=== PATIENT | female | born 1960 | race African-American/Black ===

== ENCOUNTER 2017-02-08 15:33 | Inpatient (IN) | payer MEDICARE, OTHER ==
[~2017-02-08] VITALS: Ht 152.4 cm; Wt 73.1 kg
[~2017-02-08 15:33] MED LIST: ACET500T68 PO; ALPR0.254 PO; AMLO10TA2 PO; ATOR20TA58 PO; B CO1TAB12 PO; B1/B1TAB2 PO; CALC500T27 PO; CETI10CA PO; CHOL20004 PO; CLON0.2T PO; CLON1PAT2 TD; CLON1PAT3 TD; CLOP75TA PO; DIAZ5TAB4 PO; DIPH25CA3 PO; DOXE4VIA IV; EPOE10002 IJ; FOLI0.8T21 PO; FOLI0.8T3 PO; HALO5VIA2 IJ; HYDR28OI2 TP; INSU100V SQ; INSU100V13 SQ; LIDO5CRE14 TP; LISI40TA PO; LORA0.5T PO; MAG355OR12 PO; MAGN400O4 PO; METO25TA4 PO; NITR0.4T SL; OMEG-33 PO; OMEG1CAP38 PO; ONDA4VIA4 IJ; OXYC10TA PO; OXYC5TAB PO; OXYM15MI4 NS; PHEN28OI RC; POLY17PO29 PO; PSEU30TA24 PO; QUET25TA PO; QUET50TA5 PO; SENN8.6C2 PO; SEVE800T9 PO; SODI45SP NS; VENL75CA PO; WARF5TAB7 PO; ZOLP10TA PO; [UNRECOGNIZED DRUG - CODE] MM; [UNRECOGNIZED DRUG - CODE] PO
[2017-02-08] MEDS ORDERED: DEXTROSE 50% 25 GM / 50ML DISP.SYRIN. IV ONE ×2 (15:49→16:00)
--- NOTE | 2017-02-08 16:00 | PHYS DOC ---
Past Medical History Past Medical History: Anemia, Anxiety, CVA, Diabetes-Type II, High Cholesterol , Hypertension, [place], Pneumonia, Renal Disease, Renal Failure, Schizophrenia, Other Additional Past Medical Histor: DIALYSIS PATIENT Past Surgical History: Hysterectomy, Other Additional Past Surgical Histo: shunt placement left arm, I&D of hip Alcohol Use: None Drug Use: None Adult General Chief Complaint Chief Complaint: HYPOGLYCEMIA HPI HPI Patient is a 56 year old female who presents with lethargy. Patient was at dialysis when her symptoms suddenly occurred. Patient was brought to the emergency department by EMS. Patient has history of insulin-dependent diabetes mellitus and end-stage renal disease. The patient currently responds to voice but appears very lethargic and is not providing much history at this time. Patient denies any complaints. Patient reportedly received a full course of dialysis. Patient denies any recent illnesses. No further information available at time of history taking. Review of Systems Review of Systems Patient lethargic but denies any complaints at this time Constitutional: Denies fever or chills [] Eyes: Denies change in visual acuity, redness, or eye pain [] HENT: Denies nasal congestion or sore throat [] Respiratory: Denies cough or shortness of breath [] Cardiovascular: No additional information not addressed in HPI [] GI: Denies abdominal pain, nausea, vomiting, bloody stools or diarrhea [] : Denies dysuria or hematuria [] Musculoskeletal: Denies back pain or joint pain [] Integument: Denies rash or skin lesions [] Neurologic: Denies headache, focal weakness or sensory changes [] Current Medications Current Medications Current Medications Medications (Trade) Dose Ordered Sig/Mona Start Time Stop Time Status Last Admin Dose Admin Ceftriaxone Sodium 50 ml @ 100 mls/hr 1X ONCE 02/08/17 16:45 02/08/17 17:14 DC 02/08/17 16:58 100 MLS/HR Dextrose (Dextrose 50%-Water Syringe) 25 gm STK-MED ONCE 02/08/17 15:49 02/08/17 15:50 DC Allergies Allergies Allergies Coded Allergies Type Severity Reaction Last Updated Verified Sulfa (Sulfonamide Antibiotics) Allergy Intermediate 06/29/16 Yes cranberry Allergy Intermediate 07/14/16 Yes grapefruit Allergy Intermediate 07/14/16 Yes Physical Exam Physical Exam Constitutional: Lethargic, responds to voice, normotensive. [] HENT: Normocephalic, atraumatic, bilateral external ears normal, oropharynx moist, no oral exudates, nose normal. [] Eyes: PERRLA, EOMI, conjunctiva normal, no discharge. [] Neck: Normal range of motion, no tenderness, supple, no stridor. [] Cardiovascular: Tachycardia, regular rhythm, no murmur [] Lungs & Thorax: Bilateral breath sounds clear to auscultation [] Abdomen: Bowel sounds normal, soft, no tenderness, no masses, no pulsatile masses. [] Skin: Warm, dry, no erythema, no rash. [] Back: No tenderness, no CVA tenderness. [] Extremities: Left upper arm dialysis fistula, no tenderness, no cyanosis, no clubbing, ROM intact, trace pedal edema bilaterally. [] Neurologic: Lethargic, normal motor function, normal sensory function, no focal deficits noted. [] Current Patient Data Vital Signs Vital Signs Date Time Temp Pulse Resp B/P (MAP) Pulse Ox O2 Delivery O2 Flow Rate FiO2 02/08/17 16:42 104 18 135/74 (94) 99 Room Air 02/08/17 15:53 99.7 99.7 Lab Values Laboratory Tests Test 02/08/17 15:47 02/08/17 16:00 02/08/17 16:10 02/08/17 16:20 Glucose (Fingerstick) 42 mg/dL (70-99) *L 160 mg/dL (70-99) H White Blood Count 5.2 x10^3/uL (4.0-11.0) Red Blood Count 3.06 x10^6/uL (3.50-5.40) L Hemoglobin 10.5 g/dL (12.0-15.5) L Hematocrit 31.8 % (36.0-47.0) L Mean Corpuscular Volume 104 fL (79-100) H Mean Corpuscular Hemoglobin 34 pg (25-35) Mean Corpuscular Hemoglobin Concent 33 g/dL (31-37) Red Cell Distribution Width 16.5 % (11.5-14.5) H Platelet Count 182 x10^3/uL (140-400) Neutrophils (%) (Auto) 60 % (31-73) Lymphocytes (%) (Auto) 14 % (24-48) L Monocytes (%) (Auto) 24 % (0-9) H Eosinophils (%) (Auto) 2 % (0-3) Basophils (%) (Auto) 0 % (0-3) Neutrophils # (Auto) 3.2 x10^3uL (1.8-7.7) Lymphocytes # (Auto) 0.7 x10^3/uL (1.0-4.8) L Monocytes # (Auto) 1.3 x10^3/uL (0.0-1.1) H Eosinophils # (Auto) 0.1 x10^3/uL (0.0-0.7) Basophils # (Auto) 0.0 x10^3/uL (0.0-0.2) Segmented Neutrophils % 61 % (35-66) Band Neutrophils % 5 % (0-9) Lymphocytes % 12 % (24-48) L Monocytes % 18 % (0-10) H Eosinophils % 3 % (0-5) Basophils % 1 % (0-3) Toxic Granulation Slight Platelet Estimate Adequate (ADEQUATE) Sodium Level 135 mmol/L (136-145) L Potassium Level 4.1 mmol/L (3.5-5.1) Chloride Level 96 mmol/L (98-107) L Carbon Dioxide Level 31 mmol/L (21-32) Anion Gap 8 (6-14) Blood Urea Nitrogen 12 mg/dL (7-20) Creatinine 4.1 mg/dL (0.6-1.0) H Estimated GFR (Cockcroft-Gault) 13.6 BUN/Creatinine Ratio 3 (6-20) L Glucose Level 160 mg/dL (70-99) H Calcium Level 8.9 mg/dL (8.5-10.1) Magnesium Level 2.4 mg/dL (1.8-2.4) Total Bilirubin 0.6 mg/dL (0.2-1.0) Aspartate Amino Transferase (AST) 45 U/L (15-37) H Alanine Aminotransferase (ALT) 32 U/L (14-59) Alkaline Phosphatase 112 U/L (46-116) Total Protein 7.4 g/dL (6.4-8.2) Albumin 2.8 g/dL (3.4-5.0) L Albumin/Globulin Ratio 0.6 (1.0-1.7) L Urine Collection Type Unknown Urine Color Yellow Urine Clarity Cloudy Urine pH 8.5 Urine Specific [place] <=1.005 Urine Protein 100 mg/dL (NEG-TRACE) Urine Glucose (UA) Negative mg/dL (NEG) Urine Ketones (Stick) Negative mg/dL (NEG) Urine Blood Moderate (NEG) Urine Nitrite Negative (NEG) Urine Bilirubin Negative (NEG) Urine Urobilinogen Dipstick 0.2 mg/dL (0.2 mg/dL) Urine Leukocyte Esterase Large (NEG) Urine RBC 3-5 /HPF (0-2) Urine WBC Tntc /HPF (0-4) Urine Squamous Epithelial Cells Mod /LPF Urine Bacteria Moderate /HPF (0-FEW) Laboratory Tests 02/08/17 16:10 Laboratory Tests 02/08/17 16:10 EKG EKG Interpreted by me: Heart rate 101, sinus tachycardia, normal intervals, leftward axis, no acute ST/T-wave abnormalities present [] Radiology/Procedures Radiology/Procedures [facility] [address] [place], [place] [id number] IMAGING REPORT Signed PATIENT: AARON RICKETTS ACCOUNT: [id number] : 1960 LOCATION: ER AGE: 56 SEX: F EXAM STATUS: REG ER ORD. PHYSICIAN: STAR HARTMAN MD REASON: altered mental status, low-grade fever, rule out acute cardiopulmonary abno PROCEDURE: PORTABLE CHEST 1V Indication change in mental status. Fever. A single view of the chest was obtained and is compared to an exam 08/06/2016. The heart and pulmonary vessels appear normal. The lungs are clear of acute infiltrates. There is some minimal linear scarring at the left lung base. Vascular stent is noted. IMPRESSION: No acute finding apparent in the chest DICTATED and SIGNED BY: RUDOLPH LANCE MD DATE: 02/08/17 343 CC: STAR HARTMAN MD; STAR BARBA MD ~ [] Course & Med Decision Making Course & Med Decision Making Pertinent Labs and Imaging studies reviewed. (See chart for details) Patient's serum blood glucose was supplemented with 1 amp of D50 in the emergency department. Patient had mild response on reevaluation and patient's blood sugar increased to 160. Patient's workup does show evidence of urinary tract infection. This is likely the cause of the patient's symptoms. Patient otherwise does not display any focal neurologic deficits on exam. Patient was started on IV Rocephin. The patient will be admitted for further treatment. I spoke with Dr. Hill who accepted care patient in hospital. Dragon Disclaimer Dragon Disclaimer This electronic medical record was generated, in whole or in part, using a voice recognition dictation system. Departure Departure Impression: Primary Impression: Metabolic encephalopathy Additional Impressions: UTI (urinary tract infection) Hypoglycemia ESRD (end stage renal disease) Severe protein-calorie malnutrition Disposition: ADMITTED INPATIENT Admitting Physician: Juan Carlos Hill Condition: GUARDED Referrals: STAR BARBA MD (PCP) Problem Qualifiers Additional Impressions: UTI (urinary tract infection) Urinary tract infection type: site unspecified Hematuria presence: without hematuria Qualified Codes: N39.0 - Urinary tract infection, site not specified STAR HARTMAN MD February 08, 2017 16:00
--- NOTE | 2017-02-08 16:15 | EKG ---
[facility] [address] [place] [address] Test Date: 2017-02-08 Test Time: 15:56:53 Pat Name: AARON RICKETTS Department: Room: Gender: F [employer]: : 1960 Requested By: STAR HARTMAN Order Number: [id number] Reading MD: Juanita Gill Measurements Intervals Sharon Rate: 101 P: 23 AR: 184 QRS: -1 QRSD: 88 T: 36 QT: 344 QTc: 447 Interpretive Statements SINUS TACHYCARDIA LEFTWARD AXIS QRS(T) CONTOUR ABNORMALITY CONSISTENT WITH ANTEROSEPTAL INFARCT AGE UNDETERMINED Electronically Signed On 02-13-2017 14:17:01 CDT by Juanita Gill
[2017-02-08 16:25] LABS: BILIRUBIN,URINE NEGATIVE (NEG); GLUCOSE,URINE NEGATIVE (NEG); NITRITE,URINE NEGATIVE (NEG); PH,URINE 8.5; PROTEIN,URINE 100 mg/dL (NEG-TRACE); UROBILINOGEN,URINE 0.2 mg/dL (0.2 mg/dL)
[2017-02-08 16:35] LABS: BACTERIA,URINE MODERATE /HPF (0-FEW); SQUAMOUS EPITHELIAL CELL,UR MOD /LPF; WBC,URINE TNTC /HPF (0-4)
[2017-02-08 16:38] LABS: BASO % 0 % (0-3); EOS % 2 % (0-3); HEMATOCRIT 31.8 % (36.0-47.0); HEMOGLOBIN 10.5 g/dL (12.0-15.5); LYMPH # 0.7 x10^3/uL (1.0-4.8); LYMPH % 14 % (24-48); MEAN CORPUSCULAR HEMOGLOBIN 34 pg (25-35); MEAN CORPUSCULAR HGB CONC 33 g/dL (31-37); MEAN CORPUSCULAR VOLUME 104 fL (79-100); MONO % 24 % (0-9); NEUT % 60 % (31-73); PLATELET COUNT 182 x10^3/uL (140-400); RED BLOOD COUNT 3.06 x10^6/uL (3.50-5.40); RED CELL DISTRIBUTION WIDTH 16.5 % (11.5-14.5); WHITE BLOOD COUNT 5.2 x10^3/uL (4.0-11.0)
[2017-02-08 16:49] LABS: CALCIUM 8.9 mg/dL (8.5-10.1); CREATININE 4.1 mg/dL (0.6-1.0); GFR 13.6; POTASSIUM 4.1 mmol/L (3.5-5.1)
[2017-02-08 16:53] LABS: ALBUMIN 2.8 g/dL (3.4-5.0); ALBUMIN/GLOBULIN RATIO 0.6 (1.0-1.7); TOTAL PROTEIN 7.4 g/dL (6.4-8.2)
[2017-02-08 16:54] LABS: MAGNESIUM 2.4 mg/dL (1.8-2.4); TOTAL BILIRUBIN 0.6 mg/dL (0.2-1.0)
--- NOTE | 2017-02-08 16:55 | RAD ---
Indication change in mental status. Fever. A single view of the chest was obtained and is compared to an exam 08/06/2016. The heart and pulmonary vessels appear normal. The lungs are clear of acute infiltrates. There is some minimal linear scarring at the left lung base. Vascular stent is noted. IMPRESSION: No acute finding apparent in the chest
[2017-02-08] MEDS ORDERED: ONDANSETRON PF 4 MG/2 ML VIAL. IV PRN ×2 (17:00→17:15)
[2017-02-08] MEDS ORDERED: IV DEXTROSE 5 %-0.45 % NACL 1,000 ML IV ONE (17:00)
[2017-02-08 17:08] LABS: % BASOS 1 % (0-3); % EOS 3 % (0-5)
[2017-02-08 17:09] LABS: PLT ESTIMATE ADEQUATE (ADEQUATE); TOXIC GRANULATION SLIGHT
--- NOTE | 2017-02-08 17:10 | PDOC1 ---
History and Physical Date of Admission Date of Admission 02/08/17 Identification/Chief Complaint Chief Complaint AMS Problems: Source Source: Chart review, Patient History of Present Illness History of Present Illness HPI Patient is a 56 year old female who presents with lethargy today during HD. pT is AROUsable, but very sleepy, saying " in the hosp" but cannot tell me which one, she closes her eyes all the time, able to follow my commands by squeezing my hands. Cannot get a full history 2/2 lethargy. As per ERP and nurse, pt was ok at the beginning of her Routine HD, about 3hours HD later, pt became unresponsive, and glucose was 30s. In ER Glucose was 42, improved to 160s after d50. Pt is on levemir 23u qhs as per MED REC. She was here last year several times for AMS. Past Medical History Cardiovascular: HTN, NE, Hyperlipidemia CENTRAL NERVOUS SYSTEM: CVA GI: Constipation Heme/Onc: Anemia NOS, Other Psych: Anxiety, Schizophrenia Renal/: Other Endocrine: Diabetes, Hyperparathyroidism Past Surgical History Past Surgical History: Hysterectomy, Other Family History Family History: Hypertension Social History Smoke: No ALCOHOL: none Drugs: None Current Problem List Problem List Problems Medical Problems: (1) UTI (urinary tract infection) Status: Acute Current Medications Current Medications Current Medications Medications (Trade) Dose Ordered Sig/Mona Start Time Stop Time Status Last Admin Dose Admin Ceftriaxone Sodium 1 gm/ Sodium Chloride 50 ml @ 100 mls/hr Q24H 02/09/17 17:00 Ceftriaxone Sodium 50 ml @ 100 mls/hr 1X ONCE 02/08/17 16:45 02/08/17 17:14 02/08/17 16:58 100 MLS/HR Dextrose (Dextrose 50%-Water Syringe) 25 gm STK-MED ONCE 02/08/17 15:49 02/08/17 15:50 DC Dextrose/Sodium Chloride 1,000 ml @ 60 mls/hr 1X ONCE 02/08/17 17:00 02/09/17 09:39 Ondansetron HCl (Zofran) 4 mg PRN Q8HRS PRN 02/08/17 17:00 02/09/17 16:59 Allergies Allergies Allergies Coded Allergies Type Severity Reaction Last Updated Verified Sulfa (Sulfonamide Antibiotics) Allergy Intermediate 06/29/16 Yes cranberry Allergy Intermediate 07/14/16 Yes grapefruit Allergy Intermediate 07/14/16 Yes ROS Review of System CONSTITUTIONAL: No fever or chills EYES: No recent changes SKIN: No rash or itching CARDIOVASCULAR: No chest pain, syncope, palpitations, or edema RESPIRATORY: No SOB or cough GASTROINTESTINAL: No nausea, vomiting or abdominal pain NEUROLOGICAL: No headaches or weakness ENDOCRINE: No cold or heat intolerance GENITOURINARY: No urgency or frequency of urination MUSCULOSKELETAL: No back pain or joint pain LYMPHATICS: No enlarged lymph nodes PSYCHIATRIC: No anxiety or depression Physical Exam Physical Exam GEN.: lethargy, oriented to person only. follow commands. HEENT: Head is normocephalic, atraumatic NECK: Supple. LUNGS: Clear to auscultation. HEART: RRR, S1, S2 present. Peripheral pulses intact ABDOMEN: Soft, nontender. Positive bowel sounds. EXTREMITIES: Without any cyanosis. NEUROLOGIC: Normal speech, normal tone PSYCHIATRIC: Normal affect, normal mood. SKIN: No ulcerations Vitals Vitals Vital Signs Date Time Temp Pulse Resp B/P (MAP) Pulse Ox O2 Delivery O2 Flow Rate FiO2 02/08/17 16:09 102 18 148/81 (103) 99 02/08/17 15:53 99.7 Room Air 99.7 Labs Labs Laboratory Tests Test 02/08/17 15:47 02/08/17 16:10 02/08/17 16:20 Glucose (Fingerstick) 42 mg/dL (70-99) White Blood Count 5.2 x10^3/uL (4.0-11.0) Red Blood Count 3.06 x10^6/uL (3.50-5.40) Hemoglobin 10.5 g/dL (12.0-15.5) Hematocrit 31.8 % (36.0-47.0) Mean Corpuscular Volume 104 fL (79-100) Mean Corpuscular Hemoglobin 34 pg (25-35) Mean Corpuscular Hemoglobin Concent 33 g/dL (31-37) Red Cell Distribution Width 16.5 % (11.5-14.5) Platelet Count 182 x10^3/uL (140-400) Neutrophils (%) (Auto) 60 % (31-73) Lymphocytes (%) (Auto) 14 % (24-48) Monocytes (%) (Auto) 24 % (0-9) Eosinophils (%) (Auto) 2 % (0-3) Basophils (%) (Auto) 0 % (0-3) Neutrophils # (Auto) 3.2 x10^3uL (1.8-7.7) Lymphocytes # (Auto) 0.7 x10^3/uL (1.0-4.8) Monocytes # (Auto) 1.3 x10^3/uL (0.0-1.1) Eosinophils # (Auto) 0.1 x10^3/uL (0.0-0.7) Basophils # (Auto) 0.0 x10^3/uL (0.0-0.2) Segmented Neutrophils % 61 % (35-66) Band Neutrophils % 5 % (0-9) Lymphocytes % 12 % (24-48) Monocytes % 18 % (0-10) Eosinophils % 3 % (0-5) Basophils % 1 % (0-3) Toxic Granulation Slight Platelet Estimate Adequate (ADEQUATE) Sodium Level 135 mmol/L (136-145) Potassium Level 4.1 mmol/L (3.5-5.1) Chloride Level 96 mmol/L (98-107) Carbon Dioxide Level 31 mmol/L (21-32) Anion Gap 8 (6-14) Blood Urea Nitrogen 12 mg/dL (7-20) Creatinine 4.1 mg/dL (0.6-1.0) Estimated GFR (Cockcroft-Gault) 13.6 BUN/Creatinine Ratio 3 (6-20) Glucose Level 160 mg/dL (70-99) Calcium Level 8.9 mg/dL (8.5-10.1) Magnesium Level 2.4 mg/dL (1.8-2.4) Total Bilirubin 0.6 mg/dL (0.2-1.0) Aspartate Amino Transf (AST/SGOT) 45 U/L (15-37) Alanine Aminotransferase (ALT/SGPT) 32 U/L (14-59) Alkaline Phosphatase 112 U/L (46-116) Total Protein 7.4 g/dL (6.4-8.2) Albumin 2.8 g/dL (3.4-5.0) Albumin/Globulin Ratio 0.6 (1.0-1.7) Urine Collection Type Unknown Urine Color Yellow Urine Clarity Cloudy Urine pH 8.5 Urine Specific [place] <=1.005 Urine Protein 100 mg/dL (NEG-TRACE) Urine Glucose (UA) Negative mg/dL (NEG) Urine Ketones (Stick) Negative mg/dL (NEG) Urine Blood Moderate (NEG) Urine Nitrite Negative (NEG) Urine Bilirubin Negative (NEG) Urine Urobilinogen Dipstick 0.2 mg/dL (0.2 mg/dL) Urine Leukocyte Esterase Large (NEG) Urine RBC 3-5 /HPF (0-2) Urine WBC Tntc /HPF (0-4) Urine Squamous Epithelial Cells Mod /LPF Urine Bacteria Moderate /HPF (0-FEW) Laboratory Tests Test 02/08/17 15:47 02/08/17 16:10 02/08/17 16:20 Glucose (Fingerstick) 42 mg/dL (70-99) White Blood Count 5.2 x10^3/uL (4.0-11.0) Red Blood Count 3.06 x10^6/uL (3.50-5.40) Hemoglobin 10.5 g/dL (12.0-15.5) Hematocrit 31.8 % (36.0-47.0) Mean Corpuscular Volume 104 fL (79-100) Mean Corpuscular Hemoglobin 34 pg (25-35) Mean Corpuscular Hemoglobin Concent 33 g/dL (31-37) Red Cell Distribution Width 16.5 % (11.5-14.5) Platelet Count 182 x10^3/uL (140-400) Neutrophils (%) (Auto) 60 % (31-73) Lymphocytes (%) (Auto) 14 % (24-48) Monocytes (%) (Auto) 24 % (0-9) Eosinophils (%) (Auto) 2 % (0-3) Basophils (%) (Auto) 0 % (0-3) Neutrophils # (Auto) 3.2 x10^3uL (1.8-7.7) Lymphocytes # (Auto) 0.7 x10^3/uL (1.0-4.8) Monocytes # (Auto) 1.3 x10^3/uL (0.0-1.1) Eosinophils # (Auto) 0.1 x10^3/uL (0.0-0.7) Basophils # (Auto) 0.0 x10^3/uL (0.0-0.2) Segmented Neutrophils % 61 % (35-66) Band Neutrophils % 5 % (0-9) Lymphocytes % 12 % (24-48) Monocytes % 18 % (0-10) Eosinophils % 3 % (0-5) Basophils % 1 % (0-3) Toxic Granulation Slight Platelet Estimate Adequate (ADEQUATE) Sodium Level 135 mmol/L (136-145) Potassium Level 4.1 mmol/L (3.5-5.1) Chloride Level 96 mmol/L (98-107) Carbon Dioxide Level 31 mmol/L (21-32) Anion Gap 8 (6-14) Blood Urea Nitrogen 12 mg/dL (7-20) Creatinine 4.1 mg/dL (0.6-1.0) Estimated GFR (Cockcroft-Gault) 13.6 BUN/Creatinine Ratio 3 (6-20) Glucose Level 160 mg/dL (70-99) Calcium Level 8.9 mg/dL (8.5-10.1) Magnesium Level 2.4 mg/dL (1.8-2.4) Total Bilirubin 0.6 mg/dL (0.2-1.0) Aspartate Amino Transf (AST/SGOT) 45 U/L (15-37) Alanine Aminotransferase (ALT/SGPT) 32 U/L (14-59) Alkaline Phosphatase 112 U/L (46-116) Total Protein 7.4 g/dL (6.4-8.2) Albumin 2.8 g/dL (3.4-5.0) Albumin/Globulin Ratio 0.6 (1.0-1.7) Urine Collection Type Unknown Urine Color Yellow Urine Clarity Cloudy Urine pH 8.5 Urine Specific [place] <=1.005 Urine Protein 100 mg/dL (NEG-TRACE) Urine Glucose (UA) Negative mg/dL (NEG) Urine Ketones (Stick) Negative mg/dL (NEG) Urine Blood Moderate (NEG) Urine Nitrite Negative (NEG) Urine Bilirubin Negative (NEG) Urine Urobilinogen Dipstick 0.2 mg/dL (0.2 mg/dL) Urine Leukocyte Esterase Large (NEG) Urine RBC 3-5 /HPF (0-2) Urine WBC Tntc /HPF (0-4) Urine Squamous Epithelial Cells Mod /LPF Urine Bacteria Moderate /HPF (0-FEW) VTE Prophylaxis Ordered VTE Prophylaxis Devices: Yes VTE Pharmacological Prophylaxi: Yes Assessment/Plan Assessment/Plan AMS, 2/2 metabolic encephalopahty with hypoglycemia likely possible uti ESRD on HD H/O metabolic encephalopathy dm2 on levemir htn hld h/o CAD h/o PVD, H/O BL stroke schizophrenia plan: neuro, renal consult need cont HD on ceftriaxone for now on d5 ivf for now, dc if glucose >200 hold home insulin, ssi for now avoid sedative meds for now cont meds for HTN dvt ppx ptot pt requires to see her doctors" dr. jiménez, dr. rhodes, dr. Zarate", after i explained to her hospitalist has 3 doc daily, she still kept saying dr. Rhodes not sure it is because she is lethargic for now. asked ERP to place pt to [address] [place] so that dr. Rhodes can see pt tmr. ELISSA HAYNES MD February 08, 2017 17:10
[2017-02-08] MEDS ORDERED: LIDOCAINE/PRILOCAINE TOPICAL CREAM 5GM TUBE. TP PRN (17:15)
[2017-02-08] MEDS ORDERED: ACETAMINOPHEN 500 MG TABLET PO PRN (17:15)
[2017-02-08] MEDS ORDERED: NITROGLYCERIN SUBLINGUAL 0.4 MG BOTTLE OF 25. SL SCH (17:15)
[2017-02-08] MEDS ORDERED: hydrALAZINE 20 MG/ML VIAL. IVP PRN (17:15)
[2017-02-08] MEDS ORDERED: CALCIUM CARBONATE 500 MG TABLET PO PRN (17:15)
[2017-02-08] MEDS ORDERED: diphenhydrAMINE HCL 25 MG CAPSULE PO PRN (17:15)
[2017-02-08] MEDS ORDERED: DEXTROSE 50% 25 GM / 50ML DISP.SYRIN. IV PRN (17:15)
[2017-02-08] MEDS ORDERED: IV NORMAL SALINE 1000ML BAG 1,000 ML IV PRN ×2 (18:04→20:15)
[2017-02-08] MEDS ORDERED: IV NORMAL SALINE 1000ML BAG 1,000 ML IV ONE ×2 (18:04)
[2017-02-08] MEDS: ATORVASTATIN CALCIUM 20 MG TABLET PO SCH (22:07)
[2017-02-08] MEDS: QUEtiapine 100 MG TABLET. PO SCH (22:08)
[2017-02-08] MEDS: METOPROLOL TART IMMED RELEASE 25 MG TABLET. PO SCH (22:08)
[2017-02-08] MEDS: HEPARIN PF for SUB-Q USE 5,000 UNIT/0.5 ML VIAL. SQ SCH (22:12)
[2017-02-08 22:22] VITALS: BP 159/83
[2017-02-08 23:51] VITALS: BP 111/61
--- NOTE | 2017-02-09 00:21 | ACF ---
Admission Forms Criteria URINARY COMPLICATIONS Clinical Indications for Inpatient Care (Place 'X' for any and all applicable criteria): Ongoing inpatient care may be indicated for urinary complications with ANY ONE of the following: [X ]I. Urinary tract infection requiring inpatient care as indicated by ANY ONE of the following(8)(19)(20): [ ]a) Severe symptoms (eg, high fever, severe pain) [ ]b) Vomiting or dehydration requiring ongoing inpatient care [X ]c) IV antibiotic needs that cannot be managed at lower level of care [ ]d) Hemodynamic instability [ ]e) Obstruction of collecting system by stone or tumor [ ]II. Urinary retention requiring drainage or surgery (3)(4)(5)(17)(18) [ ]III. Renal failure (Use Renal Failure Criteria for further information.) [ ]IV. Oliguria(30) [ ]V. Post obstructive diuresis requiring close monitoring of urine output and intravenous compensation for excessive fluid losses(33) Extended stay beyond goal length of stay for primary condition may be needed until ALL of the following are present(3)(4)(5)(8): [ ]a) Renal function (creatinine) at baseline, or daily decreases in creatinine consistent with renal function return [ ]b) Voiding adequately or with urinary catheter or percutaneous suprapubic tube and management regimen in place that is performable at lower level of care. [ ]c) Urine output adequate [ ]d) Fever absent or resolving [ ]e) Infection absent or treatable at next level of care The original [employer] content created by [employer] has been revised. The portions of the content which have been revised are identified through the use of italic text or in bold, and [facility] has neither reviewed nor approved the modified material. All other unmodified content is copyright [facility] [employer] Please see references footnoted in the original [facility] edition 2016 Admission Criteria Met?: Yes ASHLEY MALHOTRA February 09, 2017 00:21
[2017-02-09 03:43] VITALS: BP 144/74
[2017-02-09] MEDS: HEPARIN PF for SUB-Q USE 5,000 UNIT/0.5 ML VIAL. SQ SCH ×3 (06:09→22:00)
[2017-02-09 07:00] VITALS: BP 148/71
[2017-02-09] MEDS: INSULIN ASPART 300 UNITS/3 ML INSULN.PEN SQ SCH ×3 (08:00→17:00)
[2017-02-09] MEDS: SEVELAMER CARBONATE 800 MG TABLET. PO SCH ×3 (08:00→17:00)
[2017-02-09] MEDS: amLODIPine BESYLATE 10 MG TABLET PO SCH (09:00)
[2017-02-09] MEDS: LISINOPRIL 40 MG TABLET. PO SCH (09:00)
[2017-02-09] MEDS: METOPROLOL TART IMMED RELEASE 25 MG TABLET. PO SCH ×2 (09:00→20:59)
[2017-02-09] MEDS: CLOPIDOGREL BISULFATE 75 MG TABLET PO SCH (09:00)
--- NOTE | 2017-02-09 09:03 | PDOC ---
PROGRESS NOTES Chief Complaint Chief Complaint Metabolic encephalopathy UTI ESRD Insulin-dependent DM Hypoglycemia Severe protein-calorie malnutrition Hypertension Hyperlipidemia Anxiety Schizophrenia Hyperthyroid Anemia Constipation H/o UT H/o CVA History of Present Illness History of Present Illness Patient was lying in bed in no acute distress She does not complain of any pain Vitals Vitals Vital Signs Date Time Temp Pulse Resp B/P (MAP) Pulse Ox O2 Delivery O2 Flow Rate FiO2 02/09/17 07:00 97.8 82 18 148/71 (96) 100 Room Air 97.8 Physical Exam General: Alert, Cooperative, No acute distress Heart: Regular rate, Normal S1, Normal S2 Lungs: Clear, Other (no wheezing) Abdomen: Normal bowel sounds, Soft Extremities: No clubbing, No cyanosis Skin: No rashes, No breakdown Labs LABS Laboratory Tests Test 02/08/17 15:47 02/08/17 16:00 02/08/17 16:10 02/08/17 16:20 Glucose (Fingerstick) 42 mg/dL (70-99) 160 mg/dL (70-99) White Blood Count 5.2 x10^3/uL (4.0-11.0) Red Blood Count 3.06 x10^6/uL (3.50-5.40) Hemoglobin 10.5 g/dL (12.0-15.5) Hematocrit 31.8 % (36.0-47.0) Mean Corpuscular Volume 104 fL (79-100) Mean Corpuscular Hemoglobin 34 pg (25-35) Mean Corpuscular Hemoglobin Concent 33 g/dL (31-37) Red Cell Distribution Width 16.5 % (11.5-14.5) Platelet Count 182 x10^3/uL (140-400) Neutrophils (%) (Auto) 60 % (31-73) Lymphocytes (%) (Auto) 14 % (24-48) Monocytes (%) (Auto) 24 % (0-9) Eosinophils (%) (Auto) 2 % (0-3) Basophils (%) (Auto) 0 % (0-3) Neutrophils # (Auto) 3.2 x10^3uL (1.8-7.7) Lymphocytes # (Auto) 0.7 x10^3/uL (1.0-4.8) Monocytes # (Auto) 1.3 x10^3/uL (0.0-1.1) Eosinophils # (Auto) 0.1 x10^3/uL (0.0-0.7) Basophils # (Auto) 0.0 x10^3/uL (0.0-0.2) Segmented Neutrophils % 61 % (35-66) Band Neutrophils % 5 % (0-9) Lymphocytes % 12 % (24-48) Monocytes % 18 % (0-10) Eosinophils % 3 % (0-5) Basophils % 1 % (0-3) Toxic Granulation Slight Platelet Estimate Adequate (ADEQUATE) Sodium Level 135 mmol/L (136-145) Potassium Level 4.1 mmol/L (3.5-5.1) Chloride Level 96 mmol/L (98-107) Carbon Dioxide Level 31 mmol/L (21-32) Anion Gap 8 (6-14) Blood Urea Nitrogen 12 mg/dL (7-20) Creatinine 4.1 mg/dL (0.6-1.0) Estimated GFR (Cockcroft-Gault) 13.6 BUN/Creatinine Ratio 3 (6-20) Glucose Level 160 mg/dL (70-99) Calcium Level 8.9 mg/dL (8.5-10.1) Magnesium Level 2.4 mg/dL (1.8-2.4) Total Bilirubin 0.6 mg/dL (0.2-1.0) Aspartate Amino Transf (AST/SGOT) 45 U/L (15-37) Alanine Aminotransferase (ALT/SGPT) 32 U/L (14-59) Alkaline Phosphatase 112 U/L (46-116) Total Protein 7.4 g/dL (6.4-8.2) Albumin 2.8 g/dL (3.4-5.0) Albumin/Globulin Ratio 0.6 (1.0-1.7) Urine Collection Type Unknown Urine Color Yellow Urine Clarity Cloudy Urine pH 8.5 Urine Specific [place] <=1.005 Urine Protein 100 mg/dL (NEG-TRACE) Urine Glucose (UA) Negative mg/dL (NEG) Urine Ketones (Stick) Negative mg/dL (NEG) Urine Blood Moderate (NEG) Urine Nitrite Negative (NEG) Urine Bilirubin Negative (NEG) Urine Urobilinogen Dipstick 0.2 mg/dL (0.2 mg/dL) Urine Leukocyte Esterase Large (NEG) Urine RBC 3-5 /HPF (0-2) Urine WBC Tntc /HPF (0-4) Urine Squamous Epithelial Cells Mod /LPF Urine Bacteria Moderate /HPF (0-FEW) Test 02/08/17 17:54 02/09/17 07:54 Glucose (Fingerstick) 216 mg/dL (70-99) 167 mg/dL (70-99) Review of Systems Review of Systems General: no weakness GI: denies N/V/D/C Assessment and Plan Assessmemt and Plan Problems Medical Problems: (1) ESRD (end stage renal disease) Status: Acute (2) Hypoglycemia Status: Acute (3) Severe protein-calorie malnutrition Status: Acute (4) UTI (urinary tract infection) Status: Acute Metabolic encephalopathy UTI ESRD Insulin-dependent DM Hypoglycemia Severe protein-calorie malnutrition Hypertension Hyperlipidemia Anxiety Schizophrenia Hyperthyroid Anemia Constipation H/o UT H/o CVA Plan: -Continue antibiotics for UTI -Urine culture pending -Neuro consulted for AMS -Renal consulted- may need HD, Cr 4.1 this am -Continue SSI- gluc 216 this am -Recheck am labs -Continue IVF -PT/OT as appropriate -Subspecialty input pending Problems: Comment Review of Relevant I have reviewed the following items los (where applicable) has been applied. Labs Laboratory Tests Test 02/08/17 15:47 02/08/17 16:00 02/08/17 16:10 02/08/17 16:20 Glucose (Fingerstick) 42 mg/dL (70-99) 160 mg/dL (70-99) White Blood Count 5.2 x10^3/uL (4.0-11.0) Red Blood Count 3.06 x10^6/uL (3.50-5.40) Hemoglobin 10.5 g/dL (12.0-15.5) Hematocrit 31.8 % (36.0-47.0) Mean Corpuscular Volume 104 fL (79-100) Mean Corpuscular Hemoglobin 34 pg (25-35) Mean Corpuscular Hemoglobin Concent 33 g/dL (31-37) Red Cell Distribution Width 16.5 % (11.5-14.5) Platelet Count 182 x10^3/uL (140-400) Neutrophils (%) (Auto) 60 % (31-73) Lymphocytes (%) (Auto) 14 % (24-48) Monocytes (%) (Auto) 24 % (0-9) Eosinophils (%) (Auto) 2 % (0-3) Basophils (%) (Auto) 0 % (0-3) Neutrophils # (Auto) 3.2 x10^3uL (1.8-7.7) Lymphocytes # (Auto) 0.7 x10^3/uL (1.0-4.8) Monocytes # (Auto) 1.3 x10^3/uL (0.0-1.1) Eosinophils # (Auto) 0.1 x10^3/uL (0.0-0.7) Basophils # (Auto) 0.0 x10^3/uL (0.0-0.2) Segmented Neutrophils % 61 % (35-66) Band Neutrophils % 5 % (0-9) Lymphocytes % 12 % (24-48) Monocytes % 18 % (0-10) Eosinophils % 3 % (0-5) Basophils % 1 % (0-3) Toxic Granulation Slight Platelet Estimate Adequate (ADEQUATE) Sodium Level 135 mmol/L (136-145) Potassium Level 4.1 mmol/L (3.5-5.1) Chloride Level 96 mmol/L (98-107) Carbon Dioxide Level 31 mmol/L (21-32) Anion Gap 8 (6-14) Blood Urea Nitrogen 12 mg/dL (7-20) Creatinine 4.1 mg/dL (0.6-1.0) Estimated GFR (Cockcroft-Gault) 13.6 BUN/Creatinine Ratio 3 (6-20) Glucose Level 160 mg/dL (70-99) Calcium Level 8.9 mg/dL (8.5-10.1) Magnesium Level 2.4 mg/dL (1.8-2.4) Total Bilirubin 0.6 mg/dL (0.2-1.0) Aspartate Amino Transf (AST/SGOT) 45 U/L (15-37) Alanine Aminotransferase (ALT/SGPT) 32 U/L (14-59) Alkaline Phosphatase 112 U/L (46-116) Total Protein 7.4 g/dL (6.4-8.2) Albumin 2.8 g/dL (3.4-5.0) Albumin/Globulin Ratio 0.6 (1.0-1.7) Urine Collection Type Unknown Urine Color Yellow Urine Clarity Cloudy Urine pH 8.5 Urine Specific [place] <=1.005 Urine Protein 100 mg/dL (NEG-TRACE) Urine Glucose (UA) Negative mg/dL (NEG) Urine Ketones (Stick) Negative mg/dL (NEG) Urine Blood Moderate (NEG) Urine Nitrite Negative (NEG) Urine Bilirubin Negative (NEG) Urine Urobilinogen Dipstick 0.2 mg/dL (0.2 mg/dL) Urine Leukocyte Esterase Large (NEG) Urine RBC 3-5 /HPF (0-2) Urine WBC Tntc /HPF (0-4) Urine Squamous Epithelial Cells Mod /LPF Urine Bacteria Moderate /HPF (0-FEW) Test 02/08/17 17:54 02/09/17 07:54 Glucose (Fingerstick) 216 mg/dL (70-99) 167 mg/dL (70-99) Laboratory Tests Test 02/08/17 15:47 02/08/17 16:00 02/08/17 16:10 02/08/17 16:20 Glucose (Fingerstick) 42 mg/dL (70-99) 160 mg/dL (70-99) White Blood Count 5.2 x10^3/uL (4.0-11.0) Red Blood Count 3.06 x10^6/uL (3.50-5.40) Hemoglobin 10.5 g/dL (12.0-15.5) Hematocrit 31.8 % (36.0-47.0) Mean Corpuscular Volume 104 fL (79-100) Mean Corpuscular Hemoglobin 34 pg (25-35) Mean Corpuscular Hemoglobin Concent 33 g/dL (31-37) Red Cell Distribution Width 16.5 % (11.5-14.5) Platelet Count 182 x10^3/uL (140-400) Neutrophils (%) (Auto) 60 % (31-73) Lymphocytes (%) (Auto) 14 % (24-48) Monocytes (%) (Auto) 24 % (0-9) Eosinophils (%) (Auto) 2 % (0-3) Basophils (%) (Auto) 0 % (0-3) Neutrophils # (Auto) 3.2 x10^3uL (1.8-7.7) Lymphocytes # (Auto) 0.7 x10^3/uL (1.0-4.8) Monocytes # (Auto) 1.3 x10^3/uL (0.0-1.1) Eosinophils # (Auto) 0.1 x10^3/uL (0.0-0.7) Basophils # (Auto) 0.0 x10^3/uL (0.0-0.2) Segmented Neutrophils % 61 % (35-66) Band Neutrophils % 5 % (0-9) Lymphocytes % 12 % (24-48) Monocytes % 18 % (0-10) Eosinophils % 3 % (0-5) Basophils % 1 % (0-3) Toxic Granulation Slight Platelet Estimate Adequate (ADEQUATE) Sodium Level 135 mmol/L (136-145) Potassium Level 4.1 mmol/L (3.5-5.1) Chloride Level 96 mmol/L (98-107) Carbon Dioxide Level 31 mmol/L (21-32) Anion Gap 8 (6-14) Blood Urea Nitrogen 12 mg/dL (7-20) Creatinine 4.1 mg/dL (0.6-1.0) Estimated GFR (Cockcroft-Gault) 13.6 BUN/Creatinine Ratio 3 (6-20) Glucose Level 160 mg/dL (70-99) Calcium Level 8.9 mg/dL (8.5-10.1) Magnesium Level 2.4 mg/dL (1.8-2.4) Total Bilirubin 0.6 mg/dL (0.2-1.0) Aspartate Amino Transf (AST/SGOT) 45 U/L (15-37) Alanine Aminotransferase (ALT/SGPT) 32 U/L (14-59) Alkaline Phosphatase 112 U/L (46-116) Total Protein 7.4 g/dL (6.4-8.2) Albumin 2.8 g/dL (3.4-5.0) Albumin/Globulin Ratio 0.6 (1.0-1.7) Urine Collection Type Unknown Urine Color Yellow Urine Clarity Cloudy Urine pH 8.5 Urine Specific [place] <=1.005 Urine Protein 100 mg/dL (NEG-TRACE) Urine Glucose (UA) Negative mg/dL (NEG) Urine Ketones (Stick) Negative mg/dL (NEG) Urine Blood Moderate (NEG) Urine Nitrite Negative (NEG) Urine Bilirubin Negative (NEG) Urine Urobilinogen Dipstick 0.2 mg/dL (0.2 mg/dL) Urine Leukocyte Esterase Large (NEG) Urine RBC 3-5 /HPF (0-2) Urine WBC Tntc /HPF (0-4) Urine Squamous Epithelial Cells Mod /LPF Urine Bacteria Moderate /HPF (0-FEW) Test 02/08/17 17:54 02/09/17 07:54 Glucose (Fingerstick) 216 mg/dL (70-99) 167 mg/dL (70-99) Medications Current Medications Dextrose (Dextrose 50%-Water Syringe) 25 gm 1X ONCE IV Last administered on 15:50; Start 02/08/17 at 16:00; Stop 02/08/17 at 16:01; Status DC Dextrose (Dextrose 50%-Water Syringe) 25 gm STK-MED ONCE IV ; Start 02/08/17 at 15:49; Stop 02/08/17 at 15:50; Status DC Ceftriaxone Sodium 1 gm/ Sodium Chloride 50 ml @ 100 mls/hr Q24H IV ; Start at 17:00 Ceftriaxone Sodium 50 ml @ 100 mls/hr 1X ONCE IV Last administered on 16:58; Start 02/08/17 at 16:45; Stop 02/08/17 at 17:14; Status DC Ondansetron HCl (Zofran) 4 mg PRN Q8HRS PRN IV NAUSEA/VOMITING; Start 02/08/17 at 17:00; Stop 02/09/17 at 16:59 Dextrose/Sodium Chloride 1,000 ml @ 60 mls/hr 1X ONCE IV Last administered on 02/08/17 17:34; Start 02/08/17 at 17:00; Stop 02/09/17 at 09:39 Acetaminophen (Tylenol) 325 mg PRN Q6HRS PRN PO PAIN; Start 02/08/17 at 17:15 Amlodipine Besylate (Norvasc) 10 mg DAILY PO ; Start 02/09/17 at 09:00 Atorvastatin Calcium (Lipitor) 20 mg HS PO Last administered on 02/08/17 22:07 ; Start 02/08/17 at 21:00 Calcium Carbonate/ Glycine (Oscal) 500 mg PRN Q6HRS PRN PO HEARTBURN / GAS; Start 02/08/17 at 17:15 Clonidine HCl (Catapres Tts-3) 1 patch WEEKLY TD ; Start 02/15/17 at 09:00 Clopidogrel Bisulfate (Plavix) 75 mg DAILY PO ; Start 02/09/17 at 09:00 Diphenhydramine HCl (Benadryl) 25 mg PRN QHS PRN PO INSOMNIA; Start 02/08/17 at 17:15 Lidocaine/ Prilocaine (Emla) 5 leena 3X/WEEK PRN TP PAIN; Start 02/08/17 at 17:15 Lisinopril (Prinivil) 40 mg DAILY PO ; Start 02/09/17 at 09:00 Metoprolol Tartrate (Lopressor) 50 mg BID PO Last administered on 02/08/17 22: 08; Start 02/08/17 at 21:00 Nitroglycerin (Nitrostat) 0.4 mg PRN DAILY SL ; Start 02/08/17 at 17:15 Quetiapine Fumarate (SEROquel) 100 mg HS PO Last administered on 02/08/17 22: 08; Start 02/08/17 at 21:00 Sevelamer Carbonate (Renvela) 2,400 mg TIDWMEALS PO ; Start 02/09/17 at 08:00 Ondansetron HCl (Zofran) 4 mg PRN Q6HRS PRN IV NAUSEA/VOMITING; Start 02/08/17 at 17:15 Insulin Aspart (NovoLOG) 0-9 UNITS TIDWMEALS SQ ; Start 02/09/17 at 08:00 Dextrose (Dextrose 50%-Water Syringe) 12.5 gm PRN Q15MIN PRN IV SEE COMMENTS; Start 02/08/17 at 17:15 Heparin Sodium (Porcine) (Heparin Sq) 5,000 unit Q8HRS SQ Last administered on 02/09/17 06:09; Start 02/08/17 at 22:00 Hydralazine HCl (Apresoline) 10 mg PRN Q4HRS PRN IVP ELEVATED BP, SEE COMMENTS ; Start 02/08/17 at 17:15 Quetiapine Fumarate (SEROquel) 100 mg HS PO ; Start 02/09/17 at 22:00; Status UNV Sodium Chloride 1,000 ml @ 60 mls/hr [id number] PRN IV .; Start 02/08/17 at 18:04 ; Status Cancel Sodium Chloride 1,000 ml @ 60 mls/hr [id number] PRN IV .; Start 02/08/17 at 20:15 ; Stop 02/08/17 at 20:15; Status DC Sodium Chloride 1,000 ml @ 60 mls/hr [id number] ONCE IV ; Start 02/08/17 at 18:04 ; Stop 02/08/17 at 20:21; Status DC Sodium Chloride 1,000 ml @ 60 mls/hr 1X ONCE IV Last administered on t 18:04; Start 02/08/17 at 18:04; Stop 02/09/17 at 10:43 Active Scripts Active Clonidine Tts-3 (Clonidine) 1 Each Patch.tdwk 1 Patch TD WEEKLY Reported Sudogest (Pseudoephedrine Hcl) 30 Mg Tablet 30 Mg PO PRN Q6HRS PRN Hydrocortisone (Hydrocortisone Acetate) 28 Gm Oint...g. 28 Gm TP PRN QHS PRN Milk Of Magnesia (Magnesium Hydroxide) 400 Mg/5 Ml Oral.susp 30 Ml PO PRN QHS PRN Maalox Maximum Strength Susp (Mag Hydrox/Al Hydrox/Simeth) 355 Ml Oral.susp 30 Ml PO PRN Q6HRS PRN Lorazepam 0.5 Mg Tablet 0.5 Mg PO HS Procrit (Epoetin Aashish) 10,000 Unit/1 Ml Vial 10,000 Unit IJ WEEKLY Miralax (Polyethylene Glycol 3350) 17 Gm Powd.pack 1 Packet PO DAILY [place] 3 Fish Oil Softgel ([place]-3 Fatty Acids/Fish Oil) 1 Each Capsule. 1 Each PO DAILY Amlodipine Besylate 10 Mg Tablet 10 Mg PO DAILY B-Complex with B-12 Tablet (B1/B2/Niacin/B12/Protease) 1 Each Tablet 1 Each PO DAILY Emla Cream (Lidocaine/Prilocaine) 5 Gm Cream..g. 5 Gm TP 3X/WEEK PRN Allergy Relief D-24 Tablet (Loratadine/Pseudoephedrine) 1 Each Tab.er.24h 1 Each PO DAILY Sodium Chloride 45 Ml [place] 1-2 Sprays NS QID PRN Preparation H Ointment (Phenyleph/Mineral Oil/Petrolat) 28 Gm Oint.appl 26 Gm RC PRN Q6HRS PRN Afrin (Oxymetazoline Hcl) 15 Ml Mist 2 [place] NS BIDAFTMEAL PRN Renvela (Sevelamer Carbonate) 800 Mg Tablet 3 Cap PO TIDWMEALS Calcium (Calcium Carbonate) 500 Mg Tablet 500 Mg PO PRN PRN Nitrostat (Nitroglycerin) 0.4 Mg Tab.subl 0.4 Mg SL PRN DAILY Oxycodone Hcl 10 Mg Tablet 5 Mg PO PRN Q8HRS PRN Diphenhydramine Hcl 25 Mg Capsule 25 Mg PO PRN QHS PRN Acetaminophen 500 Mg Tablet 325 Mg PO PRN Q6HRS PRN 1-2 TABLETS Senna (Sennosides) 8.6 Mg Capsule 2 Cap PO BID Quetiapine Fumarate 25 Mg Tablet 100 Mg PO HS Metoprolol Tartrate 25 Mg Tablet 50 Mg PO BID Lisinopril 40 Mg Tablet 40 Mg PO DAILY Clopidogrel (Clopidogrel Bisulfate) 75 Mg Tablet 75 Mg PO DAILY Atorvastatin Calcium 20 Mg Tablet 20 Mg PO HS Levemir (Insulin Detemir) 100 Unit/1 Ml Vial 23 Unit SQ HS Humalog (Insulin Lispro) 100 Unit/1 Ml Vial 0 SQ TIDAC Vitals/I & O Vital Sign - Last 24 Hours 02/08/17 02/08/17 02/08/17 02/08/17 15:53 16:09 16:42 17:12 Temp 99.7 99.7 Pulse 107 102 104 87 Resp 18 18 18 B/P (MAP) 133/70 (91) 148/81 (103) 135/74 (94) 130/60 (83) Pulse Ox 100 99 99 99 O2 Delivery Room Air Room Air Room Air 02/08/17 02/08/17 02/08/17 02/08/17 17:40 18:44 19:30 22:08 Temp 99.8 99.8 Pulse 94 100 104 104 Resp 18 B/P (MAP) 139/66 (90) 149/79 (102) 153/73 (99) 153/73 Pulse Ox 99 99 96 O2 Delivery Room Air Room Air 02/08/17 02/08/17 02/09/17 02/09/17 22:22 23:51 03:43 07:00 Temp 99.5 98.5 98.8 97.8 99.5 98.5 98.8 97.8 Pulse 105 84 87 82 Resp 18 B/P (MAP) 159/83 (108) 111/61 (78) 144/74 (97) 148/71 (96) Pulse Ox 100 95 100 O2 Delivery Room Air Room Air Room Air Intake and Output 02/08/17 02/08/17 02/09/17 15:00 23:00 07:00 Intake Total 80 ml 0 ml Output Total 200 ml Balance 80 ml -200 ml RICHARD CELESTIN III DO February 09, 2017 09:03
--- NOTE | 2017-02-09 10:13 | PDOC2 ---
CONSULT Date of Consult Date of Consult DATE: 02/09/17 TIME: 10:08 Reason for Consult Reason for Consult: ESRD Referring Physician Referring Physician: DALLAS Identification/Chief Complaint Chief Complaint CONFUSION Source Source: Chart review History of Present Illness Reason for Visit: THIS IS A 56 YR OLD ADMITTED VIA THE ER WITH CONFUSION. SHE HAS ESRD AND IS ON OP HD ON TTS. SHE WENT TO HD YESTERDAY CONFUSED. SHE ALSO HAD SOME CHILLS. BCX WAS DRAWN AND SHE WAS GIVEN A GRAM OF VANCOMYCIN. AT THE END OF TX SHE REMAINED CONFUSED AND THEN WAS SENT TO THE ER. SHE IS NOTED TO HAVE AN UTI. SHE HAS HTN AND DM II. LABS ARE C/W ESRD Past Medical History Cardiovascular: HTN, AK, Hyperlipidemia CENTRAL NERVOUS SYSTEM: CVA GI: Constipation Heme/Onc: Anemia NOS, Other Psych: Anxiety, Schizophrenia Renal/: Chronic renal failure, Other Endocrine: Diabetes, Hyperparathyroidism Past Surgical History Past Surgical History: Hysterectomy, Other Family History Family History: Hypertension Social History No ALCOHOL: none Drugs: None Lives: [place]-Way Current Problem List Problem List Problems Medical Problems: (1) ESRD (end stage renal disease) Status: Acute (2) Hypoglycemia Status: Acute (3) Severe protein-calorie malnutrition Status: Acute (4) UTI (urinary tract infection) Status: Acute Current Medications Current Medications Current Medications Dextrose (Dextrose 50%-Water Syringe) 25 gm 1X ONCE IV Last administered on 15:50; Start 02/08/17 at 16:00; Stop 02/08/17 at 16:01; Status DC Dextrose (Dextrose 50%-Water Syringe) 25 gm STK-MED ONCE IV ; Start 02/08/17 at 15:49; Stop 02/08/17 at 15:50; Status DC Ceftriaxone Sodium 1 gm/ Sodium Chloride 50 ml @ 100 mls/hr Q24H IV ; Start at 17:00 Ceftriaxone Sodium 50 ml @ 100 mls/hr 1X ONCE IV Last administered on 16:58; Start 02/08/17 at 16:45; Stop 02/08/17 at 17:14; Status DC Ondansetron HCl (Zofran) 4 mg PRN Q8HRS PRN IV NAUSEA/VOMITING; Start 02/08/17 at 17:00; Stop 02/09/17 at 16:59 Dextrose/Sodium Chloride 1,000 ml @ 60 mls/hr 1X ONCE IV Last administered on 02/08/17 17:34; Start 02/08/17 at 17:00; Stop 02/09/17 at 09:39; Status DC Acetaminophen (Tylenol) 325 mg PRN Q6HRS PRN PO PAIN; Start 02/08/17 at 17:15 Amlodipine Besylate (Norvasc) 10 mg DAILY PO ; Start 02/09/17 at 09:00 Atorvastatin Calcium (Lipitor) 20 mg HS PO Last administered on 02/08/17 22:07 ; Start 02/08/17 at 21:00 Calcium Carbonate/ Glycine (Oscal) 500 mg PRN Q6HRS PRN PO HEARTBURN / GAS; Start 02/08/17 at 17:15 Clonidine HCl (Catapres Tts-3) 1 patch WEEKLY TD ; Start 02/15/17 at 09:00 Clopidogrel Bisulfate (Plavix) 75 mg DAILY PO ; Start 02/09/17 at 09:00 Diphenhydramine HCl (Benadryl) 25 mg PRN QHS PRN PO INSOMNIA; Start 02/08/17 at 17:15 Lidocaine/ Prilocaine (Emla) 5 leena 3X/WEEK PRN TP PAIN; Start 02/08/17 at 17:15 Lisinopril (Prinivil) 40 mg DAILY PO ; Start 02/09/17 at 09:00 Metoprolol Tartrate (Lopressor) 50 mg BID PO Last administered on 02/08/17 22: 08; Start 02/08/17 at 21:00 Nitroglycerin (Nitrostat) 0.4 mg PRN DAILY SL ; Start 02/08/17 at 17:15 Quetiapine Fumarate (SEROquel) 100 mg HS PO Last administered on 02/08/17 22: 08; Start 02/08/17 at 21:00 Sevelamer Carbonate (Renvela) 2,400 mg TIDWMEALS PO ; Start 02/09/17 at 08:00 Ondansetron HCl (Zofran) 4 mg PRN Q6HRS PRN IV NAUSEA/VOMITING; Start 02/08/17 at 17:15 Insulin Aspart (NovoLOG) 0-9 UNITS TIDWMEALS SQ ; Start 02/09/17 at 08:00 Dextrose (Dextrose 50%-Water Syringe) 12.5 gm PRN Q15MIN PRN IV SEE COMMENTS; Start 02/08/17 at 17:15 Heparin Sodium (Porcine) (Heparin Sq) 5,000 unit Q8HRS SQ Last administered on 02/09/17 06:09; Start 02/08/17 at 22:00 Hydralazine HCl (Apresoline) 10 mg PRN Q4HRS PRN IVP ELEVATED BP, SEE COMMENTS ; Start 02/08/17 at 17:15 Quetiapine Fumarate (SEROquel) 100 mg HS PO ; Start 02/09/17 at 22:00; Status UNV Sodium Chloride 1,000 ml @ 60 mls/hr [id number] PRN IV .; Start 02/08/17 at 18:04 ; Status Cancel Sodium Chloride 1,000 ml @ 60 mls/hr [id number] PRN IV .; Start 02/08/17 at 20:15 ; Stop 02/08/17 at 20:15; Status DC Sodium Chloride 1,000 ml @ 60 mls/hr [id number] ONCE IV ; Start 02/08/17 at 18:04 ; Stop 02/08/17 at 20:21; Status DC Sodium Chloride 1,000 ml @ 60 mls/hr 1X ONCE IV Last administered on 18:04; Start 02/08/17 at 18:04; Stop 02/09/17 at 10:43 Active Scripts Active Clonidine Tts-3 (Clonidine) 1 Each Patch.tdwk 1 Patch TD WEEKLY Reported Sudogest (Pseudoephedrine Hcl) 30 Mg Tablet 30 Mg PO PRN Q6HRS PRN Hydrocortisone (Hydrocortisone Acetate) 28 Gm Oint...g. 28 Gm TP PRN QHS PRN Milk Of Magnesia (Magnesium Hydroxide) 400 Mg/5 Ml Oral.susp 30 Ml PO PRN QHS PRN Maalox Maximum Strength Susp (Mag Hydrox/Al Hydrox/Simeth) 355 Ml Oral.susp 30 Ml PO PRN Q6HRS PRN Lorazepam 0.5 Mg Tablet 0.5 Mg PO HS Procrit (Epoetin Aashish) 10,000 Unit/1 Ml Vial 10,000 Unit IJ WEEKLY Miralax (Polyethylene Glycol 3350) 17 Gm Powd.pack 1 Packet PO DAILY Saline 3 Fish Oil Softgel (Saline-3 Fatty Acids/Fish Oil) 1 Each Capsule. 1 Each PO DAILY Amlodipine Besylate 10 Mg Tablet 10 Mg PO DAILY B-Complex with B-12 Tablet (B1/B2/Niacin/B12/Protease) 1 Each Tablet 1 Each PO DAILY Emla Cream (Lidocaine/Prilocaine) 5 Gm Cream..g. 5 Gm TP 3X/WEEK PRN Allergy Relief D-24 Tablet (Loratadine/Pseudoephedrine) 1 Each Tab.er.24h 1 Each PO DAILY Sodium Chloride 45 Ml Hooper 1-2 Sprays NS QID PRN Preparation H Ointment (Phenyleph/Mineral Oil/Petrolat) 28 Gm Oint.appl 26 Gm RC PRN Q6HRS PRN Afrin (Oxymetazoline Hcl) 15 Ml Mist 2 Hooper NS BIDAFTMEAL PRN Renvela (Sevelamer Carbonate) 800 Mg Tablet 3 Cap PO TIDWMEALS Calcium (Calcium Carbonate) 500 Mg Tablet 500 Mg PO PRN PRN Nitrostat (Nitroglycerin) 0.4 Mg Tab.subl 0.4 Mg SL PRN DAILY Oxycodone Hcl 10 Mg Tablet 5 Mg PO PRN Q8HRS PRN Diphenhydramine Hcl 25 Mg Capsule 25 Mg PO PRN QHS PRN Acetaminophen 500 Mg Tablet 325 Mg PO PRN Q6HRS PRN 1-2 TABLETS Senna (Sennosides) 8.6 Mg Capsule 2 Cap PO BID Quetiapine Fumarate 25 Mg Tablet 100 Mg PO HS Metoprolol Tartrate 25 Mg Tablet 50 Mg PO BID Lisinopril 40 Mg Tablet 40 Mg PO DAILY Clopidogrel (Clopidogrel Bisulfate) 75 Mg Tablet 75 Mg PO DAILY Atorvastatin Calcium 20 Mg Tablet 20 Mg PO HS Levemir (Insulin Detemir) 100 Unit/1 Ml Vial 23 Unit SQ HS Humalog (Insulin Lispro) 100 Unit/1 Ml Vial 0 SQ TIDAC Allergies Allergies: Coded Allergies: Sulfa (Sulfonamide Antibiotics) (Verified Allergy, Intermediate, 06/29/16) cranberry (Verified Allergy, Intermediate, 07/14/16) grapefruit (Verified Allergy, Intermediate, 07/14/16) ROS Review of System UNABLE TO OBTAIN Physical Exam General: Alert, Cooperative, No acute distress HEENT: Atraumatic, PERRLA Lungs: Clear to auscultation, Normal air movement Heart: Regular rate, Normal S1, Normal S2 Abdomen: Normal bowel sounds, Soft, No tenderness Extremities: No clubbing, No cyanosis, Other (RIGHT ARM ACCESS HAS A GOOD THRILL AND BRUIT) Neuro: Other (NO ASYMMETRY BUT CONFUSED) Psych/Mental Status: Other (CONFUSED) MUSCULOSKELETAL: No deformity Vitals VITALS Vital Signs Date Time Temp Pulse Resp B/P (MAP) Pulse Ox O2 Delivery O2 Flow Rate FiO2 02/09/17 09:00 82 148/71 02/09/17 07:00 97.8 18 100 Room Air 97.8 Labs Labs Laboratory Tests Test 02/08/17 15:47 02/08/17 16:00 02/08/17 16:10 02/08/17 16:20 Glucose (Fingerstick) 42 mg/dL (70-99) 160 mg/dL (70-99) White Blood Count 5.2 x10^3/uL (4.0-11.0) Red Blood Count 3.06 x10^6/uL (3.50-5.40) Hemoglobin 10.5 g/dL (12.0-15.5) Hematocrit 31.8 % (36.0-47.0) Mean Corpuscular Volume 104 fL (79-100) Mean Corpuscular Hemoglobin 34 pg (25-35) Mean Corpuscular Hemoglobin Concent 33 g/dL (31-37) Red Cell Distribution Width 16.5 % (11.5-14.5) Platelet Count 182 x10^3/uL (140-400) Neutrophils (%) (Auto) 60 % (31-73) Lymphocytes (%) (Auto) 14 % (24-48) Monocytes (%) (Auto) 24 % (0-9) Eosinophils (%) (Auto) 2 % (0-3) Basophils (%) (Auto) 0 % (0-3) Neutrophils # (Auto) 3.2 x10^3uL (1.8-7.7) Lymphocytes # (Auto) 0.7 x10^3/uL (1.0-4.8) Monocytes # (Auto) 1.3 x10^3/uL (0.0-1.1) Eosinophils # (Auto) 0.1 x10^3/uL (0.0-0.7) Basophils # (Auto) 0.0 x10^3/uL (0.0-0.2) Segmented Neutrophils % 61 % (35-66) Band Neutrophils % 5 % (0-9) Lymphocytes % 12 % (24-48) Monocytes % 18 % (0-10) Eosinophils % 3 % (0-5) Basophils % 1 % (0-3) Toxic Granulation Slight Platelet Estimate Adequate (ADEQUATE) Sodium Level 135 mmol/L (136-145) Potassium Level 4.1 mmol/L (3.5-5.1) Chloride Level 96 mmol/L (98-107) Carbon Dioxide Level 31 mmol/L (21-32) Anion Gap 8 (6-14) Blood Urea Nitrogen 12 mg/dL (7-20) Creatinine 4.1 mg/dL (0.6-1.0) Estimated GFR (Cockcroft-Gault) 13.6 BUN/Creatinine Ratio 3 (6-20) Glucose Level 160 mg/dL (70-99) Calcium Level 8.9 mg/dL (8.5-10.1) Magnesium Level 2.4 mg/dL (1.8-2.4) Total Bilirubin 0.6 mg/dL (0.2-1.0) Aspartate Amino Transf (AST/SGOT) 45 U/L (15-37) Alanine Aminotransferase (ALT/SGPT) 32 U/L (14-59) Alkaline Phosphatase 112 U/L (46-116) Total Protein 7.4 g/dL (6.4-8.2) Albumin 2.8 g/dL (3.4-5.0) Albumin/Globulin Ratio 0.6 (1.0-1.7) Urine Collection Type Unknown Urine Color Yellow Urine Clarity Cloudy Urine pH 8.5 Urine Specific [place] <=1.005 Urine Protein 100 mg/dL (NEG-TRACE) Urine Glucose (UA) Negative mg/dL (NEG) Urine Ketones (Stick) Negative mg/dL (NEG) Urine Blood Moderate (NEG) Urine Nitrite Negative (NEG) Urine Bilirubin Negative (NEG) Urine Urobilinogen Dipstick 0.2 mg/dL (0.2 mg/dL) Urine Leukocyte Esterase Large (NEG) Urine RBC 3-5 /HPF (0-2) Urine WBC Tntc /HPF (0-4) Urine Squamous Epithelial Cells Mod /LPF Urine Bacteria Moderate /HPF (0-FEW) Test 02/08/17 17:54 02/09/17 07:54 Glucose (Fingerstick) 216 mg/dL (70-99) 167 mg/dL (70-99) Laboratory Tests Test 02/08/17 15:47 02/08/17 16:00 02/08/17 16:10 02/08/17 16:20 Glucose (Fingerstick) 42 mg/dL (70-99) 160 mg/dL (70-99) White Blood Count 5.2 x10^3/uL (4.0-11.0) Red Blood Count 3.06 x10^6/uL (3.50-5.40) Hemoglobin 10.5 g/dL (12.0-15.5) Hematocrit 31.8 % (36.0-47.0) Mean Corpuscular Volume 104 fL (79-100) Mean Corpuscular Hemoglobin 34 pg (25-35) Mean Corpuscular Hemoglobin Concent 33 g/dL (31-37) Red Cell Distribution Width 16.5 % (11.5-14.5) Platelet Count 182 x10^3/uL (140-400) Neutrophils (%) (Auto) 60 % (31-73) Lymphocytes (%) (Auto) 14 % (24-48) Monocytes (%) (Auto) 24 % (0-9) Eosinophils (%) (Auto) 2 % (0-3) Basophils (%) (Auto) 0 % (0-3) Neutrophils # (Auto) 3.2 x10^3uL (1.8-7.7) Lymphocytes # (Auto) 0.7 x10^3/uL (1.0-4.8) Monocytes # (Auto) 1.3 x10^3/uL (0.0-1.1) Eosinophils # (Auto) 0.1 x10^3/uL (0.0-0.7) Basophils # (Auto) 0.0 x10^3/uL (0.0-0.2) Segmented Neutrophils % 61 % (35-66) Band Neutrophils % 5 % (0-9) Lymphocytes % 12 % (24-48) Monocytes % 18 % (0-10) Eosinophils % 3 % (0-5) Basophils % 1 % (0-3) Toxic Granulation Slight Platelet Estimate Adequate (ADEQUATE) Sodium Level 135 mmol/L (136-145) Potassium Level 4.1 mmol/L (3.5-5.1) Chloride Level 96 mmol/L (98-107) Carbon Dioxide Level 31 mmol/L (21-32) Anion Gap 8 (6-14) Blood Urea Nitrogen 12 mg/dL (7-20) Creatinine 4.1 mg/dL (0.6-1.0) Estimated GFR (Cockcroft-Gault) 13.6 BUN/Creatinine Ratio 3 (6-20) Glucose Level 160 mg/dL (70-99) Calcium Level 8.9 mg/dL (8.5-10.1) Magnesium Level 2.4 mg/dL (1.8-2.4) Total Bilirubin 0.6 mg/dL (0.2-1.0) Aspartate Amino Transf (AST/SGOT) 45 U/L (15-37) Alanine Aminotransferase (ALT/SGPT) 32 U/L (14-59) Alkaline Phosphatase 112 U/L (46-116) Total Protein 7.4 g/dL (6.4-8.2) Albumin 2.8 g/dL (3.4-5.0) Albumin/Globulin Ratio 0.6 (1.0-1.7) Urine Collection Type Unknown Urine Color Yellow Urine Clarity Cloudy Urine pH 8.5 Urine Specific [place] <=1.005 Urine Protein 100 mg/dL (NEG-TRACE) Urine Glucose (UA) Negative mg/dL (NEG) Urine Ketones (Stick) Negative mg/dL (NEG) Urine Blood Moderate (NEG) Urine Nitrite Negative (NEG) Urine Bilirubin Negative (NEG) Urine Urobilinogen Dipstick 0.2 mg/dL (0.2 mg/dL) Urine Leukocyte Esterase Large (NEG) Urine RBC 3-5 /HPF (0-2) Urine WBC Tntc /HPF (0-4) Urine Squamous Epithelial Cells Mod /LPF Urine Bacteria Moderate /HPF (0-FEW) Test 02/08/17 17:54 02/09/17 07:54 Glucose (Fingerstick) 216 mg/dL (70-99) 167 mg/dL (70-99) Assessment/Plan Assessment/Plan IMP UTI ANEMIA ESRD MET ENCEPHALOPATHY DM II HTN PLAN ANTIBIOTICS HD TOMORROW RAFAEL GARCIA MD February 09, 2017 10:13
[2017-02-09 19:00] VITALS: BP 143/82
[2017-02-09] MEDS ORDERED: LORazepam 0.5 MG TABLET PO PRN (20:15)
[2017-02-09] MEDS: QUEtiapine 100 MG TABLET. PO SCH (20:59)
[2017-02-09] MEDS: ATORVASTATIN CALCIUM 20 MG TABLET PO SCH (20:59)
[2017-02-09] MEDS ORDERED: DARBEPOETIN ALFA 60 MCG/0.3 ML DISP.SYRIN. SQ SCH (21:00)
[2017-02-09] MEDS ORDERED: QUEtiapine 25 MG TABLET. PO SCH (22:00)
[2017-02-09 23:00] VITALS: BP 146/87
[2017-02-10] MEDS ORDERED: LORazepam 0.5 MG TABLET PO PRN (03:00)
[2017-02-10] MEDS: HEPARIN PF for SUB-Q USE 5,000 UNIT/0.5 ML VIAL. SQ SCH ×2 (06:43→13:02)
[2017-02-10] MEDS: INSULIN ASPART 300 UNITS/3 ML INSULN.PEN SQ SCH ×2 (08:00→12:00)
[2017-02-10] MEDS: SEVELAMER CARBONATE 800 MG TABLET. PO SCH ×2 (08:00→12:50)
[2017-02-10 08:50] LABS: BASO % 1 % (0-3); EOS % 3 % (0-3); HEMATOCRIT 30.4 % (36.0-47.0); HEMOGLOBIN 10.1 g/dL (12.0-15.5); LYMPH # 0.5 x10^3/uL (1.0-4.8); LYMPH % 15 % (24-48); MEAN CORPUSCULAR HEMOGLOBIN 34 pg (25-35); MEAN CORPUSCULAR HGB CONC 33 g/dL (31-37); MEAN CORPUSCULAR VOLUME 103 fL (79-100); MONO % 13 % (0-9); NEUT % 68 % (31-73); PLATELET COUNT 237 x10^3/uL (140-400); RED BLOOD COUNT 2.96 x10^6/uL (3.50-5.40); RED CELL DISTRIBUTION WIDTH 16.2 % (11.5-14.5); WHITE BLOOD COUNT 3.3 x10^3/uL (4.0-11.0)
[2017-02-10 08:59] LABS: CALCIUM 9.1 mg/dL (8.5-10.1); CREATININE 3.1 mg/dL (0.6-1.0); GFR 18.7; POTASSIUM 3.7 mmol/L (3.5-5.1)
[2017-02-10] MEDS ORDERED: IV NORMAL SALINE 1000ML BAG 1,000 ML IV PRN (09:44)
[2017-02-10] MEDS ORDERED: DIALYSIS PATIENT. MC PRN ×2 (09:45)
--- NOTE | 2017-02-10 11:58 | PDOC ---
Renal-Progress Notes Subjective Notes Notes MORE ALERT History of Present Illness Hx of present illness STABLE Vitals Vitals Vital Signs Date Time Temp Pulse Resp B/P (MAP) Pulse Ox O2 Delivery O2 Flow Rate FiO2 02/09/17 23:00 98.6 83 17 146/87 (106) 99 Room Air 98.6 Weight Weight [ ] I.O. Intake and Output Intake and Output 02/10/17 07:00 Intake Total 820 ml Output Total 700 ml Balance 120 ml Intake Oral 820 ml Output Urine Total 700 ml # Voids 7 Labs Labs Laboratory Tests Test 02/09/17 23:38 02/10/17 08:20 02/10/17 11:12 Glucose (Fingerstick) 230 mg/dL (70-99) 134 mg/dL (70-99) White Blood Count 3.3 x10^3/uL (4.0-11.0) Red Blood Count 2.96 x10^6/uL (3.50-5.40) Hemoglobin 10.1 g/dL (12.0-15.5) Hematocrit 30.4 % (36.0-47.0) Mean Corpuscular Volume 103 fL (79-100) Mean Corpuscular Hemoglobin 34 pg (25-35) Mean Corpuscular Hemoglobin Concent 33 g/dL (31-37) Red Cell Distribution Width 16.2 % (11.5-14.5) Platelet Count 237 x10^3/uL (140-400) Neutrophils (%) (Auto) 68 % (31-73) Lymphocytes (%) (Auto) 15 % (24-48) Monocytes (%) (Auto) 13 % (0-9) Eosinophils (%) (Auto) 3 % (0-3) Basophils (%) (Auto) 1 % (0-3) Neutrophils # (Auto) 2.3 x10^3uL (1.8-7.7) Lymphocytes # (Auto) 0.5 x10^3/uL (1.0-4.8) Monocytes # (Auto) 0.4 x10^3/uL (0.0-1.1) Eosinophils # (Auto) 0.1 x10^3/uL (0.0-0.7) Basophils # (Auto) 0.0 x10^3/uL (0.0-0.2) Sodium Level 139 mmol/L (136-145) Potassium Level 3.7 mmol/L (3.5-5.1) Chloride Level 100 mmol/L (98-107) Carbon Dioxide Level 28 mmol/L (21-32) Anion Gap 11 (6-14) Blood Urea Nitrogen 9 mg/dL (7-20) Creatinine 3.1 mg/dL (0.6-1.0) Estimated GFR (Cockcroft-Gault) 18.7 Glucose Level 155 mg/dL (70-99) Calcium Level 9.1 mg/dL (8.5-10.1) Review of Systems Constitutional: yes: no symptom reported Physical Exam General Appearance: no apparent distress Skin: warm Respiratory: bilateral CTA Heart: S1S2, RRR Abdomen: soft, bowel sounds present Extremities: no edema, atrophy Neurology: alert Assessment Assessment IMP MET ENCEPHALOPATHY-BETTER UNDERLYING SCHIZOPHRENIA DM II HTN UTI ANEMIA ESRD RECENT LEFT ARM AV ACCESS THROMBECTOMY PLAN REMOVE SUTURES FROM ACCESS TODAY ANTIBIOTICS HD TODAY UF TO DW RAFAEL OSORIO MD February 10, 2017 11:58
--- NOTE | 2017-02-10 11:59 | PDOC3 ---
Discharge Summary Visit Information Date of Admission: February 08, 2017 Date of Discharge: February 10, 2017 Admitting Diagnosis Comment: AMS, 2/2 metabolic encephalopahty with hypoglycemia uti ESRD on HD H/O metabolic encephalopathy dm2 on levemir htn hld h/o CAD h/o PVD, H/O BL stroke schizophrenia Final Diagnosis Problems Medical Problems: (1) ESRD (end stage renal disease) Status: Acute (2) Hypoglycemia Status: Acute (3) Severe protein-calorie malnutrition Status: Acute (4) UTI (urinary tract infection) Status: Acute Brief Hospital Course Allergies Allergies Coded Allergies Type Severity Reaction Last Updated Verified Sulfa (Sulfonamide Antibiotics) Allergy Intermediate 06/29/16 Yes cranberry Allergy Intermediate 07/14/16 Yes grapefruit Allergy Intermediate 07/14/16 Yes Vital Signs Vital Signs Date Time Temp Pulse Resp B/P (MAP) Pulse Ox O2 Delivery O2 Flow Rate FiO2 02/09/17 23:00 98.6 83 17 146/87 (106) 99 Room Air 98.6 Lab Results Laboratory Tests Test 02/08/17 15:47 02/08/17 16:00 02/08/17 16:10 02/08/17 16:20 Glucose (Fingerstick) 42 mg/dL (70-99) 160 mg/dL (70-99) White Blood Count 5.2 x10^3/uL (4.0-11.0) Red Blood Count 3.06 x10^6/uL (3.50-5.40) Hemoglobin 10.5 g/dL (12.0-15.5) Hematocrit 31.8 % (36.0-47.0) Mean Corpuscular Volume 104 fL (79-100) Mean Corpuscular Hemoglobin 34 pg (25-35) Mean Corpuscular Hemoglobin Concent 33 g/dL (31-37) Red Cell Distribution Width 16.5 % (11.5-14.5) Platelet Count 182 x10^3/uL (140-400) Neutrophils (%) (Auto) 60 % (31-73) Lymphocytes (%) (Auto) 14 % (24-48) Monocytes (%) (Auto) 24 % (0-9) Eosinophils (%) (Auto) 2 % (0-3) Basophils (%) (Auto) 0 % (0-3) Neutrophils # (Auto) 3.2 x10^3uL (1.8-7.7) Lymphocytes # (Auto) 0.7 x10^3/uL (1.0-4.8) Monocytes # (Auto) 1.3 x10^3/uL (0.0-1.1) Eosinophils # (Auto) 0.1 x10^3/uL (0.0-0.7) Basophils # (Auto) 0.0 x10^3/uL (0.0-0.2) Segmented Neutrophils % 61 % (35-66) Band Neutrophils % 5 % (0-9) Lymphocytes % 12 % (24-48) Monocytes % 18 % (0-10) Eosinophils % 3 % (0-5) Basophils % 1 % (0-3) Toxic Granulation Slight Platelet Estimate Adequate (ADEQUATE) Sodium Level 135 mmol/L (136-145) Potassium Level 4.1 mmol/L (3.5-5.1) Chloride Level 96 mmol/L (98-107) Carbon Dioxide Level 31 mmol/L (21-32) Anion Gap 8 (6-14) Blood Urea Nitrogen 12 mg/dL (7-20) Creatinine 4.1 mg/dL (0.6-1.0) Estimated GFR (Cockcroft-Gault) 13.6 BUN/Creatinine Ratio 3 (6-20) Glucose Level 160 mg/dL (70-99) Calcium Level 8.9 mg/dL (8.5-10.1) Magnesium Level 2.4 mg/dL (1.8-2.4) Total Bilirubin 0.6 mg/dL (0.2-1.0) Aspartate Amino Transf (AST/SGOT) 45 U/L (15-37) Alanine Aminotransferase (ALT/SGPT) 32 U/L (14-59) Alkaline Phosphatase 112 U/L (46-116) Total Protein 7.4 g/dL (6.4-8.2) Albumin 2.8 g/dL (3.4-5.0) Albumin/Globulin Ratio 0.6 (1.0-1.7) Urine Collection Type Unknown Urine Color Yellow Urine Clarity Cloudy Urine pH 8.5 Urine Specific [place] <=1.005 Urine Protein 100 mg/dL (NEG-TRACE) Urine Glucose (UA) Negative mg/dL (NEG) Urine Ketones (Stick) Negative mg/dL (NEG) Urine Blood Moderate (NEG) Urine Nitrite Negative (NEG) Urine Bilirubin Negative (NEG) Urine Urobilinogen Dipstick 0.2 mg/dL (0.2 mg/dL) Urine Leukocyte Esterase Large (NEG) Urine RBC 3-5 /HPF (0-2) Urine WBC Tntc /HPF (0-4) Urine Squamous Epithelial Cells Mod /LPF Urine Bacteria Moderate /HPF (0-FEW) Test 02/08/17 17:54 02/08/17 20:36 02/09/17 07:54 02/09/17 23:38 Glucose (Fingerstick) 216 mg/dL (70-99) 167 mg/dL (70-99) 230 mg/dL (70-99) Nasal Screen MRSA (PCR) Negative (Negative) Test 02/10/17 08:20 02/10/17 11:12 White Blood Count 3.3 x10^3/uL (4.0-11.0) Red Blood Count 2.96 x10^6/uL (3.50-5.40) Hemoglobin 10.1 g/dL (12.0-15.5) Hematocrit 30.4 % (36.0-47.0) Mean Corpuscular Volume 103 fL (79-100) Mean Corpuscular Hemoglobin 34 pg (25-35) Mean Corpuscular Hemoglobin Concent 33 g/dL (31-37) Red Cell Distribution Width 16.2 % (11.5-14.5) Platelet Count 237 x10^3/uL (140-400) Neutrophils (%) (Auto) 68 % (31-73) Lymphocytes (%) (Auto) 15 % (24-48) Monocytes (%) (Auto) 13 % (0-9) Eosinophils (%) (Auto) 3 % (0-3) Basophils (%) (Auto) 1 % (0-3) Neutrophils # (Auto) 2.3 x10^3uL (1.8-7.7) Lymphocytes # (Auto) 0.5 x10^3/uL (1.0-4.8) Monocytes # (Auto) 0.4 x10^3/uL (0.0-1.1) Eosinophils # (Auto) 0.1 x10^3/uL (0.0-0.7) Basophils # (Auto) 0.0 x10^3/uL (0.0-0.2) Sodium Level 139 mmol/L (136-145) Potassium Level 3.7 mmol/L (3.5-5.1) Chloride Level 100 mmol/L (98-107) Carbon Dioxide Level 28 mmol/L (21-32) Anion Gap 11 (6-14) Blood Urea Nitrogen 9 mg/dL (7-20) Creatinine 3.1 mg/dL (0.6-1.0) Estimated GFR (Cockcroft-Gault) 18.7 Glucose Level 155 mg/dL (70-99) Calcium Level 9.1 mg/dL (8.5-10.1) Glucose (Fingerstick) 134 mg/dL (70-99) Laboratory Tests Test 02/09/17 23:38 02/10/17 08:20 02/10/17 11:12 Glucose (Fingerstick) 230 mg/dL (70-99) 134 mg/dL (70-99) White Blood Count 3.3 x10^3/uL (4.0-11.0) Red Blood Count 2.96 x10^6/uL (3.50-5.40) Hemoglobin 10.1 g/dL (12.0-15.5) Hematocrit 30.4 % (36.0-47.0) Mean Corpuscular Volume 103 fL (79-100) Mean Corpuscular Hemoglobin 34 pg (25-35) Mean Corpuscular Hemoglobin Concent 33 g/dL (31-37) Red Cell Distribution Width 16.2 % (11.5-14.5) Platelet Count 237 x10^3/uL (140-400) Neutrophils (%) (Auto) 68 % (31-73) Lymphocytes (%) (Auto) 15 % (24-48) Monocytes (%) (Auto) 13 % (0-9) Eosinophils (%) (Auto) 3 % (0-3) Basophils (%) (Auto) 1 % (0-3) Neutrophils # (Auto) 2.3 x10^3uL (1.8-7.7) Lymphocytes # (Auto) 0.5 x10^3/uL (1.0-4.8) Monocytes # (Auto) 0.4 x10^3/uL (0.0-1.1) Eosinophils # (Auto) 0.1 x10^3/uL (0.0-0.7) Basophils # (Auto) 0.0 x10^3/uL (0.0-0.2) Sodium Level 139 mmol/L (136-145) Potassium Level 3.7 mmol/L (3.5-5.1) Chloride Level 100 mmol/L (98-107) Carbon Dioxide Level 28 mmol/L (21-32) Anion Gap 11 (6-14) Blood Urea Nitrogen 9 mg/dL (7-20) Creatinine 3.1 mg/dL (0.6-1.0) Estimated GFR (Cockcroft-Gault) 18.7 Glucose Level 155 mg/dL (70-99) Calcium Level 9.1 mg/dL (8.5-10.1) Brief Hospital Course 56 y/o AA female [sex] who presented with [ ]confusion, hx schiz, found to have UTI, NOn toxic, Does not want to go back to SNU (always does this per staff ). MEdically no necessity to stay in house RX for antibiotic UTI given LAst UTI was yrs ago Refused some meds while here( DVT prophy heparin) MAR: done, no change Dispo: SNU COnsults: renal Discharge Information Condition at Discharge: Improved, Stable Disposition/Orders: Other (snf) Scheduled Amlodipine Besylate (Amlodipine Besylate), 10 MG PO DAILY, (Reported) Atorvastatin Calcium (Atorvastatin Calcium), 20 MG PO HS, (Reported) B1/B2/Niacin/B12/Protease (B-Complex with B-12 Tablet), 1 EACH PO DAILY, ( Reported) Clonidine (Clonidine Tts-3), 1 PATCH TD WEEKLY Clopidogrel Bisulfate (Clopidogrel), 75 MG PO DAILY, (Reported) Epoetin Aashish (Procrit), 10,000 UNIT IJ WEEKLY, (Reported) Insulin Detemir (Levemir), 23 UNIT SQ HS, (Reported) Insulin Lispro (Humalog), 0 SQ TIDAC, (Reported) Lisinopril (Lisinopril), 40 MG PO DAILY, (Reported) Loratadine/Pseudoephedrine (Allergy Relief D-24 Tablet), 1 EACH PO DAILY, ( Reported) Lorazepam (Lorazepam), 0.5 MG PO HS, (Reported) Metoprolol Tartrate (Metoprolol Tartrate), 50 MG PO BID, (Reported) Nitroglycerin (Nitrostat), 0.4 MG SL PRN DAILY, (Reported) [place]-3 Fatty Acids/Fish Oil ([place] 3 Fish Oil Softgel), 1 EACH PO DAILY, ( Reported) Oxymetazoline Hcl (Afrin), 2 SPRAY NS BIDAFTMEAL PRN, (Reported) Polyethylene Glycol 3350 (Miralax), 1 PACKET PO DAILY, (Reported) Quetiapine Fumarate (Quetiapine Fumarate), 100 MG PO HS, (Reported) Sennosides (Senna), 2 CAP PO BID, (Reported) Sevelamer Carbonate (Renvela), 3 CAP PO TIDWMEALS, (Reported) Scheduled PRN Acetaminophen (Acetaminophen), 325 MG PO PRN Q6HRS PRN for PAIN, (Reported) Calcium Carbonate (Calcium), 500 MG PO PRN PRN for HEARTBURN / GAS, (Reported) Diphenhydramine Hcl (Diphenhydramine Hcl), 25 MG PO PRN QHS PRN for INSOMNIA, ( Reported) Hydrocortisone Acetate (Hydrocortisone), 28 GM TP PRN QHS PRN for ITCHING, ( Reported) Lidocaine/Prilocaine (Emla Cream), 5 GM TP 3X/WEEK PRN for PAIN, (Reported) Mag Hydrox/Al Hydrox/Simeth (Maalox Maximum Strength Susp), 30 ML PO PRN Q6HRS PRN for INDIGESTION, (Reported) Magnesium Hydroxide (Milk Of Magnesia), 30 ML PO PRN QHS PRN for INDIGESTION, ( Reported) Oxycodone Hcl (Oxycodone Hcl), 5 MG PO PRN Q8HRS PRN for PAIN, (Reported) Phenyleph/Mineral Oil/Petrolat (Preparation H Ointment), 26 GM RC PRN Q6HRS PRN for RECTAL PAIN, (Reported) Pseudoephedrine Hcl (Sudogest), 30 MG PO PRN Q6HRS PRN for ALLERGIES, (Reported) Sodium Chloride (Sodium Chloride), 1-2 SPRAYS NS QID PRN for ALLERGIES, ( Reported) RNEATO ESPINAL MD February 10, 2017 11:59
[2017-02-10] MEDS ORDERED: CIPR500T94 PO (12:02)
[2017-02-10 12:51] VITALS: BP 146/87
[2017-02-10] MEDS: METOPROLOL TART IMMED RELEASE 25 MG TABLET. PO SCH (12:51)
[2017-02-10] MEDS: LISINOPRIL 40 MG TABLET. PO SCH (12:51)
[2017-02-10] MEDS: amLODIPine BESYLATE 10 MG TABLET PO SCH (12:51)
[2017-02-10] MEDS: CLOPIDOGREL BISULFATE 75 MG TABLET PO SCH (12:52)
[2017-02-10 23:11] LABS: HEP B SURFACE ABDY Reactive (.)
[2017-02-15] MEDS ORDERED: cloNIDine TTS-3 1 PATCH PATCH.TDWK TD SCH (09:00)
== END 2017-02-10 13:50 | DRG 637 ==
LOC: ER 15:33 → ED HOLD 16:50 → 5 NORTH 20:55
PROVIDERS: ADMIT Internal Medicine; ATTEND Internal Medicine
DX: E11.649 Type 2 diabetes mellitus with hypoglycemia without coma (principal); G93.41 Metabolic encephalopathy; E43 Unspecified severe protein-calorie malnutrition; N39.0 Urinary tract infection, site not specified; I12.0 Hypertensive chronic kidney disease with stage 5 chronic kidney disease or end stage renal disease; N18.6 End stage renal disease; D64.9 Anemia, unspecified; E05.90 Thyrotoxicosis, unspecified without thyrotoxic crisis or storm; E11.22 Type 2 diabetes mellitus with diabetic chronic kidney disease; E78.00 Pure hypercholesterolemia, unspecified; E78.5 Hyperlipidemia, unspecified; F20.9 Schizophrenia, unspecified; F41.9 Anxiety disorder, unspecified; I25.2 Old myocardial infarction; Z79.4 Long term (current) use of insulin; Z82.49 Family history of ischemic heart disease and other diseases of the circulatory system; Z86.73 Personal history of transient ischemic attack (TIA), and cerebral infarction without residual deficits; Z99.2 Dependence on renal dialysis; Z90.710 Acquired absence of both cervix and uterus; E21.3 Hyperparathyroidism, unspecified; Z68.35 Body mass index [BMI] 35.0-35.9, adult; I25.10 Atherosclerotic heart disease of native coronary artery without angina pectoris; E11.51 Type 2 diabetes mellitus with diabetic peripheral angiopathy without gangrene
CPT/HCPCS: 36415; 71010; 80048; 80053; 81001; 82947; 83735; 85007; 85027; 86705; 86706; 87086; 87340; 87341; 87641; 93005; 96365; J0690; J0881; J2405; J7030; J7042; 99285-25

== ENCOUNTER 2017-08-02 13:36 | Inpatient (IN) | payer MEDICARE, OTHER ==
[~2017-08-02] VITALS: Ht 154.9 cm; Wt 83.9 kg
[~2017-08-02 13:36] MED LIST changes: -CALC500T27 PO; +CALC500T30 PO; -CHOL20004 PO; +CHOL200074 PO; +CIPR500T94 PO; -EPOE10002 IJ; +EPOE10005 IJ; -MAGN400O4 PO; +MAGN400O7 PO; -OXYC5TAB PO; +OXYC5TAB95 PO
--- NOTE | 2017-08-02 15:29 | PHYS DOC ---
Past Medical History Past Medical History: Anemia, Anxiety, CVA, Diabetes-Type II, High Cholesterol , Hypertension, MT, Pneumonia, Renal Disease, Renal Failure, Schizophrenia, Other Additional Past Medical Histor: DIALYSIS PATIENT Past Surgical History: Hysterectomy, Other Additional Past Surgical Histo: shunt placement left arm, I&D of hip Alcohol Use: None Drug Use: None Adult General Chief Complaint Chief Complaint: DIALYSIS PROBLEM HPI HPI Patient is a 57 year old F who presents with dialysis fistula problem. Patient was sent from the correction because she has not been able dialyze for the past 5 days secondary to her fistula being clotted. Patient's fistula is her left upper extremity. Patient has underlying dementia and has no idea why she is here in the emergency room. Patient is alert and oriented 2. Patient is a very poor historian. Patient cannot tell me when the last time she dialyzed. Patient states she has no complaints. Review of Systems Review of Systems Review of systems is limited secondary to patient's clinical condition. Allergies Allergies Allergies Coded Allergies Type Severity Reaction Last Updated Verified Sulfa (Sulfonamide Antibiotics) Allergy Intermediate 06/29/16 Yes cranberry Allergy Intermediate 07/14/16 Yes grapefruit Allergy Intermediate 07/14/16 Yes Physical Exam Physical Exam GEN.: No apparent distress. Alert and oriented x2, confused possibly a neuro baseline HEENT: Head is normocephalic, atraumatic NECK: Supple. LUNGS: CTAB. HEART: RRR, S1, S2 present. Peripheral pulses intact ABDOMEN: Soft, nontender. Positive bowel sounds. EXTREMITIES: Without any cyanosis, left upper extremity where patient's dialysis fistula is has no palpable thrill and no auscultated bruit NEUROLOGIC: Normal speech, normal tone PSYCHIATRIC: Normal affect, normal mood. SKIN: No ulcerations Current Patient Data Vital Signs Vital Signs Date Time Temp Pulse Resp B/P (MAP) Pulse Ox O2 Delivery O2 Flow Rate FiO2 08/02/17 17:38 100 20 160/83 (108) Room Air 08/02/17 16:38 96 08/02/17 14:32 98.7 98.7 Lab Values Laboratory Tests Test 08/02/17 15:42 White Blood Count 3.3 x10^3/uL (4.0-11.0) L Red Blood Count 3.14 x10^6/uL (3.50-5.40) L Hemoglobin 10.4 g/dL (12.0-15.5) L Hematocrit 31.4 % (36.0-47.0) L Mean Corpuscular Volume 100 fL (79-100) Mean Corpuscular Hemoglobin 33 pg (25-35) Mean Corpuscular Hemoglobin Concent 33 g/dL (31-37) Red Cell Distribution Width 15.9 % (11.5-14.5) H Platelet Count 250 x10^3/uL (140-400) Neutrophils (%) (Auto) 52 % (31-73) Lymphocytes (%) (Auto) 24 % (24-48) Monocytes (%) (Auto) 21 % (0-9) H Eosinophils (%) (Auto) 4 % (0-3) H Basophils (%) (Auto) 0 % (0-3) Neutrophils # (Auto) 1.7 x10^3uL (1.8-7.7) L Lymphocytes # (Auto) 0.8 x10^3/uL (1.0-4.8) L Monocytes # (Auto) 0.7 x10^3/uL (0.0-1.1) Eosinophils # (Auto) 0.1 x10^3/uL (0.0-0.7) Basophils # (Auto) 0.0 x10^3/uL (0.0-0.2) Segmented Neutrophils % 56 % (35-66) Lymphocytes % 26 % (24-48) Monocytes % 18 % (0-10) H Platelet Estimate Adequate (ADEQUATE) Sodium Level 128 mmol/L (136-145) L Potassium Level 5.9 mmol/L (3.5-5.1) H Chloride Level 89 mmol/L (98-107) L Carbon Dioxide Level 25 mmol/L (21-32) Anion Gap 14 (6-14) Blood Urea Nitrogen 101 mg/dL (7-20) H Creatinine 14.8 mg/dL (0.6-1.0) H Estimated GFR (Cockcroft-Gault) 3.1 Glucose Level 255 mg/dL (70-99) H Calcium Level 9.2 mg/dL (8.5-10.1) Laboratory Tests 08/02/17 15:42 Laboratory Tests 08/02/17 15:42 EKG EKG [] Radiology/Procedures Radiology/Procedures Ultrasound arterial left upper extremity: IMPRESSION: Occlusive thrombus in the patient's left upper arm dialysis shunt extending into a left brachial vein and the left axillary vein. [] Course & Med Decision Making Course & Med Decision Making Pertinent Labs and Imaging studies reviewed. (See chart for details) ED course: Patient was seen and examined emergency room CBC, CMP, ultrasound left external ear ordered Data patient on plan to admit to have a fistula taking care of 1831: Discussed CC/HP/PMH with Dr. Cardona and recommends admit with vascular surgery on consult 1939: Discussed CC/HP/PMH with Dr. Conner and recommends admit and consult IR 1944: Discussed CC/HP/PMH with Dr. Molina and will evaluate the patient tomorrow for shunt clot and dialysis access MDM: After reviewing the chart, CC/HPI/PMH, physical exam, [lab results], [ radiological results], I do not believe the patient needs emergent dialysis and will treat the potassium of 5.9 with medication and admit the patient to have the clot removed the shunt and dialysis tomorrow. [] Dragon Disclaimer Dragon Disclaimer This electronic medical record was generated, in whole or in part, using a voice recognition dictation system. Departure Departure Impression: Primary Impression: Clotted dialysis shunt Disposition: ADMITTED INPATIENT Admitting Physician: Other (Dr. Cardona) Condition: STABLE Referrals: UNKNOWN PCP NAME (PCP) AMARJIT JAMES DO Aug 02, 2017 15:29
[2017-08-02 16:01] LABS: BASO % 0 % (0-3); EOS % 4 % (0-3); HEMATOCRIT 31.4 % (36.0-47.0); HEMOGLOBIN 10.4 g/dL (12.0-15.5); LYMPH # 0.8 x10^3/uL (1.0-4.8); LYMPH % 24 % (24-48); MEAN CORPUSCULAR HEMOGLOBIN 33 pg (25-35); MEAN CORPUSCULAR HGB CONC 33 g/dL (31-37); MEAN CORPUSCULAR VOLUME 100 fL (79-100); MONO % 21 % (0-9); NEUT % 52 % (31-73); PLATELET COUNT 250 x10^3/uL (140-400); RED BLOOD COUNT 3.14 x10^6/uL (3.50-5.40); RED CELL DISTRIBUTION WIDTH 15.9 % (11.5-14.5); WHITE BLOOD COUNT 3.3 x10^3/uL (4.0-11.0)
[2017-08-02 16:02] LABS: CALCIUM 9.2 mg/dL (8.5-10.1); CREATININE 14.8 mg/dL (0.6-1.0); GFR 3.1; POTASSIUM 5.9 mmol/L (3.5-5.1)
--- NOTE | 2017-08-02 17:00 | RAD ---
Left upper extremity venous ultrasound, 08/02/2017: History: Left upper extremity pain Duplex evaluation was performed including grayscale, color-flow and spectral Doppler analysis. Patient cooperation was suboptimal due to dementia. There is a dialysis shunt in the left upper arm arising from the brachial artery. There is occlusive thrombus within the shunt. The occlusive thrombus extends into a brachial vein as well as into the left axillary vein. The axillary vein thrombus is occlusive. The left subclavian, cephalic and internal jugular veins are patent. Patent radial and ulnar veins are evident in the left forearm. IMPRESSION: Occlusive thrombus in the patient's left upper arm dialysis shunt extending into a left brachial vein and the left axillary vein.
[2017-08-02 18:20] LABS: PLT ESTIMATE ADEQUATE (ADEQUATE)
[2017-08-02] MEDS ORDERED: MORPHINE SULFATE 4 MG/ML DISP.SYRIN. IV PRN (18:45)
[2017-08-02] MEDS ORDERED: ONDANSETRON PF 4 MG/2 ML VIAL. IV PRN (18:45)
[2017-08-02] MEDS ORDERED: ACETAMINOPHEN 325 MG TABLET. PO PRN ×2 (18:45→22:15)
[2017-08-02] MEDS ORDERED: SODIUM POLYSTYRENE SULFONATE 15 GM/60 ML ORAL.SUSP. PO ONE (19:45)
[2017-08-02] MEDS ORDERED: CALCIUM GLUCONATE 1,000 MG/10 ML VIAL. IVP ONE (19:45)
[2017-08-02] MEDS ORDERED: INSULIN REGULAR 100 UNIT/ML 10ML VIAL. IV ONE (19:45)
[2017-08-02] MEDS ORDERED: SODIUM BICARB ADULT 8.4% 50 MEQ/50 ML DISP.SYRIN. IV ONE (19:45)
[2017-08-02] MEDS ORDERED: DEXTROSE 50% 25 GM / 50ML DISP.SYRIN. IV ONE (19:45)
[2017-08-02] MEDS ORDERED: SODIUM CHLORIDE 0.65% NASAL SPRAY 45ML BOTTLE. NS PRN (22:15)
[2017-08-02] MEDS ORDERED: MAG HYDROX/ALUMINUM HYD/SIMETH 30 ML ORAL.SUSP PO PRN (22:15)
[2017-08-02] MEDS ORDERED: PHENYLEPH/MINERAL OIL/PETROLAT RECTAL OINTMENT 28GM TUBE. RC PRN (22:15)
[2017-08-02] MEDS ORDERED: PSEUDOEPHEDRINE 30 MG TABLET. PO PRN (22:15)
[2017-08-02] MEDS ORDERED: diphenhydrAMINE HCL 25 MG CAPSULE PO PRN (22:15)
[2017-08-02] MEDS ORDERED: NITROGLYCERIN SUBLINGUAL 0.4 MG BOTTLE OF 25. SL PRN (22:15)
[2017-08-02] MEDS ORDERED: CALCIUM CARBONATE 500 MG TABLET PO PRN (22:15)
[2017-08-02 22:35] VITALS: BP 166/85
[2017-08-02] MEDS ORDERED: HEPARIN for IV BOLUS 10,000 UNIT/10 ML VIAL. IV PRN ×2 (22:45)
[2017-08-02 23:00] VITALS: BP 148/79
[2017-08-02] MEDS ORDERED: INSULIN DETEMIR 300 UNITS/3 ML INSULN.PEN. SQ SCH (23:00)
[2017-08-02] MEDS ORDERED: HEPARIN for IV BOLUS 10,000 UNIT/10 ML VIAL. IV ONE (23:00)
[2017-08-02] MEDS: METOPROLOL TART IMMED RELEASE 25 MG TABLET. PO SCH (23:08)
[2017-08-02] MEDS: ATORVASTATIN CALCIUM 20 MG TABLET PO SCH (23:08)
[2017-08-02] MEDS: QUEtiapine 300 MG TAB.ER.24H. PO SCH (23:08)
[2017-08-02] MEDS: LORazepam 0.5 MG TABLET PO SCH (23:08)
--- NOTE | 2017-08-02 23:11 | HP ---
ADMIT DATE: 08/02/2017 CHIEF COMPLAINT: Thrombosed AV fistula. HISTORY OF PRESENT ILLNESS: The patient is a 57-year-old -[place] woman, currently residing in a long term with multiple medical as well as psychiatric issues, who presents with occluded AV fistula for dialysis. Apparently, this was first noted last Tuesday, dialysis could not be performed. She was brought back to dialysis yesterday, once again no success. Today, the decision was made to admit her to the hospital to get this issue resolved. Last dialysis was essentially 1 week ago. The patient herself feels okay. She is not complaining of significant pain, although on palpation, has some pain in her upper arm, close to the axilla, at the end of the shunt. She denies any fevers, chills or other problems. PAST MEDICAL HISTORY: End-stage renal disease, on dialysis; CAD; hypertension; hyperlipidemia; CVA; anemia of renal disease; anxiety; schizophrenia; diabetes and hyperparathyroidism. PAST SURGICAL HISTORY: She is status post hysterectomy. FAMILY HISTORY: Positive for hypertension. SOCIAL HISTORY: Currently in a long term. No toxic habits. ALLERGIES: SULFA, CRANBERRY AND GRAPEFRUIT. MEDICATIONS: MAR reconciled with home medications. REVIEW OF SYSTEMS: Positive only for lethargy and a mild, very focal pain in her upper arm, close to the axilla on the left. Rest of organ system review is completely negative. PHYSICAL EXAMINATION: VITAL SIGNS: Show a blood pressure of 186/94, heart rate of 94 and respiratory rate at 21. Of note, blood pressure previously was in one-teens to 130s. GENERAL: This is a morbidly obese 57-year-old -[place] woman, awake, oriented to person, in no acute distress. HEENT: Shows no scleral icterus. NECK: Supple. LUNGS: Clear bilaterally. HEART: Regular rate and rhythm. ABDOMEN: Obese. Positive bowel sounds. EXTREMITIES: Show no edema. Significant bruising around shunt in left upper extremity. SKIN: Warm, soft and dry. No rash. PSYCHIATRIC: Affect is flat. LABORATORY DATA: CBC with a WBC of 3.3, which is essentially her baseline; hemoglobin of 10.4 and platelets of 250,000. Chemistries with a BUN and creatinine of 101 and 14.8; in comparison, latest labs available here in January of this year, we had 9 and 3.1 respectively. Electrolytes with a sodium of 128, potassium 5.9, glucose at 255 and calcium 9.2. Phosphorus not obtained. IMAGING: Ultrasound of upper extremity, left, shows occlusive thrombus in the patient's left upper arm dialysis shunt, extending into the left brachial vein and left axillary vein. ASSESSMENT AND PLAN: The patient is a 57-year-old -[place] woman with end-stage renal disease, presenting with extensive clot in her fistula, extending all the way to the axillary vein. We will place her on heparin IV for now. Vascular Surgery has been consulted for a thrombectomy hopefully in the morning. She is in urgent need of dialysis as well. If the shunt cannot be addressed quickly, may need temporary catheter for dialysis. We will obtain a Nephrology input as well. Her sodium currently is significantly decreased, suspect related to possible fluid overload. She is asymptomatic otherwise. Hopefully, this can be addressed with dialysis in the a.m. There is a significant home medication regimen. This was reviewed. All her secondary prevention medications will be continued for the time being, although we will place Plavix on hold while on IV heparin. We will continue her diabetic regimen as well, add insulin sliding scale to this. All other home medications including psychiatric regimen will be continued. CELINA ORTIZ MD DR: SUGAR/lena JOB#: [id number] / [id number] SUNG
[2017-08-02] MEDS: HEPARIN 25,000UTS/500ML PREMIX 500 ML IV PRN (23:35)
[2017-08-03] VITALS (11 sets, daily range): BP systolic 111–167; BP diastolic 68–90
[2017-08-03] MEDS: ANTI-COAG MONITOR BY PHARMACY. MC PRN ×2 (02:50→14:36)
[2017-08-03 05:28] LABS: BASO % 1 % (0-3); EOS % 4 % (0-3); HEMATOCRIT 28.9 % (36.0-47.0); HEMOGLOBIN 9.6 g/dL (12.0-15.5); LYMPH # 0.8 x10^3/uL (1.0-4.8); LYMPH % 24 % (24-48); MEAN CORPUSCULAR HEMOGLOBIN 34 pg (25-35); MEAN CORPUSCULAR HGB CONC 33 g/dL (31-37); MEAN CORPUSCULAR VOLUME 100 fL (79-100); MONO % 17 % (0-9); NEUT % 55 % (31-73); PLATELET COUNT 230 x10^3/uL (140-400); RED BLOOD COUNT 2.88 x10^6/uL (3.50-5.40); RED CELL DISTRIBUTION WIDTH 15.6 % (11.5-14.5); WHITE BLOOD COUNT 3.3 x10^3/uL (4.0-11.0)
[2017-08-03 06:02] LABS: CALCIUM 8.8 mg/dL (8.5-10.1); CREATININE 14.7 mg/dL (0.6-1.0); GFR 3.1; POTASSIUM 5.4 mmol/L (3.5-5.1)
[2017-08-03] MEDS: SEVELAMER CARBONATE 800 MG TABLET. PO SCH ×3 (08:00→17:00)
[2017-08-03 08:13] LABS: INR 1.1 (0.8-1.1); PROTHROMBIN TIME PATIENT 13.4 SEC (11.7-14.0)
[2017-08-03] MEDS: POLYETHYLENE GLYCOL 3350 17 GM PACKET. PO SCH (09:00)
[2017-08-03] MEDS: METOPROLOL TART IMMED RELEASE 25 MG TABLET. PO SCH ×2 (09:00→19:30)
[2017-08-03] MEDS: PSEUDOEPHEDRINE ER 120 MG TABLET.ER. PO SCH ×2 (09:00→19:30)
[2017-08-03] MEDS: CETIRIZINE HCL 10 MG TABLET. PO SCH (09:00)
[2017-08-03] MEDS: LISINOPRIL 40 MG TABLET. PO SCH (09:00)
[2017-08-03] MEDS: SENNOSIDES 8.6 MG TABLET PO SCH ×2 (09:00→19:30)
[2017-08-03] MEDS: OMEGA-3 FATTY ACIDS/FISH OIL 1,000 MG CAPSULE. PO SCH (09:00)
[2017-08-03] MEDS: CLOPIDOGREL BISULFATE 75 MG TABLET PO SCH (09:00)
[2017-08-03] MEDS: QUEtiapine 300 MG TAB.ER.24H. PO SCH ×2 (09:00→19:30)
[2017-08-03] MEDS ORDERED: LIDOCAINE/PRILOCAINE TOPICAL CREAM 5GM TUBE. TP SCH (09:00)
[2017-08-03] MEDS: amLODIPine BESYLATE 10 MG TABLET PO SCH (09:00)
--- NOTE | 2017-08-03 09:50 | PDOC2 ---
CONSULT Date of Consult Date of Consult DATE: 08/03/17 TIME: 09:46 Past Medical History Cardiovascular: HTN, MS, Hyperlipidemia CENTRAL NERVOUS SYSTEM: CVA GI: Constipation Heme/Onc: Anemia NOS, Other Psych: Anxiety, Schizophrenia Renal/: Chronic renal failure, Other Endocrine: Diabetes, Hyperparathyroidism Past Surgical History Past Surgical History: Hysterectomy, Other Family History Family History: Hypertension Social History ALCOHOL: none Drugs: None Lives: [facility] Current Problem List Problem List Problems Medical Problems: (1) Clotted dialysis shunt Status: Acute Current Medications Current Medications Current Medications Ondansetron HCl (Zofran) 4 mg PRN Q8HRS PRN IV NAUSEA/VOMITING; Start at 18:45; Stop 08/03/17 at 18:44 Morphine Sulfate 4 mg PRN Q2HR PRN IV PAIN; Start 08/02/17 at 18:45; Stop at 18:44 Acetaminophen (Tylenol) 650 mg PRN Q4HRS PRN PO FEVER; Start 08/02/17 at 18:45 ; Stop 08/03/17 at 18:44 Sodium Bicarbonate 50 meq 1X ONCE IV Last administered on 08/02/17 19:56; Start 08/02/17 at 19:45; Stop 08/02/17 at 19:49; Status DC Sodium Polystyrene Sulfonate (Kayexalate) 15 gm 1X ONCE PO Last administered on 08/02/17 19:56; Start 08/02/17 at 19:45; Stop 08/02/17 at 19:49; Status DC Calcium Gluconate (Calcium Gluconate) 1,000 mg 1X ONCE IVP Last administered on 08/02/17 19:56; Start 08/02/17 at 19:45; Stop 08/02/17 at 19:49; Status DC Insulin Human Regular (NovoLIN R VIAL) 10 unit 1X ONCE IV Last administered on 08/02/17 20:02; Start 08/02/17 at 19:45; Stop 08/02/17 at 19:49; Status DC Dextrose (Dextrose 50%-Water Syringe) 25 gm 1X ONCE IV Last administered on 19:56; Start 08/02/17 at 19:45; Stop 08/02/17 at 19:49; Status DC Acetaminophen (Tylenol) 325 mg PRN Q6HRS PRN PO MILD PAIN; Start 08/02/17 at 22:15 Amlodipine Besylate (Norvasc) 10 mg DAILY PO ; Start 08/03/17 at 09:00 Atorvastatin Calcium (Lipitor) 20 mg HS PO Last administered on 08/02/17 23: 08; Start 08/02/17 at 23:00 Calcium Carbonate/ Glycine (Oscal) 500 mg PRN Q4HRS PRN PO HEARTBURN / GAS; Start 08/02/17 at 22:15 Clonidine HCl (Catapres Tts-3) 1 patch WEEKLY TD ; Start 08/09/17 at 09:00 Clopidogrel Bisulfate (Plavix) 75 mg DAILY PO ; Start 08/03/17 at 09:00 Diphenhydramine HCl (Benadryl) 25 mg PRN QHS PRN PO INSOMNIA; Start 08/02/17 at 22:15 Darbepoetin Aashish (Aranesp) 25 mcg WEEKLYHS SQ ; Start 08/09/17 at 21:00 Lidocaine/ Prilocaine (Emla) 5 leena 3X/WEEK TP ; Start 08/03/17 at 09:00 Lisinopril (Prinivil) 40 mg DAILY PO ; Start 08/03/17 at 09:00 Lorazepam (Ativan) 0.5 mg HS PO Last administered on 08/02/17 23:08; Start 08/02/17 at 23:00 Al Hydroxide/Mg Hydroxide (Mylanta Plus Xs) 30 ml PRN Q6HRS PRN PO INDIGESTION ; Start 08/02/17 at 22:15; Status UNV Metoprolol Tartrate (Lopressor) 50 mg BID PO Last administered on 08/02/17 23 :08; Start 08/02/17 at 23:00 Nitroglycerin (Nitrostat) 0.4 mg PRN DAILY PRN SL CHEST PAIN; Start 08/02/17 at 22:15 Phenyleph/Shark Oil/Min Oil/Petrol (Preparation H) 1 leena PRN Q6HRS PRN RC RECTAL PAIN; Start 08/02/17 at 22:15 Polyethylene Glycol (miraLAX PACKET) 17 gm DAILY PO ; Start 08/03/17 at 09:00 Pseudoephedrine HCl (Sudafed) 30 mg PRN Q6HRS PRN PO ALLERGY; Start 08/02/17 at 22:15 Sevelamer Carbonate (Renvela) 2,400 mg TIDWMEALS PO ; Start 08/03/17 at 08:00 Sodium Chloride (Saline Mist Nasal) 1 leena PRN QID PRN NS ALLERGY; Start at 22:15 Insulin Detemir (Levemir) 23 units QHS SQ ; Start 08/02/17 at 23:00 Cetirizine HCl (ZyrTEC) 10 mg DAILY PO ; Start 08/03/17 at 09:00 Fish Oil (Fish Oil) 1,000 mg DAILY PO ; Start 08/03/17 at 09:00 Sennosides (Senna) 17.2 mg BID PO ; Start 08/03/17 at 09:00 Quetiapine Fumarate (SEROquel XR) 300 mg BID PO Last administered on 23:08; Start 08/02/17 at 23:00 Pseudoephedrine HCl (Sudafed 12-Hour) 120 mg BID PO ; Start 08/03/17 at 09:00 Heparin Sodium (Porcine) (Heparin Sodium) 5,000 unit 1X ONCE IV Last administered on 08/02/17 23:31; Start 08/02/17 at 23:00; Stop 08/02/17 at 23 :01; Status DC Heparin Sodium/ Dextrose 500 ml @ 0 mls/hr CONT PRN IV SEE I/O RECORD Last administered on 08/02/17 23:35; Start 08/02/17 at 22:45 Heparin Sodium (Porcine) (Heparin Sodium) 2,300 unit PRN Q6HRS PRN IV FOR UFH LEVEL LESS THAN 0.2; Start 08/02/17 at 22:45 Heparin Sodium (Porcine) (Heparin Sodium) 1,150 unit PRN Q6HRS PRN IV FOR UFH LEVEL 0.2 - 0.29; Start 08/02/17 at 22:45 Warfarin Sodium (Coumadin Per Pharmacy) 1 each PRN DAILY PRN MC PER PROTOCOL Last administered on 08/03/17 02:52; Start 08/02/17 at 22:45 Info (Anti-Coagulation Monitoring By Pharmacy) 1 each PRN DAILY PRN MC SEE COMMENTS Last administered on 08/03/17 02:50; Start 08/02/17 at 22:45 Active Scripts Active Cipro (Ciprofloxacin Hcl) 500 Mg Tablet 1 Tab PO BID 7 Days Clonidine Tts-3 (Clonidine) 1 Each Patch.tdwk 1 Patch TD WEEKLY Reported Sudogest (Pseudoephedrine Hcl) 30 Mg Tablet 30 Mg PO PRN Q6HRS PRN Hydrocortisone (Hydrocortisone Acetate) 28 Gm Oint...g. 28 Gm TP PRN QHS PRN Milk Of Magnesia (Magnesium Hydroxide) 400 Mg/5 Ml Oral.susp 30 Ml PO PRN QHS PRN Maalox Maximum Strength Susp (Mag Hydrox/Al Hydrox/Simeth) 355 Ml Oral.susp 30 Ml PO PRN Q6HRS PRN Lorazepam 0.5 Mg Tablet 0.5 Mg PO HS Procrit (Epoetin Aashish) 10,000 Unit/1 Ml Vial 10,000 Unit IJ WEEKLY Miralax (Polyethylene Glycol 3350) 17 Gm Powd.pack 1 Packet PO DAILY [place] 3 Fish Oil Softgel ([place]-3 Fatty Acids/Fish Oil) 1 Each Capsule.dr 1 Each PO DAILY Amlodipine Besylate 10 Mg Tablet 10 Mg PO DAILY B-Complex with B-12 Tablet (B1/B2/Niacin/B12/Protease) 1 Each Tablet 1 Each PO DAILY Emla Cream (Lidocaine/Prilocaine) 5 Gm Cream..g. 5 Gm TP 3X/WEEK PRN Allergy Relief D-24 Tablet (Loratadine/Pseudoephedrine) 1 Each Tab.er.24h 1 Each PO DAILY Sodium Chloride 45 Ml Ramsay 1-2 Sprays NS QID PRN Preparation H Ointment (Phenyleph/Mineral Oil/Petrolat) 28 Gm Oint.appl 26 Gm RC PRN Q6HRS PRN Afrin (Oxymetazoline Hcl) 15 Ml Mist 2 Ramsay NS BIDAFTMEAL PRN Renvela (Sevelamer Carbonate) 800 Mg Tablet 3 Cap PO TIDWMEALS Calcium (Calcium Carbonate) 500 Mg Tablet 500 Mg PO PRN PRN Nitrostat (Nitroglycerin) 0.4 Mg Tab.subl 0.4 Mg SL PRN DAILY Oxycodone Hcl 10 Mg Tablet 5 Mg PO PRN Q8HRS PRN Diphenhydramine Hcl 25 Mg Capsule 25 Mg PO PRN QHS PRN Acetaminophen 500 Mg Tablet 325 Mg PO PRN Q6HRS PRN 1-2 TABLETS Senna (Sennosides) 8.6 Mg Capsule 2 Cap PO BID Quetiapine Fumarate 25 Mg Tablet 100 Mg PO HS Metoprolol Tartrate 25 Mg Tablet 50 Mg PO BID Lisinopril 40 Mg Tablet 40 Mg PO DAILY Clopidogrel (Clopidogrel Bisulfate) 75 Mg Tablet 75 Mg PO DAILY Atorvastatin Calcium 20 Mg Tablet 20 Mg PO HS Levemir (Insulin Detemir) 100 Unit/1 Ml Vial 23 Unit SQ HS Humalog (Insulin Lispro) 100 Unit/1 Ml Vial 0 SQ TIDAC Allergies Allergies: Coded Allergies: Sulfa (Sulfonamide Antibiotics) (Verified Allergy, Intermediate, 06/29/16) banana (Verified Allergy, Intermediate, 08/03/17) cranberry (Verified Allergy, Intermediate, 07/14/16) grapefruit (Verified Allergy, Intermediate, 07/14/16) orange juice (Verified Allergy, Intermediate, 08/03/17) tomato (Verified Allergy, Intermediate, 08/03/17) Vitals VITALS Vital Signs Date Time Temp Pulse Resp B/P (MAP) Pulse Ox O2 Delivery O2 Flow Rate FiO2 08/03/17 07:00 98.3 74 17 129/80 (96) 97 Room Air 98.3 Labs Labs Laboratory Tests Test 08/02/17 15:42 08/02/17 21:05 08/02/17 23:09 08/03/17 04:00 White Blood Count 3.3 x10^3/uL (4.0-11.0) 3.3 x10^3/uL (4.0-11.0) Red Blood Count 3.14 x10^6/uL (3.50-5.40) 2.88 x10^6/uL (3.50-5.40) Hemoglobin 10.4 g/dL (12.0-15.5) 9.6 g/dL (12.0-15.5) Hematocrit 31.4 % (36.0-47.0) 28.9 % (36.0-47.0) Mean Corpuscular Volume 100 fL (79-100) 100 fL (79-100) Mean Corpuscular Hemoglobin 33 pg (25-35) 34 pg (25-35) Mean Corpuscular Hemoglobin Concent 33 g/dL (31-37) 33 g/dL (31-37) Red Cell Distribution Width 15.9 % (11.5-14.5) 15.6 % (11.5-14.5) Platelet Count 250 x10^3/uL (140-400) 230 x10^3/uL (140-400) Neutrophils (%) (Auto) 52 % (31-73) 55 % (31-73) Lymphocytes (%) (Auto) 24 % (24-48) 24 % (24-48) Monocytes (%) (Auto) 21 % (0-9) 17 % (0-9) Eosinophils (%) (Auto) 4 % (0-3) 4 % (0-3) Basophils (%) (Auto) 0 % (0-3) 1 % (0-3) Neutrophils # (Auto) 1.7 x10^3uL (1.8-7.7) 1.8 x10^3uL (1.8-7.7) Lymphocytes # (Auto) 0.8 x10^3/uL (1.0-4.8) 0.8 x10^3/uL (1.0-4.8) Monocytes # (Auto) 0.7 x10^3/uL (0.0-1.1) 0.6 x10^3/uL (0.0-1.1) Eosinophils # (Auto) 0.1 x10^3/uL (0.0-0.7) 0.1 x10^3/uL (0.0-0.7) Basophils # (Auto) 0.0 x10^3/uL (0.0-0.2) 0.0 x10^3/uL (0.0-0.2) Segmented Neutrophils % 56 % (35-66) Lymphocytes % 26 % (24-48) Monocytes % 18 % (0-10) Platelet Estimate Adequate (ADEQUATE) Sodium Level 128 mmol/L (136-145) 131 mmol/L (136-145) Potassium Level 5.9 mmol/L (3.5-5.1) 5.4 mmol/L (3.5-5.1) Chloride Level 89 mmol/L (98-107) 91 mmol/L (98-107) Carbon Dioxide Level 25 mmol/L (21-32) 21 mmol/L (21-32) Anion Gap 14 (6-14) 19 (6-14) Blood Urea Nitrogen 101 mg/dL (7-20) 101 mg/dL (7-20) Creatinine 14.8 mg/dL (0.6-1.0) 14.7 mg/dL (0.6-1.0) Estimated GFR (Cockcroft-Gault) 3.1 3.1 Glucose Level 255 mg/dL (70-99) 288 mg/dL (70-99) Calcium Level 9.2 mg/dL (8.5-10.1) 8.8 mg/dL (8.5-10.1) Glucose (Fingerstick) 75 mg/dL (70-99) 106 mg/dL (70-99) Prothrombin Time 13.4 SEC (11.7-14.0) Prothromb Time International Ratio 1.1 (0.8-1.1) Heparin Anti-Xa Act, Unfractionated 0.73 IU/mL (0.30-0.70) Test 08/03/17 07:07 Glucose (Fingerstick) 207 mg/dL (70-99) Laboratory Tests Test 08/02/17 15:42 08/02/17 21:05 08/02/17 23:09 08/03/17 04:00 White Blood Count 3.3 x10^3/uL (4.0-11.0) 3.3 x10^3/uL (4.0-11.0) Red Blood Count 3.14 x10^6/uL (3.50-5.40) 2.88 x10^6/uL (3.50-5.40) Hemoglobin 10.4 g/dL (12.0-15.5) 9.6 g/dL (12.0-15.5) Hematocrit 31.4 % (36.0-47.0) 28.9 % (36.0-47.0) Mean Corpuscular Volume 100 fL (79-100) 100 fL (79-100) Mean Corpuscular Hemoglobin 33 pg (25-35) 34 pg (25-35) Mean Corpuscular Hemoglobin Concent 33 g/dL (31-37) 33 g/dL (31-37) Red Cell Distribution Width 15.9 % (11.5-14.5) 15.6 % (11.5-14.5) Platelet Count 250 x10^3/uL (140-400) 230 x10^3/uL (140-400) Neutrophils (%) (Auto) 52 % (31-73) 55 % (31-73) Lymphocytes (%) (Auto) 24 % (24-48) 24 % (24-48) Monocytes (%) (Auto) 21 % (0-9) 17 % (0-9) Eosinophils (%) (Auto) 4 % (0-3) 4 % (0-3) Basophils (%) (Auto) 0 % (0-3) 1 % (0-3) Neutrophils # (Auto) 1.7 x10^3uL (1.8-7.7) 1.8 x10^3uL (1.8-7.7) Lymphocytes # (Auto) 0.8 x10^3/uL (1.0-4.8) 0.8 x10^3/uL (1.0-4.8) Monocytes # (Auto) 0.7 x10^3/uL (0.0-1.1) 0.6 x10^3/uL (0.0-1.1) Eosinophils # (Auto) 0.1 x10^3/uL (0.0-0.7) 0.1 x10^3/uL (0.0-0.7) Basophils # (Auto) 0.0 x10^3/uL (0.0-0.2) 0.0 x10^3/uL (0.0-0.2) Segmented Neutrophils % 56 % (35-66) Lymphocytes % 26 % (24-48) Monocytes % 18 % (0-10) Platelet Estimate Adequate (ADEQUATE) Sodium Level 128 mmol/L (136-145) 131 mmol/L (136-145) Potassium Level 5.9 mmol/L (3.5-5.1) 5.4 mmol/L (3.5-5.1) Chloride Level 89 mmol/L (98-107) 91 mmol/L (98-107) Carbon Dioxide Level 25 mmol/L (21-32) 21 mmol/L (21-32) Anion Gap 14 (6-14) 19 (6-14) Blood Urea Nitrogen 101 mg/dL (7-20) 101 mg/dL (7-20) Creatinine 14.8 mg/dL (0.6-1.0) 14.7 mg/dL (0.6-1.0) Estimated GFR (Cockcroft-Gault) 3.1 3.1 Glucose Level 255 mg/dL (70-99) 288 mg/dL (70-99) Calcium Level 9.2 mg/dL (8.5-10.1) 8.8 mg/dL (8.5-10.1) Glucose (Fingerstick) 75 mg/dL (70-99) 106 mg/dL (70-99) Prothrombin Time 13.4 SEC (11.7-14.0) Prothromb Time International Ratio 1.1 (0.8-1.1) Heparin Anti-Xa Act, Unfractionated 0.73 IU/mL (0.30-0.70) Test 08/03/17 07:07 Glucose (Fingerstick) 207 mg/dL (70-99) Assessment/Plan Assessment/Plan Vascular consult dictated Imp: 1. ESRD 2. subacute thrombosis left upper arm av graft Rec: thrombolysis av graft, surgical revision if necessary, possible placement of temporary dialysis cath. YONG MOLINA II, MD Aug 03, 2017 09:50
--- NOTE | 2017-08-03 11:04 | PDOC2 ---
CONSULT Date of Consult Date of Consult DATE: 08/03/17 TIME: 10:59 Reason for Consult Reason for Consult: ESRD AND HIGH K WITH THROMBOSED AV SHUNT Referring Physician Referring Physician: DIANA Identification/Chief Complaint Chief Complaint UNABLE TO DIALYZE Problems: Source Source: Chart review History of Present Illness Reason for Visit: THIS IS A 57 YR OLD ESRD PT. SHE HAS OP HD ON TTS. HER LAST HD WAS THIS PAST TUESDAY. SHE WAS NOTED TO HAVE A THROMBOSED AV ACCESS ON SAT. PLANS WERE MADE TO GET OP THROMBECTOMY HOWEVER THIS COULD NOT BE DONE DUE TO COORDINATION OF TRANSPORTATION BY THE [place]. LABS ARE C/W ESRD. HER K IS UP AND SHE IS ANEMIC. NO SOB Past Medical History Cardiovascular: HTN, [place], Hyperlipidemia CENTRAL NERVOUS SYSTEM: CVA GI: Constipation Heme/Onc: Anemia NOS, Other Psych: Anxiety, Schizophrenia Renal/: Chronic renal failure, Other Endocrine: Diabetes, Hyperparathyroidism Past Surgical History Past Surgical History: Hysterectomy, Other Family History Family History: Hypertension Social History ALCOHOL: none Drugs: None Lives: [facility] Current Problem List Problem List Problems Medical Problems: (1) Clotted dialysis shunt Status: Acute Current Medications Current Medications Current Medications Ondansetron HCl (Zofran) 4 mg PRN Q8HRS PRN IV NAUSEA/VOMITING; Start at 18:45; Stop 08/03/17 at 18:44 Morphine Sulfate 4 mg PRN Q2HR PRN IV PAIN; Start 08/02/17 at 18:45; Stop at 18:44 Acetaminophen (Tylenol) 650 mg PRN Q4HRS PRN PO FEVER; Start 08/02/17 at 18:45 ; Stop 08/03/17 at 18:44 Sodium Bicarbonate 50 meq 1X ONCE IV Last administered on 08/02/17 19:56; Start 08/02/17 at 19:45; Stop 08/02/17 at 19:49; Status DC Sodium Polystyrene Sulfonate (Kayexalate) 15 gm 1X ONCE PO Last administered on 08/02/17 19:56; Start 08/02/17 at 19:45; Stop 08/02/17 at 19:49; Status DC Calcium Gluconate (Calcium Gluconate) 1,000 mg 1X ONCE IVP Last administered on 08/02/17 19:56; Start 08/02/17 at 19:45; Stop 08/02/17 at 19:49; Status DC Insulin Human Regular (NovoLIN R VIAL) 10 unit 1X ONCE IV Last administered on 08/02/17 20:02; Start 08/02/17 at 19:45; Stop 08/02/17 at 19:49; Status DC Dextrose (Dextrose 50%-Water Syringe) 25 gm 1X ONCE IV Last administered on 19:56; Start 08/02/17 at 19:45; Stop 08/02/17 at 19:49; Status DC Acetaminophen (Tylenol) 325 mg PRN Q6HRS PRN PO MILD PAIN; Start 08/02/17 at 22:15 Amlodipine Besylate (Norvasc) 10 mg DAILY PO ; Start 08/03/17 at 09:00 Atorvastatin Calcium (Lipitor) 20 mg HS PO Last administered on 08/02/17 23: 08; Start 08/02/17 at 23:00 Calcium Carbonate/ Glycine (Oscal) 500 mg PRN Q4HRS PRN PO HEARTBURN / GAS; Start 08/02/17 at 22:15 Clonidine HCl (Catapres Tts-3) 1 patch WEEKLY TD ; Start 08/09/17 at 09:00 Clopidogrel Bisulfate (Plavix) 75 mg DAILY PO ; Start 08/03/17 at 09:00 Diphenhydramine HCl (Benadryl) 25 mg PRN QHS PRN PO INSOMNIA; Start 08/02/17 at 22:15 Darbepoetin Aashish (Aranesp) 25 mcg WEEKLYHS SQ ; Start 08/09/17 at 21:00 Lidocaine/ Prilocaine (Emla) 5 leena 3X/WEEK TP ; Start 08/03/17 at 09:00 Lisinopril (Prinivil) 40 mg DAILY PO ; Start 08/03/17 at 09:00 Lorazepam (Ativan) 0.5 mg HS PO Last administered on 08/02/17 23:08; Start 08/02/17 at 23:00 Al Hydroxide/Mg Hydroxide (Mylanta Plus Xs) 30 ml PRN Q6HRS PRN PO INDIGESTION ; Start 08/02/17 at 22:15; Status UNV Metoprolol Tartrate (Lopressor) 50 mg BID PO Last administered on 08/02/17 23 :08; Start 08/02/17 at 23:00 Nitroglycerin (Nitrostat) 0.4 mg PRN DAILY PRN SL CHEST PAIN; Start 08/02/17 at 22:15 Phenyleph/Shark Oil/Min Oil/Petrol (Preparation H) 1 leena PRN Q6HRS PRN RC RECTAL PAIN; Start 08/02/17 at 22:15 Polyethylene Glycol (miraLAX PACKET) 17 gm DAILY PO ; Start 08/03/17 at 09:00 Pseudoephedrine HCl (Sudafed) 30 mg PRN Q6HRS PRN PO ALLERGY; Start 08/02/17 at 22:15 Sevelamer Carbonate (Renvela) 2,400 mg TIDWMEALS PO ; Start 08/03/17 at 08:00 Sodium Chloride (Saline Mist Nasal) 1 leena PRN QID PRN NS ALLERGY; Start at 22:15 Insulin Detemir (Levemir) 23 units QHS SQ ; Start 08/02/17 at 23:00 Cetirizine HCl (ZyrTEC) 10 mg DAILY PO ; Start 08/03/17 at 09:00 Fish Oil (Fish Oil) 1,000 mg DAILY PO ; Start 08/03/17 at 09:00 Sennosides (Senna) 17.2 mg BID PO ; Start 08/03/17 at 09:00 Quetiapine Fumarate (SEROquel XR) 300 mg BID PO Last administered on 23:08; Start 08/02/17 at 23:00 Pseudoephedrine HCl (Sudafed 12-Hour) 120 mg BID PO ; Start 08/03/17 at 09:00 Heparin Sodium (Porcine) (Heparin Sodium) 5,000 unit 1X ONCE IV Last administered on 08/02/17 23:31; Start 08/02/17 at 23:00; Stop 08/02/17 at 23 :01; Status DC Heparin Sodium/ Dextrose 500 ml @ 0 mls/hr CONT PRN IV SEE I/O RECORD Last administered on 08/02/17 23:35; Start 08/02/17 at 22:45 Heparin Sodium (Porcine) (Heparin Sodium) 2,300 unit PRN Q6HRS PRN IV FOR UFH LEVEL LESS THAN 0.2; Start 08/02/17 at 22:45 Heparin Sodium (Porcine) (Heparin Sodium) 1,150 unit PRN Q6HRS PRN IV FOR UFH LEVEL 0.2 - 0.29; Start 08/02/17 at 22:45 Warfarin Sodium (Coumadin Per Pharmacy) 1 each PRN DAILY PRN MC PER PROTOCOL Last administered on 08/03/17 02:52; Start 08/02/17 at 22:45 Info (Anti-Coagulation Monitoring By Pharmacy) 1 each PRN DAILY PRN MC SEE COMMENTS Last administered on 08/03/17 02:50; Start 08/02/17 at 22:45 Active Scripts Active Cipro (Ciprofloxacin Hcl) 500 Mg Tablet 1 Tab PO BID 7 Days Clonidine Tts-3 (Clonidine) 1 Each Patch.tdwk 1 Patch TD WEEKLY Reported Sudogest (Pseudoephedrine Hcl) 30 Mg Tablet 30 Mg PO PRN Q6HRS PRN Hydrocortisone (Hydrocortisone Acetate) 28 Gm Oint...g. 28 Gm TP PRN QHS PRN Milk Of Magnesia (Magnesium Hydroxide) 400 Mg/5 Ml Oral.susp 30 Ml PO PRN QHS PRN Maalox Maximum Strength Susp (Mag Hydrox/Al Hydrox/Simeth) 355 Ml Oral.susp 30 Ml PO PRN Q6HRS PRN Lorazepam 0.5 Mg Tablet 0.5 Mg PO HS Procrit (Epoetin Aashish) 10,000 Unit/1 Ml Vial 10,000 Unit IJ WEEKLY Miralax (Polyethylene Glycol 3350) 17 Gm Powd.pack 1 Packet PO DAILY [place] 3 Fish Oil Softgel ([place]-3 Fatty Acids/Fish Oil) 1 Each Capsule. 1 Each PO DAILY Amlodipine Besylate 10 Mg Tablet 10 Mg PO DAILY B-Complex with B-12 Tablet (B1/B2/Niacin/B12/Protease) 1 Each Tablet 1 Each PO DAILY Emla Cream (Lidocaine/Prilocaine) 5 Gm Cream..g. 5 Gm TP 3X/WEEK PRN Allergy Relief D-24 Tablet (Loratadine/Pseudoephedrine) 1 Each Tab.er.24h 1 Each PO DAILY Sodium Chloride 45 Ml [place] 1-2 Sprays NS QID PRN Preparation H Ointment (Phenyleph/Mineral Oil/Petrolat) 28 Gm Oint.appl 26 Gm RC PRN Q6HRS PRN Afrin (Oxymetazoline Hcl) 15 Ml Mist 2 [place] NS BIDAFTMEAL PRN Renvela (Sevelamer Carbonate) 800 Mg Tablet 3 Cap PO TIDWMEALS Calcium (Calcium Carbonate) 500 Mg Tablet 500 Mg PO PRN PRN Nitrostat (Nitroglycerin) 0.4 Mg Tab.subl 0.4 Mg SL PRN DAILY Oxycodone Hcl 10 Mg Tablet 5 Mg PO PRN Q8HRS PRN Diphenhydramine Hcl 25 Mg Capsule 25 Mg PO PRN QHS PRN Acetaminophen 500 Mg Tablet 325 Mg PO PRN Q6HRS PRN 1-2 TABLETS Senna (Sennosides) 8.6 Mg Capsule 2 Cap PO BID Quetiapine Fumarate 25 Mg Tablet 100 Mg PO HS Metoprolol Tartrate 25 Mg Tablet 50 Mg PO BID Lisinopril 40 Mg Tablet 40 Mg PO DAILY Clopidogrel (Clopidogrel Bisulfate) 75 Mg Tablet 75 Mg PO DAILY Atorvastatin Calcium 20 Mg Tablet 20 Mg PO HS Levemir (Insulin Detemir) 100 Unit/1 Ml Vial 23 Unit SQ HS Humalog (Insulin Lispro) 100 Unit/1 Ml Vial 0 SQ TIDAC Allergies Allergies: Coded Allergies: Sulfa (Sulfonamide Antibiotics) (Verified Allergy, Intermediate, 06/29/16) banana (Verified Allergy, Intermediate, 08/03/17) cranberry (Verified Allergy, Intermediate, 07/14/16) grapefruit (Verified Allergy, Intermediate, 07/14/16) orange juice (Verified Allergy, Intermediate, 08/03/17) tomato (Verified Allergy, Intermediate, 08/03/17) ROS General: YES: Fatigue, Appetite PSYCHOLOGICAL ROS: YES: Anxiety Eyes: Yes Decreased vision HEENT: YES: Heacaches Respiratory: YES: Cough, Shortness of breath Cardiovascular: yes Orthopnea Gastrointestinal: Yes Constipation Genitourinary: YES Other (ANURIA) Musculoskeletal: Yes Muscular Weakness Neurological: Yes Behavorial Changes, Yes Weakness, Yes Other (PT HAS SCHIZOPHRENIA) Skin: Yes Dry Skin Physical Exam General: Alert, Oriented X3, Cooperative, No acute distress HEENT: Atraumatic, PERRLA, EOMI Lungs: Clear to auscultation, Normal air movement Heart: Regular rate, Normal S1 Abdomen: Normal bowel sounds, Soft, No tenderness Extremities: No clubbing, No edema, Other (NO THRILL OR BRUIT IN HER LEFT ARM AV ACCESS) Skin: No breakdown Neuro: Normal speech, Cranial nerves 3-12 NL Psych/Mental Status: Other (FLAT AFFECT) MUSCULOSKELETAL: No deformity, No swelling Vitals VITALS Vital Signs Date Time Temp Pulse Resp B/P (MAP) Pulse Ox O2 Delivery O2 Flow Rate FiO2 08/03/17 10:27 98.4 79 17 148/88 (108) 93 Room Air 98.4 Labs Labs Laboratory Tests Test 08/02/17 15:42 08/02/17 21:05 08/02/17 23:09 08/03/17 04:00 White Blood Count 3.3 x10^3/uL (4.0-11.0) 3.3 x10^3/uL (4.0-11.0) Red Blood Count 3.14 x10^6/uL (3.50-5.40) 2.88 x10^6/uL (3.50-5.40) Hemoglobin 10.4 g/dL (12.0-15.5) 9.6 g/dL (12.0-15.5) Hematocrit 31.4 % (36.0-47.0) 28.9 % (36.0-47.0) Mean Corpuscular Volume 100 fL (79-100) 100 fL (79-100) Mean Corpuscular Hemoglobin 33 pg (25-35) 34 pg (25-35) Mean Corpuscular Hemoglobin Concent 33 g/dL (31-37) 33 g/dL (31-37) Red Cell Distribution Width 15.9 % (11.5-14.5) 15.6 % (11.5-14.5) Platelet Count 250 x10^3/uL (140-400) 230 x10^3/uL (140-400) Neutrophils (%) (Auto) 52 % (31-73) 55 % (31-73) Lymphocytes (%) (Auto) 24 % (24-48) 24 % (24-48) Monocytes (%) (Auto) 21 % (0-9) 17 % (0-9) Eosinophils (%) (Auto) 4 % (0-3) 4 % (0-3) Basophils (%) (Auto) 0 % (0-3) 1 % (0-3) Neutrophils # (Auto) 1.7 x10^3uL (1.8-7.7) 1.8 x10^3uL (1.8-7.7) Lymphocytes # (Auto) 0.8 x10^3/uL (1.0-4.8) 0.8 x10^3/uL (1.0-4.8) Monocytes # (Auto) 0.7 x10^3/uL (0.0-1.1) 0.6 x10^3/uL (0.0-1.1) Eosinophils # (Auto) 0.1 x10^3/uL (0.0-0.7) 0.1 x10^3/uL (0.0-0.7) Basophils # (Auto) 0.0 x10^3/uL (0.0-0.2) 0.0 x10^3/uL (0.0-0.2) Segmented Neutrophils % 56 % (35-66) Lymphocytes % 26 % (24-48) Monocytes % 18 % (0-10) Platelet Estimate Adequate (ADEQUATE) Sodium Level 128 mmol/L (136-145) 131 mmol/L (136-145) Potassium Level 5.9 mmol/L (3.5-5.1) 5.4 mmol/L (3.5-5.1) Chloride Level 89 mmol/L (98-107) 91 mmol/L (98-107) Carbon Dioxide Level 25 mmol/L (21-32) 21 mmol/L (21-32) Anion Gap 14 (6-14) 19 (6-14) Blood Urea Nitrogen 101 mg/dL (7-20) 101 mg/dL (7-20) Creatinine 14.8 mg/dL (0.6-1.0) 14.7 mg/dL (0.6-1.0) Estimated GFR (Cockcroft-Gault) 3.1 3.1 Glucose Level 255 mg/dL (70-99) 288 mg/dL (70-99) Calcium Level 9.2 mg/dL (8.5-10.1) 8.8 mg/dL (8.5-10.1) Glucose (Fingerstick) 75 mg/dL (70-99) 106 mg/dL (70-99) Prothrombin Time 13.4 SEC (11.7-14.0) Prothromb Time International Ratio 1.1 (0.8-1.1) Heparin Anti-Xa Act, Unfractionated 0.73 IU/mL (0.30-0.70) Test 08/03/17 07:07 Glucose (Fingerstick) 207 mg/dL (70-99) Laboratory Tests Test 08/02/17 15:42 08/02/17 21:05 08/02/17 23:09 08/03/17 04:00 White Blood Count 3.3 x10^3/uL (4.0-11.0) 3.3 x10^3/uL (4.0-11.0) Red Blood Count 3.14 x10^6/uL (3.50-5.40) 2.88 x10^6/uL (3.50-5.40) Hemoglobin 10.4 g/dL (12.0-15.5) 9.6 g/dL (12.0-15.5) Hematocrit 31.4 % (36.0-47.0) 28.9 % (36.0-47.0) Mean Corpuscular Volume 100 fL (79-100) 100 fL (79-100) Mean Corpuscular Hemoglobin 33 pg (25-35) 34 pg (25-35) Mean Corpuscular Hemoglobin Concent 33 g/dL (31-37) 33 g/dL (31-37) Red Cell Distribution Width 15.9 % (11.5-14.5) 15.6 % (11.5-14.5) Platelet Count 250 x10^3/uL (140-400) 230 x10^3/uL (140-400) Neutrophils (%) (Auto) 52 % (31-73) 55 % (31-73) Lymphocytes (%) (Auto) 24 % (24-48) 24 % (24-48) Monocytes (%) (Auto) 21 % (0-9) 17 % (0-9) Eosinophils (%) (Auto) 4 % (0-3) 4 % (0-3) Basophils (%) (Auto) 0 % (0-3) 1 % (0-3) Neutrophils # (Auto) 1.7 x10^3uL (1.8-7.7) 1.8 x10^3uL (1.8-7.7) Lymphocytes # (Auto) 0.8 x10^3/uL (1.0-4.8) 0.8 x10^3/uL (1.0-4.8) Monocytes # (Auto) 0.7 x10^3/uL (0.0-1.1) 0.6 x10^3/uL (0.0-1.1) Eosinophils # (Auto) 0.1 x10^3/uL (0.0-0.7) 0.1 x10^3/uL (0.0-0.7) Basophils # (Auto) 0.0 x10^3/uL (0.0-0.2) 0.0 x10^3/uL (0.0-0.2) Segmented Neutrophils % 56 % (35-66) Lymphocytes % 26 % (24-48) Monocytes % 18 % (0-10) Platelet Estimate Adequate (ADEQUATE) Sodium Level 128 mmol/L (136-145) 131 mmol/L (136-145) Potassium Level 5.9 mmol/L (3.5-5.1) 5.4 mmol/L (3.5-5.1) Chloride Level 89 mmol/L (98-107) 91 mmol/L (98-107) Carbon Dioxide Level 25 mmol/L (21-32) 21 mmol/L (21-32) Anion Gap 14 (6-14) 19 (6-14) Blood Urea Nitrogen 101 mg/dL (7-20) 101 mg/dL (7-20) Creatinine 14.8 mg/dL (0.6-1.0) 14.7 mg/dL (0.6-1.0) Estimated GFR (Cockcroft-Gault) 3.1 3.1 Glucose Level 255 mg/dL (70-99) 288 mg/dL (70-99) Calcium Level 9.2 mg/dL (8.5-10.1) 8.8 mg/dL (8.5-10.1) Glucose (Fingerstick) 75 mg/dL (70-99) 106 mg/dL (70-99) Prothrombin Time 13.4 SEC (11.7-14.0) Prothromb Time International Ratio 1.1 (0.8-1.1) Heparin Anti-Xa Act, Unfractionated 0.73 IU/mL (0.30-0.70) Test 08/03/17 07:07 Glucose (Fingerstick) 207 mg/dL (70-99) Assessment/Plan Assessment/Plan IMP ESRD ANEMIA DM II HTN THROMBOSED LEFT ARM AV ACCESS HYPERKALEMIA PLAN ACCESS THROMBECTOMY TODAY ARANESP HD TODAY UF TO DW RAFAEL OSORIO MD Aug 03, 2017 11:04
[2017-08-03] MEDS ORDERED: DEXTROSE 50% 25 GM / 50ML DISP.SYRIN. IV PRN (14:15)
--- NOTE | 2017-08-03 14:18 | PDOC ---
PROGRESS NOTES Chief Complaint Chief Complaint left arm AVF malfunction with thrombosis extending to axillary/branchial V ESRD ON HD h/o CAD HTN HLD H/O CVA Anemia with esrd anxiety schizophrenia, SNF resident DM2 on insulin h/o hyperparathyroidism plan fu with renal, cont HD fu with vascular sx today. on heparin drip now cont home meds ssi, cont levemir , decrease to 20u qhs PTOT History of Present Illness History of Present Illness ROS: no fever, chills, sob or chest pain pt is on heparin drip waiting for vascular sx not willing to talk to me Vitals Vitals Vital Signs Date Time Temp Pulse Resp B/P (MAP) Pulse Ox O2 Delivery O2 Flow Rate FiO2 08/03/17 10:27 98.4 79 17 148/88 (108) 93 Room Air 98.4 Physical Exam General: Alert, Oriented X3, No acute distress Heart: Regular rate, Normal S1 Lungs: Clear, Other Abdomen: Normal bowel sounds, Soft, No tenderness Extremities: No clubbing, No edema, Other (NO THRILL OR BRUIT IN HER LEFT ARM AV ACCESS) Skin: No breakdown Labs LABS Laboratory Tests Test 08/02/17 15:42 08/02/17 21:05 08/02/17 23:09 08/03/17 04:00 White Blood Count 3.3 x10^3/uL (4.0-11.0) 3.3 x10^3/uL (4.0-11.0) Red Blood Count 3.14 x10^6/uL (3.50-5.40) 2.88 x10^6/uL (3.50-5.40) Hemoglobin 10.4 g/dL (12.0-15.5) 9.6 g/dL (12.0-15.5) Hematocrit 31.4 % (36.0-47.0) 28.9 % (36.0-47.0) Mean Corpuscular Volume 100 fL (79-100) 100 fL (79-100) Mean Corpuscular Hemoglobin 33 pg (25-35) 34 pg (25-35) Mean Corpuscular Hemoglobin Concent 33 g/dL (31-37) 33 g/dL (31-37) Red Cell Distribution Width 15.9 % (11.5-14.5) 15.6 % (11.5-14.5) Platelet Count 250 x10^3/uL (140-400) 230 x10^3/uL (140-400) Neutrophils (%) (Auto) 52 % (31-73) 55 % (31-73) Lymphocytes (%) (Auto) 24 % (24-48) 24 % (24-48) Monocytes (%) (Auto) 21 % (0-9) 17 % (0-9) Eosinophils (%) (Auto) 4 % (0-3) 4 % (0-3) Basophils (%) (Auto) 0 % (0-3) 1 % (0-3) Neutrophils # (Auto) 1.7 x10^3uL (1.8-7.7) 1.8 x10^3uL (1.8-7.7) Lymphocytes # (Auto) 0.8 x10^3/uL (1.0-4.8) 0.8 x10^3/uL (1.0-4.8) Monocytes # (Auto) 0.7 x10^3/uL (0.0-1.1) 0.6 x10^3/uL (0.0-1.1) Eosinophils # (Auto) 0.1 x10^3/uL (0.0-0.7) 0.1 x10^3/uL (0.0-0.7) Basophils # (Auto) 0.0 x10^3/uL (0.0-0.2) 0.0 x10^3/uL (0.0-0.2) Segmented Neutrophils % 56 % (35-66) Lymphocytes % 26 % (24-48) Monocytes % 18 % (0-10) Platelet Estimate Adequate (ADEQUATE) Sodium Level 128 mmol/L (136-145) 131 mmol/L (136-145) Potassium Level 5.9 mmol/L (3.5-5.1) 5.4 mmol/L (3.5-5.1) Chloride Level 89 mmol/L (98-107) 91 mmol/L (98-107) Carbon Dioxide Level 25 mmol/L (21-32) 21 mmol/L (21-32) Anion Gap 14 (6-14) 19 (6-14) Blood Urea Nitrogen 101 mg/dL (7-20) 101 mg/dL (7-20) Creatinine 14.8 mg/dL (0.6-1.0) 14.7 mg/dL (0.6-1.0) Estimated GFR (Cockcroft-Gault) 3.1 3.1 Glucose Level 255 mg/dL (70-99) 288 mg/dL (70-99) Calcium Level 9.2 mg/dL (8.5-10.1) 8.8 mg/dL (8.5-10.1) Glucose (Fingerstick) 75 mg/dL (70-99) 106 mg/dL (70-99) Prothrombin Time 13.4 SEC (11.7-14.0) Prothromb Time International Ratio 1.1 (0.8-1.1) Heparin Anti-Xa Act, Unfractionated 0.73 IU/mL (0.30-0.70) Test 08/03/17 07:07 08/03/17 11:04 08/03/17 12:45 Glucose (Fingerstick) 207 mg/dL (70-99) 155 mg/dL (70-99) Heparin Anti-Xa Act, Unfractionated 0.99 IU/mL (0.30-0.70) Assessment and Plan Assessmemt and Plan Problems Medical Problems: (1) Clotted dialysis shunt Status: Acute Problems: Comment Review of Relevant I have reviewed the following items los (where applicable) has been applied. Labs Laboratory Tests Test 08/02/17 15:42 08/02/17 21:05 08/02/17 23:09 08/03/17 04:00 White Blood Count 3.3 x10^3/uL (4.0-11.0) 3.3 x10^3/uL (4.0-11.0) Red Blood Count 3.14 x10^6/uL (3.50-5.40) 2.88 x10^6/uL (3.50-5.40) Hemoglobin 10.4 g/dL (12.0-15.5) 9.6 g/dL (12.0-15.5) Hematocrit 31.4 % (36.0-47.0) 28.9 % (36.0-47.0) Mean Corpuscular Volume 100 fL (79-100) 100 fL (79-100) Mean Corpuscular Hemoglobin 33 pg (25-35) 34 pg (25-35) Mean Corpuscular Hemoglobin Concent 33 g/dL (31-37) 33 g/dL (31-37) Red Cell Distribution Width 15.9 % (11.5-14.5) 15.6 % (11.5-14.5) Platelet Count 250 x10^3/uL (140-400) 230 x10^3/uL (140-400) Neutrophils (%) (Auto) 52 % (31-73) 55 % (31-73) Lymphocytes (%) (Auto) 24 % (24-48) 24 % (24-48) Monocytes (%) (Auto) 21 % (0-9) 17 % (0-9) Eosinophils (%) (Auto) 4 % (0-3) 4 % (0-3) Basophils (%) (Auto) 0 % (0-3) 1 % (0-3) Neutrophils # (Auto) 1.7 x10^3uL (1.8-7.7) 1.8 x10^3uL (1.8-7.7) Lymphocytes # (Auto) 0.8 x10^3/uL (1.0-4.8) 0.8 x10^3/uL (1.0-4.8) Monocytes # (Auto) 0.7 x10^3/uL (0.0-1.1) 0.6 x10^3/uL (0.0-1.1) Eosinophils # (Auto) 0.1 x10^3/uL (0.0-0.7) 0.1 x10^3/uL (0.0-0.7) Basophils # (Auto) 0.0 x10^3/uL (0.0-0.2) 0.0 x10^3/uL (0.0-0.2) Segmented Neutrophils % 56 % (35-66) Lymphocytes % 26 % (24-48) Monocytes % 18 % (0-10) Platelet Estimate Adequate (ADEQUATE) Sodium Level 128 mmol/L (136-145) 131 mmol/L (136-145) Potassium Level 5.9 mmol/L (3.5-5.1) 5.4 mmol/L (3.5-5.1) Chloride Level 89 mmol/L (98-107) 91 mmol/L (98-107) Carbon Dioxide Level 25 mmol/L (21-32) 21 mmol/L (21-32) Anion Gap 14 (6-14) 19 (6-14) Blood Urea Nitrogen 101 mg/dL (7-20) 101 mg/dL (7-20) Creatinine 14.8 mg/dL (0.6-1.0) 14.7 mg/dL (0.6-1.0) Estimated GFR (Cockcroft-Gault) 3.1 3.1 Glucose Level 255 mg/dL (70-99) 288 mg/dL (70-99) Calcium Level 9.2 mg/dL (8.5-10.1) 8.8 mg/dL (8.5-10.1) Glucose (Fingerstick) 75 mg/dL (70-99) 106 mg/dL (70-99) Prothrombin Time 13.4 SEC (11.7-14.0) Prothromb Time International Ratio 1.1 (0.8-1.1) Heparin Anti-Xa Act, Unfractionated 0.73 IU/mL (0.30-0.70) Test 08/03/17 07:07 08/03/17 11:04 08/03/17 12:45 Glucose (Fingerstick) 207 mg/dL (70-99) 155 mg/dL (70-99) Heparin Anti-Xa Act, Unfractionated 0.99 IU/mL (0.30-0.70) Laboratory Tests Test 08/02/17 15:42 08/02/17 21:05 08/02/17 23:09 08/03/17 04:00 White Blood Count 3.3 x10^3/uL (4.0-11.0) 3.3 x10^3/uL (4.0-11.0) Red Blood Count 3.14 x10^6/uL (3.50-5.40) 2.88 x10^6/uL (3.50-5.40) Hemoglobin 10.4 g/dL (12.0-15.5) 9.6 g/dL (12.0-15.5) Hematocrit 31.4 % (36.0-47.0) 28.9 % (36.0-47.0) Mean Corpuscular Volume 100 fL (79-100) 100 fL (79-100) Mean Corpuscular Hemoglobin 33 pg (25-35) 34 pg (25-35) Mean Corpuscular Hemoglobin Concent 33 g/dL (31-37) 33 g/dL (31-37) Red Cell Distribution Width 15.9 % (11.5-14.5) 15.6 % (11.5-14.5) Platelet Count 250 x10^3/uL (140-400) 230 x10^3/uL (140-400) Neutrophils (%) (Auto) 52 % (31-73) 55 % (31-73) Lymphocytes (%) (Auto) 24 % (24-48) 24 % (24-48) Monocytes (%) (Auto) 21 % (0-9) 17 % (0-9) Eosinophils (%) (Auto) 4 % (0-3) 4 % (0-3) Basophils (%) (Auto) 0 % (0-3) 1 % (0-3) Neutrophils # (Auto) 1.7 x10^3uL (1.8-7.7) 1.8 x10^3uL (1.8-7.7) Lymphocytes # (Auto) 0.8 x10^3/uL (1.0-4.8) 0.8 x10^3/uL (1.0-4.8) Monocytes # (Auto) 0.7 x10^3/uL (0.0-1.1) 0.6 x10^3/uL (0.0-1.1) Eosinophils # (Auto) 0.1 x10^3/uL (0.0-0.7) 0.1 x10^3/uL (0.0-0.7) Basophils # (Auto) 0.0 x10^3/uL (0.0-0.2) 0.0 x10^3/uL (0.0-0.2) Segmented Neutrophils % 56 % (35-66) Lymphocytes % 26 % (24-48) Monocytes % 18 % (0-10) Platelet Estimate Adequate (ADEQUATE) Sodium Level 128 mmol/L (136-145) 131 mmol/L (136-145) Potassium Level 5.9 mmol/L (3.5-5.1) 5.4 mmol/L (3.5-5.1) Chloride Level 89 mmol/L (98-107) 91 mmol/L (98-107) Carbon Dioxide Level 25 mmol/L (21-32) 21 mmol/L (21-32) Anion Gap 14 (6-14) 19 (6-14) Blood Urea Nitrogen 101 mg/dL (7-20) 101 mg/dL (7-20) Creatinine 14.8 mg/dL (0.6-1.0) 14.7 mg/dL (0.6-1.0) Estimated GFR (Cockcroft-Gault) 3.1 3.1 Glucose Level 255 mg/dL (70-99) 288 mg/dL (70-99) Calcium Level 9.2 mg/dL (8.5-10.1) 8.8 mg/dL (8.5-10.1) Glucose (Fingerstick) 75 mg/dL (70-99) 106 mg/dL (70-99) Prothrombin Time 13.4 SEC (11.7-14.0) Prothromb Time International Ratio 1.1 (0.8-1.1) Heparin Anti-Xa Act, Unfractionated 0.73 IU/mL (0.30-0.70) Test 08/03/17 07:07 08/03/17 11:04 08/03/17 12:45 Glucose (Fingerstick) 207 mg/dL (70-99) 155 mg/dL (70-99) Heparin Anti-Xa Act, Unfractionated 0.99 IU/mL (0.30-0.70) Medications Current Medications Ondansetron HCl (Zofran) 4 mg PRN Q8HRS PRN IV NAUSEA/VOMITING; Start at 18:45; Stop 08/03/17 at 18:44 Morphine Sulfate 4 mg PRN Q2HR PRN IV PAIN; Start 08/02/17 at 18:45; Stop at 18:44 Acetaminophen (Tylenol) 650 mg PRN Q4HRS PRN PO FEVER; Start 08/02/17 at 18:45 ; Stop 08/03/17 at 18:44 Sodium Bicarbonate 50 meq 1X ONCE IV Last administered on 08/02/17t 19:56; Start 08/02/17 at 19:45; Stop 08/02/17 at 19:49; Status DC Sodium Polystyrene Sulfonate (Kayexalate) 15 gm 1X ONCE PO Last administered on 08/02/17 19:56; Start 08/02/17 at 19:45; Stop 08/02/17 at 19:49; Status DC Calcium Gluconate (Calcium Gluconate) 1,000 mg 1X ONCE IVP Last administered on 08/02/17 19:56; Start 08/02/17 at 19:45; Stop 08/02/17 at 19:49; Status DC Insulin Human Regular (NovoLIN R VIAL) 10 unit 1X ONCE IV Last administered on 08/02/17 20:02; Start 08/02/17 at 19:45; Stop 08/02/17 at 19:49; Status DC Dextrose (Dextrose 50%-Water Syringe) 25 gm 1X ONCE IV Last administered on 19:56; Start 08/02/17 at 19:45; Stop 08/02/17 at 19:49; Status DC Acetaminophen (Tylenol) 325 mg PRN Q6HRS PRN PO MILD PAIN; Start 08/02/17 at 22:15 Amlodipine Besylate (Norvasc) 10 mg DAILY PO ; Start 08/03/17 at 09:00 Atorvastatin Calcium (Lipitor) 20 mg HS PO Last administered on 08/02/17 23: 08; Start 08/02/17 at 23:00 Calcium Carbonate/ Glycine (Oscal) 500 mg PRN Q4HRS PRN PO HEARTBURN / GAS; Start 08/02/17 at 22:15 Clonidine HCl (Catapres Tts-3) 1 patch WEEKLY TD ; Start 08/09/17 at 09:00 Clopidogrel Bisulfate (Plavix) 75 mg DAILY PO ; Start 08/03/17 at 09:00 Diphenhydramine HCl (Benadryl) 25 mg PRN QHS PRN PO INSOMNIA; Start 08/02/17 at 22:15 Darbepoetin Aashish (Aranesp) 25 mcg WEEKLYHS SQ ; Start 08/09/17 at 21:00 Lidocaine/ Prilocaine (Emla) 5 leena 3X/WEEK TP ; Start 08/03/17 at 09:00 Lisinopril (Prinivil) 40 mg DAILY PO ; Start 08/03/17 at 09:00 Lorazepam (Ativan) 0.5 mg HS PO Last administered on 08/02/17 23:08; Start 08/02/17 at 23:00 Al Hydroxide/Mg Hydroxide (Mylanta Plus Xs) 30 ml PRN Q6HRS PRN PO INDIGESTION ; Start 08/02/17 at 22:15; Status UNV Metoprolol Tartrate (Lopressor) 50 mg BID PO Last administered on 08/02/17 23 :08; Start 08/02/17 at 23:00 Nitroglycerin (Nitrostat) 0.4 mg PRN DAILY PRN SL CHEST PAIN; Start 08/02/17 at 22:15 Phenyleph/Shark Oil/Min Oil/Petrol (Preparation H) 1 leena PRN Q6HRS PRN RC RECTAL PAIN; Start 08/02/17 at 22:15 Polyethylene Glycol (miraLAX PACKET) 17 gm DAILY PO ; Start 08/03/17 at 09:00 Pseudoephedrine HCl (Sudafed) 30 mg PRN Q6HRS PRN PO ALLERGY; Start 08/02/17 at 22:15 Sevelamer Carbonate (Renvela) 2,400 mg TIDWMEALS PO ; Start 08/03/17 at 08:00 Sodium Chloride (Saline Mist Nasal) 1 leena PRN QID PRN NS ALLERGY; Start at 22:15 Insulin Detemir (Levemir) 23 units QHS SQ ; Start 08/02/17 at 23:00 Cetirizine HCl (ZyrTEC) 10 mg DAILY PO ; Start 08/03/17 at 09:00 Fish Oil (Fish Oil) 1,000 mg DAILY PO ; Start 08/03/17 at 09:00 Sennosides (Senna) 17.2 mg BID PO ; Start 08/03/17 at 09:00 Quetiapine Fumarate (SEROquel XR) 300 mg BID PO Last administered on 23:08; Start 08/02/17 at 23:00 Pseudoephedrine HCl (Sudafed 12-Hour) 120 mg BID PO ; Start 08/03/17 at 09:00 Heparin Sodium (Porcine) (Heparin Sodium) 5,000 unit 1X ONCE IV Last administered on 08/02/17 23:31; Start 08/02/17 at 23:00; Stop 08/02/17 at 23 :01; Status DC Heparin Sodium/ Dextrose 500 ml @ 0 mls/hr CONT PRN IV SEE I/O RECORD Last administered on 08/02/17 23:35; Start 08/02/17 at 22:45 Heparin Sodium (Porcine) (Heparin Sodium) 2,300 unit PRN Q6HRS PRN IV FOR UFH LEVEL LESS THAN 0.2; Start 08/02/17 at 22:45 Heparin Sodium (Porcine) (Heparin Sodium) 1,150 unit PRN Q6HRS PRN IV FOR UFH LEVEL 0.2 - 0.29; Start 08/02/17 at 22:45 Warfarin Sodium (Coumadin Per Pharmacy) 1 each PRN DAILY PRN MC PER PROTOCOL Last administered on 08/03/17 02:52; Start 08/02/17 at 22:45 Info (Anti-Coagulation Monitoring By Pharmacy) 1 each PRN DAILY PRN MC SEE COMMENTS Last administered on 08/03/17 02:50; Start 08/02/17 at 22:45 Darbepoetin Aashish (Aranesp) 60 mcg We SQ ; Start 08/03/17 at 21:00 Active Scripts Active Cipro (Ciprofloxacin Hcl) 500 Mg Tablet 1 Tab PO BID 7 Days Clonidine Tts-3 (Clonidine) 1 Each Patch.tdwk 1 Patch TD WEEKLY Reported Sudogest (Pseudoephedrine Hcl) 30 Mg Tablet 30 Mg PO PRN Q6HRS PRN Hydrocortisone (Hydrocortisone Acetate) 28 Gm Oint...g. 28 Gm TP PRN QHS PRN Milk Of Magnesia (Magnesium Hydroxide) 400 Mg/5 Ml Oral.susp 30 Ml PO PRN QHS PRN Maalox Maximum Strength Susp (Mag Hydrox/Al Hydrox/Simeth) 355 Ml Oral.susp 30 Ml PO PRN Q6HRS PRN Lorazepam 0.5 Mg Tablet 0.5 Mg PO HS Procrit (Epoetin Aashish) 10,000 Unit/1 Ml Vial 10,000 Unit IJ WEEKLY Miralax (Polyethylene Glycol 3350) 17 Gm Powd.pack 1 Packet PO DAILY [place] 3 Fish Oil Softgel ([place]-3 Fatty Acids/Fish Oil) 1 Each Capsule. 1 Each PO DAILY Amlodipine Besylate 10 Mg Tablet 10 Mg PO DAILY B-Complex with B-12 Tablet (B1/B2/Niacin/B12/Protease) 1 Each Tablet 1 Each PO DAILY Emla Cream (Lidocaine/Prilocaine) 5 Gm Cream..g. 5 Gm TP 3X/WEEK PRN Allergy Relief D-24 Tablet (Loratadine/Pseudoephedrine) 1 Each Tab.er.24h 1 Each PO DAILY Sodium Chloride 45 Ml [place] 1-2 Sprays NS QID PRN Preparation H Ointment (Phenyleph/Mineral Oil/Petrolat) 28 Gm Oint.appl 26 Gm RC PRN Q6HRS PRN Afrin (Oxymetazoline Hcl) 15 Ml Mist 2 [place] NS BIDAFTMEAL PRN Renvela (Sevelamer Carbonate) 800 Mg Tablet 3 Cap PO TIDWMEALS Calcium (Calcium Carbonate) 500 Mg Tablet 500 Mg PO PRN PRN Nitrostat (Nitroglycerin) 0.4 Mg Tab.subl 0.4 Mg SL PRN DAILY Oxycodone Hcl 10 Mg Tablet 5 Mg PO PRN Q8HRS PRN Diphenhydramine Hcl 25 Mg Capsule 25 Mg PO PRN QHS PRN Acetaminophen 500 Mg Tablet 325 Mg PO PRN Q6HRS PRN 1-2 TABLETS Senna (Sennosides) 8.6 Mg Capsule 2 Cap PO BID Quetiapine Fumarate 25 Mg Tablet 100 Mg PO HS Metoprolol Tartrate 25 Mg Tablet 50 Mg PO BID Lisinopril 40 Mg Tablet 40 Mg PO DAILY Clopidogrel (Clopidogrel Bisulfate) 75 Mg Tablet 75 Mg PO DAILY Atorvastatin Calcium 20 Mg Tablet 20 Mg PO HS Levemir (Insulin Detemir) 100 Unit/1 Ml Vial 23 Unit SQ HS Humalog (Insulin Lispro) 100 Unit/1 Ml Vial 0 SQ TIDAC Vitals/I & O Vital Sign - Last 24 Hours 08/02/17 08/02/17 08/02/17 08/02/17 14:32 15:09 16:38 17:38 Temp 98.7 98.7 Pulse 86 94 100 100 Resp 20 17 30 20 B/P (MAP) 163/83 (109) 147/77 (100) 169/89 (115) 160/83 (108) Pulse Ox 97 98 96 O2 Delivery Room Air Room Air Room Air Room Air 08/02/17 08/02/17 08/02/17 08/02/17 18:08 18:38 19:08 19:35 Pulse 78 78 80 94 Resp 28 20 21 21 B/P (MAP) 132/58 (82) 129/72 (91) 118/66 (83) 186/94 (124) Pulse Ox 100 98 O2 Delivery Room Air Room Air Room Air Room Air 08/02/17 08/02/17 08/02/17 08/03/17 22:35 23:00 23:08 02:00 Temp 99.5 99.7 99.5 99.7 Pulse 100 93 94 Resp 19 16 B/P (MAP) 166/85 (112) 148/79 (102) 186/94 Pulse Ox 96 96 O2 Delivery Room Air Room Air Room Air 08/03/17 08/03/17 08/03/17 03:00 07:00 10:27 Temp 98.9 98.3 98.4 98.9 98.3 98.4 Pulse 74 74 79 Resp 16 17 17 B/P (MAP) 146/68 (94) 129/80 (96) 148/88 (108) Pulse Ox 98 97 93 O2 Delivery Room Air Room Air Room Air Intake and Output 08/02/17 08/02/17 08/03/17 15:00 23:00 07:00 Intake Total 500 ml Balance 500 ml ELISSA HAYNES MD Aug 03, 2017 14:18
[2017-08-03] MEDS: HEPARIN 25,000UTS/500ML PREMIX 500 ML IV PRN (14:27)
[2017-08-03] MEDS ORDERED: IODIXANOL 320 MG/ML 100 ML VIAL. ONE (14:42)
[2017-08-03] MEDS ORDERED: LIDOCAINE 1% / SOD BICARB 8.4% 20 ML VIAL. IJ ONE ×2 (14:43→15:45)
[2017-08-03] MEDS ORDERED: fentaNYL PF VIAL 100 MCG/2 ML VIAL ONE ×2 (15:20→16:34)
[2017-08-03] MEDS ORDERED: HEPARIN for IV BOLUS 10,000 UNIT/10 ML VIAL. ONE (15:20)
[2017-08-03] MEDS ORDERED: MIDAZOLAM HCL/PF 2 MG/2 ML VIAL. ONE ×2 (15:20→16:20)
[2017-08-03] MEDS ORDERED: diphenhydrAMINE 50 MG/ML VIAL ONE (15:39)
[2017-08-03] MEDS ORDERED: ALTEPLASE 2MG VIAL 10 MG in IV NORMAL SALINE 100ML 100 ML IV ONE (15:45)
[2017-08-03] MEDS ORDERED: MIDAZOLAM HCL/PF 2 MG/2 ML VIAL. IV ONE (15:45)
[2017-08-03] MEDS ORDERED: IODIXANOL 320 MG/ML 100 ML VIAL. IART ONE (15:45)
[2017-08-03] MEDS ORDERED: diphenhydrAMINE 50 MG/ML VIAL IVP ONE (15:45)
[2017-08-03] MEDS ORDERED: fentaNYL PF VIAL 100 MCG/2 ML VIAL IV ONE ×2 (15:45→20:00)
[2017-08-03] MEDS ORDERED: WARFARIN 7.5 MG TABLET. PO ONE (16:00)
[2017-08-03] MEDS ORDERED: IOHEXOL 300 MG/ML 100ML VIAL. ONE ×2 (16:12→16:13)
[2017-08-03] MEDS ORDERED: IOHEXOL 300 MG/ML 50 ML VIAL. ONE (16:13)
[2017-08-03] MEDS ORDERED: hydrALAZINE 20 MG/ML VIAL. ONE (16:46)
[2017-08-03] MEDS ORDERED: ONDANSETRON PF 4 MG/2 ML VIAL. ONE (16:57)
[2017-08-03] MEDS ORDERED: HEPARIN for IV BOLUS 10,000 UNIT/10 ML VIAL. IV ONE (17:00)
[2017-08-03] MEDS: INSULIN ASPART 300 UNITS/3 ML INSULN.PEN SQ SCH (17:00)
[2017-08-03] MEDS ORDERED: hydrALAZINE 20 MG/ML VIAL. IVP ONE (17:00)
[2017-08-03] MEDS ORDERED: ONDANSETRON PF 4 MG/2 ML VIAL. IV ONE (17:15)
[2017-08-03] MEDS ORDERED: IV NORMAL SALINE 1000ML BAG 1,000 ML IV PRN (17:50)
[2017-08-03] MEDS ORDERED: DIALYSIS PATIENT. MC PRN (18:00)
--- NOTE | 2017-08-03 19:02 | CONS ---
DATE OF CONSULTATION: 08/03/2017 CLINICAL HISTORY: This is a 57-year-old female who currently resides in a senior care. She has end-stage renal disease requiring hemodialysis. She has a left upper arm AV graft, which has clotted. She apparently has not had dialysis for approximately 1 week. She is without complaints at this point in time; however, she expressed the desire to have the entire graft removed from her arm. I have reviewed the previous notes from our electronic medical record and I cannot find any prior op notes. PAST MEDICAL HISTORY: Significant for end-stage renal disease, coronary artery disease, hypertension, hyperlipidemia, stroke, anemia of renal disease, schizophrenia. PAST SURGICAL HISTORY: Includes multiple incisions and scars in the left upper arm from graft placements. SOCIAL HISTORY: She is in a senior care. She is a nonsmoker. ALLERGIES: INCLUDE SULFA. MEDICATIONS: Reviewed. REVIEW OF SYSTEMS: Twelve-point review of systems is unremarkable. PHYSICAL EXAMINATION: GENERAL: The patient is alert and awake. EXTREMITIES: The patient has a palpable left brachial and radial pulse. There are multiple healed scars over the left upper arm. There is a palpable AV graft placed in a semicircular fashion apparently from the brachial artery to the deep brachial or perhaps axillary vein. There is no evidence of inflammation, cellulitis, abscess or edema of the left arm. LABORATORY DATA: White count is 3300. IMAGING: Ultrasound was done, shows occlusive thrombus in the left upper arm graft extending from the brachial artery to the axillary vein. IMPRESSION: 1. Subacute thrombosis of the left upper arm arteriovenous graft. 2. End-stage renal disease requiring hemodialysis. RECOMMENDATION: Proceed with catheter based thrombolysis/thrombectomy per Interventional Radiology. She may require a temporary dialysis catheter as well. We will be available if a surgical revision is required. Thank you for allowing us to evaluate her. YONG MOLINA MD DR: LANETTE/lena JOB#: [id number] / [id number]
[2017-08-03] MEDS: LORazepam 0.5 MG TABLET PO SCH (19:30)
[2017-08-03] MEDS: ATORVASTATIN CALCIUM 20 MG TABLET PO SCH (19:30)
[2017-08-03] MEDS ORDERED: INSULIN DETEMIR 300 UNITS/3 ML INSULN.PEN. SQ SCH (21:00)
[2017-08-03] MEDS ORDERED: DARBEPOETIN ALFA 60 MCG/0.3 ML DISP.SYRIN. SQ SCH (21:00)
[2017-08-03] MEDS: HEPARIN PF for SUB-Q USE 5,000 UNIT/0.5 ML VIAL. SQ SCH (22:00)
[2017-08-04 02:46] VITALS: BP 121/81
[2017-08-04 05:36] LABS: HEMATOCRIT 30.3 % (36.0-47.0); HEMOGLOBIN 10.1 g/dL (12.0-15.5); INR 1.1 (0.8-1.1); PROTHROMBIN TIME PATIENT 13.3 SEC (11.7-14.0); RED BLOOD COUNT 3.02 x10^6/uL (3.50-5.40); RED CELL DISTRIBUTION WIDTH 15.5 % (11.5-14.5); WHITE BLOOD COUNT 2.6 x10^3/uL (4.0-11.0)
[2017-08-04 06:04] LABS: CALCIUM 8.9 mg/dL (8.5-10.1); CREATININE 9.7 mg/dL (0.6-1.0)
[2017-08-04] MEDS: HEPARIN PF for SUB-Q USE 5,000 UNIT/0.5 ML VIAL. SQ SCH ×2 (06:05→14:00)
[2017-08-04 06:13] LABS: POTASSIUM 5.3 mmol/L (3.5-5.1)
[2017-08-04 07:29] VITALS: BP 134/73
[2017-08-04] MEDS: SEVELAMER CARBONATE 800 MG TABLET. PO SCH ×3 (08:00→17:12)
[2017-08-04] MEDS: INSULIN ASPART 300 UNITS/3 ML INSULN.PEN SQ SCH ×3 (08:00→17:16)
[2017-08-04] MEDS ORDERED: LIDOCAINE 1% PF 2 ML VIAL. ONE ×2 (08:20)
--- NOTE | 2017-08-04 08:45 | RAD ---
11.15.17 1. Left upper extremity fistulogram 2. Pharmacomechanical thrombolysis of thrombosed left upper extremity fistula 3. Angioplasty of in-stent stenosis involving the left innominate vein stent, left subclavian vein and left axillary stents. 4. Balloon angioplasty of outflow vein stenosis and in graft stenosis. Discussion: Thrombosed upper extremity AV graft. Multiple revisions, and prior stenting of the left innominate vein, subclavian vein, and axillary vein. The risks and benefits of the procedure were discussed the patient's senior account representative. Informed consent was obtained. A timeout procedure was performed. The patient was placed in supine position. The left upper extremity was prepped and draped using maximum sterile barrier technique. 1% lidocaine was administered for local anesthesia. The AV graft was evaluated sonographically and demonstrated to be completely thrombosed. Reference ultrasound images were saved medical record. The graft was accessed towards venous outflow using ultrasound and micropuncture technique. Reference images were saved to the medical record. A 7 [place] vascular sheath was placed. A guidewire and catheter were advanced into the SVC. Full leg venogram was performed demonstrating essentially complete thrombosis of the graft through the level of the subclavian vein. Pharmacologic mechanical thrombolysis was performed using an AngioJet catheter and 10 mg of TPA. After a 20 minute intubation time rheolytic thrombectomy was performed throughout the graft. Subsequent fistulogram was demonstrated near total resolution of graft clot were however no inflow was identified. Access was obtained directed towards the arterial anastomosis in identical fashion. The arterial plug was pulled using a 5 mm partially inflated balloon. This reestablished brisk flow through the graft. Fistulogram was repeated demonstrating a narrowing in the most proximal portion of the graft. This was successfully treated with 7 mm angioplasty. Venogram was then demonstrated persistent narrowing of the outflow vein extending from the mid humerus to the level of the shoulder joint. This was treated with balloon angioplasty with 7 mm balloon demonstrating significantly improved morphology and flow. . Multiple significant narrowings through these previously stented vessel centrally were seen. Angioplasty was performed and made through the innominate vein stent using a 12 mm balloon. Angioplasty was performed within the distal subclavian and axillary veins using a 10 mm balloon. Repeat venograms demonstrated a significantly improved morphology and risk flow through the entirety of the graft. All wires and catheters were removed. Showing suture was replaced and the sheath were removed. Manual pressure was held. Hemostasis was achieved. Sterile dressings were applied. No immediate complications were identified. Fluoroscopy time 14.1 minutes Dose area product 40 Gycm2 The procedure was performed under conscious sedation including continuous cardiopulmonary monitoring via dedicated sedation nurse. Sedation time 90 minutes Impression: Successful mechanical thrombolysis of left lower extremity graft. Recurrent central in-stent stenosis, successfully treated with balloon angioplasty. Outflow vein and in graft stenosis were both successfully treated with balloon angioplasty as described.
[2017-08-04] MEDS: QUEtiapine 300 MG TAB.ER.24H. PO SCH (09:00)
[2017-08-04] MEDS: amLODIPine BESYLATE 10 MG TABLET PO SCH (09:00)
[2017-08-04] MEDS: METOPROLOL TART IMMED RELEASE 25 MG TABLET. PO SCH (09:00)
--- NOTE | 2017-08-04 10:53 | PDOC ---
Provider Note Provider Note Vascular S: Patient confused, this according to nurse is her baseline, no complaints of hand pain or ischemia O: Alert VSS Non-labored respirations Currently on dialysis via a-v shunt access, functioning well, palpable thrill in shunt, hand warm A/P: Renal failure, A-V shunt thrombosis Successful mechanical thrombectomy and balloon angioplasty Continue dialysis via left upper arm a-v access No further surgical intervention recommended, will sign off. f/U PRN JAROD PADRON FRAUD EXAMINER Aug 04, 2017 10:53
[2017-08-04] MEDS ORDERED: IV NORMAL SALINE 1000ML BAG 1,000 ML IV PRN (11:28)
[2017-08-04] MEDS ORDERED: DIALYSIS PATIENT. MC PRN ×2 (11:30)
--- NOTE | 2017-08-04 11:48 | PDOC ---
Renal-Progress Notes Subjective Notes Notes NONE History of Present Illness Hx of present illness STABLE Vitals Vitals Vital Signs Date Time Temp Pulse Resp B/P (MAP) Pulse Ox O2 Delivery O2 Flow Rate FiO2 08/04/17 07:45 Room Air 08/04/17 07:29 99.0 95 17 134/73 (93) 94 99.0 08/03/17 17:04 2.0 Weight Weight [ ] I.O. Intake and Output Intake and Output 08/04/17 07:00 Intake Total 160 ml Balance 160 ml Intake Oral 160 ml # Voids 5 Labs Labs Laboratory Tests Test 08/03/17 12:45 08/03/17 17:40 08/03/17 22:43 08/04/17 03:30 Heparin Anti-Xa Act, Unfractionated 0.99 IU/mL (0.30-0.70) Glucose (Fingerstick) 153 mg/dL (70-99) 128 mg/dL (70-99) White Blood Count 2.6 x10^3/uL (4.0-11.0) Red Blood Count 3.02 x10^6/uL (3.50-5.40) Hemoglobin 10.1 g/dL (12.0-15.5) Hematocrit 30.3 % (36.0-47.0) Mean Corpuscular Volume 100 fL (79-100) Mean Corpuscular Hemoglobin 33 pg (25-35) Mean Corpuscular Hemoglobin Concent 33 g/dL (31-37) Red Cell Distribution Width 15.5 % (11.5-14.5) Platelet Count 248 x10^3/uL (140-400) Prothrombin Time 13.3 SEC (11.7-14.0) Prothromb Time International Ratio 1.1 (0.8-1.1) Sodium Level 135 mmol/L (136-145) Potassium Level 5.3 mmol/L (3.5-5.1) Chloride Level 95 mmol/L (98-107) Carbon Dioxide Level 30 mmol/L (21-32) Anion Gap 10 (6-14) Blood Urea Nitrogen 52 mg/dL (7-20) Creatinine 9.7 mg/dL (0.6-1.0) Estimated GFR (Cockcroft-Gault) 5.0 Glucose Level 150 mg/dL (70-99) Calcium Level 8.9 mg/dL (8.5-10.1) Test 08/04/17 06:52 Glucose (Fingerstick) 138 mg/dL (70-99) Review of Systems Constitutional: yes: weakness, alert, oriented Ears/Nose/Throat: Yes: no symptom reported Eyes: Yes: no symptom reported Pulmonary: Yes no symptom reported Cardiovascular: Yes no symptom reported Gastrointestional: Yes: no symptom reported Musculoskeletal: Yes: no symptom reported Skin: Yes no symptom reported Endocrine: Yes: no symptom reported Physical Exam General Appearance: no apparent distress Skin: warm Respiratory: bilateral CTA Heart: S1S2 Abdomen: soft, bowel sounds present Genitourinary: bladder flat Extremities: pulses present Neurology: alert, oriented Assessment Assessment IMP DM II HTN ANEMIA ESRD S/P LEFT ARM SHUNT THROMBECTOMY PLAN HD TODAY UF TO [facility] OK TO Kel/C RAFAEL OSORIO MD Aug 04, 2017 11:48
[2017-08-04 13:03] VITALS: BP 91/53
[2017-08-04] MEDS: LISINOPRIL 40 MG TABLET. PO SCH (13:21)
[2017-08-04] MEDS: POLYETHYLENE GLYCOL 3350 17 GM PACKET. PO SCH (13:24)
[2017-08-04] MEDS: OMEGA-3 FATTY ACIDS/FISH OIL 1,000 MG CAPSULE. PO SCH (13:24)
[2017-08-04] MEDS: CETIRIZINE HCL 10 MG TABLET. PO SCH (13:24)
[2017-08-04] MEDS: CLOPIDOGREL BISULFATE 75 MG TABLET PO SCH (13:24)
[2017-08-04] MEDS: SENNOSIDES 8.6 MG TABLET PO SCH (13:24)
[2017-08-04] MEDS: PSEUDOEPHEDRINE ER 120 MG TABLET.ER. PO SCH (13:24)
[2017-08-04 15:05] VITALS: BP 121/72
[2017-08-04] MEDS ORDERED: WARFARIN 7.5 MG TABLET. PO ONE (16:00)
--- NOTE | 2017-08-04 16:27 | PDOC3 ---
Discharge Summary [facility] Date of Admission: Aug 02, 2017 Discharge Date: Aug 04, 2017 Admitting Diagnosis left arm AVshunt malfunction with thrombosis extending to axillary/branchial V, s/p thrombectomy and balloon angioplasty 08/03 ESRD ON HD h/o CAD HTN HLD H/O CVA Anemia with esrd anxiety schizophrenia, SNF resident DM2 on insulin h/o hyperparathyroidism severe dementia/psychosis with aaox1 Problems: Final Diagnosis CONSULTS renal vascular Brief Hospital Course Ms. Rodriguez is a 57 old F, with dementia, schizo, from SNF, for left AV shunt malfunction, thrombosis. pt got thrombectomy and balloon angioplasty, HD works fine.heparin dced post op dc back SNF. pt always says not wanna go back to SNF, wanted to go to her "uncle's house" which dosenot exist. dc time 35min General: Alert, Oriented X3, No acute distress Heart: Regular rate, Normal S1 Lungs: Clear, Other Abdomen: Normal bowel sounds, Soft, No tenderness Extremities: No clubbing, No edema, Skin: No breakdown Patient History: Cancer confirmed (situation) 33 FATHER 32 MOTHER Family history: Angina (situation) G8 SISTER Family history: Breast disease (situation) 32 MOTHER Family history: Hypertension (situation) 32 MOTHER No Family History of: Family history: Allergy Family history: Alzheimer's disease (situation) Family history: Asthma Family history: Autoimmune disease (situation) Family history: Blood disorder (situation) Family history: Cardiomyopathy (situation) Family history: Cardiovascular disease (situation) Family history: Crohn's disease (situation) Family history: Depression (situation) Family history: Diabetes mellitus (situation) Family history: Epilepsy (situation) Family history: Gallbladder disease (situation) Family history: Gastrointestinal disease (situation) Family history: Hemophilia (situation) Family history: Obesity (situation) Family history: Schizophrenia (situation) Family history: Sickle cell trait (situation) Family history: Suicide (situation) Family history: neoplasm - trachea/bronchus/lung (situation) Family history: neoplasm - urinary organ (situation) Family history: neoplasm of skin (situation) Malignant hyperthermia Sleep apnea Problems: Disposition SNF CONDITION AT DISCHARGE: Improved, Stable Diet renal Scheduled Amlodipine Besylate (Amlodipine Besylate), 10 MG PO DAILY, (Reported) Atorvastatin Calcium (Atorvastatin Calcium), 20 MG PO HS, (Reported) B1/B2/Niacin/B12/Protease (B-Complex with B-12 Tablet), 1 EACH PO DAILY, ( Reported) Clonidine (Clonidine Tts-3), 1 PATCH TD WEEKLY Clopidogrel Bisulfate (Clopidogrel), 75 MG PO DAILY, (Reported) Epoetin Aashish (Procrit), 10,000 UNIT IJ WEEKLY, (Reported) Insulin Detemir (Levemir), 23 UNIT SQ HS, (Reported) Insulin Lispro (Humalog), 0 SQ TIDAC, (Reported) Lisinopril (Lisinopril), 40 MG PO DAILY, (Reported) Loratadine/Pseudoephedrine (Allergy Relief D-24 Tablet), 1 EACH PO DAILY, ( Reported) Lorazepam (Lorazepam), 0.5 MG PO HS, (Reported) Metoprolol Tartrate (Metoprolol Tartrate), 50 MG PO BID, (Reported) Nitroglycerin (Nitrostat), 0.4 MG SL PRN DAILY, (Reported) [place]-3 Fatty Acids/Fish Oil ([place] 3 Fish Oil Softgel), 1 EACH PO DAILY, ( Reported) Oxymetazoline Hcl (Afrin), 2 SPRAY NS BIDAFTMEAL PRN, (Reported) Polyethylene Glycol 3350 (Miralax), 1 PACKET PO DAILY, (Reported) Quetiapine Fumarate (Quetiapine Fumarate), 100 MG PO HS, (Reported) Sennosides (Senna), 2 CAP PO BID, (Reported) Sevelamer Carbonate (Renvela), 3 CAP PO TIDWMEALS, (Reported) Scheduled PRN Acetaminophen (Acetaminophen), 325 MG PO PRN Q6HRS PRN for PAIN, (Reported) Calcium Carbonate (Calcium), 500 MG PO PRN PRN for HEARTBURN / GAS, (Reported) Diphenhydramine Hcl (Diphenhydramine Hcl), 25 MG PO PRN QHS PRN for INSOMNIA, ( Reported) Hydrocortisone Acetate (Hydrocortisone), 28 GM TP PRN QHS PRN for ITCHING, ( Reported) Lidocaine/Prilocaine (Emla Cream), 5 GM TP 3X/WEEK PRN for PAIN, (Reported) Mag Hydrox/Al Hydrox/Simeth (Maalox Maximum Strength Susp), 30 ML PO PRN Q6HRS PRN for INDIGESTION, (Reported) Magnesium Hydroxide (Milk Of Magnesia), 30 ML PO PRN QHS PRN for INDIGESTION, ( Reported) Oxycodone Hcl (Oxycodone Hcl), 5 MG PO PRN Q8HRS PRN for PAIN, (Reported) Phenyleph/Mineral Oil/Petrolat (Preparation H Ointment), 26 GM RC PRN Q6HRS PRN for RECTAL PAIN, (Reported) Pseudoephedrine Hcl (Sudogest), 30 MG PO PRN Q6HRS PRN for ALLERGIES, (Reported) Sodium Chloride (Sodium Chloride), 1-2 SPRAYS NS QID PRN for ALLERGIES, ( Reported) Discontinued Medications Ciprofloxacin Hcl (Cipro), 1 TAB PO BID Follow Up pcp in 2 weeks ELISSA HAYNES MD Aug 04, 2017 16:27
[2017-08-09] MEDS ORDERED: cloNIDine TTS-3 1 PATCH PATCH.TDWK TD SCH (09:00)
[2017-08-09] MEDS ORDERED: DARBEPOETIN ALFA 25 MCG/0.42 ML DISP.SYRIN. SQ SCH (21:00)
== END 2017-08-04 19:15 | disposition home or self-care (01) | DRG 270 ==
LOC: ER 13:36 → 5 SOUTH 18:00
PROVIDERS: ADMIT Internal Medicine Hematology & Oncology; ATTEND Internal Medicine Hematology & Oncology
PROC: 5A1D70Z Performance of Urinary Filtration, Intermittent, Less than 6 Hours Per Day (ICD-10-PCS; principal; 2017-08-03)
PROC: 05C63ZZ Extirpation of Matter from Left Subclavian Vein, Percutaneous Approach (ICD-10-PCS; 2017-08-03)
PROC: 05743DZ Dilation of Left Innominate Vein with Intraluminal Device, Percutaneous Approach (ICD-10-PCS; 2017-08-03)
PROC: 05763DZ Dilation of Left Subclavian Vein with Intraluminal Device, Percutaneous Approach (ICD-10-PCS; 2017-08-03)
PROC: 05783DZ Dilation of Left Axillary Vein with Intraluminal Device, Percutaneous Approach (ICD-10-PCS; 2017-08-03)
PROC: B51W1ZZ Fluoroscopy of Dialysis Shunt/Fistula using Low Osmolar Contrast (ICD-10-PCS; 2017-08-03)
PROC: 5A1D70Z Performance of Urinary Filtration, Intermittent, Less than 6 Hours Per Day (ICD-10-PCS; 2017-08-04)
DX: T82.868A Thrombosis due to vascular prosthetic devices, implants and grafts, initial encounter (principal); N18.6 End stage renal disease; E11.22 Type 2 diabetes mellitus with diabetic chronic kidney disease; I12.0 Hypertensive chronic kidney disease with stage 5 chronic kidney disease or end stage renal disease; T82.319A Breakdown (mechanical) of unspecified vascular grafts, initial encounter; I25.10 Atherosclerotic heart disease of native coronary artery without angina pectoris; D63.1 Anemia in chronic kidney disease; E78.00 Pure hypercholesterolemia, unspecified; E78.5 Hyperlipidemia, unspecified; E87.5 Hyperkalemia; F03.90 Unspecified dementia, unspecified severity, without behavioral disturbance, psychotic disturbance, mood disturbance, and anxiety; F20.9 Schizophrenia, unspecified; F41.9 Anxiety disorder, unspecified; T82.818A Embolism due to vascular prosthetic devices, implants and grafts, initial encounter; E21.3 Hyperparathyroidism, unspecified; Y83.2 Surgical operation with anastomosis, bypass or graft as the cause of abnormal reaction of the patient, or of later complication, without mention of misadventure at the time of the procedure; Z79.4 Long term (current) use of insulin; Z81.8 Family history of other mental and behavioral disorders; Z82.0 Family history of epilepsy and other diseases of the nervous system; Z82.49 Family history of ischemic heart disease and other diseases of the circulatory system; Z82.5 Family history of asthma and other chronic lower respiratory diseases; Z83.3 Family history of diabetes mellitus; Z86.73 Personal history of transient ischemic attack (TIA), and cerebral infarction without residual deficits; Z90.710 Acquired absence of both cervix and uterus; Z99.2 Dependence on renal dialysis; Z87.01 Personal history of pneumonia (recurrent); Z88.2 Allergy status to sulfonamides; Z91.018 Allergy to other foods; I25.2 Old myocardial infarction
CPT/HCPCS: 36415; 36905; 80048; 82306; 82962; 85007; 85025; 85027; 85347; 85520; 85610; 87641; 93971; 99152; 99153; A4215; C1725; C1757; C1769; C1892; C1894; J0360; J0610; J1200; J1644; J1815; J2250; J2997; J3010; J7042; 99285-25

== ENCOUNTER 2017-09-30 15:03 | Emergency (ER) | payer MEDICARE, OTHER ==
[2017-09-30 15:08] LABS: POC GLUCOSE 159 mg/dL (70-99)
[2017-09-30 16:26] LABS: POC GLUCOSE 210 mg/dL (70-99)
[2017-09-30] MEDS: IV NORMAL SALINE 1000ML BAG 1,000 ML IV (16:34)
[2017-09-30 16:56] LABS: ADD MAN DIFF? NO
[2017-09-30 17:00] LABS: BASO % 0 % (0-3); EOS % 0 % (0-3); HEMATOCRIT 36.7 % (36.0-47.0); HEMOGLOBIN 11.8 g/dL (12.0-15.5); LYMPH # 0.5 x10^3/uL (1.0-4.8); LYMPH % 10 % (24-48); MEAN CORPUSCULAR HEMOGLOBIN 33 pg (25-35); MEAN CORPUSCULAR HGB CONC 32 g/dL (31-37); MEAN CORPUSCULAR VOLUME 105 fL (79-100); MONO # 0.6 x10^3/uL (0.0-1.1); MONO % 10 % (0-9); NEUT # 4.6 x10^3uL (1.8-7.7); NEUT % 80 % (31-73); PLATELET COUNT 227 x10^3/uL (140-400); RED BLOOD COUNT 3.52 x10^6/uL (3.50-5.40); RED CELL DISTRIBUTION WIDTH 17.6 % (11.5-14.5); WHITE BLOOD COUNT 5.7 x10^3/uL (4.0-11.0)
[2017-09-30 17:11] LABS: ANION GAP 13 (6-14); BLOOD UREA NITROGEN 52 mg/dL (7-20); CALCIUM 9.1 mg/dL (8.5-10.1); CARBON DIOXIDE 26 mmol/L (21-32); CHLORIDE 98 mmol/L (98-107); GFR 6.3; GLUCOSE 257 mg/dL (70-99); POTASSIUM 5.1 mmol/L (3.5-5.1); SODIUM 137 mmol/L (136-145)
[2017-09-30 17:24] LABS: TROPONINI < 0.017 ng/mL (0.000-0.055)
[2017-09-30 17:26] LABS: THYROID STIM HORMONE (TSH) 0.881 uIU/mL (0.358-3.74)
== END 2017-09-30 19:06 | disposition home or self-care (01) ==
LOC: ER 15:03
DX: E11.649 Type 2 diabetes mellitus with hypoglycemia without coma (principal); R41.82 Altered mental status, unspecified; F41.9 Anxiety disorder, unspecified; E78.00 Pure hypercholesterolemia, unspecified; I25.2 Old myocardial infarction; F20.9 Schizophrenia, unspecified; I12.0 Hypertensive chronic kidney disease with stage 5 chronic kidney disease or end stage renal disease; E11.22 Type 2 diabetes mellitus with diabetic chronic kidney disease; N18.6 End stage renal disease; E66.01 Morbid (severe) obesity due to excess calories; Z68.36 Body mass index [BMI] 36.0-36.9, adult; Z87.01 Personal history of pneumonia (recurrent); Z90.710 Acquired absence of both cervix and uterus; Z91.018 Allergy to other foods; Z99.2 Dependence on renal dialysis; Z88.2 Allergy status to sulfonamides; Z86.73 Personal history of transient ischemic attack (TIA), and cerebral infarction without residual deficits; Z79.4 Long term (current) use of insulin
CPT/HCPCS: 36415; 71045; 80048; 82962; 84443; 84484; 85025; 93005; 96360; 99285-25; J7030

== ENCOUNTER 2018-02-26 01:50 | Emergency (ER) | payer MEDICARE, OTHER ==
[2018-02-26 02:40] LABS: BILIRUBIN,URINE NEGATIVE (NEG); CLARITY,URINE TURBID; COLOR,URINE YELLOW; GLUCOSE,URINE 100 mg/dL (NEG); NITRITE,URINE NEGATIVE (NEG); PROTEIN,URINE >=300 mg/dL (NEG-TRACE); UROBILINOGEN,URINE 0.2 mg/dL (0.2 mg/dL)
[2018-02-26 02:50] LABS: BACTERIA,URINE FEW /HPF (0-FEW); WBC,URINE TNTC /HPF (0-4)
[2018-02-26 02:51] LABS: SQUAMOUS EPITHELIAL CELL,UR OCC /LPF
[2018-02-26 03:15] LABS: ADD MAN DIFF? NO
[2018-02-26 03:21] LABS: BASO % 1 % (0-3); EOS # 0.1 x10^3/uL (0.0-0.7); EOS % 2 % (0-3); HEMATOCRIT 31.3 % (36.0-47.0); HEMOGLOBIN 10.6 g/dL (12.0-15.5); LYMPH # 1.1 x10^3/uL (1.0-4.8); LYMPH % 13 % (24-48); MEAN CORPUSCULAR HEMOGLOBIN 32 pg (25-35); MEAN CORPUSCULAR HGB CONC 34 g/dL (31-37); MEAN CORPUSCULAR VOLUME 95 fL (79-100); MONO # 1.1 x10^3/uL (0.0-1.1); MONO % 14 % (0-9); NEUT % 71 % (31-73); PLATELET COUNT 288 x10^3/uL (140-400); RED BLOOD COUNT 3.31 x10^6/uL (3.50-5.40); RED CELL DISTRIBUTION WIDTH 16.7 % (11.5-14.5); WHITE BLOOD COUNT 8.4 x10^3/uL (4.0-11.0)
[2018-02-26 03:33] LABS: ANION GAP 14 (6-14); BLOOD UREA NITROGEN 51 mg/dL (7-20); CALCIUM 9.3 mg/dL (8.5-10.1); CARBON DIOXIDE 25 mmol/L (21-32); CHLORIDE 95 mmol/L (98-107); CREATININE 6.6 mg/dL (0.6-1.0); GFR 7.8; GLUCOSE 215 mg/dL (70-99); POTASSIUM 4.7 mmol/L (3.5-5.1); SODIUM 134 mmol/L (136-145)
[2018-02-26] MEDS: NITROFURANTOIN MONOHYD/M-CRYST 100 MG CAPSULE. PO (03:54)
== END 2018-02-26 05:02 | disposition home or self-care (01) ==
LOC: ER 01:50
DX: M54.89 Other dorsalgia (principal); E11.22 Type 2 diabetes mellitus with diabetic chronic kidney disease; I12.0 Hypertensive chronic kidney disease with stage 5 chronic kidney disease or end stage renal disease; I25.2 Old myocardial infarction; E78.00 Pure hypercholesterolemia, unspecified; N18.6 End stage renal disease; F03.90 Unspecified dementia, unspecified severity, without behavioral disturbance, psychotic disturbance, mood disturbance, and anxiety; F41.9 Anxiety disorder, unspecified; Z99.2 Dependence on renal dialysis; Z86.2 Personal history of diseases of the blood and blood-forming organs and certain disorders involving the immune mechanism; Z86.73 Personal history of transient ischemic attack (TIA), and cerebral infarction without residual deficits; Z88.2 Allergy status to sulfonamides; Z91.018 Allergy to other foods
CPT/HCPCS: 36415; 80048; 81001; 85025; 87086; 87186; 99284

== ENCOUNTER → 2018-10-09 | Outpatient (CLI) | payer MEDICARE, OTHER ==
[2018-02-26 04:15] VITALS: BP 152/68
[~2018-10-09] MED LIST changes: -AMLO10TA2 PO; +AMLO10TA6 PO; +CALC667T PO; +CLOP75TA57 PO; +LISI-130 PO; -LISI40TA PO; +LORA1TAB PO; +LOSA100T14 PO; +METO50TA6 PO; +MULT-638 PO; +NITR100C62 PO; +NITR1PAT73 SL; +ONDA4TAB11 PO; -ONDA4VIA4 IJ; +ONDA4VIA7 IJ; +OSEL75CA PO; +OXYC5TAB4 PO; -OXYC5TAB95 PO; +SENN-80 PO; +TRAZ-85 PO; +WARF-31 PO; -WARF5TAB7 PO; +[UNRECOGNIZED DRUG - CODE] PO; -[UNRECOGNIZED DRUG - CODE] PO
--- NOTE | 2018-10-09 12:16 | RAD ---
MR of the right foot HISTORY: Right foot pain along the first metatarsal and first toe. Open wound at the medial dorsal foot. TECHNIQUE: Routine multiplanar sequences are obtained. FINDINGS: There is diffuse complete replacement of the marrow of the distal first phalanx with cortical destruction. Abnormal soft tissue at the first toe is indistinguishable from the marrow signal replacement. Findings are most compatible with severe osteomyelitis completely replacing the first distal phalanx. There is minimal signal heterogeneity of the distal aspect of the proximal first phalanx, but grossly this appears intact. No significant joint effusion. No abnormal soft tissue fluid collection or drainable abscess. No evidence of acute tendon disruption. The hallux sesamoids are intact. Lisfranc ligament complex is intact as is tarsometatarsal alignment. IMPRESSION: Findings compatible with severe osteomyelitis involving the entire distal first phalanx. There is minimal signal heterogeneity at the distal aspect of the proximal first phalanx but no definite osteomyelitis. Electronically signed by: Tristan Martin MD (10/09/2018 12:12 PM) [facility]
== END | disposition home or self-care (01) ==
LOC: MRI 09:22
PROVIDERS: ATTEND Internal Medicine
DX: M86.8X7 Other osteomyelitis, ankle and foot (principal)
CPT/HCPCS: 73718

== ENCOUNTER → 2018-11-10 | Outpatient (CLI) | payer MEDICARE, OTHER ==
[2018-02-26 04:15] VITALS: BP 152/68
[~2018-11-10] MED LIST changes: -AMLO10TA6 PO; +AMLO10TA8 PO; +ARIP10TA9 PO; -CALC667T PO; +CALC667T4 PO; +CIPR500T PO; +ISOS30TA4 PO; +SIME80TA14 PO; +TRAZ-118 PO; -TRAZ-85 PO; +ZOLP5TAB PO
== END | disposition home or self-care (01) ==
LOC: SPEC 12:57
PROVIDERS: ATTEND Orthopaedic Surgery Sports Medicine
DX: M86.8X7 Other osteomyelitis, ankle and foot (principal)
CPT/HCPCS: 87071; 87075

== ENCOUNTER 2018-11-24 03:16 | Emergency (ER) | payer MEDICARE, OTHER ==
[~2018-11-24] VITALS: Ht 165.1 cm; Wt 80.3 kg
[~2018-11-24 03:16] MED LIST changes: -ARIP10TA9 PO; -CIPR500T PO; -ISOS30TA4 PO; -SIME80TA14 PO; -ZOLP5TAB PO
[2018-11-24 03:17] VITALS: BP 173/78
--- NOTE | 2018-11-24 04:27 | RAD ---
CT HEAD WO CONTRAST dated 11/24/2018 4:01 AM. Comparison: 10/11/2017. Clinical Indication: head pain after injury to forehead, PAIN AFTER INJURY Technical factors: Contiguous 5 mm axial images of the head were obtained from the skull base to the vertex. No contrast was administered. One or more of the following individualized dose reduction techniques were utilized for this examination: Automated exposure control, Adjustment of the mA and/or kV according to patient size, Use of iterative reconstruction technique. Findings: Ventricles and sulci are mildly prominent for age. No midline shift or mass effect. Mild patchy low density in the deep/subcortical periventricular white matter. No hemorrhage or extra-axial collection. Small remote infarcts of the bilateral cerebellum with cerebellar atrophy, unchanged. Visualized paranasal sinuses and mastoid air cells are clear. No apparent calvarial abnormality. Impression: 1. No evidence of acute intracranial hemorrhage or mass. 2. Mild chronic small vessel ischemic changes and atrophy, similar to prior study. Electronically signed by: Tristan Shirley MD (11/24/2018 4:24 AM) [facility]
[2018-11-24 04:37] LABS: BASO % 0 % (0-3); EOS % 0 % (0-3); HEMATOCRIT 31.9 % (36.0-47.0); HEMOGLOBIN 10.5 g/dL (12.0-15.5); LYMPH # 0.5 x10^3/uL (1.0-4.8); LYMPH % 8 % (24-48); MEAN CORPUSCULAR HEMOGLOBIN 32 pg (25-35); MEAN CORPUSCULAR HGB CONC 33 g/dL (31-37); MEAN CORPUSCULAR VOLUME 99 fL (79-100); MONO # 0.2 x10^3/uL (0.0-1.1); MONO % 4 % (0-9); NEUT # 5.4 x10^3uL (1.8-7.7); NEUT % 88 % (31-73); PLATELET COUNT 213 x10^3/uL (140-400); RED BLOOD COUNT 3.23 x10^6/uL (3.50-5.40); RED CELL DISTRIBUTION WIDTH 16.7 % (11.5-14.5); WHITE BLOOD COUNT 6.2 x10^3/uL (4.0-11.0)
[2018-11-24 04:51] LABS: CALCIUM 9.3 mg/dL (8.5-10.1); CREATININE 4.4 mg/dL (0.6-1.0); GFR 12.4; POTASSIUM 3.8 mmol/L (3.5-5.1)
[2018-11-24 04:56] LABS: ALBUMIN 3.3 g/dL (3.4-5.0); ALBUMIN/GLOBULIN RATIO 0.6 (1.0-1.7); TOTAL BILIRUBIN 0.4 mg/dL (0.2-1.0); TOTAL PROTEIN 8.6 g/dL (6.4-8.2)
[2018-11-24 05:09] LABS: BILIRUBIN,URINE NEGATIVE (NEG); CLARITY,URINE CLOUDY; COLOR,URINE YELLOW; NITRITE,URINE NEGATIVE (NEG); PH,URINE 8.5; PROTEIN,URINE >=300 mg/dL (NEG-TRACE); UROBILINOGEN,URINE 0.2 mg/dL (0.2 mg/dL)
[2018-11-24 05:19] LABS: BACTERIA,URINE MODERATE /HPF (0-FEW); SQUAMOUS EPITHELIAL CELL,UR MANY /LPF; WBC,URINE 20-40 /HPF (0-4)
[2018-11-24 05:29] LABS: % BANDS 2 % (0-9); % LYMPHS 6 % (24-48); % MONOS 4 % (0-10); % SEGS 88 % (35-66); ANISOCYTOSIS SLIGHT; PLT ESTIMATE ADEQUATE (ADEQUATE); POIKILOCYTOSIS SLIGHT
[2018-11-24] MEDS ORDERED: CIPR500T PO (05:44)
--- NOTE | 2018-11-24 05:52 | PHYS DOC ---
Past Medical History Past Medical History: Anemia, Anxiety, CVA, Diabetes-Type II, High Cholesterol , Hypertension, [place], Pneumonia, Renal Disease, Renal Failure, Schizophrenia, Other Additional Past Medical Histor: DIALYSIS PATIENT Past Surgical History: Hysterectomy, Other Additional Past Surgical Histo: shunt placement left arm, I&D of hip Alcohol Use: None Drug Use: None Adult General Chief Complaint Chief Complaint: HYPOGLYCEMIA HPI HPI Patient is a 58 year old f biba with low blood sugar. pt biba apparently was [facility] jail bg was in the 40's they gave oral glucose it came upt o 60's pt had usual insulin last night. no fever denies comlpaints thinks she did hit her head. Review of Systems Review of Systems Constitutional: Denies fever or chills [] Eyes: Denies change in visual acuity, redness, or eye pain [] HENT: Denies nasal congestion or sore throat [] Neurologic: Denies headache, focal weakness or sensory changes [] Endocrine: Denies polyuria or polydipsia [] All other systems were reviewed and found to be within normal limits, except as documented in this note. Allergies Allergies Allergies Coded Allergies Type Severity Reaction Last Updated Verified Sulfa (Sulfonamide Antibiotics) Allergy Intermediate 06/29/16 Yes banana Allergy Intermediate 08/03/17 Yes cranberry Allergy Intermediate 07/14/16 Yes grapefruit Allergy Intermediate 07/14/16 Yes orange juice Allergy Intermediate 08/03/17 Yes tomato Allergy Intermediate 08/03/17 Yes Physical Exam Physical Exam Constitutional: Well developed, well nourished, no acute distress, non-toxic appearance. [] HENT: Normocephalic, atraumatic, bilateral external ears normal, oropharynx moist, no oral exudates, nose normal. [] Eyes: PERRLA, EOMI, conjunctiva normal, no discharge. [] Neck: Normal range of motion, no tenderness, supple, no stridor. [] Cardiovascular:Heart rate regular rhythm, no murmur [] Lungs & Thorax: crackles at lung bases Abdomen: Bowel sounds normal, soft, no tenderness, no masses, no pulsatile masses. [] Skin: Warm, dry, no erythema, no rash. [] Back: No tenderness, no CVA tenderness. [] Extremities: No tenderness, no cyanosis, no clubbing, ROM intact 1 plus edema Neurologic: Alert and oriented X 3, normal motor function, normal sensory function, no focal deficits noted. [] Psychologic: Affect normal, judgement normal, mood normal. [] Current Patient Data Vital Signs Vital Signs Date Time Temp Pulse Resp B/P (MAP) Pulse Ox O2 Delivery O2 Flow Rate FiO2 11/24/18 03:17 98.0 86 20 173/78 (109) 100 Room Air 98.0 Lab Values Laboratory Tests Test 11/24/18 03:23 11/24/18 04:20 11/24/18 05:00 Glucose (Fingerstick) 94 mg/dL (70-99) White Blood Count 6.2 x10^3/uL (4.0-11.0) Red Blood Count 3.23 x10^6/uL (3.50-5.40) L Hemoglobin 10.5 g/dL (12.0-15.5) L Hematocrit 31.9 % (36.0-47.0) L Mean Corpuscular Volume 99 fL (79-100) Mean Corpuscular Hemoglobin 32 pg (25-35) Mean Corpuscular Hemoglobin Concent 33 g/dL (31-37) Red Cell Distribution Width 16.7 % (11.5-14.5) H Platelet Count 213 x10^3/uL (140-400) Neutrophils (%) (Auto) 88 % (31-73) H Lymphocytes (%) (Auto) 8 % (24-48) L Monocytes (%) (Auto) 4 % (0-9) Eosinophils (%) (Auto) 0 % (0-3) Basophils (%) (Auto) 0 % (0-3) Neutrophils # (Auto) 5.4 x10^3uL (1.8-7.7) Lymphocytes # (Auto) 0.5 x10^3/uL (1.0-4.8) L Monocytes # (Auto) 0.2 x10^3/uL (0.0-1.1) Eosinophils # (Auto) 0.0 x10^3/uL (0.0-0.7) Basophils # (Auto) 0.0 x10^3/uL (0.0-0.2) Segmented Neutrophils % 88 % (35-66) H Band Neutrophils % 2 % (0-9) Lymphocytes % 6 % (24-48) L Monocytes % 4 % (0-10) Platelet Estimate Adequate (ADEQUATE) Poikilocytosis Slight Anisocytosis Slight Sodium Level 138 mmol/L (136-145) Potassium Level 3.8 mmol/L (3.5-5.1) Chloride Level 99 mmol/L (98-107) Carbon Dioxide Level 29 mmol/L (21-32) Anion Gap 10 (6-14) Blood Urea Nitrogen 18 mg/dL (7-20) Creatinine 4.4 mg/dL (0.6-1.0) H Estimated GFR (Cockcroft-Gault) 12.4 BUN/Creatinine Ratio 4 (6-20) L Glucose Level 364 mg/dL (70-99) H Calcium Level 9.3 mg/dL (8.5-10.1) Total Bilirubin 0.4 mg/dL (0.2-1.0) Aspartate Amino Transferase (AST) 33 U/L (15-37) Alanine Aminotransferase (ALT) 25 U/L (14-59) Alkaline Phosphatase 100 U/L (46-116) Total Protein 8.6 g/dL (6.4-8.2) H Albumin 3.3 g/dL (3.4-5.0) L Albumin/Globulin Ratio 0.6 (1.0-1.7) L Urine Collection Type Unknown Urine Color Yellow Urine Clarity Cloudy Urine pH 8.5 Urine Specific [place] 1.010 Urine Protein >=300 mg/dL (NEG-TRACE) Urine Glucose (UA) 100 mg/dL (NEG) Urine Ketones (Stick) Negative mg/dL (NEG) Urine Blood Small (NEG) Urine Nitrite Negative (NEG) Urine Bilirubin Negative (NEG) Urine Urobilinogen Dipstick 0.2 mg/dL (0.2 mg/dL) Urine Leukocyte Esterase Moderate (NEG) Urine RBC 3-5 /HPF (0-2) Urine WBC 20-40 /HPF (0-4) Urine Squamous Epithelial Cells Many /LPF Urine Bacteria Moderate /HPF (0-FEW) Laboratory Tests 11/24/18 04:20 Laboratory Tests 11/24/18 04:20 EKG EKG [] Radiology/Procedures Radiology/Procedures [] Course & Med Decision Making Course & Med Decision Making Pertinent Labs and Imaging studies reviewed. (See chart for details) []58-year-old female with a history of insulin dependent diabetes end-stage renal disease on hemodialysis Family with hyperglycemia blood sugar has corrected in the emergency room UTI shows possible urinary urinalysis patient was given a prescription for Cipro she 'll be [facility] the [facility] in stable condition. Dragon Disclaimer Dragon Disclaimer This electronic medical record was generated, in whole or in part, using a voice recognition dictation system. Departure Departure Impression: Primary Impression: Hypoglycemia Disposition: HOME, SELF-CARE Condition: STABLE Patient Instructions: Hypoglycemia, [id number] Scripts Ciprofloxacin Hcl (CIPROFLOXACIN HCL) 500 Mg Tablet 1 TAB PO BID, #14 TAB Prov: BONG AGUILAR MD 11/24/18 BONG AGUILAR MD Nov 24, 2018 05:52
== END 2018-11-24 06:15 | disposition home or self-care (01) ==
LOC: ER 03:16
DX: E11.649 Type 2 diabetes mellitus with hypoglycemia without coma (principal); E11.22 Type 2 diabetes mellitus with diabetic chronic kidney disease; I12.0 Hypertensive chronic kidney disease with stage 5 chronic kidney disease or end stage renal disease; N18.6 End stage renal disease; Z99.2 Dependence on renal dialysis; F41.9 Anxiety disorder, unspecified; E78.00 Pure hypercholesterolemia, unspecified; I25.2 Old myocardial infarction; Z90.710 Acquired absence of both cervix and uterus; Z86.73 Personal history of transient ischemic attack (TIA), and cerebral infarction without residual deficits; Z88.2 Allergy status to sulfonamides; Z91.018 Allergy to other foods
CPT/HCPCS: 36415; 70450; 80053; 81001; 82962; 85007; 85025; 87086; 99284-25

== ENCOUNTER 2018-12-11 08:11 | Outpatient (CLI) | payer MEDICARE, OTHER ==
[2018-12-11] VITALS (7 sets, daily range): BP systolic 137–159; BP diastolic 65–80
[~2018-12-11] VITALS: Ht 152.4 cm; Wt 79.4 kg
[~2018-12-11 08:11] MED LIST changes: +CIPR500T PO
[2018-12-11 08:36] LABS: BASO % 1 % (0-3); EOS # 0.1 x10^3/uL (0.0-0.7); EOS % 4 % (0-3); HEMATOCRIT 30.1 % (36.0-47.0); HEMOGLOBIN 9.8 g/dL (12.0-15.5); LYMPH # 0.8 x10^3/uL (1.0-4.8); LYMPH % 23 % (24-48); MEAN CORPUSCULAR HEMOGLOBIN 32 pg (25-35); MEAN CORPUSCULAR HGB CONC 33 g/dL (31-37); MEAN CORPUSCULAR VOLUME 99 fL (79-100); MONO # 0.6 x10^3/uL (0.0-1.1); MONO % 17 % (0-9); NEUT # 1.9 x10^3uL (1.8-7.7); NEUT % 56 % (31-73); PLATELET COUNT 219 x10^3/uL (140-400); RED BLOOD COUNT 3.03 x10^6/uL (3.50-5.40); RED CELL DISTRIBUTION WIDTH 16.9 % (11.5-14.5); WHITE BLOOD COUNT 3.4 x10^3/uL (4.0-11.0)
[2018-12-11 08:47] LABS: CALCIUM 9.1 mg/dL (8.5-10.1); CREATININE 7.1 mg/dL (0.6-1.0); GFR 7.2
[2018-12-11] MEDS ORDERED: DIAZ5TAB4 PO (09:07)
[2018-12-11] MEDS ORDERED: ISOS30TA4 PO (09:07)
[2018-12-11] MEDS ORDERED: SIME80TA14 PO (09:07)
[2018-12-11] MEDS ORDERED: ZOLP5TAB PO (09:07)
[2018-12-11] MEDS ORDERED: ARIP10TA9 PO (09:07)
[2018-12-11] MEDS ORDERED: LIDOCAINE WITH 8.4% SOD BICARB 3 ML DISP.SYRIN. ONE (09:12)
[2018-12-11] MEDS ORDERED: IODIXANOL 320 MG/ML 50ML VIAL. ONE (09:12)
[2018-12-11] MEDS ORDERED: IODIXANOL 320 MG/ML 100 ML VIAL. ONE (09:12)
[2018-12-11] MEDS ORDERED: HEPARIN for IV BOLUS 10,000 UNIT/10 ML VIAL. ONE (10:10)
[2018-12-11] MEDS ORDERED: IODIXANOL 320 MG/ML 50ML VIAL. IV ONE (10:15)
[2018-12-11] MEDS ORDERED: HEPARIN for IV BOLUS 10,000 UNIT/10 ML VIAL. IV ONE (10:15)
[2018-12-11] MEDS ORDERED: LIDOCAINE WITH 8.4% SOD BICARB 3 ML DISP.SYRIN. IJ ONE (10:15)
[2018-12-11] MEDS ORDERED: IODIXANOL 320 MG/ML 100 ML VIAL. IART ONE (10:15)
[2018-12-11] MEDS ORDERED: fentaNYL PF VIAL 100 MCG/2 ML VIAL ONE (10:28)
[2018-12-11] MEDS ORDERED: CONTRAST GIVEN. MC PRN (10:30)
[2018-12-11] MEDS ORDERED: fentaNYL PF VIAL 100 MCG/2 ML VIAL IV ONE (10:45)
--- NOTE | 2018-12-11 13:04 | NUR ---
pt A&O x3. denies pain. tolerating po well. ambulated to BR w/o problem. VSS. called report to Shweta the group home nurse. discussed the need to have [facility] remove stitch at site on LUE shunt on Tuesday12/13/18 if no issues with bleeding. dressing on left arm dry and intact. 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 gave d/c instruction sheets . pt out to vehicle per w/c.
--- NOTE | 2018-12-11 13:09 | RAD ---
12/11/2018 1. Left upper extremity fistulogram 2 Angioplasty of in-stent stenosis involving the left innominate vein stent, left subclavian vein and left axillary stents. 3Balloon angioplasty of outflow vein stenosis and in graft stenosis. Discussion: Thrombosed upper extremity AV graft. Multiple revisions, and prior stenting of the left innominate vein, subclavian vein, and axillary vein. The risks and benefits of the procedure were discussed the patient's practice representative. Informed consent was obtained. A timeout procedure was performed. The patient was placed in supine position. The left upper extremity was prepped and draped using maximum sterile barrier technique. 1% lidocaine was administered for local anesthesia. The AV graft was evaluated sonographically and demonstrated to be completely thrombosed. Reference ultrasound images were saved medical record. The graft was accessed towards venous outflow using ultrasound and micropuncture technique. Reference images were saved to the medical record. A 7 Pakistani vascular sheath was placed. A guidewire and catheter were advanced into the SVC. Fistulogram was were obtained demonstrating recurrent in-stent stenosis at the left brachiocephalic vein, subclavian vein, axillary vein. Stenosis of proximal outflow vein is also seen. In-stent stenosis was treated with balloon angioplasty 12 mm. Proximal outflow vein stenosis was treated with 8 mm balloon angioplasty. This resulted in significantly improved morphology and flow through the stenoses. Some apparent persistent narrowing is seen at all locations. Flow is brisk. Contrast was refluxed across the arterial anastomosis. No significant stenosis was identified. The sheath was removed over pursestring suture. Sterile dressings were applied. Fluoroscopy time : 6.0 MIN Dose area product: 3.7 [id number] The procedure was performed under conscious sedation including continuous cardiopulmonary monitoring via dedicated sedation nurse. [id number] sedation time 45 minutes Impression: Recurrent central in-stent stenosis, successfully treated with balloon angioplasty. Outflow vein stenosis, successfully treated with balloon angioplasty as described.
== END 2018-12-11 12:25 ==
LOC: INTRAD 08:11
PROVIDERS: ATTEND Internal Medicine Nephrology
DX: T82.858A Stenosis of other vascular prosthetic devices, implants and grafts, initial encounter (principal); Y83.2 Surgical operation with anastomosis, bypass or graft as the cause of abnormal reaction of the patient, or of later complication, without mention of misadventure at the time of the procedure; Y92.89 Other specified places as the place of occurrence of the external cause; Z88.2 Allergy status to sulfonamides; Z91.018 Allergy to other foods; Z79.01 Long term (current) use of anticoagulants; Z79.899 Other long term (current) drug therapy
CPT/HCPCS: 36415; 36901; 36907; 76937; 80048; 85025; 85610; 85730; 99152; 99153; A4215; C1725; C1769; C1892; C1894; J1644; J3010; Q9967; 36902

== ENCOUNTER 2019-02-06 15:13 | Emergency (ER) | payer MEDICARE, OTHER ==
[~2019-02-06] VITALS: Ht 160 cm; Wt 77.1 kg
[~2019-02-06 15:13] MED LIST changes: +ARIP10TA9 PO; +ISOS30TA4 PO; +SIME80TA14 PO; +ZOLP5TAB PO
[2019-02-06 15:48] LABS: BILIRUBIN,URINE NEGATIVE (NEG); CLARITY,URINE CLEAR; COLOR,URINE YELLOW; NITRITE,URINE NEGATIVE (NEG); PROTEIN,URINE >=300 mg/dL (NEG-TRACE); UROBILINOGEN,URINE 0.2 mg/dL (0.2 mg/dL)
[2019-02-06 15:59] LABS: BACTERIA,URINE 0 /HPF (0-FEW); SQUAMOUS EPITHELIAL CELL,UR OCC /LPF; WBC,URINE RARE /HPF (0-4)
--- NOTE | 2019-02-06 16:14 | RAD ---
CHEST AP ONLY History: Confusion, difficulty breathing Comparison: October 11, 2017 Findings: Single view of the chest is submitted. There is again long stent in the superior mediastinal region extending to left subclavian region. Pericardial cardiac silhouette is somewhat enlarged although stable. There is no pneumothorax or lobar infiltrate. There could be a very small right pleural effusion. Impression: 1. There may be very small right pleural effusion. Electronically signed by: Leon Jones MD (02/06/2019 4:11 PM) [facility]
--- NOTE | 2019-02-06 16:19 | RAD ---
CT HEAD INDICATION: Altered mental status COMPARISON: 11/24/2018 Exposure: One or more of the following individualized dose reduction techniques were utilized for this examination: 1. Automated exposure control 2. Adjustment of the mA and/or kV according to patient size 3. Use of iterative reconstruction technique TECHNIQUE: 5 mm contiguous axial images were obtained from the skull base to the vertex in both bone and soft tissue algorithm. FINDINGS: Mild bilateral periventricular white matter hypodensities likely chronic small vessel ischemic disease. Old infarcts in the cerebellum with cerebellar atrophic changes similar to prior exam. No evidence of acute intracranial hemorrhage. No extra-axial fluid collections. No mass effect or midline shift. Ventricular size is appropriate. Basal cisterns are patent. No fractures identified.Sung-white differentiation is preserved.Globes and orbits are within normal limits. Paranasal sinuses and mastoid air cells are clear. IMPRESSION: No acute intracranial findings. Electronically signed by: Scout Reid MD (02/06/2019 4:16 PM) [id number]
[2019-02-06] MEDS ORDERED: ONDANSETRON PF 4 MG/2 ML VIAL. IV ONE (16:30)
--- NOTE | 2019-02-06 16:33 | EKG ---
[facility] [address] [place] [address] Test Date: 2019-02-06 Test Time: 15:25:40 Pat Name: AARON RICKETTS Department: Room: Gender: F [employer]: : 1960 Requested By: SUSAN TOPETE Order Number: [id number] Reading MD: Measurements Intervals [place] Rate: 92 P: 53 NH: 180 QRS: 8 QRSD: 88 T: 56 QT: 382 QTc: 477 Interpretive Statements SINUS RHYTHM LEFT ATRIAL ABNORMALITY INDETERMINATE AXIS QRS(T) CONTOUR ABNORMALITY CONSIDER ANTERIOR INFARCT CONSISTENT WITH INFERIOR INFARCT PROBABLY OLD T ABNORMALITY IN HIGH LATERAL LEADS NON SPECIFIC ST DEPRESSION ABNORMAL ECG No previous ECG available for comparison
[2019-02-06 16:44] LABS: BASO % 1 % (0-3); EOS # 0.1 x10^3/uL (0.0-0.7); EOS % 2 % (0-3); HEMATOCRIT 35.1 % (36.0-47.0); HEMOGLOBIN 11.4 g/dL (12.0-15.5); LYMPH # 0.6 x10^3/uL (1.0-4.8); LYMPH % 16 % (24-48); MEAN CORPUSCULAR HEMOGLOBIN 32 pg (25-35); MEAN CORPUSCULAR HGB CONC 33 g/dL (31-37); MEAN CORPUSCULAR VOLUME 97 fL (79-100); MONO # 0.6 x10^3/uL (0.0-1.1); MONO % 14 % (0-9); NEUT # 2.5 x10^3uL (1.8-7.7); NEUT % 66 % (31-73); PLATELET COUNT 202 x10^3/uL (140-400); RED BLOOD COUNT 3.62 x10^6/uL (3.50-5.40); RED CELL DISTRIBUTION WIDTH 16.4 % (11.5-14.5); WHITE BLOOD COUNT 3.8 x10^3/uL (4.0-11.0)
[2019-02-06 16:54] LABS: CREATININE 4.4 mg/dL (0.6-1.0); GFR 12.4; POTASSIUM 3.6 mmol/L (3.5-5.1)
[2019-02-06 17:00] LABS: ALBUMIN 3.6 g/dL (3.4-5.0); ALBUMIN/GLOBULIN RATIO 0.8 (1.0-1.7); TOTAL BILIRUBIN 0.5 mg/dL (0.2-1.0); TOTAL PROTEIN 7.9 g/dL (6.4-8.2)
--- NOTE | 2019-02-06 18:20 | PHYS DOC ---
Past Medical History Past Medical History: Anemia, Anxiety, CVA, Diabetes-Type II, High Cholesterol, Hypertension, [place], Pneumonia, Renal Disease, Renal Failure, Schizophrenia, Other Additional Past Medical Histor: DIALYSIS PATIENT Past Surgical History: Hysterectomy, Other Additional Past Surgical Histo: shunt placement left arm, I&D of hip Alcohol Use: None Drug Use: None Adult General Chief Complaint Chief Complaint: FLANK PAIN HPI HPI Patient is a 58 year old F who arrives to ER by EMS after she developed some B flank pain after her dialysis session today. She is groggy on arrival but follows commands and has no apparent focal deficit. She states she finished her entire dialysis session but then had pain in low abd and flank B. On arrival pt was not wanting to cooperate with exam. Doing NIH exam I asked her to smile and she said "no". She didn't want to hold her arms or legs up but did for short period of time. When I was leaving the room, she rolled onto her R side and asked for a "puke bucket". I asked her if she was nauseated and she said "yes". Review of Systems Review of Systems Constitutional: Denies fever or chills. Reports weakness Respiratory: Denies cough or shortness of breath Cardiovascular: Denies chest pain GI: Denies vomiting, bloody stools or diarrhea. Reports lower abd pain B and nausea. : Denies dysuria or hematuria. Musculoskeletal: Reports B flank pain Integument: Denies rash or skin lesions Neurologic: Denies headache, focal weakness or sensory changes Endocrine: Denies polyuria or polydipsia All other systems were reviewed and found to be within normal limits, except as documented in this note. Current Medications Current Medications Current Medications Medications (Trade) Dose Ordered Sig/Mona Start Time Stop Time Status Last Admin Dose Admin Ondansetron HCl (Zofran Odt) 4 mg 1X ONCE 02/06/19 20:00 02/06/19 20:01 DC 02/06/19 19:59 4 MG Ondansetron HCl (Zofran) 4 mg 1X ONCE 02/06/19 16:30 02/06/19 16:31 DC 02/06/19 16:41 4 MG Allergies Allergies Allergies Coded Allergies Type Severity Reaction Last Updated Verified Sulfa (Sulfonamide Antibiotics) Allergy Intermediate 06/29/16 Yes banana Allergy Intermediate 08/03/17 Yes cranberry Allergy Intermediate 07/14/16 Yes grapefruit Allergy Intermediate 07/14/16 Yes orange juice Allergy Intermediate 08/03/17 Yes tomato Allergy Intermediate 08/03/17 Yes Physical Exam Physical Exam Constitutional: Well developed, well nourished, no acute distress, non-toxic appearance. HENT: Normocephalic, atraumatic, bilateral external ears normal, oropharynx moist Neck: Normal range of motion, no tenderness, supple, no stridor. Cardiovascular:Heart rate regular rhythm, no murmur Lungs & Thorax: Bilateral breath sounds clear to auscultation Abdomen: Bowel sounds normal, soft. MIld tenderness lower abd B with palpation. Skin: Warm, dry, no erythema, no rash. Back: No tenderness, no CVA tenderness on palpation. Extremities: No tenderness, no cyanosis, no clubbing, ROM intact, no edema. L upper arm dialysis fistula bandaged from recent use. Neurologic: Alert and oriented X 3, normal motor function, normal sensory function, no focal deficits noted. Psychologic: Affect normal, judgement normal, mood normal. Current Patient Data Vital Signs Vital Signs Date Time Temp Pulse Resp B/P (MAP) Pulse Ox O2 Delivery O2 Flow Rate FiO2 02/06/19 18:30 82 174/78 (110) Room Air 02/06/19 17:30 100 02/06/19 16:30 20 02/06/19 15:15 98.9 98.9 Lab Values Laboratory Tests Test 02/06/19 15:29 02/06/19 16:27 02/06/19 17:15 Urine Collection Type U cath Urine Color Yellow Urine Clarity Clear Urine pH 8.0 Urine Specific [place] 1.010 Urine Protein >=300 mg/dL (NEG-TRACE) Urine Glucose (UA) 100 mg/dL (NEG) Urine Ketones (Stick) Negative mg/dL (NEG) Urine Blood Small (NEG) Urine Nitrite Negative (NEG) Urine Bilirubin Negative (NEG) Urine Urobilinogen Dipstick 0.2 mg/dL (0.2 mg/dL) Urine Leukocyte Esterase Negative (NEG) Urine RBC 3-5 /HPF (0-2) Urine WBC Rare /HPF (0-4) Urine Squamous Epithelial Cells Occ /LPF Urine Bacteria 0 /HPF (0-FEW) White Blood Count 3.8 x10^3/uL (4.0-11.0) L Red Blood Count 3.62 x10^6/uL (3.50-5.40) Hemoglobin 11.4 g/dL (12.0-15.5) L Hematocrit 35.1 % (36.0-47.0) L Mean Corpuscular Volume 97 fL (79-100) Mean Corpuscular Hemoglobin 32 pg (25-35) Mean Corpuscular Hemoglobin Concent 33 g/dL (31-37) Red Cell Distribution Width 16.4 % (11.5-14.5) H Platelet Count 202 x10^3/uL (140-400) Neutrophils (%) (Auto) 66 % (31-73) Lymphocytes (%) (Auto) 16 % (24-48) L Monocytes (%) (Auto) 14 % (0-9) H Eosinophils (%) (Auto) 2 % (0-3) Basophils (%) (Auto) 1 % (0-3) Neutrophils # (Auto) 2.5 x10^3uL (1.8-7.7) Lymphocytes # (Auto) 0.6 x10^3/uL (1.0-4.8) L Monocytes # (Auto) 0.6 x10^3/uL (0.0-1.1) Eosinophils # (Auto) 0.1 x10^3/uL (0.0-0.7) Basophils # (Auto) 0.0 x10^3/uL (0.0-0.2) Sodium Level 138 mmol/L (136-145) Potassium Level 3.6 mmol/L (3.5-5.1) Chloride Level 98 mmol/L (98-107) Carbon Dioxide Level 30 mmol/L (21-32) Anion Gap 10 (6-14) Blood Urea Nitrogen 13 mg/dL (7-20) Creatinine 4.4 mg/dL (0.6-1.0) H Estimated GFR (Cockcroft-Gault) 12.4 BUN/Creatinine Ratio 3 (6-20) L Glucose Level 228 mg/dL (70-99) H Calcium Level 9.0 mg/dL (8.5-10.1) Total Bilirubin 0.5 mg/dL (0.2-1.0) Aspartate Amino Transferase (AST) 32 U/L (15-37) Alanine Aminotransferase (ALT) 27 U/L (14-59) Alkaline Phosphatase 134 U/L (46-116) H Creatine Kinase 126 U/L (26-192) Creatine Kinase MB (Mass) 1.1 ng/mL (0.0-3.6) Creatine Kinase MB Relative Index 0.9 % (0-4) Troponin I Quantitative < 0.017 ng/mL (0.000-0.055) XA-Rji-N-Type Natriuretic Peptide 47193 pg/mL (0-124) H Total Protein 7.9 g/dL (6.4-8.2) Albumin 3.6 g/dL (3.4-5.0) Albumin/Globulin Ratio 0.8 (1.0-1.7) L Lactic Acid Level 0.8 mmol/L (0.4-2.0) Laboratory Tests 02/06/19 16:27 Laboratory Tests 02/06/19 16:27 EKG EKG [] Radiology/Procedures Radiology/Procedures [] Course & Med Decision Making Course & Med Decision Making Pertinent Labs and Imaging studies reviewed. (See chart for details) Tests reassuring and while pt was in ER she continued to improve. She is denying any low abd pain or flank pain on recheck. On one recheck she was sitting on end of bed and said she was hungry so a food tray was ordered. Pt lives in care facility so had to wait for a while to get ride back home. She is awake and alert and aggitated that she has to wait for so long. Dragon Disclaimer Dragon Disclaimer This electronic medical record was generated, in whole or in part, using a voice recognition dictation system. Departure Departure Impression: Primary Impression: Flank pain Disposition: 01 HOME, SELF-CARE Condition: IMPROVED Referrals: HUSAM ORTIZ (PCP) Patient Instructions: Flank Pain, [id number] Additional Instructions: Patient was seen in our ER for bilateral flank pain after dialysis today. Symptoms resolved without medication intervention. Pt was mildly nauseated and given zofran and reports nausea is improved. Pt states she feels better and would like to go home. SUSAN TOPETE February 06, 2019 18:20
[2019-02-06 18:30] VITALS: BP 174/78
[2019-02-06] MEDS ORDERED: ONDANSETRON ODT 4 MG TAB.RAPDIS. PO ONE (20:00)
== END 2019-02-06 21:32 | disposition home or self-care (01) ==
LOC: ER 15:13
DX: R10.31 Right lower quadrant pain (principal); R10.32 Left lower quadrant pain; R11.0 Nausea; F41.9 Anxiety disorder, unspecified; E11.9 Type 2 diabetes mellitus without complications; E78.00 Pure hypercholesterolemia, unspecified; I10 Essential (primary) hypertension; I25.2 Old myocardial infarction; Z86.73 Personal history of transient ischemic attack (TIA), and cerebral infarction without residual deficits; Z88.2 Allergy status to sulfonamides; Z91.018 Allergy to other foods
CPT/HCPCS: 36415; 70450; 71045; 80053; 81001; 82553; 83605; 83880; 84484; 85025; 93005; 96374; 99285; J2405; Q0162

== ENCOUNTER 2019-03-05 06:57 | Outpatient (CLI) | payer MEDICARE, OTHER ==
[~2019-03-05] VITALS: Ht 157.5 cm; Wt 68.0 kg
[2019-03-05] VITALS (9 sets, daily range): BP systolic 145–200; BP diastolic 77–110
[~2019-03-05 06:57] MED LIST changes: +ACET325T9 PO; +CARV25TA2 PO; +CLON1PAT11 TD; +INSU100I17 SQ; +INSU100I27 SQ; +LORA10TA68 PO; +MAGN2400 PO; +SODI104S NS
[2019-03-05] MEDS ORDERED: IODIXANOL 320 MG/ML 100 ML VIAL. ONE (08:29)
[2019-03-05] MEDS ORDERED: LIDOCAINE WITH 8.4% SOD BICARB 3 ML DISP.SYRIN. ONE (08:29)
[2019-03-05] MEDS ORDERED: MIDAZOLAM HCL/PF 2 MG/2 ML VIAL. ONE (09:16)
[2019-03-05] MEDS ORDERED: HEPARIN for IV BOLUS 10,000 UNIT/10 ML VIAL. ONE (09:17)
[2019-03-05] MEDS ORDERED: fentaNYL PF VIAL 100 MCG/2 ML VIAL ONE (09:17)
[2019-03-05] MEDS: HEPARIN for IV BOLUS 10,000 UNIT/10 ML VIAL. IV ONE (09:45)
[2019-03-05] MEDS: MIDAZOLAM HCL/PF 2 MG/2 ML VIAL. IV ONE (09:45)
[2019-03-05] MEDS ORDERED: CONTRAST GIVEN. MC PRN (09:45)
[2019-03-05] MEDS: fentaNYL PF VIAL 100 MCG/2 ML VIAL IV ONE (09:45)
[2019-03-05] MEDS: IODIXANOL 320 MG/ML 100 ML VIAL. IART ONE (09:45)
[2019-03-05] MEDS: LIDOCAINE WITH 8.4% SOD BICARB 3 ML DISP.SYRIN. IJ ONE (09:45)
--- NOTE | 2019-03-05 11:16 | RAD ---
03/05/2019 1.Left upper extremity fistulogram 2. Angioplasty of outflow vein, subclavian vein, brachiocephalic venous stenosis Discussion: Poor function at recent dialysis. Multiple prior interventions including prior stenting of the left innominate vein, subclavian vein, and axillary vein. 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 Informed consent was obtained. A timeout procedure was performed. The patient was placed in supine position. The left upper extremity was prepped and draped using maximum sterile barrier technique. 1% lidocaine was administered for local anesthesia. A limited ultrasound evaluation demonstrates a left upper extremity AV fistula to be patent. Reference ultrasound images were saved medical record. The graft was accessed towards venous outflow using ultrasound guidance and micropuncture technique. Reference images were saved to the medical record. A 7 [place] vascular sheath was placed. A guidewire and catheter were advanced into the SVC. Left upper extremity fistulogram and central venogram was recurrent mild stenosis of the left brachiocephalic vein recurrent moderate stenosis of the previously stented left subclavian vein, and recurrent stenosis of the outflow vein in upper arm. Proximal stenosis was treated with 7 mm balloon angioplasty. More central stenoses were treated with both 7 and subsequently 10 mm balloon angioplasty. This resulted in improved morphology and flow throughout the fistula. The arterial anastomosis is found to be widely patent. The sheath was removed over pursestring suture. No immediate complications were identified. Total fluoroscopy time: 4.0 Minutes Dose area product: 37 Gycm2 The procedures performed under conscious sedation including continuous cardiopulmonary monitoring via dedicated sedation nurse. 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
== END 2019-03-05 12:00 | disposition short-term general hospital (02) ==
LOC: INTRAD 06:57
PROVIDERS: ATTEND Internal Medicine Nephrology
DX: T82.858A Stenosis of other vascular prosthetic devices, implants and grafts, initial encounter (principal); Y83.8 Other surgical procedures as the cause of abnormal reaction of the patient, or of later complication, without mention of misadventure at the time of the procedure; Y92.89 Other specified places as the place of occurrence of the external cause; Z88.1 Allergy status to other antibiotic agents; Z88.8 Allergy status to other drugs, medicaments and biological substances; Z91.018 Allergy to other foods
CPT/HCPCS: 36902; 36907; 76937; 99152; 99153; J1644; J2250; J3010; Q9967

== ENCOUNTER 2019-05-26 11:15 | Inpatient (IN) | payer MEDICARE, OTHER ==
[~2019-05-26] VITALS: Ht 165.1 cm; Wt 77.7 kg
[~2019-05-26 11:15] MED LIST changes: +DIPH25CA23 PO; -DIPH25CA3 PO
--- NOTE | 2019-05-26 11:22 | PHYS DOC ---
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 EMS gave her 1 mg of glucagon IM injection. THe they could not get an IV in HER. Upon arrival to ER, patient was still unresponsive, patient was given 1 amp of D50 IV. Patient woke up from it. Patient says she ate breakfast this morning and had insulin as well. She denies any abdominal pain, no nausea vomiting. Patient's last dialysis was on . Review of Systems Review of Systems Constitutional: Denies fever or chills [] Eyes: Denies change in visual acuity, redness, or eye pain [] HENT: Denies nasal congestion or sore throat [] Respiratory: Denies cough or shortness of breath [] Cardiovascular: No additional information not addressed in HPI [] GI: Denies abdominal pain, nausea, vomiting, bloody stools or diarrhea [] : Denies dysuria or hematuria [] Musculoskeletal: Denies back pain or joint pain [] Integument: Denies rash or skin lesions [] Neurologic: Denies headache, focal weakness or sensory changes. Positive for generalized weakness. Endocrine: Denies polyuria or polydipsia [] All other systems were reviewed and found to be within normal limits, except as documented in this note. Current Medications Current Medications Current Medications Medications (Trade) Dose Ordered Sig/Mona Start Time Stop Time Status Last Admin Dose Admin Dextrose (Dextrose 50%-Water Syringe) 25 gm 1X ONCE 05/26/19 11:30 05/26/19 11:31 DC 05/26/19 11:32 25 GM Ondansetron HCl (Zofran) 4 mg PRN Q8HRS PRN 05/26/19 12:30 05/27/19 12:29 Allergies Allergies Allergies Coded Allergies Type Severity Reaction Last Updated Verified Sulfa (Sulfonamide Antibiotics) Allergy Intermediate 06/29/16 Yes banana Allergy Intermediate 08/03/17 Yes cranberry Allergy Intermediate 07/14/16 Yes grapefruit Allergy Intermediate 07/14/16 Yes orange juice Allergy Intermediate 08/03/17 Yes tomato Allergy Intermediate 08/03/17 Yes Physical Exam Physical Exam Constitutional: Well developed, well nourished, appeared somnolent but arousable to verbal command. HENT: Normocephalic, atraumatic, bilateral external ears normal, oropharynx moist, no oral exudates, nose normal. [] Eyes: PERRLA, EOMI, conjunctiva normal, no discharge. [] Neck: Normal range of motion, no tenderness, supple, no stridor. [] Cardiovascular:Heart rate regular rhythm, no murmur [] Lungs & Thorax: Bilateral breath sounds clear to auscultation [] Abdomen: Bowel sounds normal, soft, no tenderness, no masses, no pulsatile masses. [] Skin: Warm, dry, no erythema, no rash. [] Back: No tenderness, no CVA tenderness. [] Extremities: No tenderness, no cyanosis, no clubbing, ROM intact, no edema. [] Neurologic: Alert and oriented X 3, normal motor function, normal sensory function, no focal deficits noted. [] Psychologic: Affect normal, judgement normal, mood normal. [] Current Patient Data Vital Signs Vital Signs Date Time Temp Pulse Resp B/P (MAP) Pulse Ox O2 Delivery O2 Flow Rate FiO2 05/26/19 11:22 59 18 98 05/26/19 11:15 96.2 120/59 (79) Room Air 96.2 Lab Values Laboratory Tests Test 05/26/19 11:18 05/26/19 11:26 05/26/19 12:10 White Blood Count 4.8 x10^3/uL (4.0-11.0) Red Blood Count 3.18 x10^6/uL (3.50-5.40) L Hemoglobin 10.1 g/dL (12.0-15.5) L Hematocrit 31.1 % (36.0-47.0) L Mean Corpuscular Volume 98 fL (79-100) Mean Corpuscular Hemoglobin 32 pg (25-35) Mean Corpuscular Hemoglobin Concent 33 g/dL (31-37) Red Cell Distribution Width 17.3 % (11.5-14.5) H Platelet Count 213 x10^3/uL (140-400) Neutrophils (%) (Auto) 60 % (31-73) Lymphocytes (%) (Auto) 21 % (24-48) L Monocytes (%) (Auto) 16 % (0-9) H Eosinophils (%) (Auto) 2 % (0-3) Basophils (%) (Auto) 1 % (0-3) Neutrophils # (Auto) 2.9 x10^3/uL (1.8-7.7) Lymphocytes # (Auto) 1.0 x10^3/uL (1.0-4.8) Monocytes # (Auto) 0.8 x10^3/uL (0.0-1.1) Eosinophils # (Auto) 0.1 x10^3/uL (0.0-0.7) Basophils # (Auto) 0.0 x10^3/uL (0.0-0.2) Prothrombin Time 13.1 SEC (11.7-14.0) Prothrombin Time INR 1.0 (0.8-1.1) Activated Partial Thromboplast Time 28 SEC (24-38) Sodium Level 136 mmol/L (136-145) Potassium Level 4.8 mmol/L (3.5-5.1) Chloride Level 97 mmol/L (98-107) L Carbon Dioxide Level 28 mmol/L (21-32) Anion Gap 11 (6-14) Blood Urea Nitrogen 42 mg/dL (7-20) H Creatinine 8.5 mg/dL (0.6-1.0) H Estimated GFR (Cockcroft-Gault) 5.8 BUN/Creatinine Ratio 5 (6-20) L Glucose Level 43 mg/dL (70-99) L Calcium Level 9.1 mg/dL (8.5-10.1) Magnesium Level 3.1 mg/dL (1.8-2.4) H Total Bilirubin 0.4 mg/dL (0.2-1.0) Aspartate Amino Transferase (AST) 23 U/L (15-37) Alanine Aminotransferase (ALT) 19 U/L (14-59) Alkaline Phosphatase 149 U/L (46-116) H Troponin I Quantitative < 0.017 ng/mL (0.000-0.055) YK-Ucn-W-Type Natriuretic Peptide 4978 pg/mL (0-124) H Total Protein 8.3 g/dL (6.4-8.2) H Albumin 3.5 g/dL (3.4-5.0) Albumin/Globulin Ratio 0.7 (1.0-1.7) L Glucose (Fingerstick) 170 mg/dL (70-99) H 176 mg/dL (70-99) H Laboratory Tests 05/26/19 11:18 Laboratory Tests 05/26/19 11:18 EKG EKG [] Radiology/Procedures Radiology/Procedures [] Impressions: [facility] [address] [place], [place] [id number] IMAGING REPORT Signed PATIENT: AARON RICKETTS FACCOUNT: [id number] : 1960 LOCATION: ER AGE: 59 SEX: F EXAM STATUS: PRE ER ORD. PHYSICIAN: MUNIRA IRELAND DO REASON: UNRESPONSIVE PROCEDURE: CT HEAD WO CONTRAST CT scan of the head without contrast 05/26/2019 Clinical History: Unresponsive. Technique: Unenhanced, contiguous, 5 mm axial sections were obtained through the head. One or more of the following individualized dose reduction techniques were utilized for this study: 1. Automated exposure control. 2. Adjustment of the mA and/or kV according to patient size. 3. Use of iterative reconstruction technique. Findings: Comparison study is dated 02/06/2019. There is generalized parenchymal atrophy. Areas of decreased attenuation are seen within the periventricular and subcortical white matter of both cerebral hemispheres consistent with areas of small vessel ischemic disease. No acute parenchymal abnormality is seen. No extra-axial fluid collection is noted. No skull fracture is seen. Impression: No acute intracranial abnormality is seen. Electronically signed by: Guillermo Contreras MD (05/26/2019 11:58 AM) [facility] DICTATED and SIGNED BY: GUILLERMO CONTRERAS MD DATE: 05/26/19 3823 Course & Med Decision Making Course & Med Decision Making Pertinent Labs and Imaging studies reviewed. (See chart for details) [] Dragon Disclaimer Dragon Disclaimer This electronic medical record was generated, in whole or in part, using a voice recognition dictation system. Departure Departure Impression: Primary Impression: ESRD (end stage renal disease) on dialysis Additional Impression: Hypoglycemia Disposition: 09 ADMITTED INPATIENT Admitting Physician: MYRIAM (DR. DEVLIN) Referrals: HUSAM ORTIZ (PCP) Problem Qualifiers MUNIRA IRELAND DO May 26, 2019 11:22
[2019-05-26] MEDS ORDERED: DEXTROSE 50% 25 GM / 50ML DISP.SYRIN. IV ONE (11:30)
[2019-05-26 11:44] LABS: BASO % 1 % (0-3); EOS # 0.1 x10^3/uL (0.0-0.7); EOS % 2 % (0-3); HEMATOCRIT 31.1 % (36.0-47.0); HEMOGLOBIN 10.1 g/dL (12.0-15.5); LYMPH % 21 % (24-48); MEAN CORPUSCULAR HEMOGLOBIN 32 pg (25-35); MEAN CORPUSCULAR HGB CONC 33 g/dL (31-37); MEAN CORPUSCULAR VOLUME 98 fL (79-100); MONO # 0.8 x10^3/uL (0.0-1.1); MONO % 16 % (0-9); NEUT # 2.9 x10^3/uL (1.8-7.7); NEUT % 60 % (31-73); PLATELET COUNT 213 x10^3/uL (140-400); RED BLOOD COUNT 3.18 x10^6/uL (3.50-5.40); RED CELL DISTRIBUTION WIDTH 17.3 % (11.5-14.5); WHITE BLOOD COUNT 4.8 x10^3/uL (4.0-11.0)
[2019-05-26 11:45] LABS: PROTHROMBIN TIME PATIENT 13.1 SEC (11.7-14.0)
[2019-05-26 11:52] LABS: ALBUMIN 3.5 g/dL (3.4-5.0); ALBUMIN/GLOBULIN RATIO 0.7 (1.0-1.7); CALCIUM 9.1 mg/dL (8.5-10.1); CREATININE 8.5 mg/dL (0.6-1.0); GFR 5.8; MAGNESIUM 3.1 mg/dL (1.8-2.4); POTASSIUM 4.8 mmol/L (3.5-5.1); TOTAL BILIRUBIN 0.4 mg/dL (0.2-1.0); TOTAL PROTEIN 8.3 g/dL (6.4-8.2)
--- NOTE | 2019-05-26 12:01 | RAD ---
CT scan of the head without contrast 05/26/2019 Clinical History: Unresponsive. Technique: Unenhanced, contiguous, 5 mm axial sections were obtained through the head. One or more of the following individualized dose reduction techniques were utilized for this study: 1. Automated exposure control. 2. Adjustment of the mA and/or kV according to patient size. 3. Use of iterative reconstruction technique. Findings: Comparison study is dated 02/06/2019. There is generalized parenchymal atrophy. Areas of decreased attenuation are seen within the periventricular and subcortical white matter of both cerebral hemispheres consistent with areas of small vessel ischemic disease. No acute parenchymal abnormality is seen. No extra-axial fluid collection is noted. No skull fracture is seen. Impression: No acute intracranial abnormality is seen. Electronically signed by: Guillermo Contreras MD (05/26/2019 11:58 AM) [facility]
--- NOTE | 2019-05-26 12:12 | PDOC1 ---
History and Physical Date of Admission Date of Admission DATE: 05/26/19 TIME: 12:11 Identification/Chief Complaint Chief Complaint seen in er, now awake, alert 59 year old with history of end-stage renal failure, she was on her way to have hemodialysis this morning, Her subway train driver found her to be unresponsive in the car, EMS were called, they checked her blood sugar and it was 35. EMS gave her 1 mg of glucagon IM injection. THe they could not get an IV in HER. Upon arrival to ER, patient was still unresponsive, patient was given 1 amp of D50 IV. Patient says she ate breakfast this morning and had insulin as well. She denies any abdominal pain, no nausea vomiting. Patient's last dialysis was on . Past Medical History Past Medical History Past Medical History Past Medical History Past Medical History: Anemia, Anxiety, CVA, Diabetes-Type II, High Cholesterol, Hypertension, [place], Pneumonia, Renal Disease, Renal Failure, Schizophrenia, Other Additional Past Medical Histor: DIALYSIS PATIENT Past Surgical History: Hysterectomy, Other Additional Past Surgical Histo: shunt placement left arm, I&D of hip Alcohol Use: None Drug Use: None recent stay Date of Admission: Mar 01, 2019 Date of Discharge: Mar 03, 2019 Admitting Diagnosis: Pulmonary Edema, Hypertensive emergency FHX HTN Cardiovascular: HTN, Hyperlipidemia CENTRAL NERVOUS SYSTEM: CVA GI: Constipation Heme/Onc: Anemia NOS Psych: Anxiety, Schizophrenia Musculoskeletal: Osteoarthritis Renal/: Chronic renal failure Endocrine: Diabetes, Hyperparathyroidism Past Surgical History Past Surgical History: Hysterectomy, Other Family History Family History: Hypertension Social History Smoke: No ALCOHOL: none Drugs: None Current Medications Current Medications Current Medications Dextrose (Dextrose 50%-Water Syringe) 25 gm 1X ONCE IV Last administered on 05/26/19at 11:32; Start 05/26/19 at 11:30; Stop 05/26/19 at 11:31; Status DC Active Scripts Active Isosorbide Mononitrate Er (Isosorbide Mononitrate) 30 Mg Tab.er.24h 2 Tab PO DAILY Reported Seroquel (Quetiapine Fumarate) 50 Mg Tablet 50 Mg PO TID [place] (Sodium Chloride) 104 Ml [place] 1 [place] NS Q6HRS Novolog Flexpen (Insulin Aspart) 100 Unit/1 Ml Insuln.pen 7 Unit SQ TIDWMEALS Milk Of Magnesia (Magnesium Hydroxide) 2,400 Mg/10 Ml Oral.susp 2,400 Mg PO DAILY Levemir Flextouch (Insulin Detemir) 100 Unit/1 Ml Insuln.pen 20 Unit SQ HS Claritin (Loratadine) 10 Mg Tablet 1 Tab PO BID Catapres-Tts 3 (Clonidine) 1 Each Patch.tdwk 1 Each TD WEEKLY Carvedilol 25 Mg Tablet 12.5 Mg PO BIDWMEALS Tylenol (Acetaminophen) 325 Mg Tablet 2 Tab PO PRN Q4HRS Ambien (Zolpidem Tartrate) 5 Mg Tablet 5 Mg PO PRN QHS PRN Simethicone 80 Mg Tab.chew 80 Mg PO Q6HRS Abilify (Aripiprazole) 10 Mg Tablet 10 Mg PO DAILY Thera M Plus Tablet (Multivits,Ca,Minerals/Iron/FA) 1 Each Tablet 1 Each PO D AILY Ondansetron Hcl 4 Mg Tablet 1 Tab PO PRN Q6HRS Losartan Potassium 100 Mg Tablet 100 Mg PO DAILY Clonidine Hcl 0.2 Mg Tablet 1 Tab PO Q2HR Maalox Maximum Strength Susp (Mag Hydrox/Al Hydrox/Simeth) 355 Ml Oral.susp 30 Ml PO PRN Q6HRS PRN Miralax (Polyethylene Glycol 3350) 17 Gm Powd.pack 1 Packet PO DAILY [place] 3 Fish Oil Softgel ([place]-3 Fatty Acids/Fish Oil) 1 Each Capsule.dr 1 Each PO DAILY Amlodipine Besylate 10 Mg Tablet 10 Mg PO DAILY Renvela (Sevelamer Carbonate) 800 Mg Tablet 3 Cap PO TIDWMEALS Senna (Sennosides) 8.6 Mg Capsule 2 Cap PO HS Quetiapine Fumarate 25 Mg Tablet 100 Mg PO HS Clopidogrel (Clopidogrel Bisulfate) 75 Mg Tablet 75 Mg PO DAILY Atorvastatin Calcium 20 Mg Tablet 20 Mg PO HS Allergies Allergies: Coded Allergies: Sulfa (Sulfonamide Antibiotics) (Verified Allergy, Intermediate, 06/29/16) banana (Verified Allergy, Intermediate, 08/03/17) cranberry (Verified Allergy, Intermediate, 07/14/16) grapefruit (Verified Allergy, Intermediate, 07/14/16) orange juice (Verified Allergy, Intermediate, 08/03/17) tomato (Verified Allergy, Intermediate, 08/03/17) ROS Review of System Review of Systems Review of Systems Constitutional: Denies fever or chills [] Eyes: Denies change in visual acuity, redness, or eye pain [] HENT: Denies nasal congestion or sore throat [] Respiratory: Denies cough or shortness of breath [] Cardiovascular: No additional information not addressed in HPI [] GI: Denies abdominal pain, nausea, vomiting, bloody stools or diarrhea [] : Denies dysuria or hematuria [] Musculoskeletal: Denies back pain or joint pain [] Integument: Denies rash or skin lesions [] Neurologic: Denies headache, focal weakness or sensory changes. Positive for generalized weakness. Endocrine: Denies polyuria or polydipsia [] 14 pt systems were reviewed and found to be within normal limits, except as documented Physical Exam Physical Exam Physical Exam Physical Exam Constitutional: Well developed, well nourished, appeared somnolent but arousable to verbal command. confused thinks this year is 2011 HENT: Normocephalic, atraumatic, bilateral external ears normal, oropharynx moist, no oral exudates, nose normal. [] Eyes: PERRLA, EOMI, conjunctiva normal, no discharge. [] Neck: Normal range of motion, no tenderness, supple, no stridor. [] Cardiovascular:Heart rate regular rhythm, no murmur [] Lungs & Thorax: Bilateral breath sounds clear to auscultation [] Abdomen: Bowel sounds normal, soft, no tenderness, no masses, no pulsatile masses. [] Skin: Warm, dry, no erythema, no rash. [] Back: No tenderness, no CVA tenderness. [] Extremities: No tenderness, no cyanosis, no clubbing, ROM intact, no edema. [] Neurologic: Alert and oriented X 3, normal motor function, normal sensory function, no focal deficits noted. [] Psychologic: Affect normal, judgement poor, mood normal. [] General: Cooperative HEENT: Atraumatic Lungs: Clear to auscultation Heart: RRR Breasts: Not examined Abdomen: Normal bowel sounds, Soft PELVIC: Examination not indicated Extremities: No cyanosis Neuro: Normal speech, Cranial nerves 3-12 NL Vitals Vitals Vital Signs Date Time Temp Pulse Resp B/P (MAP) Pulse Ox O2 Delivery O2 Flow Rate FiO2 05/26/19 11:22 59 18 98 05/26/19 11:15 96.2 120/59 (79) Room Air 96.2 Labs Labs Laboratory Tests Test 05/26/19 11:18 05/26/19 11:26 White Blood Count 4.8 x10^3/uL (4.0-11.0) Red Blood Count 3.18 x10^6/uL (3.50-5.40) Hemoglobin 10.1 g/dL (12.0-15.5) Hematocrit 31.1 % (36.0-47.0) Mean Corpuscular Volume 98 fL (79-100) Mean Corpuscular Hemoglobin 32 pg (25-35) Mean Corpuscular Hemoglobin Concent 33 g/dL (31-37) Red Cell Distribution Width 17.3 % (11.5-14.5) Platelet Count 213 x10^3/uL (140-400) Neutrophils (%) (Auto) 60 % (31-73) Lymphocytes (%) (Auto) 21 % (24-48) Monocytes (%) (Auto) 16 % (0-9) Eosinophils (%) (Auto) 2 % (0-3) Basophils (%) (Auto) 1 % (0-3) Neutrophils # (Auto) 2.9 x10^3/uL (1.8-7.7) Lymphocytes # (Auto) 1.0 x10^3/uL (1.0-4.8) Monocytes # (Auto) 0.8 x10^3/uL (0.0-1.1) Eosinophils # (Auto) 0.1 x10^3/uL (0.0-0.7) Basophils # (Auto) 0.0 x10^3/uL (0.0-0.2) Prothrombin Time 13.1 SEC (11.7-14.0) Prothromb Time International Ratio 1.0 (0.8-1.1) Activated Partial Thromboplast Time 28 SEC (24-38) Sodium Level 136 mmol/L (136-145) Potassium Level 4.8 mmol/L (3.5-5.1) Chloride Level 97 mmol/L (98-107) Carbon Dioxide Level 28 mmol/L (21-32) Anion Gap 11 (6-14) Blood Urea Nitrogen 42 mg/dL (7-20) Creatinine 8.5 mg/dL (0.6-1.0) Estimated GFR (Cockcroft-Gault) 5.8 BUN/Creatinine Ratio 5 (6-20) Glucose Level 43 mg/dL (70-99) Calcium Level 9.1 mg/dL (8.5-10.1) Magnesium Level 3.1 mg/dL (1.8-2.4) Total Bilirubin 0.4 mg/dL (0.2-1.0) Aspartate Amino Transf (AST/SGOT) 23 U/L (15-37) Alanine Aminotransferase (ALT/SGPT) 19 U/L (14-59) Alkaline Phosphatase 149 U/L (46-116) Troponin I Quantitative < 0.017 ng/mL (0.000-0.055) SP-Iqf-D-Type Natriuretic Peptide 4978 pg/mL (0-124) Total Protein 8.3 g/dL (6.4-8.2) Albumin 3.5 g/dL (3.4-5.0) Albumin/Globulin Ratio 0.7 (1.0-1.7) Glucose (Fingerstick) 170 mg/dL (70-99) Laboratory Tests Test 05/26/19 11:18 05/26/19 11:26 White Blood Count 4.8 x10^3/uL (4.0-11.0) Red Blood Count 3.18 x10^6/uL (3.50-5.40) Hemoglobin 10.1 g/dL (12.0-15.5) Hematocrit 31.1 % (36.0-47.0) Mean Corpuscular Volume 98 fL (79-100) Mean Corpuscular Hemoglobin 32 pg (25-35) Mean Corpuscular Hemoglobin Concent 33 g/dL (31-37) Red Cell Distribution Width 17.3 % (11.5-14.5) Platelet Count 213 x10^3/uL (140-400) Neutrophils (%) (Auto) 60 % (31-73) Lymphocytes (%) (Auto) 21 % (24-48) Monocytes (%) (Auto) 16 % (0-9) Eosinophils (%) (Auto) 2 % (0-3) Basophils (%) (Auto) 1 % (0-3) Neutrophils # (Auto) 2.9 x10^3/uL (1.8-7.7) Lymphocytes # (Auto) 1.0 x10^3/uL (1.0-4.8) Monocytes # (Auto) 0.8 x10^3/uL (0.0-1.1) Eosinophils # (Auto) 0.1 x10^3/uL (0.0-0.7) Basophils # (Auto) 0.0 x10^3/uL (0.0-0.2) Prothrombin Time 13.1 SEC (11.7-14.0) Prothromb Time International Ratio 1.0 (0.8-1.1) Activated Partial Thromboplast Time 28 SEC (24-38) Sodium Level 136 mmol/L (136-145) Potassium Level 4.8 mmol/L (3.5-5.1) Chloride Level 97 mmol/L (98-107) Carbon Dioxide Level 28 mmol/L (21-32) Anion Gap 11 (6-14) Blood Urea Nitrogen 42 mg/dL (7-20) Creatinine 8.5 mg/dL (0.6-1.0) Estimated GFR (Cockcroft-Gault) 5.8 BUN/Creatinine Ratio 5 (6-20) Glucose Level 43 mg/dL (70-99) Calcium Level 9.1 mg/dL (8.5-10.1) Magnesium Level 3.1 mg/dL (1.8-2.4) Total Bilirubin 0.4 mg/dL (0.2-1.0) Aspartate Amino Transf (AST/SGOT) 23 U/L (15-37) Alanine Aminotransferase (ALT/SGPT) 19 U/L (14-59) Alkaline Phosphatase 149 U/L (46-116) Troponin I Quantitative < 0.017 ng/mL (0.000-0.055) WL-Kri-H-Type Natriuretic Peptide 4978 pg/mL (0-124) Total Protein 8.3 g/dL (6.4-8.2) Albumin 3.5 g/dL (3.4-5.0) Albumin/Globulin Ratio 0.7 (1.0-1.7) Glucose (Fingerstick) 170 mg/dL (70-99) VTE Prophylaxis Ordered VTE Prophylaxis Devices: Yes VTE Pharmacological Prophylaxi: Yes REEMA DEVLIN MD May 26, 2019 12:12
[2019-05-26] MEDS ORDERED: ONDANSETRON PF 4 MG/2 ML VIAL. IV PRN (12:30)
[2019-05-26 14:10] VITALS: BP 158/80
--- NOTE | 2019-05-26 14:21 | PDOC2 ---
CONSULT Date of Consult Date of Consult DATE: 05/26/19 TIME: 14:18 Reason for Consult Reason for Consult: ESRD, missed dialysis Referring Physician Referring Physician: Dr. Steiner in the ER Identification/Chief Complaint Chief Complaint Hypoglycemia, altered mental status Source Source: Chart review History of Present Illness Reason for Visit: Patient is a 59-year-old -[place] female with known history of ESRD secondary to diabetes and hypertension. She dialyzes under the care of Dr. Smiley. She was noted to have altered mental status and hypoglycemia with sugars of less than 30 at presentation. She was given these 50 and appears to have come around somewhat but continues to be significantly confused. She is unable to provide much in terms of her history. It is noted that she was unable to make it to dialysis and we were asked to see her for her dialysis needs. Past Medical History Cardiovascular: HTN, Hyperlipidemia CENTRAL NERVOUS SYSTEM: CVA GI: Constipation Heme/Onc: Anemia NOS Psych: Anxiety, Schizophrenia Musculoskeletal: Osteoarthritis Renal/: Chronic renal failure Endocrine: Diabetes, Hyperparathyroidism Past Surgical History Past Surgical History: Hysterectomy, Other Family History Family History: Hypertension Social History ALCOHOL: none Drugs: None Lives: Retirement Current Problem List Problem List Problems Medical Problems: (1) ESRD (end stage renal disease) on dialysis Status: Acute (2) Hypoglycemia Status: Acute Current Medications Current Medications Current Medications Dextrose (Dextrose 50%-Water Syringe) 25 gm 1X ONCE IV Last administered on 05/26/19at 11:32; Start 05/26/19 at 11:30; Stop 05/26/19 at 11:31; Status DC Ondansetron HCl (Zofran) 4 mg PRN Q8HRS PRN IV NAUSEA/VOMITING; Start 05/26/19 at 12:30; Stop 05/27/19 at 12:29 Active Scripts Active Isosorbide Mononitrate Er (Isosorbide Mononitrate) 30 Mg Tab.er.24h 2 Tab PO DAILY Reported Seroquel (Quetiapine Fumarate) 50 Mg Tablet 50 Mg PO TID [place] (Sodium Chloride) 104 Ml [place] 1 [place] NS Q6HRS Novolog Flexpen (Insulin Aspart) 100 Unit/1 Ml Insuln.pen 7 Unit SQ TIDWMEALS Milk Of Magnesia (Magnesium Hydroxide) 2,400 Mg/10 Ml Oral.susp 2,400 Mg PO DAILY Levemir Flextouch (Insulin Detemir) 100 Unit/1 Ml Insuln.pen 20 Unit SQ HS Claritin (Loratadine) 10 Mg Tablet 1 Tab PO BID Catapres-Tts 3 (Clonidine) 1 Each Patch.tdwk 1 Each TD WEEKLY Carvedilol 25 Mg Tablet 12.5 Mg PO BIDWMEALS Tylenol (Acetaminophen) 325 Mg Tablet 2 Tab PO PRN Q4HRS Ambien (Zolpidem Tartrate) 5 Mg Tablet 5 Mg PO PRN QHS PRN Simethicone 80 Mg Tab.chew 80 Mg PO Q6HRS Abilify (Aripiprazole) 10 Mg Tablet 10 Mg PO DAILY Thera M Plus Tablet (Multivits,Ca,Minerals/Iron/FA) 1 Each Tablet 1 Each PO DAILY Ondansetron Hcl 4 Mg Tablet 1 Tab PO PRN Q6HRS Losartan Potassium 100 Mg Tablet 100 Mg PO DAILY Clonidine Hcl 0.2 Mg Tablet 1 Tab PO Q2HR Maalox Maximum Strength Susp (Mag Hydrox/Al Hydrox/Simeth) 355 Ml Oral.susp 30 Ml PO PRN Q6HRS PRN Miralax (Polyethylene Glycol 3350) 17 Gm Powd.pack 1 Packet PO DAILY [place] 3 Fish Oil Softgel ([place]-3 Fatty Acids/Fish Oil) 1 Each Capsule.dr 1 Each PO DAILY Amlodipine Besylate 10 Mg Tablet 10 Mg PO DAILY Renvela (Sevelamer Carbonate) 800 Mg Tablet 3 Cap PO TIDWMEALS Senna (Sennosides) 8.6 Mg Capsule 2 Cap PO HS Quetiapine Fumarate 25 Mg Tablet 100 Mg PO HS Clopidogrel (Clopidogrel Bisulfate) 75 Mg Tablet 75 Mg PO DAILY Atorvastatin Calcium 20 Mg Tablet 20 Mg PO HS Allergies Allergies: Coded Allergies: Sulfa (Sulfonamide Antibiotics) (Verified Allergy, Intermediate, 06/29/16) banana (Verified Allergy, Intermediate, 08/03/17) cranberry (Verified Allergy, Intermediate, 07/14/16) grapefruit (Verified Allergy, Intermediate, 07/14/16) orange juice (Verified Allergy, Intermediate, 08/03/17) tomato (Verified Allergy, Intermediate, 08/03/17) ROS Review of System Unable to obtain from the patient reliably due to underlying dementia and altered mental status Physical Exam Physical Exam GEN: Awake but drowsy and disoriented, unclear regarding baseline mentation In no visible distress EYES: , Conjunctiva Normal, sclera anicteric EN: No EN Drainage, Mucous Membranes moist NECK: no JVD, no JVP, Supple, no Thyromegaly CVS: S1S2, soft Murmur, No Gallop, No Rub,no Edema RESP: no Rales, no Rhonchi,no Acc. Muscle Use GI: BS + ve, NO Bruit, Non Tender, Non Distended : no CVA tenderness, no Suprapubic Tenderness Vital Signs Vital Signs Date Time Temp Pulse Resp B/P (MAP) Pulse Ox O2 Delivery O2 Flow Rate FiO2 05/26/19 13:14 77 18 100 05/26/19 11:15 96.2 120/59 (79) Room Air 96.2 Assessment & Plan ESRD: : Dialysis as below F 180 NR 3.5 Hrs K 2.5 Ca 140 Na 35 HC03 Qb 350 + Qd 500+ Heparin 0 Units Uf to dry weight as tolerated May give 25-50 gms of 25% Albumin if needed to maintain Hemodynamic stability Treatment plan reviewed and discussed with sign wirer Marginally elevated magnesium levels anticipate correction with dialysis Okay to discharge from renal standpoint once sugars are better controlled Labs Labs Laboratory Tests Test 05/26/19 11:18 05/26/19 11:26 05/26/19 12:10 05/26/19 14:13 White Blood Count 4.8 x10^3/uL (4.0-11.0) Red Blood Count 3.18 x10^6/uL (3.50-5.40) Hemoglobin 10.1 g/dL (12.0-15.5) Hematocrit 31.1 % (36.0-47.0) Mean Corpuscular Volume 98 fL (79-100) Mean Corpuscular Hemoglobin 32 pg (25-35) Mean Corpuscular Hemoglobin Concent 33 g/dL (31-37) Red Cell Distribution Width 17.3 % (11.5-14.5) Platelet Count 213 x10^3/uL (140-400) Neutrophils (%) (Auto) 60 % (31-73) Lymphocytes (%) (Auto) 21 % (24-48) Monocytes (%) (Auto) 16 % (0-9) Eosinophils (%) (Auto) 2 % (0-3) Basophils (%) (Auto) 1 % (0-3) Neutrophils # (Auto) 2.9 x10^3/uL (1.8-7.7) Lymphocytes # (Auto) 1.0 x10^3/uL (1.0-4.8) Monocytes # (Auto) 0.8 x10^3/uL (0.0-1.1) Eosinophils # (Auto) 0.1 x10^3/uL (0.0-0.7) Basophils # (Auto) 0.0 x10^3/uL (0.0-0.2) Prothrombin Time 13.1 SEC (11.7-14.0) Prothromb Time International Ratio 1.0 (0.8-1.1) Activated Partial Thromboplast Time 28 SEC (24-38) Sodium Level 136 mmol/L (136-145) Potassium Level 4.8 mmol/L (3.5-5.1) Chloride Level 97 mmol/L (98-107) Carbon Dioxide Level 28 mmol/L (21-32) Anion Gap 11 (6-14) Blood Urea Nitrogen 42 mg/dL (7-20) Creatinine 8.5 mg/dL (0.6-1.0) Estimated GFR (Cockcroft-Gault) 5.8 BUN/Creatinine Ratio 5 (6-20) Glucose Level 43 mg/dL (70-99) Calcium Level 9.1 mg/dL (8.5-10.1) Magnesium Level 3.1 mg/dL (1.8-2.4) Total Bilirubin 0.4 mg/dL (0.2-1.0) Aspartate Amino Transf (AST/SGOT) 23 U/L (15-37) Alanine Aminotransferase (ALT/SGPT) 19 U/L (14-59) Alkaline Phosphatase 149 U/L (46-116) Troponin I Quantitative < 0.017 ng/mL (0.000-0.055) XT-Nou-L-Type Natriuretic Peptide 4978 pg/mL (0-124) Total Protein 8.3 g/dL (6.4-8.2) Albumin 3.5 g/dL (3.4-5.0) Albumin/Globulin Ratio 0.7 (1.0-1.7) Glucose (Fingerstick) 170 mg/dL (70-99) 176 mg/dL (70-99) 220 mg/dL (70-99) Laboratory Tests Test 05/26/19 11:18 05/26/19 11:26 05/26/19 12:10 05/26/19 14:13 White Blood Count 4.8 x10^3/uL (4.0-11.0) Red Blood Count 3.18 x10^6/uL (3.50-5.40) Hemoglobin 10.1 g/dL (12.0-15.5) Hematocrit 31.1 % (36.0-47.0) Mean Corpuscular Volume 98 fL (79-100) Mean Corpuscular Hemoglobin 32 pg (25-35) Mean Corpuscular Hemoglobin Concent 33 g/dL (31-37) Red Cell Distribution Width 17.3 % (11.5-14.5) Platelet Count 213 x10^3/uL (140-400) Neutrophils (%) (Auto) 60 % (31-73) Lymphocytes (%) (Auto) 21 % (24-48) Monocytes (%) (Auto) 16 % (0-9) Eosinophils (%) (Auto) 2 % (0-3) Basophils (%) (Auto) 1 % (0-3) Neutrophils # (Auto) 2.9 x10^3/uL (1.8-7.7) Lymphocytes # (Auto) 1.0 x10^3/uL (1.0-4.8) Monocytes # (Auto) 0.8 x10^3/uL (0.0-1.1) Eosinophils # (Auto) 0.1 x10^3/uL (0.0-0.7) Basophils # (Auto) 0.0 x10^3/uL (0.0-0.2) Prothrombin Time 13.1 SEC (11.7-14.0) Prothromb Time International Ratio 1.0 (0.8-1.1) Activated Partial Thromboplast Time 28 SEC (24-38) Sodium Level 136 mmol/L (136-145) Potassium Level 4.8 mmol/L (3.5-5.1) Chloride Level 97 mmol/L (98-107) Carbon Dioxide Level 28 mmol/L (21-32) Anion Gap 11 (6-14) Blood Urea Nitrogen 42 mg/dL (7-20) Creatinine 8.5 mg/dL (0.6-1.0) Estimated GFR (Cockcroft-Gault) 5.8 BUN/Creatinine Ratio 5 (6-20) Glucose Level 43 mg/dL (70-99) Calcium Level 9.1 mg/dL (8.5-10.1) Magnesium Level 3.1 mg/dL (1.8-2.4) Total Bilirubin 0.4 mg/dL (0.2-1.0) Aspartate Amino Transf (AST/SGOT) 23 U/L (15-37) Alanine Aminotransferase (ALT/SGPT) 19 U/L (14-59) Alkaline Phosphatase 149 U/L (46-116) Troponin I Quantitative < 0.017 ng/mL (0.000-0.055) FY-Wol-K-Type Natriuretic Peptide 4978 pg/mL (0-124) Total Protein 8.3 g/dL (6.4-8.2) Albumin 3.5 g/dL (3.4-5.0) Albumin/Globulin Ratio 0.7 (1.0-1.7) Glucose (Fingerstick) 170 mg/dL (70-99) 176 mg/dL (70-99) 220 mg/dL (70-99) Review All relevant outside records, renal labs, imaging studies, telemetry/EKG's were reviewed. Images Images There is generalized parenchymal atrophy. Areas of decreased attenuation are seen within the periventricular and subcortical white matter of both cerebral hemispheres consistent with areas of small vessel ischemic disease. No acute parenchymal abnormality is seen. No extra-axial fluid collection is noted. No skull fracture is seen. Impression: No acute intracranial abnormality is seen. DAYO DENG MD May 26, 2019 14:21
[2019-05-26] MEDS ORDERED: DIAZ5TAB4 PO (14:39)
[2019-05-26] MEDS ORDERED: INSU100C4 SQ (14:43)
[2019-05-26] MEDS ORDERED: MAG HYDROX/ALUMINUM HYD/SIMETH 30 ML ORAL.SUSP PO PRN (15:00)
[2019-05-26] MEDS ORDERED: ACETAMINOPHEN 325 MG TABLET. PO SCH (15:00)
[2019-05-26] MEDS ORDERED: ONDANSETRON ODT 4 MG TAB.RAPDIS. PO PRN (16:00)
[2019-05-26] MEDS ORDERED: IV NORMAL SALINE 1000ML BAG 1,000 ML IV PRN ×2 (16:30)
[2019-05-26] MEDS ORDERED: ACETAMINOPHEN 500 MG TABLET PO PRN (16:30)
[2019-05-26] MEDS ORDERED: DIALYSIS PATIENT. MC PRN ×2 (17:30)
[2019-05-26] MEDS ORDERED: SIMETHICONE 80 MG TAB.CHEW PO PRN (18:00)
[2019-05-26] MEDS: QUEtiapine 25 MG TABLET. PO SCH (18:00)
[2019-05-26] MEDS: SEVELAMER CARBONATE 800 MG TABLET. PO SCH (20:54)
[2019-05-26] MEDS: CARVEDILOL 12.5 MG TABLET. PO SCH (20:59)
[2019-05-26] MEDS ORDERED: cloNIDine TTS-3 1 PATCH PATCH.TDWK TD SCH (21:00)
[2019-05-26] MEDS ORDERED: SENNOSIDES 8.6 MG TABLET PO SCH (21:00)
[2019-05-26] MEDS ORDERED: QUEtiapine 25 MG TABLET. PO SCH (21:00)
[2019-05-26] MEDS ORDERED: ATORVASTATIN CALCIUM 20 MG TABLET PO SCH (21:00)
[2019-05-26] MEDS: INSULIN LISPRO 300 UNITS/3 ML VIAL. SQ SCH (21:06)
[2019-05-26] MEDS: HEPARIN for SUB-Q USE 5,000 UNIT/ML VIAL. SQ SCH (22:33)
[2019-05-26 23:03] VITALS: BP 154/79
[2019-05-27 03:11] VITALS: BP 128/55
[2019-05-27] MEDS: HEPARIN for SUB-Q USE 5,000 UNIT/ML VIAL. SQ SCH ×2 (06:11→13:31)
[2019-05-27] MEDS: QUEtiapine 25 MG TABLET. PO SCH ×2 (06:58→13:24)
[2019-05-27 07:31] VITALS: BP 162/68
[2019-05-27] MEDS ORDERED: ISOSORBIDE MONONITRATE ER 30 MG TAB.ER.24H PO SCH (09:00)
[2019-05-27] MEDS ORDERED: ARIPiprazole 5 MG TABLET PO SCH (09:00)
[2019-05-27] MEDS ORDERED: LOSARTAN POTASSIUM 50 MG TABLET. PO SCH (09:00)
[2019-05-27] MEDS ORDERED: CETIRIZINE HCL 10 MG TABLET. PO SCH (09:00)
[2019-05-27] MEDS ORDERED: POLYETHYLENE GLYCOL 3350 17 GM PACKET. PO SCH (09:00)
[2019-05-27] MEDS ORDERED: OMEGA-3 FATTY ACIDS/FISH OIL 1,000 MG CAPSULE. PO SCH (09:00)
[2019-05-27] MEDS ORDERED: CLOPIDOGREL BISULFATE 75 MG TABLET PO SCH (09:00)
[2019-05-27] MEDS ORDERED: amLODIPine BESYLATE 10 MG TABLET PO SCH (09:00)
[2019-05-27] MEDS: SEVELAMER CARBONATE 800 MG TABLET. PO SCH ×3 (09:17→17:14)
[2019-05-27] MEDS: CARVEDILOL 12.5 MG TABLET. PO SCH ×2 (09:17→17:14)
--- NOTE | 2019-05-27 09:29 | PDOC ---
PROGRESS NOTES Chief Complaint Chief Complaint A/P: Acute hypoglycemia - corrected HTN emergency - back on meds Anemia - of chronic disease Anxiety - will give low dose ativan H/O CVA - unknown residual deficits Diabetes-Type II - will place on sliding scale High Cholesterol - cont statin End-Stage Renal Disease on HD TuThSa - nephrology consulted Schizophrenia - will cont meds FEN - renal diet PPX - heparin FULL CODE History of Present Illness History of Present Illness Ms Rodriguez is a 59 yo female with PMHx ESRD secondary to diabetes and hypertension, HTN, HLD, h/o CVA, constipation, Anemia, Anxiety, Schizophrenia, OA, DM2, hyperparathyroidism. She was noted to have altered mental status and hypoglycemia with sugars of less than 30 at presentation, noted 35 in ED, was given additional glucose after this as she was unresponsive. Continues to be significantly confused. She is unable to provide much in terms of her history. It is noted that she was unable to make it to dialysis 05/26/19 due to this. Nephrology consulted. She underwent dialysis on 05/26/19, tolerated a full run. She is asking for dorothea allison, ready to be discharged. Vitals Vitals Vital Signs Date Time Temp Pulse Resp B/P (MAP) Pulse Ox O2 Delivery O2 Flow Rate FiO2 05/27/19 07:31 97.9 74 18 162/68 (99) 95 Room Air 97.9 Physical Exam General: Cooperative Lungs: Crackles, Other Abdomen: Normal bowel sounds, Soft Extremities: No cyanosis Labs LABS Laboratory Tests Test 05/26/19 11:18 05/26/19 11:26 05/26/19 12:10 05/26/19 14:13 White Blood Count 4.8 x10^3/uL (4.0-11.0) Red Blood Count 3.18 x10^6/uL (3.50-5.40) Hemoglobin 10.1 g/dL (12.0-15.5) Hematocrit 31.1 % (36.0-47.0) Mean Corpuscular Volume 98 fL (79-100) Mean Corpuscular Hemoglobin 32 pg (25-35) Mean Corpuscular Hemoglobin Concent 33 g/dL (31-37) Red Cell Distribution Width 17.3 % (11.5-14.5) Platelet Count 213 x10^3/uL (140-400) Neutrophils (%) (Auto) 60 % (31-73) Lymphocytes (%) (Auto) 21 % (24-48) Monocytes (%) (Auto) 16 % (0-9) Eosinophils (%) (Auto) 2 % (0-3) Basophils (%) (Auto) 1 % (0-3) Neutrophils # (Auto) 2.9 x10^3/uL (1.8-7.7) Lymphocytes # (Auto) 1.0 x10^3/uL (1.0-4.8) Monocytes # (Auto) 0.8 x10^3/uL (0.0-1.1) Eosinophils # (Auto) 0.1 x10^3/uL (0.0-0.7) Basophils # (Auto) 0.0 x10^3/uL (0.0-0.2) Prothrombin Time 13.1 SEC (11.7-14.0) Prothromb Time International Ratio 1.0 (0.8-1.1) Activated Partial Thromboplast Time 28 SEC (24-38) Sodium Level 136 mmol/L (136-145) Potassium Level 4.8 mmol/L (3.5-5.1) Chloride Level 97 mmol/L (98-107) Carbon Dioxide Level 28 mmol/L (21-32) Anion Gap 11 (6-14) Blood Urea Nitrogen 42 mg/dL (7-20) Creatinine 8.5 mg/dL (0.6-1.0) Estimated GFR (Cockcroft-Gault) 5.8 BUN/Creatinine Ratio 5 (6-20) Glucose Level 43 mg/dL (70-99) Calcium Level 9.1 mg/dL (8.5-10.1) Magnesium Level 3.1 mg/dL (1.8-2.4) Total Bilirubin 0.4 mg/dL (0.2-1.0) Aspartate Amino Transf (AST/SGOT) 23 U/L (15-37) Alanine Aminotransferase (ALT/SGPT) 19 U/L (14-59) Alkaline Phosphatase 149 U/L (46-116) Troponin I Quantitative < 0.017 ng/mL (0.000-0.055) KH-Fni-A-Type Natriuretic Peptide 4978 pg/mL (0-124) Total Protein 8.3 g/dL (6.4-8.2) Albumin 3.5 g/dL (3.4-5.0) Albumin/Globulin Ratio 0.7 (1.0-1.7) Glucose (Fingerstick) 170 mg/dL (70-99) 176 mg/dL (70-99) 220 mg/dL (70-99) Test 05/26/19 17:20 05/26/19 20:01 05/26/19 20:39 05/27/19 01:32 Glucose (Fingerstick) 276 mg/dL (70-99) 246 mg/dL (70-99) 327 mg/dL (70-99) 185 mg/dL (70-99) Test 05/27/19 07:43 Glucose (Fingerstick) 162 mg/dL (70-99) Assessment and Plan Assessmemt and Plan Problems Medical Problems: (1) ESRD (end stage renal disease) on dialysis Status: Acute (2) Hypoglycemia Status: Acute Comment Review of Relevant I have reviewed the following items los (where applicable) has been applied. Labs Laboratory Tests Test 05/26/19 11:18 05/26/19 11:26 05/26/19 12:10 05/26/19 14:13 White Blood Count 4.8 x10^3/uL (4.0-11.0) Red Blood Count 3.18 x10^6/uL (3.50-5.40) Hemoglobin 10.1 g/dL (12.0-15.5) Hematocrit 31.1 % (36.0-47.0) Mean Corpuscular Volume 98 fL (79-100) Mean Corpuscular Hemoglobin 32 pg (25-35) Mean Corpuscular Hemoglobin Concent 33 g/dL (31-37) Red Cell Distribution Width 17.3 % (11.5-14.5) Platelet Count 213 x10^3/uL (140-400) Neutrophils (%) (Auto) 60 % (31-73) Lymphocytes (%) (Auto) 21 % (24-48) Monocytes (%) (Auto) 16 % (0-9) Eosinophils (%) (Auto) 2 % (0-3) Basophils (%) (Auto) 1 % (0-3) Neutrophils # (Auto) 2.9 x10^3/uL (1.8-7.7) Lymphocytes # (Auto) 1.0 x10^3/uL (1.0-4.8) Monocytes # (Auto) 0.8 x10^3/uL (0.0-1.1) Eosinophils # (Auto) 0.1 x10^3/uL (0.0-0.7) Basophils # (Auto) 0.0 x10^3/uL (0.0-0.2) Prothrombin Time 13.1 SEC (11.7-14.0) Prothromb Time International Ratio 1.0 (0.8-1.1) Activated Partial Thromboplast Time 28 SEC (24-38) Sodium Level 136 mmol/L (136-145) Potassium Level 4.8 mmol/L (3.5-5.1) Chloride Level 97 mmol/L (98-107) Carbon Dioxide Level 28 mmol/L (21-32) Anion Gap 11 (6-14) Blood Urea Nitrogen 42 mg/dL (7-20) Creatinine 8.5 mg/dL (0.6-1.0) Estimated GFR (Cockcroft-Gault) 5.8 BUN/Creatinine Ratio 5 (6-20) Glucose Level 43 mg/dL (70-99) Calcium Level 9.1 mg/dL (8.5-10.1) Magnesium Level 3.1 mg/dL (1.8-2.4) Total Bilirubin 0.4 mg/dL (0.2-1.0) Aspartate Amino Transf (AST/SGOT) 23 U/L (15-37) Alanine Aminotransferase (ALT/SGPT) 19 U/L (14-59) Alkaline Phosphatase 149 U/L (46-116) Troponin I Quantitative < 0.017 ng/mL (0.000-0.055) QD-Rlg-L-Type Natriuretic Peptide 4978 pg/mL (0-124) Total Protein 8.3 g/dL (6.4-8.2) Albumin 3.5 g/dL (3.4-5.0) Albumin/Globulin Ratio 0.7 (1.0-1.7) Glucose (Fingerstick) 170 mg/dL (70-99) 176 mg/dL (70-99) 220 mg/dL (70-99) Test 05/26/19 17:20 05/26/19 20:01 05/26/19 20:39 05/27/19 01:32 Glucose (Fingerstick) 276 mg/dL (70-99) 246 mg/dL (70-99) 327 mg/dL (70-99) 185 mg/dL (70-99) Test 05/27/19 07:43 Glucose (Fingerstick) 162 mg/dL (70-99) Laboratory Tests Test 05/26/19 11:18 05/26/19 11:26 05/26/19 12:10 05/26/19 14:13 White Blood Count 4.8 x10^3/uL (4.0-11.0) Red Blood Count 3.18 x10^6/uL (3.50-5.40) Hemoglobin 10.1 g/dL (12.0-15.5) Hematocrit 31.1 % (36.0-47.0) Mean Corpuscular Volume 98 fL (79-100) Mean Corpuscular Hemoglobin 32 pg (25-35) Mean Corpuscular Hemoglobin Concent 33 g/dL (31-37) Red Cell Distribution Width 17.3 % (11.5-14.5) Platelet Count 213 x10^3/uL (140-400) Neutrophils (%) (Auto) 60 % (31-73) Lymphocytes (%) (Auto) 21 % (24-48) Monocytes (%) (Auto) 16 % (0-9) Eosinophils (%) (Auto) 2 % (0-3) Basophils (%) (Auto) 1 % (0-3) Neutrophils # (Auto) 2.9 x10^3/uL (1.8-7.7) Lymphocytes # (Auto) 1.0 x10^3/uL (1.0-4.8) Monocytes # (Auto) 0.8 x10^3/uL (0.0-1.1) Eosinophils # (Auto) 0.1 x10^3/uL (0.0-0.7) Basophils # (Auto) 0.0 x10^3/uL (0.0-0.2) Prothrombin Time 13.1 SEC (11.7-14.0) Prothromb Time International Ratio 1.0 (0.8-1.1) Activated Partial Thromboplast Time 28 SEC (24-38) Sodium Level 136 mmol/L (136-145) Potassium Level 4.8 mmol/L (3.5-5.1) Chloride Level 97 mmol/L (98-107) Carbon Dioxide Level 28 mmol/L (21-32) Anion Gap 11 (6-14) Blood Urea Nitrogen 42 mg/dL (7-20) Creatinine 8.5 mg/dL (0.6-1.0) Estimated GFR (Cockcroft-Gault) 5.8 BUN/Creatinine Ratio 5 (6-20) Glucose Level 43 mg/dL (70-99) Calcium Level 9.1 mg/dL (8.5-10.1) Magnesium Level 3.1 mg/dL (1.8-2.4) Total Bilirubin 0.4 mg/dL (0.2-1.0) Aspartate Amino Transf (AST/SGOT) 23 U/L (15-37) Alanine Aminotransferase (ALT/SGPT) 19 U/L (14-59) Alkaline Phosphatase 149 U/L (46-116) Troponin I Quantitative < 0.017 ng/mL (0.000-0.055) MA-Kpc-T-Type Natriuretic Peptide 4978 pg/mL (0-124) Total Protein 8.3 g/dL (6.4-8.2) Albumin 3.5 g/dL (3.4-5.0) Albumin/Globulin Ratio 0.7 (1.0-1.7) Glucose (Fingerstick) 170 mg/dL (70-99) 176 mg/dL (70-99) 220 mg/dL (70-99) Test 05/26/19 17:20 05/26/19 20:01 05/26/19 20:39 05/27/19 01:32 Glucose (Fingerstick) 276 mg/dL (70-99) 246 mg/dL (70-99) 327 mg/dL (70-99) 185 mg/dL (70-99) Test 05/27/19 07:43 Glucose (Fingerstick) 162 mg/dL (70-99) Medications Current Medications Dextrose (Dextrose 50%-Water Syringe) 25 gm 1X ONCE IV Last administered on 05/26/19at 11:32; Start 05/26/19 at 11:30; Stop 05/26/19 at 11:31; Status DC Ondansetron HCl (Zofran) 4 mg PRN Q8HRS PRN IV NAUSEA/VOMITING; Start 05/26/19 at 12:30; Stop 05/27/19 at 12:29 Acetaminophen (Tylenol) 650 mg PRN Q4HRS PO ; Start 05/26/19 at 15:00 Amlodipine Besylate (Norvasc) 10 mg DAILY PO ; Start 05/27/19 at 09:00 Atorvastatin Calcium (Lipitor) 20 mg HS PO Last administered on 05/26/19at 21:03; Start 05/26/19 at 21:00 Clonidine HCl (Catapres Tts-3) 1 patch WEEKLY@2100 TD Last administered on 05/26/19at 21:03; Start 05/26/19 at 21:00 Clopidogrel Bisulfate (Plavix) 75 mg DAILY PO ; Start 05/27/19 at 09:00 Isosorbide Mononitrate (Imdur) 60 mg DAILY PO ; Start 05/27/19 at 09:00 Al Hydroxide/Mg Hydroxide (Mylanta Plus Xs) 30 ml PRN Q6HRS PRN PO INDIGESTION; Start 05/26/19 at 15:00 Polyethylene Glycol (miraLAX PACKET) 17 gm DAILY PO ; Start 05/27/19 at 09:00 Quetiapine Fumarate (SEROquel) 100 mg HS PO Last administered on 05/26/19at 21:03; Start 05/26/19 at 21:00 Sevelamer Carbonate (Renvela) 2,400 mg TIDWMEALS PO Last administered on 05/26/19at 21:03; Start 05/26/19 at 17:00 Simethicone (Gas-X) 80 mg PRN Q6HRS PRN PO GAS; Start 05/26/19 at 18:00 Aripiprazole (Abilify) 10 mg DAILY PO ; Start 05/27/19 at 09:00 Carvedilol (Coreg) 12.5 mg BIDWMEALS PO Last administered on 05/26/19at 21:03; Start 05/26/19 at 17:00 Insulin Human Lispro (HumaLOG) 7 units TIDWMEALS SQ Last administered on 05/26/19at 21:06; Start 05/26/19 at 17:00 Losartan Potassium (Cozaar) 100 mg DAILY PO ; Start 05/27/19 at 09:00 Fish Oil (Fish Oil) 1,000 mg DAILY PO ; Start 05/27/19 at 09:00 Ondansetron HCl (Zofran Odt) 4 mg PRN Q6HRS PRN PO NAUSEA/VOMITING; Start 05/26/19 at 16:00 Quetiapine Fumarate (SEROquel) 50 mg [id number] PO Last administered on 05/27/19at 06:59; Start 05/26/19 at 18:00 Sennosides (Senna) 17.2 mg QHS PO Last administered on 05/26/19at 21:03; Start 05/26/19 at 21:00 Cetirizine HCl (ZyrTEC) 10 mg DAILY PO ; Start 05/27/19 at 09:00 Sodium Chloride 1,000 ml @ 1,000 mls/hr Q1H PRN IV hypotension; Start 05/26/19 at 16:30; Stop 05/26/19 at 22:29; Status DC Acetaminophen (Tylenol) 500 mg 1X PRN PRN PO MILD PAIN / TEMP Last administered on 05/26/19at 17:54; Start 05/26/19 at 16:30; Stop 05/27/19 at 16:29 Sodium Chloride 1,000 ml @ 400 mls/hr Q2H30M PRN IV PATENCY; Start 05/26/19 at 16:30; Stop 05/27/19 at 04:29; Status DC Info (PHARMACY MONITORING -- do not chart) 1 each PRN DAILY PRN MC SEE COMMENTS; Start 05/26/19 at 17:30; Status UNV Info (PHARMACY MONITORING -- do not chart) 1 each PRN DAILY PRN MC SEE COMMENTS; Start 05/26/19 at 17:30 Heparin Sodium (Porcine) (Heparin Sodium) 5,000 unit Q8HRS SQ Last administered on 05/27/19at 06:11; Start 05/26/19 at 22:00 Active Scripts Active Isosorbide Mononitrate Er (Isosorbide Mononitrate) 30 Mg Tab.er.24h 2 Tab PO DAILY Reported Novolog (Insulin Aspart) 100 Unit/1 Ml Cartridge 100 Unit SQ TIDAC sliding scale 151-200: 2 units 201-250: 4 units 251-300: 6 units 301-349:8 units Diazepam 5 Mg Tablet 5 Mg PO HS Seroquel (Quetiapine Fumarate) 50 Mg Tablet 50 Mg PO TID Novolog Flexpen (Insulin Aspart) 100 Unit/1 Ml Insuln.pen 7 Unit SQ TIDWMEALS Levemir Flextouch (Insulin Detemir) 100 Unit/1 Ml Insuln.pen 20 Unit SQ HS Claritin (Loratadine) 10 Mg Tablet 1 Tab PO BID Catapres-Tts 3 (Clonidine) 1 Each Patch.tdwk 1 Each TD WEEKLY Carvedilol 25 Mg Tablet 12.5 Mg PO BIDWMEALS Tylenol (Acetaminophen) 325 Mg Tablet 2 Tab PO PRN Q4HRS Ambien (Zolpidem Tartrate) 5 Mg Tablet 5 Mg PO PRN QHS PRN Simethicone 80 Mg Tab.chew 80 Mg PO Q6HRS Abilify (Aripiprazole) 10 Mg Tablet 10 Mg PO DAILY Ondansetron Hcl 4 Mg Tablet 1 Tab PO PRN Q6HRS Losartan Potassium 100 Mg Tablet 100 Mg PO DAILY Maalox Maximum Strength Susp (Mag Hydrox/Al Hydrox/Simeth) 355 Ml Oral.susp 30 Ml PO PRN Q6HRS PRN Miralax (Polyethylene Glycol 3350) 17 Gm Powd.pack 1 Packet PO DAILY [place] 3 Fish Oil Softgel ([place]-3 Fatty Acids/Fish Oil) 1 Each Capsule. 1 Each PO DAILY Amlodipine Besylate 10 Mg Tablet 10 Mg PO DAILY Renvela (Sevelamer Carbonate) 800 Mg Tablet 3 Cap PO TIDWMEALS Senna (Sennosides) 8.6 Mg Capsule 2 Cap PO HS Quetiapine Fumarate 25 Mg Tablet 100 Mg PO HS Clopidogrel (Clopidogrel Bisulfate) 75 Mg Tablet 75 Mg PO DAILY Atorvastatin Calcium 20 Mg Tablet 20 Mg PO HS Vitals/I & O Vital Sign - Last 24 Hours 05/26/19 05/26/19 05/26/19 05/26/19 11:15 11:22 12:14 12:39 Temp 96.2 96.2 Pulse 59 59 77 75 Resp 18 18 20 21 B/P (MAP) 120/59 (79) Pulse Ox 96 98 97 100 O2 Delivery Room Air 05/26/19 05/26/19 05/26/19 05/26/19 13:14 14:10 15:57 20:35 Temp 97.5 97.5 Pulse 77 77 Resp 18 18 B/P (MAP) 158/80 (106) Pulse Ox 100 100 O2 Delivery Room Air Room Air Room Air 05/26/19 05/26/19 05/27/19 05/27/19 21:03 23:03 03:11 07:31 Temp 98.4 98.1 97.9 98.4 98.1 97.9 Pulse 84 92 79 74 Resp 20 20 18 B/P (MAP) 131/70 154/79 (104) 128/55 (79) 162/68 (99) Pulse Ox 100 97 95 O2 Delivery Room Air Room Air Room Air Intake and Output 05/26/19 05/26/19 05/27/19 14:59 22:59 06:59 Output Total 0 ml Balance 0 ml ANGELINE BUSTAMANTE MD May 27, 2019 09:29
[2019-05-27] MEDS: INSULIN LISPRO 300 UNITS/3 ML VIAL. SQ SCH ×3 (09:33→17:23)
[2019-05-27 10:20] VITALS: BP 178/84
--- NOTE | 2019-05-27 11:02 | PDOC3 ---
Discharge Summary Visit Information Date of Admission: May 26, 2019 Date of Discharge: May 27, 2019 Admitting Diagnosis: Hypoglycemia Final Diagnosis Problems Medical Problems: (1) ESRD (end stage renal disease) on dialysis Status: Acute (2) Hypoglycemia Status: Acute Brief Hospital Course Allergies Allergies Coded Allergies Type Severity Reaction Last Updated Verified Sulfa (Sulfonamide Antibiotics) Allergy Intermediate 06/29/16 Yes banana Allergy Intermediate 08/03/17 Yes cranberry Allergy Intermediate 07/14/16 Yes grapefruit Allergy Intermediate 07/14/16 Yes orange juice Allergy Intermediate 08/03/17 Yes tomato Allergy Intermediate 08/03/17 Yes Vital Signs Vital Signs Date Time Temp Pulse Resp B/P (MAP) Pulse Ox O2 Delivery O2 Flow Rate FiO2 05/27/19 09:29 74 162/68 05/27/19 07:31 97.9 18 95 Room Air 97.9 Lab Results Laboratory Tests Test 05/26/19 11:18 05/26/19 11:26 05/26/19 12:10 05/26/19 14:13 White Blood Count 4.8 x10^3/uL (4.0-11.0) Red Blood Count 3.18 x10^6/uL (3.50-5.40) Hemoglobin 10.1 g/dL (12.0-15.5) Hematocrit 31.1 % (36.0-47.0) Mean Corpuscular Volume 98 fL (79-100) Mean Corpuscular Hemoglobin 32 pg (25-35) Mean Corpuscular Hemoglobin Concent 33 g/dL (31-37) Red Cell Distribution Width 17.3 % (11.5-14.5) Platelet Count 213 x10^3/uL (140-400) Neutrophils (%) (Auto) 60 % (31-73) Lymphocytes (%) (Auto) 21 % (24-48) Monocytes (%) (Auto) 16 % (0-9) Eosinophils (%) (Auto) 2 % (0-3) Basophils (%) (Auto) 1 % (0-3) Neutrophils # (Auto) 2.9 x10^3/uL (1.8-7.7) Lymphocytes # (Auto) 1.0 x10^3/uL (1.0-4.8) Monocytes # (Auto) 0.8 x10^3/uL (0.0-1.1) Eosinophils # (Auto) 0.1 x10^3/uL (0.0-0.7) Basophils # (Auto) 0.0 x10^3/uL (0.0-0.2) Prothrombin Time 13.1 SEC (11.7-14.0) Prothromb Time International Ratio 1.0 (0.8-1.1) Activated Partial Thromboplast Time 28 SEC (24-38) Sodium Level 136 mmol/L (136-145) Potassium Level 4.8 mmol/L (3.5-5.1) Chloride Level 97 mmol/L (98-107) Carbon Dioxide Level 28 mmol/L (21-32) Anion Gap 11 (6-14) Blood Urea Nitrogen 42 mg/dL (7-20) Creatinine 8.5 mg/dL (0.6-1.0) Estimated GFR (Cockcroft-Gault) 5.8 BUN/Creatinine Ratio 5 (6-20) Glucose Level 43 mg/dL (70-99) Calcium Level 9.1 mg/dL (8.5-10.1) Magnesium Level 3.1 mg/dL (1.8-2.4) Total Bilirubin 0.4 mg/dL (0.2-1.0) Aspartate Amino Transf (AST/SGOT) 23 U/L (15-37) Alanine Aminotransferase (ALT/SGPT) 19 U/L (14-59) Alkaline Phosphatase 149 U/L (46-116) Troponin I Quantitative < 0.017 ng/mL (0.000-0.055) LX-Lvl-W-Type Natriuretic Peptide 4978 pg/mL (0-124) Total Protein 8.3 g/dL (6.4-8.2) Albumin 3.5 g/dL (3.4-5.0) Albumin/Globulin Ratio 0.7 (1.0-1.7) Glucose (Fingerstick) 170 mg/dL (70-99) 176 mg/dL (70-99) 220 mg/dL (70-99) Test 05/26/19 17:20 05/26/19 20:01 05/26/19 20:39 05/27/19 01:32 Glucose (Fingerstick) 276 mg/dL (70-99) 246 mg/dL (70-99) 327 mg/dL (70-99) 185 mg/dL (70-99) Test 05/27/19 07:43 Glucose (Fingerstick) 162 mg/dL (70-99) Laboratory Tests Test 05/26/19 11:18 05/26/19 11:26 05/26/19 12:10 05/26/19 14:13 White Blood Count 4.8 x10^3/uL (4.0-11.0) Red Blood Count 3.18 x10^6/uL (3.50-5.40) Hemoglobin 10.1 g/dL (12.0-15.5) Hematocrit 31.1 % (36.0-47.0) Mean Corpuscular Volume 98 fL (79-100) Mean Corpuscular Hemoglobin 32 pg (25-35) Mean Corpuscular Hemoglobin Concent 33 g/dL (31-37) Red Cell Distribution Width 17.3 % (11.5-14.5) Platelet Count 213 x10^3/uL (140-400) Neutrophils (%) (Auto) 60 % (31-73) Lymphocytes (%) (Auto) 21 % (24-48) Monocytes (%) (Auto) 16 % (0-9) Eosinophils (%) (Auto) 2 % (0-3) Basophils (%) (Auto) 1 % (0-3) Neutrophils # (Auto) 2.9 x10^3/uL (1.8-7.7) Lymphocytes # (Auto) 1.0 x10^3/uL (1.0-4.8) Monocytes # (Auto) 0.8 x10^3/uL (0.0-1.1) Eosinophils # (Auto) 0.1 x10^3/uL (0.0-0.7) Basophils # (Auto) 0.0 x10^3/uL (0.0-0.2) Prothrombin Time 13.1 SEC (11.7-14.0) Prothromb Time International Ratio 1.0 (0.8-1.1) Activated Partial Thromboplast Time 28 SEC (24-38) Sodium Level 136 mmol/L (136-145) Potassium Level 4.8 mmol/L (3.5-5.1) Chloride Level 97 mmol/L (98-107) Carbon Dioxide Level 28 mmol/L (21-32) Anion Gap 11 (6-14) Blood Urea Nitrogen 42 mg/dL (7-20) Creatinine 8.5 mg/dL (0.6-1.0) Estimated GFR (Cockcroft-Gault) 5.8 BUN/Creatinine Ratio 5 (6-20) Glucose Level 43 mg/dL (70-99) Calcium Level 9.1 mg/dL (8.5-10.1) Magnesium Level 3.1 mg/dL (1.8-2.4) Total Bilirubin 0.4 mg/dL (0.2-1.0) Aspartate Amino Transf (AST/SGOT) 23 U/L (15-37) Alanine Aminotransferase (ALT/SGPT) 19 U/L (14-59) Alkaline Phosphatase 149 U/L (46-116) Troponin I Quantitative < 0.017 ng/mL (0.000-0.055) HH-Siz-P-Type Natriuretic Peptide 4978 pg/mL (0-124) Total Protein 8.3 g/dL (6.4-8.2) Albumin 3.5 g/dL (3.4-5.0) Albumin/Globulin Ratio 0.7 (1.0-1.7) Glucose (Fingerstick) 170 mg/dL (70-99) 176 mg/dL (70-99) 220 mg/dL (70-99) Test 05/26/19 17:20 05/26/19 20:01 05/26/19 20:39 05/27/19 01:32 Glucose (Fingerstick) 276 mg/dL (70-99) 246 mg/dL (70-99) 327 mg/dL (70-99) 185 mg/dL (70-99) Test 05/27/19 07:43 Glucose (Fingerstick) 162 mg/dL (70-99) Brief Hospital Course Ms Rodriguez is a 59 yo female with PMHx ESRD secondary to diabetes and hypertension, HTN, HLD, h/o CVA, constipation, Anemia, Anxiety, Schizophrenia, OA, DM2, hyperparathyroidism. She was noted to have altered mental status and hypoglycemia with sugars of less than 30 at presentation, noted 35 in ED, was given additional glucose after this as she was unresponsive. Continues to be significantly confused. She is unable to provide much in terms of her history. It is noted that she was unable to make it to dialysis 05/26/19 due to this. Nephrology consulted. A/P: Acute hypoglycemia - corrected HTN emergency - back on meds Anemia - of chronic disease Anxiety - will give low dose ativan H/O CVA - unknown residual deficits Diabetes-Type II - will place on sliding scale High Cholesterol - cont statin End-Stage Renal Disease on HD TuTa - nephrology consulted Schizophrenia - will cont meds Greater than 30 minutes spent on d/c Discharge Information Condition at Discharge: Improved Follow Up: Weeks (1) Disposition/Orders: D/C to Home Scheduled Acetaminophen (Tylenol) 325 Mg Tablet, 2 TAB PO PRN Q4HRS for mild pain, #30 (Reported) Entered as Reported by: KAZ GARNER on 03/01/19511 Last Action: Continued on 05/26/191455 by REEMA DEVLIN MD Amlodipine Besylate (Amlodipine Besylate) 10 Mg Tablet, 10 MG PO DAILY, (Reported) Entered as Reported by: SUN GUZMÁN on 06/22/16 0429 Last Action: Continued on 05/26/191455 by REEMA DEVLIN MD Aripiprazole (Abilify) 10 Mg Tablet, 10 MG PO DAILY for schizophrenia, (Reported) Entered as Reported by: JENNIFER BERGMAN on 12/11/18 0907 Last Action: Converted on 05/26/191455 by REEMA DEVLIN MD Atorvastatin Calcium (Atorvastatin Calcium) 20 Mg Tablet, 20 MG PO HS, (Reported) Entered as Reported by: MELCHOR GIVENS on 09/01/13 1532 Last Action: Continued on 05/26/191455 by REEMA DEVLIN MD Carvedilol (Carvedilol) 25 Mg Tablet, 12.5 MG PO BIDWMEALS for CARDIAC, (Reported) Entered as Reported by: KAZ GARNER on 03/01/19511 Last Action: Converted on 05/26/191455 by REEMA DEVLIN MD Clonidine (Catapres-Tts 3) 1 Each Patch.tdwk, 1 EACH TD WEEKLY for essential HTN, (Reported) Entered as Reported by: KAZ GARNER on 03/01/19511 Last Action: Continued on 05/26/191455 by REEMA DEVLIN MD Clopidogrel Bisulfate (Clopidogrel) 75 Mg Tablet, 75 MG PO DAILY, (Reported) Entered as Reported by: MELCHOR GIVENS on 09/01/13 1532 Last Action: Continued on 05/26/191455 by REEMA DEVLIN MD Diazepam (Diazepam) 5 Mg Tablet, 5 MG PO HS for anxiety, (Reported) Entered as Reported by: MACK MAN on 05/26/19 1439 Last Action: HELD on 05/26/191455 by REEMA DEVLIN MD Insulin Aspart (Novolog Flexpen) 100 Unit/1 Ml Insuln.pen, 7 UNIT SQ TIDWMEALS for dm, (Reported) Entered as Reported by: KAZ GARNER on 03/01/19511 Last Action: Converted on 05/26/191455 by REEMA DEVLIN MD Insulin Aspart (Novolog) 100 Unit/1 Ml Cartridge, 100 UNIT SQ TIDAC for dm, (Reported) sliding scale 151-200: 2 units 201-250: 4 units 251-300: 6 units 301-349:8 units Entered as Reported by: MACK MAN on 05/26/19 1443 Last Action: HELD on 05/26/191455 by REEMA DEVLIN MD Insulin Detemir (Levemir Flextouch) 100 Unit/1 Ml Insuln.pen, 20 UNIT SQ HS for DM, (Reported) Entered as Reported by: KAZ GARNER on 03/01/19511 Last Action: HELD on 05/26/191455 by REEMA DEVLIN MD Isosorbide Mononitrate (Isosorbide Mononitrate Er) 30 Mg Tab.er.24h, 2 TAB PO DAILY for hypertension, #30 Ref 5 Prescribed by: ANGELINE BUSTAMANTE MD on 03/03/19 1256 Last Action: Continued on 05/26/191455 by REEMA DEVLIN MD Loratadine (Claritin) 10 Mg Tablet, 1 TAB PO BID for allergies, #30 Ref 5 (Re ported) Entered as Reported by: KAZ GARNER on 03/01/19511 Last Action: Converted on 05/26/191455 by REEMA DEVLIN MD Losartan Potassium (Losartan Potassium) 100 Mg Tablet, 100 MG PO DAILY for cardiac, (Reported) Entered as Reported by: CHARISSA MEI on 10/11/17 1200 Last Action: Converted on 05/26/191455 by REEMA DEVLIN MD [place]-3 Fatty Acids/Fish Oil ([place] 3 Fish Oil Softgel) 1 Each Capsule.dr, 1 EACH PO DAILY, (Reported) Entered as Reported by: SUN GUZMÁN on 06/22/16457 Last Action: Converted on 05/26/191455 by REEMA DEVLIN MD Ondansetron Hcl (Ondansetron Hcl) 4 Mg Tablet, 1 TAB PO PRN Q6HRS, #10 Ref 1 (Reported) Entered as Reported by: CHARISSA MEI on 10/11/171199 Last Action: Converted on 05/26/191455 by REEMA DEVLIN MD Polyethylene Glycol 3350 (Miralax) 17 Gm Powd.pack, 1 PACKET PO DAILY, #30 Ref 3 (Reported) Entered as Reported by: SUN GUZMÁN on 06/22/16457 Last Action: Continued on 05/26/191455 by REEMA DEVLIN MD Quetiapine Fumarate (Quetiapine Fumarate) 25 Mg Tablet, 100 MG PO HS, (Reported) Entered as Reported by: MELCHOR GIVENS on 09/01/131531 Last Action: Continued on 05/26/191455 by REEMA DEVLIN MD Quetiapine Fumarate (Seroquel) 50 Mg Tablet, 50 MG PO TID for schizo, (Reported) Entered as Reported by: KAZ TIMONERA on 03/01/19 0512 Last Action: Converted on 05/26/191455 by REEMA DEVLIN MD Sennosides (Senna) 8.6 Mg Capsule, 2 CAP PO HS for constipation, (Reported) Entered as Reported by: MELCHOR GIEVNS on 09/01/131531 Last Action: Converted on 05/26/191455 by REEMA DEVLIN MD Sevelamer Carbonate (Renvela) 800 Mg Tablet, 3 CAP PO TIDWMEALS, (Reported) Entered as Reported by: MELCHOR GIVENS on 09/01/131531 Last Action: Continued on 05/26/191455 by REEMA DEVLIN MD Simethicone (Simethicone) 80 Mg Tab.chew, 80 MG PO Q6HRS for gas, (Reported) Entered as Reported by: JENNIFER BERGMAN on 12/11/18906 Last Action: Continued on 05/26/191455 by REEMA DEVLIN MD Scheduled PRN Mag Hydrox/Al Hydrox/Simeth (Maalox Maximum Strength Susp) 355 Ml Oral.susp, 30 ML PO PRN Q6HRS PRN for INDIGESTION, (Reported) Entered as Reported by: SUN GUZMÁN on 06/22/16 0458 Last Action: Continued on 05/26/191455 by REEMA DEVLIN MD Zolpidem Tartrate (Ambien) 5 Mg Tablet, 5 MG PO PRN QHS PRN for INSOMNIA, Ref 0 (Reported) Entered as Reported by: JENNIFER BERGMAN on 12/11/18906 Last Action: HELD on 05/26/191455 by REEMA DEVLIN MD Discontinued Medications Clonidine Hcl (Clonidine Hcl) 0.2 Mg Tablet, 1 TAB PO Q2HR for HYPERTENSION, SEE COMMENTS, #60 Ref 5 (Reported) Entered as Reported by: CHARISSA MEI on 10/11/171199 Last Action: Discontinued on 05/26/191438 by MACK MAN Magnesium Hydroxide (Milk Of Magnesia) 2,400 Mg/10 Ml Oral.susp, 2,400 MG PO DAILY for constipation, (Reported) Entered as Reported by: KAZ GARNER on 03/01/19 0512 Last Action: Discontinued on 05/26/191438 by MACK MAN Multivits,Ca,Minerals/Iron/FA (Thera M Plus Tablet) 1 Each Tablet, 1 EACH PO DAILY, (Reported) Entered as Reported by: CHARISSA MEI on 10/11/17 1200 Last Action: Discontinued on 05/26/191438 by MACK MAN Sodium Chloride (Garza) 104 Ml [place], 1 SPRAY NS Q6HRS for dry nasa passages, (Reported) Entered as Reported by: KAZ GARNER on 03/01/19 0512 Last Action: Discontinued on 05/26/191438 by ANGELINE MCKEON MD May 27, 2019 11:02
[2019-05-27 11:54] LABS: ALBUMIN 3.5 g/dL (3.4-5.0); CALCIUM 9.4 mg/dL (8.5-10.1); CREATININE 6.7 mg/dL (0.6-1.0); GFR 7.6; POTASSIUM 5.1 mmol/L (3.5-5.1)
[2019-05-27] MEDS ORDERED: ACETAMINOPHEN 325 MG TABLET. PO PRN (15:00)
[2019-05-27 15:17] VITALS: BP 139/63
--- NOTE | 2019-05-27 17:10 | NUR ---
REPORT CALLED TO MELANIE AT [facility], QUESTIONS AND CONCERNS ANSWERED, SALINE LOCK REMOVED FROM RIGHT EJ, PATIENT TOLERATED WITHOUT COMPLAINTS.
[2019-05-27 17:14] VITALS: BP 139/63
--- NOTE | 2019-05-27 18:25 | NUR ---
PATIENT LEAVES THE UNIT PER W/C AND ACCOMPANIED BY EMR TRANSPORT, ALL PERSONAL BELONGINGS SENT WITH PATIENT AT TIME OF DISCHARGE, EMOTIONAL SUPPORT GIVE.
--- NOTE | 2019-05-28 07:25 | EKG ---
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
== END 2019-05-27 18:25 | disposition home or self-care (01) | DRG 637 ==
LOC: ER 11:15 → 5 SOUTH 12:31
PROVIDERS: ADMIT Family Medicine; ATTEND Family Medicine
PROC: 5A1D70Z Performance of Urinary Filtration, Intermittent, Less than 6 Hours Per Day (ICD-10-PCS; principal; 2019-05-26)
DX: E11.649 Type 2 diabetes mellitus with hypoglycemia without coma (principal); G93.41 Metabolic encephalopathy; I16.1 Hypertensive emergency; I12.0 Hypertensive chronic kidney disease with stage 5 chronic kidney disease or end stage renal disease; N18.6 End stage renal disease; D63.8 Anemia in other chronic diseases classified elsewhere; E11.22 Type 2 diabetes mellitus with diabetic chronic kidney disease; E78.00 Pure hypercholesterolemia, unspecified; E78.5 Hyperlipidemia, unspecified; F20.9 Schizophrenia, unspecified; E21.3 Hyperparathyroidism, unspecified; K59.00 Constipation, unspecified; M19.90 Unspecified osteoarthritis, unspecified site; F41.9 Anxiety disorder, unspecified; Z82.49 Family history of ischemic heart disease and other diseases of the circulatory system; Z86.73 Personal history of transient ischemic attack (TIA), and cerebral infarction without residual deficits; Z90.710 Acquired absence of both cervix and uterus; Z99.2 Dependence on renal dialysis; Z88.2 Allergy status to sulfonamides; Z88.8 Allergy status to other drugs, medicaments and biological substances; Z91.018 Allergy to other foods; Z79.899 Other long term (current) drug therapy
CPT/HCPCS: 36415; 70450; 80053; 80069; 82962; 83735; 83880; 84484; 85025; 85610; 85730; 93005; 96374; J1644; J1815; J7042; 99285-25; G0378

== ENCOUNTER 2019-05-31 06:51 | Outpatient (CLI) | payer MEDICARE, OTHER ==
[~2019-05-31] VITALS: Ht 152.4 cm; Wt 77.1 kg
[~2019-05-31 06:51] MED LIST changes: -CLON1PAT2 TD; +CLON1PAT6 TD; +INSU100C4 SQ
[2019-05-31 07:37] LABS: BASO % 0 % (0-3); EOS # 0.1 x10^3/uL (0.0-0.7); EOS % 3 % (0-3); HEMATOCRIT 31.6 % (36.0-47.0); HEMOGLOBIN 10.5 g/dL (12.0-15.5); LYMPH # 0.9 x10^3/uL (1.0-4.8); LYMPH % 22 % (24-48); MEAN CORPUSCULAR HEMOGLOBIN 33 pg (25-35); MEAN CORPUSCULAR HGB CONC 33 g/dL (31-37); MEAN CORPUSCULAR VOLUME 98 fL (79-100); MONO # 0.7 x10^3/uL (0.0-1.1); MONO % 17 % (0-9); NEUT # 2.2 x10^3/uL (1.8-7.7); NEUT % 57 % (31-73); PLATELET COUNT 174 x10^3/uL (140-400); RED BLOOD COUNT 3.23 x10^6/uL (3.50-5.40); RED CELL DISTRIBUTION WIDTH 16.8 % (11.5-14.5); WHITE BLOOD COUNT 3.9 x10^3/uL (4.0-11.0)
[2019-05-31 07:46] LABS: PROTHROMBIN TIME PATIENT 13.3 SEC (11.7-14.0)
[2019-05-31] MEDS ORDERED: IODIXANOL 320 MG/ML 100 ML VIAL. ONE (07:52)
[2019-05-31] MEDS ORDERED: LIDOCAINE WITH 8.4% SOD BICARB 3 ML DISP.SYRIN. ONE (07:53)
[2019-05-31] MEDS ORDERED: MV-M1TAB8 PO (07:54)
[2019-05-31] MEDS ORDERED: INSU100I17 SQ (07:54)
[2019-05-31 07:55] VITALS: BP 176/89
[2019-05-31 08:14] LABS: CALCIUM 9.3 mg/dL (8.5-10.1); CREATININE 8.7 mg/dL (0.6-1.0); GFR 5.6
[2019-05-31] MEDS ORDERED: MIDAZOLAM HCL/PF 2 MG/2 ML VIAL. ONE (08:15)
[2019-05-31] MEDS ORDERED: HEPARIN for IV BOLUS 10,000 UNIT/10 ML VIAL. ONE (08:15)
[2019-05-31] MEDS ORDERED: fentaNYL PF VIAL 100 MCG/2 ML VIAL ONE (08:15)
[2019-05-31] MEDS ORDERED: LIDOCAINE WITH 8.4% SOD BICARB 3 ML DISP.SYRIN. IJ ONE (09:15)
[2019-05-31] MEDS ORDERED: fentaNYL PF VIAL 100 MCG/2 ML VIAL IV ONE (09:15)
[2019-05-31] MEDS ORDERED: MIDAZOLAM HCL/PF 2 MG/2 ML VIAL. IV ONE (09:15)
[2019-05-31] MEDS ORDERED: IODIXANOL 320 MG/ML 100 ML VIAL. IART ONE (09:15)
[2019-05-31] MEDS ORDERED: hydrALAZINE 20 MG/ML VIAL. ONE (09:27)
[2019-05-31] MEDS ORDERED: HEPARIN for IV BOLUS 10,000 UNIT/10 ML VIAL. IV ONE (09:30)
[2019-05-31] MEDS ORDERED: CONTRAST GIVEN. MC PRN (09:30)
[2019-05-31] MEDS ORDERED: hydrALAZINE 20 MG/ML VIAL. IVP ONE (09:45)
[2019-05-31 09:55] VITALS: BP 195/82
[2019-05-31 10:00] VITALS: BP 173/70
[2019-05-31 10:15] VITALS: BP 171/64
[2019-05-31] MEDS ORDERED: amLODIPine BESYLATE 5 MG TABLET PO ONE (10:15)
[2019-05-31] MEDS ORDERED: CARVEDILOL 12.5 MG TABLET. PO ONE (10:15)
[2019-05-31] MEDS: LOSARTAN POTASSIUM 50 MG TABLET. PO ONE ×2 (10:15→10:42)
[2019-05-31 10:30] VITALS: BP 170/72
[2019-05-31] MEDS ORDERED: amLODIPine BESYLATE 10 MG TABLET PO ONE (10:30)
[2019-05-31 10:45] VITALS: BP 145/82
--- NOTE | 2019-05-31 11:10 | NUR ---
Discharge Note: AARON RICKETTS Discharge instructions and discharge home medications reviewed with Patient and a copy given. All questions have been answered and understanding verbalized. Able to tolerate PO, ambulatory with steady, slow gait. The following instructions and handouts were given: Sedation, and shunt malfunction Discontinued lines and drains: Iv site to L shoulder DC'd intact. Dressing to L upper arm dry and intact Patient discharged to nursing facility with facility staff via wheelchair. JAMES MAZARIEGOS
--- NOTE | 2019-05-31 14:45 | RAD ---
05/31/2019 1.Left upper extremity fistulogram 2. Angioplasty of outflow vein, subclavian vein, brachiocephalic venous stenosis Discussion: Poor function at recent dialysis. Multiple prior interventions including prior stenting of the left innominate vein, subclavian vein, and axillary vein. The risks and benefits of the procedure were discussed the patient's public health representative. Informed consent was obtained. A timeout procedure was performed. The patient was placed in supine position. The left upper extremity was prepped and draped using maximum sterile barrier technique. 1% lidocaine was administered for local anesthesia. A limited ultrasound evaluation demonstrates a left upper extremity AV fistula to be patent. Reference ultrasound images were saved medical record. The graft was accessed towards venous outflow using ultrasound guidance and micropuncture technique. Reference images were saved to the medical record. A 7 Taiwanese vascular sheath was placed. A guidewire and catheter were advanced into the IVC. Left upper extremity fistulogram was obtained demonstrating recurrent moderate stenosis of the left outflow vein treated with 7 mm balloon angioplasty. More central stenoses were again seen in the left subclavian vein and left brachiocephalic vein treated with 10 mm balloon angioplasty. Angioplasty resulted in improved morphology and flow throughout the lesions. Arterial anastomosis is widely patent. The sheath was removed over pursestring suture. No immediate complication were identified. Total fluoroscopy time: 5.0 Minutes Dose area product: 44 Gycm2 The procedures performed under conscious sedation including continuous cardiopulmonary monitoring via dedicated sedation nurse. Lffh-ma-lsad sedation time: 58 Minutes Impression: Recurrent outflow vein and central venous stenoses as described, again treated with balloon angioplasty
== END 2019-05-31 11:15 | disposition home or self-care (01) ==
LOC: INTRAD 06:51
PROVIDERS: ATTEND Internal Medicine Nephrology
DX: T82.858A Stenosis of other vascular prosthetic devices, implants and grafts, initial encounter (principal); Y83.1 Surgical operation with implant of artificial internal device as the cause of abnormal reaction of the patient, or of later complication, without mention of misadventure at the time of the procedure
CPT/HCPCS: 36415; 36902; 36907; 76937; 80048; 85025; 85610; 99152; 99153; C1758; C1769; C1892; J0360; J1644; J2250; J3010; Q9967

== ENCOUNTER 2019-09-02 16:05 | Emergency (ER) | payer MEDICARE, OTHER ==
[~2019-09-02] VITALS: Ht 165.1 cm; Wt 75.3 kg
[~2019-09-02 16:05] MED LIST changes: +CARV12.511 PO; -INSU100V SQ; +INSU100V6 SQ; +MV-M1TAB8 PO; -NITR0.4T SL; +NITR0.4T24 SL; +QUET100T PO
[2019-09-02 16:13] VITALS: BP 169/84
[2019-09-02] MEDS ORDERED: ONDANSETRON PF 4 MG/2 ML VIAL. IV ONE (16:15)
--- NOTE | 2019-09-02 16:15 | PHYS DOC ---
Past Medical History Past Medical History: Anemia, Anxiety, CVA, Diabetes-Type II, High Cholesterol, Hypertension, [place], Pneumonia, Renal Disease, Renal Failure, Schizophrenia, Other Additional Past Medical Histor: DIALYSIS PATIENT Past Surgical History: Hysterectomy, Other Additional Past Surgical Histo: shunt placement left arm, I&D of hip Alcohol Use: None Drug Use: None Adult General Chief Complaint Chief Complaint: General Complaint HPI HPI Patient is a 59-year-old female who presents with complaint of being fatigued. She states that she just feels tired and she does admit to a little bit of nausea. She states that she does not feel like there is anything wrong with her. She denies any headache. She denies any chest pain or shortness of breath. She denies any abdominal pain or back pain. She denies any fever. Patient is on hemodialysis and was last dialyzed yesterday.[] Review of Systems Review of Systems Constitutional: Denies fever or chills [] Respiratory: Denies cough or shortness of breath [] Cardiovascular: No additional information not addressed in HPI [] GI: Denies abdominal pain. Admits to nausea without vomiting or diarrhea [] Integument: Denies rash or skin lesions [] Neurologic: Denies headache, focal weakness or sensory changes [] All other systems were reviewed and found to be within normal limits, except as documented in this note. Current Medications Current Medications Current Medications Medications (Trade) Dose Ordered Sig/Mona Start Time Stop Time Status Last Admin Dose Admin Ondansetron HCl (Zofran) 4 mg 1X ONCE 09/02/19 16:15 09/02/19 16:16 DC Allergies Allergies Allergies Coded Allergies Type Severity Reaction Last Updated Verified Sulfa (Sulfonamide Antibiotics) Allergy Intermediate 06/29/16 Yes banana Allergy Intermediate 08/03/17 Yes cranberry Allergy Intermediate 07/14/16 Yes grapefruit Allergy Intermediate 07/14/16 Yes orange juice Allergy Intermediate 08/03/17 Yes tomato Allergy Intermediate 08/03/17 Yes lactose Adverse Reaction Intermediate 08/15/19 Yes Physical Exam Physical Exam Constitutional: Well developed, well nourished, no acute distress, non-toxic appearance. [] HENT: Normocephalic, atraumatic, bilateral external ears normal, oropharynx moist, no oral exudates, nose normal. [] Eyes: PERRLA, EOMI, conjunctiva normal, no discharge. [] Neck: Normal range of motion, no tenderness, supple. [] Cardiovascular: Regular rate and rhythm[] Lungs & Thorax: Bilateral breath sounds clear to auscultation [] Abdomen: Bowel sounds normal, soft, no tenderness. [] Skin: Warm, dry, no erythema, no rash. [] Extremities: No tenderness, no cyanosis, no clubbing, ROM intact. [] Neurologic: Somnolent but easily arousable, no focal deficits noted. [] Current Patient Data Vital Signs Vital Signs Date Time Temp Pulse Resp B/P (MAP) Pulse Ox O2 Delivery O2 Flow Rate FiO2 09/02/19 16:13 98.5 76 18 169/84 (112) 100 Room Air 98.5 Lab Values Laboratory Tests Test 09/02/19 16:35 09/02/19 17:15 White Blood Count 3.4 x10^3/uL (4.0-11.0) L Red Blood Count 3.57 x10^6/uL (3.50-5.40) Hemoglobin 11.3 g/dL (12.0-15.5) L Hematocrit 34.7 % (36.0-47.0) L Mean Corpuscular Volume 97 fL (79-100) Mean Corpuscular Hemoglobin 32 pg (25-35) Mean Corpuscular Hemoglobin Concent 33 g/dL (31-37) Red Cell Distribution Width 16.6 % (11.5-14.5) H Platelet Count 181 x10^3/uL (140-400) Neutrophils (%) (Auto) 63 % (31-73) Lymphocytes (%) (Auto) 21 % (24-48) L Monocytes (%) (Auto) 13 % (0-9) H Eosinophils (%) (Auto) 3 % (0-3) Basophils (%) (Auto) 1 % (0-3) Neutrophils # (Auto) 2.1 x10^3/uL (1.8-7.7) Lymphocytes # (Auto) 0.7 x10^3/uL (1.0-4.8) L Monocytes # (Auto) 0.5 x10^3/uL (0.0-1.1) Eosinophils # (Auto) 0.1 x10^3/uL (0.0-0.7) Basophils # (Auto) 0.0 x10^3/uL (0.0-0.2) Sodium Level 134 mmol/L (136-145) L Potassium Level 3.9 mmol/L (3.5-5.1) Chloride Level 94 mmol/L (98-107) L Carbon Dioxide Level 31 mmol/L (21-32) Anion Gap 9 (6-14) Blood Urea Nitrogen 26 mg/dL (7-20) H Creatinine 7.4 mg/dL (0.6-1.0) H Estimated GFR (Cockcroft-Gault) 6.8 BUN/Creatinine Ratio 4 (6-20) L Glucose Level 239 mg/dL (70-99) H Calcium Level 9.4 mg/dL (8.5-10.1) Phosphorus Level 4.8 mg/dL (2.6-4.7) H Magnesium Level 2.8 mg/dL (1.8-2.4) H Total Bilirubin 0.3 mg/dL (0.2-1.0) Aspartate Amino Transferase (AST) 26 U/L (15-37) Alanine Aminotransferase (ALT) 25 U/L (14-59) Alkaline Phosphatase 158 U/L (46-116) H Ammonia < 10 mcmol/L (11-34) L Total Protein 8.7 g/dL (6.4-8.2) H Albumin 3.5 g/dL (3.4-5.0) Albumin/Globulin Ratio 0.7 (1.0-1.7) L Urine Collection Type Unknown Urine Color Yellow Urine Clarity Cloudy Urine pH 7.5 Urine Specific [place] 1.010 Urine Protein >=300 mg/dL (NEG-TRACE) Urine Glucose (UA) Negative mg/dL (NEG) Urine Ketones (Stick) Negative mg/dL (NEG) Urine Blood Trace (NEG) Urine Nitrite Negative (NEG) Urine Bilirubin Negative (NEG) Urine Urobilinogen Dipstick 0.2 mg/dL (0.2 mg/dL) Urine Leukocyte Esterase Small (NEG) Urine RBC Occ /HPF (0-2) Urine WBC 5-10 /HPF (0-4) Urine Squamous Epithelial Cells Many /LPF Urine Bacteria Many /HPF (0-FEW) Laboratory Tests 09/02/19 16:35 Laboratory Tests 09/02/19 16:35 EKG EKG [] Radiology/Procedures Radiology/Procedures [] Course & Med Decision Making Course & Med Decision Making Pertinent Labs and Imaging studies reviewed. (See chart for details) [] Dragon Disclaimer Dragon Disclaimer This electronic medical record was generated, in whole or in part, using a voice recognition dictation system. Departure Departure Impression: Primary Impression: Fatigue Additional Impression: Nausea alone Disposition: HOME, SELF-CARE Condition: STABLE Referrals: STAR BARBA MD (PCP) Patient Instructions: Fatigue, Nausea, Adult Scripts Ondansetron (ONDANSETRON ODT) 4 Mg Tab.rapdis 1 TAB PO PRN Q6-8HRS PRN for NAUSEA, #15 TAB Prov: SURAJ MUNOZ Jr. DO 09/02/19 Problem Qualifiers Primary Impression: Fatigue Fatigue type: unspecified Qualified Codes: R53.83 - Other fatigue SURAJ MUNOZ Jr. DO Sep 02, 2019 16:15
[2019-09-02 16:46] LABS: BASO % 1 % (0-3); EOS # 0.1 x10^3/uL (0.0-0.7); EOS % 3 % (0-3); HEMATOCRIT 34.7 % (36.0-47.0); HEMOGLOBIN 11.3 g/dL (12.0-15.5); LYMPH # 0.7 x10^3/uL (1.0-4.8); LYMPH % 21 % (24-48); MEAN CORPUSCULAR HEMOGLOBIN 32 pg (25-35); MEAN CORPUSCULAR HGB CONC 33 g/dL (31-37); MEAN CORPUSCULAR VOLUME 97 fL (79-100); MONO # 0.5 x10^3/uL (0.0-1.1); MONO % 13 % (0-9); NEUT # 2.1 x10^3/uL (1.8-7.7); NEUT % 63 % (31-73); PLATELET COUNT 181 x10^3/uL (140-400); RED BLOOD COUNT 3.57 x10^6/uL (3.50-5.40); RED CELL DISTRIBUTION WIDTH 16.6 % (11.5-14.5); WHITE BLOOD COUNT 3.4 x10^3/uL (4.0-11.0)
[2019-09-02 16:55] LABS: CALCIUM 9.4 mg/dL (8.5-10.1); CREATININE 7.4 mg/dL (0.6-1.0); GFR 6.8; POTASSIUM 3.9 mmol/L (3.5-5.1)
[2019-09-02 17:00] LABS: ALBUMIN 3.5 g/dL (3.4-5.0); ALBUMIN/GLOBULIN RATIO 0.7 (1.0-1.7); MAGNESIUM 2.8 mg/dL (1.8-2.4); PHOSPHORUS 4.8 mg/dL (2.6-4.7); TOTAL BILIRUBIN 0.3 mg/dL (0.2-1.0); TOTAL PROTEIN 8.7 g/dL (6.4-8.2)
[2019-09-02 17:20] LABS: BILIRUBIN,URINE NEGATIVE (NEG); CLARITY,URINE CLOUDY; COLOR,URINE YELLOW; NITRITE,URINE NEGATIVE (NEG); PH,URINE 7.5; PROTEIN,URINE >=300 mg/dL (NEG-TRACE); UROBILINOGEN,URINE 0.2 mg/dL (0.2 mg/dL)
[2019-09-02 17:26] LABS: BACTERIA,URINE MANY /HPF (0-FEW); RBC,URINE OCC /HPF (0-2); SQUAMOUS EPITHELIAL CELL,UR MANY /LPF
[2019-09-02] MEDS ORDERED: ONDA4TAB12 PO (17:43)
--- NOTE | 2019-09-03 07:13 | EKG ---
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
== END 2019-09-02 18:20 | disposition home or self-care (01) ==
LOC: ER 16:05
DX: R53.83 Other fatigue (principal); R11.0 Nausea; E11.22 Type 2 diabetes mellitus with diabetic chronic kidney disease; I12.9 Hypertensive chronic kidney disease with stage 1 through stage 4 chronic kidney disease, or unspecified chronic kidney disease; N18.9 Chronic kidney disease, unspecified; E78.00 Pure hypercholesterolemia, unspecified; I25.2 Old myocardial infarction; F20.9 Schizophrenia, unspecified; F41.9 Anxiety disorder, unspecified; Z86.73 Personal history of transient ischemic attack (TIA), and cerebral infarction without residual deficits; Z88.2 Allergy status to sulfonamides; Z91.018 Allergy to other foods; Z91.011 Allergy to milk products
CPT/HCPCS: 36415; 80053; 81001; 82140; 83735; 84100; 85025; 87086; 93005; 99285-25

== ENCOUNTER 2019-11-01 19:17 | Emergency (ER) | payer MEDICARE, OTHER ==
[~2019-11-01] VITALS: Ht 160 cm; Wt 90.9 kg
[~2019-11-01 19:17] MED LIST changes: -MAGN2400 PO; +MAGN24003 PO; +ONDA-84 PO; -ONDA4TAB11 PO; +ONDA4TAB12 PO
--- NOTE | 2019-11-01 19:37 | PHYS DOC ---
Past Medical History Past Medical History: Anemia, Anxiety, CVA, Diabetes-Type II, High Cholesterol, Hypertension, [place], Pneumonia, Renal Disease, Renal Failure, Schizophrenia, Other Additional Past Medical Histor: DIALYSIS PATIENT Past Surgical History: Hysterectomy, Other Additional Past Surgical Histo: shunt placement left arm, I&D of hip Smoking Status: Former Smoker Alcohol Use: None Drug Use: None Adult General HPI HPI Patient is a 59 year old female with a past medical history of ESRD (T-R-S) presents via ems for evaluation of shortness of breath. During my exam patient has no complaints. She currently denies shortness of breath-- her oxygen saturation is 100%. She states she is unsure why shes is here. Review of Systems Review of Systems Constitutional: Denies fever or chills [] Eyes: Denies change in visual acuity, redness, or eye pain [] HENT: Denies nasal congestion or sore throat [] Respiratory: Denies cough or shortness of breath [] Cardiovascular: No additional information not addressed in HPI [] GI: Denies abdominal pain, nausea, vomiting, bloody stools or diarrhea [] : Denies dysuria or hematuria [] Musculoskeletal: Denies back pain or joint pain [] Integument: Denies rash or skin lesions [] Neurologic: Denies headache, focal weakness or sensory changes [] Endocrine: Denies polyuria or polydipsia [] All other systems were reviewed and found to be within normal limits, except as documented in this note. Allergies Allergies Allergies Coded Allergies Type Severity Reaction Last Updated Verified Sulfa (Sulfonamide Antibiotics) Allergy Intermediate 06/29/16 Yes banana Allergy Intermediate 08/03/17 Yes cranberry Allergy Intermediate 07/14/16 Yes grapefruit Allergy Intermediate 07/14/16 Yes orange juice Allergy Intermediate 08/03/17 Yes tomato Allergy Intermediate 08/03/17 Yes lactose Adverse Reaction Intermediate 08/15/19 Yes Physical Exam Physical Exam Constitutional: Well developed, well nourished, no acute distress, non-toxic appearance. [] HENT: Normocephalic, atraumatic, bilateral external ears normal, oropharynx moist, no oral exudates, nose normal. [] Eyes: PERRLA, EOMI, conjunctiva normal, no discharge. [] Neck: Normal range of motion, no tenderness, supple, no stridor. [] Cardiovascular:Heart rate regular rhythm, no murmur [] Lungs & Thorax: Bilateral breath sounds clear to auscultation [] Abdomen: Bowel sounds normal, soft, no tenderness, no masses, no pulsatile masses. [] Skin: Warm, dry, no erythema, no rash. [] Back: No tenderness, no CVA tenderness. [] Extremities: No tenderness, no cyanosis, no clubbing, ROM intact, no edema. [] Neurologic: Alert , normal motor function, normal sensory function, no focal deficits noted. [] Psychologic: Affect normal, judgement normal, mood normal. [] Current Patient Data Lab Values Laboratory Tests Test 11/01/19 19:35 11/01/19 20:50 White Blood Count 7.8 x10^3/uL (4.0-11.0) Red Blood Count 2.86 x10^6/uL (3.50-5.40) L Hemoglobin 9.3 g/dL (12.0-15.5) L Hematocrit 27.6 % (36.0-47.0) L Mean Corpuscular Volume 97 fL (79-100) Mean Corpuscular Hemoglobin 33 pg (25-35) Mean Corpuscular Hemoglobin Concent 34 g/dL (31-37) Red Cell Distribution Width 18.0 % (11.5-14.5) H Platelet Count 337 x10^3/uL (140-400) Neutrophils (%) (Auto) 82 % (31-73) H Lymphocytes (%) (Auto) 9 % (24-48) L Monocytes (%) (Auto) 9 % (0-9) Eosinophils (%) (Auto) 1 % (0-3) Basophils (%) (Auto) 1 % (0-3) Neutrophils # (Auto) 6.4 x10^3/uL (1.8-7.7) Lymphocytes # (Auto) 0.7 x10^3/uL (1.0-4.8) L Monocytes # (Auto) 0.7 x10^3/uL (0.0-1.1) Eosinophils # (Auto) 0.0 x10^3/uL (0.0-0.7) Basophils # (Auto) 0.0 x10^3/uL (0.0-0.2) Sodium Level 135 mmol/L (136-145) L Potassium Level 5.0 mmol/L (3.5-5.1) Chloride Level 96 mmol/L (98-107) L Carbon Dioxide Level 32 mmol/L (21-32) Anion Gap 7 (6-14) Blood Urea Nitrogen 18 mg/dL (7-20) Creatinine 6.2 mg/dL (0.6-1.0) H Estimated GFR (Cockcroft-Gault) 8.3 BUN/Creatinine Ratio 3 (6-20) L Glucose Level 197 mg/dL (70-99) H Calcium Level 8.9 mg/dL (8.5-10.1) Total Bilirubin 0.3 mg/dL (0.2-1.0) Aspartate Amino Transferase (AST) 31 U/L (15-37) Alanine Aminotransferase (ALT) 20 U/L (14-59) Alkaline Phosphatase 133 U/L (46-116) H Total Protein 8.6 g/dL (6.4-8.2) H Albumin 3.2 g/dL (3.4-5.0) L Albumin/Globulin Ratio 0.6 (1.0-1.7) L Laboratory Tests 11/01/19 19:35 Laboratory Tests 11/01/19 20:50 EKG EKG [] Radiology/Procedures Radiology/Procedures [] Course & Med Decision Making Course & Med Decision Making Pertinent Labs and Imaging studies reviewed. (See chart for details) []Patient evaluated she is in no acute distress. Labs performed no significant abnormalities. Did attempt obtain urine unsuccessful. Patient is unFebrile. NH contacted-- states patient is at baseline mental status. Patient will be discharge back to care facility. Dragon Disclaimer Dragon Disclaimer This electronic medical record was generated, in whole or in part, using a voice recognition dictation system. Departure Departure Impression: Primary Impression: ESRD (end stage renal disease) Disposition: HOME, SELF-CARE Condition: STABLE Referrals: STAR BARBA MD (PCP) Patient Instructions: Chronic Renal Insufficiency SANDY BAIG DO Nov 01, 2019 19:37
[2019-11-01 20:24] LABS: BASO % 1 % (0-3); EOS % 1 % (0-3); HEMATOCRIT 27.6 % (36.0-47.0); HEMOGLOBIN 9.3 g/dL (12.0-15.5); LYMPH # 0.7 x10^3/uL (1.0-4.8); LYMPH % 9 % (24-48); MEAN CORPUSCULAR HEMOGLOBIN 33 pg (25-35); MEAN CORPUSCULAR HGB CONC 34 g/dL (31-37); MEAN CORPUSCULAR VOLUME 97 fL (79-100); MONO # 0.7 x10^3/uL (0.0-1.1); MONO % 9 % (0-9); NEUT # 6.4 x10^3/uL (1.8-7.7); NEUT % 82 % (31-73); PLATELET COUNT 337 x10^3/uL (140-400); RED BLOOD COUNT 2.86 x10^6/uL (3.50-5.40); WHITE BLOOD COUNT 7.8 x10^3/uL (4.0-11.0)
--- NOTE | 2019-11-01 20:55 | RAD ---
AP chest. HISTORY: Dyspnea AP view was taken of the chest. Heart is normal in size. There is no pleural effusion. There are no confluent infiltrates. There is a stent in the left subclavian vein. IMPRESSION: 1. No acute infiltrates. Electronically signed by: Dean Lugo MD (11/01/2019 8:52 PM) [id number]
[2019-11-01 21:12] LABS: CALCIUM 8.9 mg/dL (8.5-10.1); CREATININE 6.2 mg/dL (0.6-1.0); GFR 8.3
[2019-11-01 21:16] LABS: ALBUMIN 3.2 g/dL (3.4-5.0); ALBUMIN/GLOBULIN RATIO 0.6 (1.0-1.7); TOTAL BILIRUBIN 0.3 mg/dL (0.2-1.0); TOTAL PROTEIN 8.6 g/dL (6.4-8.2)
[2019-11-02] MEDS ORDERED: CARVEDILOL 12.5 MG TABLET. PO SCH (01:00)
[2019-11-02] MEDS ORDERED: amLODIPine BESYLATE 5 MG TABLET PO ONE (01:00)
[2019-11-02 01:03] VITALS: BP 195/84
== END 2019-11-02 01:05 | disposition home or self-care (01) ==
LOC: ER 19:17
DX: N18.6 End stage renal disease (principal); E11.22 Type 2 diabetes mellitus with diabetic chronic kidney disease; I12.0 Hypertensive chronic kidney disease with stage 5 chronic kidney disease or end stage renal disease; R06.02 Shortness of breath; Z99.2 Dependence on renal dialysis; Z86.73 Personal history of transient ischemic attack (TIA), and cerebral infarction without residual deficits; E78.00 Pure hypercholesterolemia, unspecified; I25.2 Old myocardial infarction; F20.9 Schizophrenia, unspecified; Z90.710 Acquired absence of both cervix and uterus; Z87.891 Personal history of nicotine dependence; Z88.2 Allergy status to sulfonamides; Z91.011 Allergy to milk products; Z91.018 Allergy to other foods
CPT/HCPCS: 36415; 71045; 80053; 85025; 99284

== ENCOUNTER 2019-11-10 16:25 | Emergency (ER) | payer MEDICARE, OTHER ==
[~2019-11-10] VITALS: Ht 165.1 cm; Wt 77.2 kg
[2019-11-10] MEDS ORDERED: DEXTROSE 50% 25 GM / 50ML DISP.SYRIN. IV ONE ×2 (16:40→16:45)
[2019-11-10 17:09] LABS: BASO % 1 % (0-3); EOS # 0.1 x10^3/uL (0.0-0.7); EOS % 1 % (0-3); HEMATOCRIT 28.7 % (36.0-47.0); HEMOGLOBIN 9.5 g/dL (12.0-15.5); LYMPH # 0.7 x10^3/uL (1.0-4.8); LYMPH % 9 % (24-48); MEAN CORPUSCULAR HEMOGLOBIN 32 pg (25-35); MEAN CORPUSCULAR HGB CONC 33 g/dL (31-37); MEAN CORPUSCULAR VOLUME 97 fL (79-100); MONO # 0.8 x10^3/uL (0.0-1.1); MONO % 10 % (0-9); NEUT # 6.2 x10^3/uL (1.8-7.7); NEUT % 80 % (31-73); PLATELET COUNT 329 x10^3/uL (140-400); RED BLOOD COUNT 2.96 x10^6/uL (3.50-5.40); RED CELL DISTRIBUTION WIDTH 17.2 % (11.5-14.5); WHITE BLOOD COUNT 7.8 x10^3/uL (4.0-11.0)
[2019-11-10 17:16] LABS: CALCIUM 9.4 mg/dL (8.5-10.1); CREATININE 4.8 mg/dL (0.6-1.0); GFR 11.2; POTASSIUM 4.8 mmol/L (3.5-5.1)
[2019-11-10 17:22] LABS: ALBUMIN/GLOBULIN RATIO 0.6 (1.0-1.7); PROTHROMBIN TIME PATIENT 13.5 SEC (11.7-14.0); TOTAL BILIRUBIN 0.3 mg/dL (0.2-1.0); TOTAL PROTEIN 8.3 g/dL (6.4-8.2)
--- NOTE | 2019-11-10 17:24 | RAD ---
EXAM: CHEST ONE VIEW. HISTORY: Shortness of breath. COMPARISON: 11/01/2019. FINDINGS: A frontal view of the chest is obtained. There are no confluent infiltrates. There is no pneumothorax or pleural effusion. The heart is not enlarged. A left axillary through brachiocephalic vein stent is noted. IMPRESSION: 1. No confluent infiltrates. Electronically signed by: Roni Hampton MD (11/10/2019 5:21 PM) [id number]
[2019-11-10 17:39] LABS: INFLUENZA A PATIENT NEGATIVE (NEGATIVE)
[2019-11-10 17:41] LABS: INFLUENZA B PATIENT POSITIVE (NEGATIVE)
[2019-11-10] MEDS ORDERED: OSELTAMIVIR 75 MG CAPSULE PO STA (17:44)
[2019-11-10] MEDS ORDERED: OSELTAMIVIR 30 MG CAPSULE PO STA (17:46)
--- NOTE | 2019-11-10 17:49 | PHYS DOC ---
Past Medical History Past Medical History: Anemia, Anxiety, Diabetes-Type II, High Cholesterol, Hypertension, [place], Renal Failure, Schizophrenia, UTI, Other Additional Past Medical Histor: DIALYSIS PATIENT Past Surgical History: No Surgical History Additional Past Surgical Histo: pt poor historian Smoking Status: Never Smoker Alcohol Use: None Drug Use: None Adult General Chief Complaint Chief Complaint: HYPOGLYCEMIA HPI HPI Patient is a 59 year old female who was brought here from senior living due to altered mental status. Patient has history of diabetes, she is on insulin, patient also has history of end-stage renal failure, she is on hemodialysis. Patient had dialysis today, she only had 2 hours of dialysis today because she developed fever. Sent back to the senior living, where she was found to be confused so they sent her here for evaluation. [facility] reported that her temperature was 102C. For arrival to ER, patient was somnolent, blood sugar at bedside was 33. She does appear hot to the touch. There was no report cough or injury. Review of Systems Review of Systems All other ROS is negative unless otherwise noted in HPI Current Medications Current Medications Current Medications Medications (Trade) Dose Ordered Sig/Mona Start Time Stop Time Status Last Admin Dose Admin Acetaminophen (Tylenol) 1,000 mg 1X ONCE 11/10/19 18:00 11/10/19 18:01 DC 11/10/19 17:54 1,000 MG Dextrose (Dextrose 50%-Water Syringe) 25 gm STK-MED ONCE 11/10/19 16:40 11/10/19 16:40 DC Hydralazine HCl (Apresoline Inj) 20 mg 1X ONCE 11/10/19 18:30 11/10/19 18:31 Oseltamivir Phosphate (Tamiflu) 30 mg 1X STAT 11/10/19 17:46 11/10/19 17:51 DC 11/10/19 17:54 30 MG Allergies Allergies Allergies Coded Allergies Type Severity Reaction Last Updated Verified Sulfa (Sulfonamide Antibiotics) Allergy Intermediate 06/29/16 Yes banana Allergy Intermediate 08/03/17 Yes cranberry Allergy Intermediate 07/14/16 Yes grapefruit Allergy Intermediate 07/14/16 Yes orange juice Allergy Intermediate 08/03/17 Yes tomato Allergy Intermediate 08/03/17 Yes lactose Adverse Reaction Intermediate 08/15/19 Yes Physical Exam Physical Exam See above Constitutional: Well developed, well nourished, appeared somnolent, snoring. [] HENT: Normocephalic, atraumatic, bilateral external ears normal, oropharynx moist, no oral exudates, nose normal. [] Eyes: PERRLA, EOMI, conjunctiva normal, no discharge. [] Neck: Normal range of motion, no tenderness, supple, no stridor. [] Cardiovascular:Heart rate regular rhythm, no murmur [] Lungs & Thorax: Bilateral breath sounds clear to auscultation [] Abdomen: Bowel sounds normal, soft, no tenderness, no masses, no pulsatile masses. [] Skin: Warm, dry, no erythema, no rash. [] Back: No tenderness, no CVA tenderness. [] Extremities: No tenderness, no cyanosis, no clubbing, ROM intact, no edema. [] Neurologic: patient was somnolent,responded to verbal and painful stimuli. Patient was observed moving all extremities. ] Psychologic: not able to evaluate at this time. SKIN: NO RASH Current Patient Data Vital Signs Vital Signs Date Time Temp Pulse Resp B/P (MAP) Pulse Ox O2 Delivery O2 Flow Rate FiO2 11/10/19 16:41 99.4 89 17 211/93 (132) 98 Room Air 99.4 Lab Values Laboratory Tests Test 11/10/19 16:38 11/10/19 16:50 11/10/19 17:07 11/10/19 17:24 Glucose (Fingerstick) 32 mg/dL (70-99) *L 114 mg/dL (70-99) H White Blood Count 7.8 x10^3/uL (4.0-11.0) Red Blood Count 2.96 x10^6/uL (3.50-5.40) L Hemoglobin 9.5 g/dL (12.0-15.5) L Hematocrit 28.7 % (36.0-47.0) L Mean Corpuscular Volume 97 fL (79-100) Mean Corpuscular Hemoglobin 32 pg (25-35) Mean Corpuscular Hemoglobin Concent 33 g/dL (31-37) Red Cell Distribution Width 17.2 % (11.5-14.5) H Platelet Count 329 x10^3/uL (140-400) Neutrophils (%) (Auto) 80 % (31-73) H Lymphocytes (%) (Auto) 9 % (24-48) L Monocytes (%) (Auto) 10 % (0-9) H Eosinophils (%) (Auto) 1 % (0-3) Basophils (%) (Auto) 1 % (0-3) Neutrophils # (Auto) 6.2 x10^3/uL (1.8-7.7) Lymphocytes # (Auto) 0.7 x10^3/uL (1.0-4.8) L Monocytes # (Auto) 0.8 x10^3/uL (0.0-1.1) Eosinophils # (Auto) 0.1 x10^3/uL (0.0-0.7) Basophils # (Auto) 0.0 x10^3/uL (0.0-0.2) Prothrombin Time 13.5 SEC (11.7-14.0) Prothrombin Time INR 1.1 (0.8-1.1) Activated Partial Thromboplast Time 26 SEC (24-38) Sodium Level 140 mmol/L (136-145) Potassium Level 4.8 mmol/L (3.5-5.1) Chloride Level 99 mmol/L (98-107) Carbon Dioxide Level 32 mmol/L (21-32) Anion Gap 9 (6-14) Blood Urea Nitrogen 16 mg/dL (7-20) Creatinine 4.8 mg/dL (0.6-1.0) H Estimated GFR (Cockcroft-Gault) 11.2 BUN/Creatinine Ratio 3 (6-20) L Glucose Level 61 mg/dL (70-99) L Lactic Acid Level 0.6 mmol/L (0.4-2.0) Calcium Level 9.4 mg/dL (8.5-10.1) Total Bilirubin 0.3 mg/dL (0.2-1.0) Aspartate Amino Transferase (AST) 32 U/L (15-37) Alanine Aminotransferase (ALT) 23 U/L (14-59) Alkaline Phosphatase 135 U/L (46-116) H Troponin I Quantitative < 0.017 ng/mL (0.000-0.055) Total Protein 8.3 g/dL (6.4-8.2) H Albumin 3.0 g/dL (3.4-5.0) L Albumin/Globulin Ratio 0.6 (1.0-1.7) L Influenza Type A Antigen Negative (NEGATIVE) Influenza Type B Antigen Positive (NEGATIVE) Test 11/10/19 17:50 Glucose (Fingerstick) 125 mg/dL (70-99) H Laboratory Tests 11/10/19 16:50 Laboratory Tests 11/10/19 16:50 EKG EKG EKG WAS DONE AT 1706, RATE OF 95 BPM, NO STEMI, SINUS RHYTHM. [] Radiology/Procedures Radiology/Procedures [][place] [address] IMAGING REPORT Signed PATIENT: AARON RICKETTS FACCOUNT: [id number] : 1960 LOCATION: ER AGE: 59 SEX: F EXAM STATUS: PRE ER ORD. PHYSICIAN: MUNIRA IRELAND DO REASON: soa PROCEDURE: PORTABLE CHEST 1V EXAM: CHEST ONE VIEW. HISTORY: Shortness of breath. COMPARISON: 11/01/2019. FINDINGS: A frontal view of the chest is obtained. There are no confluent infiltrates. There is no pneumothorax or pleural effusion. The heart is not enlarged. A left axillary through brachiocephalic vein stent is noted. IMPRESSION: 1. No confluent infiltrates. Electronically signed by: Roni Hampton MD (11/10/2019 5:21 PM) [id number] DICTATED and SIGNED BY: SERGEI HAMPTON MD DATE: 11/10/19 1721 \ [address] [id number] IMAGING REPORT Signed PATIENT: AARON RICKETTS FACCOUNT: [id number] : 1960 LOCATION: ER AGE: 59 SEX: F EXAM STATUS: PRE ER ORD. PHYSICIAN: MUNIRA IRELAND DO REASON: ALTERED MENTAL STATUS AFTER DIALYSIS TODAY PROCEDURE: CT HEAD WO CONTRAST EXAM: CT HEAD WITHOUT CONTRAST. HISTORY: Altered mental status. TECHNIQUE: Computed tomography of the head was performed without intravenous contrast. One or more of the following individualized dose reduction techniques were utilized for this examination: 1. Automated exposure control. 2. Adjustment of the mA and/or kV according to patient size. 3. Use of iterative reconstruction technique. COMPARISON: 10/15/2018. FINDINGS: There is no intracranial hemorrhage. There is encephalomalacia consistent with relatively large chronic infarct in the left cerebellar hemisphere. There are chronic lacunar infarcts in the right cerebellar hemisphere and left basal ganglia. There is mild chronic microangiopathic white matter change elsewhere. Prominence of the lateral ventricles and hemispheric sulci indicates mild atrophy. The visualized paranasal sinuses appear clear. The orbits are unremarkable. The temporal bones are unremarkable. The calvarium reveals no suspicious lesions. There are atherosclerotic calcifications of the internal carotid and vertebral arteries. IMPRESSION: 1. No acute intracranial findings. 2. Chronic left greater than right cerebellar and left basal ganglia lacunar infarcts. Electronically signed by: Roni Hampton MD (11/10/2019 5:54 PM) [id number] DICTATED and SIGNED BY: SERGEI HAMPTON MD DATE: 11/10/19 1754 Course & Med Decision Making Course & Med Decision Making Pertinent Labs and Imaging studies reviewed. (See chart for details) Patient was found to be hypoglycemic in the. Patient was given 1 ampule of D50. Her blood sugar has been stabilized around 120. She was tested positive for influenza. Due to her ESRD, will put her on renal dose of Tamiflu, 30 mg PO BID FOR 5 DAYS. Dragon Disclaimer Dragon Disclaimer This electronic medical record was generated, in whole or in part, using a voice recognition dictation system. Departure Departure Impression: Primary Impression: Influenza Additional Impression: Hypoglycemia Disposition: 01 HOME, SELF-CARE Condition: IMPROVED Referrals: STAR BARBA MD (PCP) PLEASE FOLLOW UP WITH YOUR DOCTOR ON TUESDAY. Patient Instructions: Hypoglycemia (Low Blood Sugar), Influenza, Adult Additional Instructions: Thank you for visiting our Emergency Department. We appreciate you trusting us with your care. If any additional problems come up don't hesitate to return to visit us. Please follow up with your primary care provider so they can plan additional care if needed and know about the problem that you had. If symptoms worsen come back to the Emergency Department. Any concerning symptoms that start such as chest pain, shortness of air, weakness or numbness on one side of the body, running high fevers or any other concerning symptoms return to the ER. Scripts Oseltamivir Phosphate (TAMIFLU) 30 Mg Capsule 1 CAP PO BID, #10 CAP Prov: IRELAND,PETER T DO 11/10/19 Problem Qualifiers MUNIRA IRELAND DO Nov 10, 2019 17:49
--- NOTE | 2019-11-10 17:57 | RAD ---
EXAM: CT HEAD WITHOUT CONTRAST. HISTORY: Altered mental status. TECHNIQUE: Computed tomography of the head was performed without intravenous contrast. One or more of the following individualized dose reduction techniques were utilized for this examination: 1. Automated exposure control. 2. Adjustment of the mA and/or kV according to patient size. 3. Use of iterative reconstruction technique. COMPARISON: 10/15/2018. FINDINGS: There is no intracranial hemorrhage. There is encephalomalacia consistent with relatively large chronic infarct in the left cerebellar hemisphere. There are chronic lacunar infarcts in the right cerebellar hemisphere and left basal ganglia. There is mild chronic microangiopathic white matter change elsewhere. Prominence of the lateral ventricles and hemispheric sulci indicates mild atrophy. The visualized paranasal sinuses appear clear. The orbits are unremarkable. The temporal bones are unremarkable. The calvarium reveals no suspicious lesions. There are atherosclerotic calcifications of the internal carotid and vertebral arteries. IMPRESSION: 1. No acute intracranial findings. 2. Chronic left greater than right cerebellar and left basal ganglia lacunar infarcts. Electronically signed by: Roni Hampton MD (11/10/2019 5:54 PM) [id number]
[2019-11-10] MEDS ORDERED: ACETAMINOPHEN 500 MG TABLET PO ONE (18:00)
[2019-11-10] MEDS ORDERED: OSEL30CA PO (18:05)
[2019-11-10] MEDS ORDERED: hydrALAZINE 20 MG/ML VIAL. IVP ONE (18:30)
[2019-11-10 19:30] VITALS: BP 106/51
--- NOTE | 2019-11-10 20:48 | EKG ---
[facility] [address] [place] [id number] Test Date: 2019-11-10 Test Time: 17:05:20 Pat Name: AARON RICKETTS Department: Room: Gender: F [employer] Specialist: : 1960 Requested By: MUNIRA IRELAND Order Number: [id number] Reading MD: Measurements Intervals [place] Rate: 94 P: 133 ME: 172 QRS: -11 QRSD: 84 T: 38 QT: 346 QTc: 437 Interpretive Statements SINUS RHYTHM LEFTWARD AXIS QRS(T) CONTOUR ABNORMALITY CONSISTENT WITH INFERIOR INFARCT PROBABLY OLD ABNORMAL ECG No previous ECG available for comparison
== END 2019-11-10 19:46 | disposition home or self-care (01) ==
LOC: ER 16:25
DX: E11.649 Type 2 diabetes mellitus with hypoglycemia without coma (principal); J10.1 Influenza due to other identified influenza virus with other respiratory manifestations; R41.82 Altered mental status, unspecified; I12.0 Hypertensive chronic kidney disease with stage 5 chronic kidney disease or end stage renal disease; E11.22 Type 2 diabetes mellitus with diabetic chronic kidney disease; N18.6 End stage renal disease; Z99.2 Dependence on renal dialysis; Z79.4 Long term (current) use of insulin; E78.00 Pure hypercholesterolemia, unspecified; I25.2 Old myocardial infarction; Z88.2 Allergy status to sulfonamides; Z91.011 Allergy to milk products; Z91.018 Allergy to other foods
CPT/HCPCS: 36415; 70450; 71045; 80053; 82962; 83605; 84484; 85025; 85610; 85730; 87040; 87804; 93005; 96374; 96375; 99285; J0360; J7042

== ENCOUNTER 2019-11-23 04:30 | Inpatient (IN) | payer MEDICARE, OTHER ==
[~2019-11-23] VITALS: Ht 165.1 cm; Wt 85.2 kg
[~2019-11-23 04:30] MED LIST changes: +CINA30TA2 PO; +GABA-585 PO; +IPRA0.2S5 IH; +IPRA0.2S5 NEB; +OSEL30CA PO
--- NOTE | 2019-11-23 04:47 | PHYS DOC ---
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 She is brought to the long-term secondary to reported decreased level of consciousness/unresponsiveness and a fever. Patient also reportedly was hypoxic at 79% on room air so she was placed on 5 L a little cannula. When she arrived to the emergency department she was taken off oxygen and her oxygenation was 93% on room air. Patient has been in and out of the hospital recently with positive influenza. She also has a history of urinary tract infections. Patient is not able to provide information at this time due to nonverbal status. Patient's vital signs have been stable but an IV has not been established at this point. (SHELLY OROZCO DO) Review of Systems Review of Systems Unable to obtain due to clinical condition (SHELLY OROZCO DO) Current Medications Current Medications Current Medications Medications (Trade) Dose Ordered Sig/Mona Start Time Stop Time Status Last Admin Dose Admin Acetaminophen (Tylenol Supp) 650 mg PRN Q6HRS PRN 11/23/19 06:00 Dextrose (Dextrose 50%-Water Syringe) 12.5 gm 1X ONCE 11/23/19 06:15 11/23/19 06:16 UNV Levofloxacin/ Dextrose 150 ml @ 100 mls/hr 1X ONCE 11/23/19 06:00 11/23/19 07:29 Piperacillin Sod/ Tazobactam Sod 2.25 gm/Sodium Chloride 50 ml @ 100 mls/hr Q12HR 11/23/19 21:00 UNV Sodium Chloride 250 ml @ 250 mls/hr 1X ONCE 11/23/19 05:00 11/23/19 05:59 DC 11/23/19 05:36 250 MLS/HR Vancomycin HCl (Vanco Per Pharmacy) 1 each PRN DAILY PRN 11/23/19 06:00 11/23/19 06:03 DC Vancomycin HCl 2 gm/Sodium Chloride 500 ml @ 250 mls/hr 1X ONCE 11/23/19 06:00 11/23/19 07:59 (PHILLIP GUZMÁN MD) Allergies Allergies Allergies Coded Allergies Type Severity Reaction Last Updated Verified Sulfa (Sulfonamide Antibiotics) Allergy Intermediate 06/29/16 Yes banana Allergy Intermediate 08/03/17 Yes cranberry Allergy Intermediate 07/14/16 Yes grapefruit Allergy Intermediate 07/14/16 Yes orange juice Allergy Intermediate 08/03/17 Yes tomato Allergy Intermediate 08/03/17 Yes lactose Adverse Reaction Intermediate 08/15/19 Yes (PHILLIP GUZMÁN MD) Physical Exam Physical Exam Constitutional: Well developed, well nourished, no acute distress, HENT: Normocephalic, atraumatic, bilateral external ears normal, oropharynx moist, no oral exudates, nose normal. [] Eyes: PERRLA, EOMI, conjunctiva normal, no discharge. [] Neck: Normal range of motion, no tenderness, supple, no stridor. [] Cardiovascular:Heart rate regular rhythm, no murmur [] Lungs & Thorax: Bilateral breath sounds clear to auscultation [] Abdomen: Bowel sounds normal, soft, no tenderness, no masses, no pulsatile masses. [] Skin: Warm, dry, no erythema, no rash. [] Extremities: no cyanosis, no clubbing, trace edema bilateral lower extremities Neurologic: No focal neurologic deficits noted (SHELLY OROZCO DO) Current Patient Data Vital Signs Vital Signs Date Time Temp Pulse Resp B/P (MAP) Pulse Ox O2 Delivery O2 Flow Rate FiO2 11/23/19 05:12 103.6 103.6 11/23/19 04:30 158/82 (107) (PHILLIP GUZMÁN MD) Lab Values Laboratory Tests Test 11/23/19 04:38 11/23/19 04:47 11/23/19 05:15 11/23/19 06:05 Influenza Type A Antigen Negative (NEGATIVE) Influenza Type B Antigen Negative (NEGATIVE) White Blood Count 9.6 x10^3/uL (4.0-11.0) Red Blood Count 2.64 x10^6/uL (3.50-5.40) L Hemoglobin 8.4 g/dL (12.0-15.5) L Hematocrit 25.6 % (36.0-47.0) L Mean Corpuscular Volume 97 fL (79-100) Mean Corpuscular Hemoglobin 32 pg (25-35) Mean Corpuscular Hemoglobin Concent 33 g/dL (31-37) Red Cell Distribution Width 16.6 % (11.5-14.5) H Platelet Count 420 x10^3/uL (140-400) H Neutrophils (%) (Auto) 87 % (31-73) H Lymphocytes (%) (Auto) 6 % (24-48) L Monocytes (%) (Auto) 5 % (0-9) Eosinophils (%) (Auto) 2 % (0-3) Basophils (%) (Auto) 0 % (0-3) Neutrophils # (Auto) 8.3 x10^3/uL (1.8-7.7) H Lymphocytes # (Auto) 0.6 x10^3/uL (1.0-4.8) L Monocytes # (Auto) 0.5 x10^3/uL (0.0-1.1) Eosinophils # (Auto) 0.2 x10^3/uL (0.0-0.7) Basophils # (Auto) 0.0 x10^3/uL (0.0-0.2) Platelet Estimate Pending Prothrombin Time 13.1 SEC (11.7-14.0) Prothrombin Time INR 1.0 (0.8-1.1) Activated Partial Thromboplast Time 19 SEC (24-38) L Lactic Acid Level 1.6 mmol/L (0.4-2.0) Sodium Level 141 mmol/L (136-145) Potassium Level 4.0 mmol/L (3.5-5.1) Chloride Level 100 mmol/L (98-107) Carbon Dioxide Level 33 mmol/L (21-32) H Anion Gap 8 (6-14) Blood Urea Nitrogen 18 mg/dL (7-20) Creatinine 5.2 mg/dL (0.6-1.0) H Estimated GFR (Cockcroft-Gault) 10.2 BUN/Creatinine Ratio 3 (6-20) L Glucose Level 60 mg/dL (70-99) L Calcium Level 8.9 mg/dL (8.5-10.1) Total Bilirubin 0.4 mg/dL (0.2-1.0) Aspartate Amino Transferase (AST) 32 U/L (15-37) Alanine Aminotransferase (ALT) 15 U/L (14-59) Alkaline Phosphatase 93 U/L (46-116) Creatine Kinase 210 U/L (26-192) H Creatine Kinase MB (Mass) < 0.5 ng/mL (0.0-3.6) Creatine Kinase MB Relative Index % (0-4) Troponin I Quantitative < 0.017 ng/mL (0.000-0.055) DV-Qfb-L-Type Natriuretic Peptide 07590 pg/mL (0-124) H Total Protein 8.1 g/dL (6.4-8.2) Albumin 2.4 g/dL (3.4-5.0) L Albumin/Globulin Ratio 0.4 (1.0-1.7) L Glucose (Fingerstick) 59 mg/dL (70-99) L Laboratory Tests 11/23/19 04:47 Laboratory Tests 11/23/19 05:15 (PHILLIP GUZMÁN MD) Lab Values Laboratory Tests Test 11/23/19 04:38 11/23/19 04:47 Influenza Type A Antigen Negative (NEGATIVE) Influenza Type B Antigen Negative (NEGATIVE) White Blood Count 9.6 x10^3/uL (4.0-11.0) Red Blood Count 2.64 x10^6/uL (3.50-5.40) L Hemoglobin 8.4 g/dL (12.0-15.5) L Hematocrit 25.6 % (36.0-47.0) L Mean Corpuscular Volume 97 fL (79-100) Mean Corpuscular Hemoglobin 32 pg (25-35) Mean Corpuscular Hemoglobin Concent 33 g/dL (31-37) Red Cell Distribution Width 16.6 % (11.5-14.5) H Platelet Count 420 x10^3/uL (140-400) H Neutrophils (%) (Auto) 87 % (31-73) H Lymphocytes (%) (Auto) 6 % (24-48) L Monocytes (%) (Auto) 5 % (0-9) Eosinophils (%) (Auto) 2 % (0-3) Basophils (%) (Auto) 0 % (0-3) Neutrophils # (Auto) 8.3 x10^3/uL (1.8-7.7) H Lymphocytes # (Auto) 0.6 x10^3/uL (1.0-4.8) L Monocytes # (Auto) 0.5 x10^3/uL (0.0-1.1) Eosinophils # (Auto) 0.2 x10^3/uL (0.0-0.7) Basophils # (Auto) 0.0 x10^3/uL (0.0-0.2) Platelet Estimate Pending Lactic Acid Level 1.6 mmol/L (0.4-2.0) Laboratory Tests 11/23/19 04:47 (SHELLY OROZCO DO) EKG EKG [] (SHELLY OROZCO DO) Radiology/Procedures Radiology/Procedures []PORTABLE CHEST 1V History: Shortness of air Comparison: November 14, 2019 Findings: Low lung volumes. Patchy bilateral mid and lower lung opacities. No pleural effusion. Normal heart size. No pneumothorax. Vascular stent projecting over the left upper chest and upper extremity. Impression: 1. Patchy bilateral pulmonary opacities, right greater than left. Findings may relate to pneumonia or early pulmonary edema. Recommend follow-up. (SHELLY OROZCO DO) Course & Med Decision Making Course & Med Decision Making Pertinent Labs and Imaging studies reviewed. (See chart for details) 0445: Patient positive for fever, hypoxia, decreased responsiveness. She is currently awake in the ER. We will initiate septic protocol. Gentamicin and Zos yn based on dialysis dosing. We'll give 250 mL normal saline bolus. Blood cultures and lactic acid. Place a Cannon catheter. An ABG. 0542: Chest x-ray shows what appears to be pulmonary infiltrates versus edema. Patient has been started on Zosyn and vancomycin. Transitional care to Dr. Guzmán at 0600. Patient will need to be admitted. (SHELLY OROZCO DO) Course & Med Decision Making @612:Dr Orozco stated the patient is already admitted and I only need to follow up the UA and BNP results ,even IVf and ABx was started. Patient had blood sugar of 60 at 0515 that was not addressed and repeat blood sugar was 59 and I ordered 1/2 amp of D 50%. Also patient was admitted to tele bed but housekeeper head requested to change the bed to CVC because of hypoxia and it was changed. Patient currently is on 3 lit od O2 with 96% o2 sat. (PHILLIP GUZMÁN MD) Dragon Disclaimer Dragon Disclaimer This electronic medical record was generated, in whole or in part, using a voice recognition dictation system. (SHELLY OROZCO DO) Departure Departure Impression: Primary Impression: Hospital acquired PNA Additional Impressions: Fever Hypoxia Altered mental status Disposition: 09 ADMITTED INPATIENT Admitting Physician: MYRIAM (SHELLY OROZCO DO) Condition: STABLE Referrals: STAR BARBA MD (PCP) Date and Time of Assessment Date: Jul 20, 2014 Time: 04:46 (SHELLY OROZCO DO) Vital Signs Vital Signs: Vital Signs Date Time Temp Pulse Resp B/P (MAP) Pulse Ox O2 Delivery O2 Flow Rate FiO2 11/23/19 05:12 103.6 103.6 11/23/19 04:30 158/82 (107) (PHILLIP GUZMÁN MD) Temperature Source: Axillary (102.9) (SHELLY OROZCO DO) Respirations Respiratory Effort: Normal, Non-Labored Respiratory Pattern: Normal (SHELLY OROZCO DO) Cardiovascular Pulse Rhythm: Regular Heart: Nml rate, reg. rhythm (SHELLY OROZCO DO) Lung Sounds Breath Sounds: Clear (SHELLY OROZCO DO) Capillary Refil Capillary Refill: Lt Foot < 3 seconds (SHELLY OROZCO DO) Peripheral Pulse Pulse Strength: Normal (2+) (SHELLY OORZCO DO) Integumentary Skin: Warm, Dry, No Rashes Skin Moisture: Dry Skin Turgor: Normal Skin Color: warm, dry Fingernail Color: WNL (SHELLY OROZCO DO) Problem Qualifiers SHELLY OROZCO DO Nov 23, 2019 04:47 PHILLIP GUZMÁN MD Nov 23, 2019 06:20
[2019-11-23 04:59] LABS: BASO % 0 % (0-3); EOS # 0.2 x10^3/uL (0.0-0.7); EOS % 2 % (0-3); HEMATOCRIT 25.6 % (36.0-47.0); HEMOGLOBIN 8.4 g/dL (12.0-15.5); LYMPH # 0.6 x10^3/uL (1.0-4.8); LYMPH % 6 % (24-48); MEAN CORPUSCULAR HEMOGLOBIN 32 pg (25-35); MEAN CORPUSCULAR HGB CONC 33 g/dL (31-37); MEAN CORPUSCULAR VOLUME 97 fL (79-100); MONO # 0.5 x10^3/uL (0.0-1.1); MONO % 5 % (0-9); NEUT # 8.3 x10^3/uL (1.8-7.7); NEUT % 87 % (31-73); PLATELET COUNT 420 x10^3/uL (140-400); RED BLOOD COUNT 2.64 x10^6/uL (3.50-5.40); RED CELL DISTRIBUTION WIDTH 16.6 % (11.5-14.5); WHITE BLOOD COUNT 9.6 x10^3/uL (4.0-11.0)
[2019-11-23] MEDS ORDERED: ACETAMINOPHEN 650 MG SUPP.RECT. PR ONE (05:00)
[2019-11-23] MEDS ORDERED: IV NORMAL SALINE 250ML 250 ML IV ONE (05:00)
[2019-11-23 05:12] LABS: PROTHROMBIN TIME PATIENT 13.1 SEC (11.7-14.0)
[2019-11-23 05:25] LABS: INFLUENZA A PATIENT NEGATIVE (NEGATIVE); INFLUENZA B PATIENT NEGATIVE (NEGATIVE)
--- NOTE | 2019-11-23 05:25 | RAD ---
PORTABLE CHEST 1V History: Shortness of air Comparison: November 14, 2019 Findings: Low lung volumes. Patchy bilateral mid and lower lung opacities. No pleural effusion. Normal heart size. No pneumothorax. Vascular stent projecting over the left upper chest and upper extremity. Impression: 1. Patchy bilateral pulmonary opacities, right greater than left. Findings may relate to pneumonia or early pulmonary edema. Recommend follow-up. Electronically signed by: Juventino Leahy DO (11/23/2019 5:21 AM) [id number]
[2019-11-23] MEDS ORDERED: PIPERACILLIN/TAZOBACTAM 2.25 GM in IV NORMAL SALINE 100ML 100 ML IV ONE (05:45)
[2019-11-23 05:52] LABS: BILIRUBIN,URINE NEGATIVE (NEG); CLARITY,URINE CLEAR; COLOR,URINE YELLOW; NITRITE,URINE NEGATIVE (NEG); PROTEIN,URINE >=300 mg/dL (NEG-TRACE); UROBILINOGEN,URINE 0.2 mg/dL (0.2 mg/dL)
[2019-11-23 05:57] LABS: ALBUMIN 2.4 g/dL (3.4-5.0); ALBUMIN/GLOBULIN RATIO 0.4 (1.0-1.7); CALCIUM 8.9 mg/dL (8.5-10.1); CREATININE 5.2 mg/dL (0.6-1.0); GFR 10.2; TOTAL BILIRUBIN 0.4 mg/dL (0.2-1.0); TOTAL PROTEIN 8.1 g/dL (6.4-8.2)
[2019-11-23] MEDS ORDERED: ACETAMINOPHEN 650 MG SUPP.RECT. PR PRN (06:00)
[2019-11-23] MEDS ORDERED: VANCOMYCIN PER PHARMACY MC ONE (06:00)
[2019-11-23] MEDS ORDERED: VANCOMYCIN 2 GM in IV NORMAL SALINE 500ML BAG 500 ML IV ONE (06:00)
[2019-11-23] MEDS ORDERED: VANCOMYCIN PER PHARMACY MC PRN (06:00)
[2019-11-23 06:03] LABS: CREATINE KINASE 210 U/L (26-192)
[2019-11-23 06:13] LABS: BACTERIA,URINE FEW /HPF (0-FEW); HYALINE CASTS, URINE FEW /HPF; RBC,URINE OCC /HPF (0-2); SQUAMOUS EPITHELIAL CELL,UR MOD /LPF
[2019-11-23] MEDS ORDERED: DEXTROSE 50% 25 GM / 50ML DISP.SYRIN. IV ONE (06:15)
--- NOTE | 2019-11-23 07:01 | EKG ---
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
[2019-11-23 07:20] VITALS: BP 125/56
[2019-11-23] MEDS: INSULIN LISPRO 300 UNITS/3 ML VIAL. SQ SCH ×3 (08:00→16:54)
[2019-11-23] MEDS ORDERED: levOFLOXacin PER PHARMACY. MC PRN (08:00)
[2019-11-23] MEDS ORDERED: MAG HYDROX/ALUMINUM HYD/SIMETH 30 ML ORAL.SUSP PO PRN (08:00)
[2019-11-23] MEDS ORDERED: DEXTROSE 50% 25 GM / 50ML DISP.SYRIN. IV PRN (08:00)
[2019-11-23] MEDS ORDERED: ACETAMINOPHEN 325 MG TABLET. PO SCH (08:00)
[2019-11-23] MEDS ORDERED: ONDANSETRON ODT 4 MG TAB.RAPDIS. PO PRN (08:00)
[2019-11-23] MEDS ORDERED: IPRATROPIUM BROMIDE 0.5 MG/2.5 ML NEBU. IH PRN (08:00)
--- NOTE | 2019-11-23 08:07 | PDOC1 ---
History and Physical Date of Admission Date of Admission DATE: 11/23/19 TIME: 07:37 History of Present Illness History of Present Illness Ms Rodriguez is a 59 yo female SNF resident with PMHx ESRD secondary to diabetes and hypertension, HTN, HLD, h/o CVA, constipation, Anemia, Anxiety, Schizophrenia, OA, DM2, hyperparathyroidism. She was noted to have altered mental status and and a fever. Patient also reportedly was hypoxic at 79% on room air so she was placed on 5 L NCO2. Patient has been in and out of the hospital recently with positive influenza. She also has a history of urinary tract infections. Patient was initially unable to provide information due to confusion and hypoglycemia. Continues to be significantly confused, though seems at her baseline from my prior encounters. She is unable to provide much in terms of her history and tells me she is here because her dialysis fistula is malfunctioning. I have not been in touch with her dialysis center or her SNF yet to verify. Nephrology consulted. CT head negative for intracranial pathology. Cerebellar findings chronic BNP 14587. Procalcitonin elevated, Albumin 2.4, Glucose 60, Hb 8.4. CXR with concern for bilateral infiltrates. Started on vancomycin, zosyn, levaquin and admitted for further care. Past Medical History Cardiovascular: HTN, Hyperlipidemia CENTRAL NERVOUS SYSTEM: CVA GI: Constipation, GERD Heme/Onc: Anemia NOS Psych: Anxiety, Schizophrenia Musculoskeletal: Osteoarthritis Renal/: Chronic renal failure Endocrine: Diabetes, Hyperparathyroidism Past Surgical History Past Surgical History: Hysterectomy, Other Family History Family History: Hypertension Social History Smoke: No ALCOHOL: none Drugs: None Current Problem List Problem List Problems Medical Problems: (1) Altered mental status Status: Acute (2) Fever Status: Acute (3) Hospital acquired PNA Status: Acute (4) Hypoxia Status: Acute Current Medications Current Medications Current Medications Piperacillin Sod/ Tazobactam Sod 2.25 gm/Sodium Chloride 100 ml @ 200 mls/hr 1X ONCE IV Last administered on 11/23/19at 05:50; Start 11/23/19 at 05:45; Stop 11/23/19 at 06:14; Status DC Vancomycin HCl (Vanco Per Pharmacy) 1 each 1X ONCE MC ; Start 11/23/19 at 06:00; Stop 11/23/19 at 06:04; Status DC Sodium Chloride 250 ml @ 250 mls/hr 1X ONCE IV Last administered on 11/23/19at 05:36; Start 11/23/19 at 05:00; Stop 11/23/19 at 05:59; Status DC Acetaminophen (Tylenol Supp) 650 mg 1X ONCE ND Last administered on 11/23/19at 05:13; Start 11/23/19 at 05:00; Stop 11/23/19 at 05:07; Status DC Vancomycin HCl 2 gm/Sodium Chloride 500 ml @ 250 mls/hr 1X ONCE IV Last administered on 11/23/19at 06:18; Start 11/23/19 at 06:00; Stop 11/23/19 at 07:59 Levofloxacin/ Dextrose 150 ml @ 100 mls/hr 1X ONCE IV Last administered on 11/23/19at 06:17; Start 11/23/19 at 06:00; Stop 11/23/19 at 07:29; Status DC Acetaminophen (Tylenol Supp) 650 mg PRN Q6HRS PRN ND FEVER; Start 11/23/19 at 06:00 Piperacillin Sod/ Tazobactam Sod 2.25 gm/Sodium Chloride 50 ml @ 100 mls/hr Q12HR IV ; Start 11/23/19 at 21:00 Vancomycin HCl (Vanco Per Pharmacy) 1 each PRN DAILY PRN MC SEE COMMENTS; Start 11/23/19 at 06:00; Stop 11/23/19 at 06:03; Status DC Dextrose (Dextrose 50%-Water Syringe) 12.5 gm 1X ONCE IV Last administered on 11/23/19at 06:13; Start 11/23/19 at 06:15; Stop 11/23/19 at 06:16; Status DC Active Scripts Active Tamiflu (Oseltamivir Phosphate) 30 Mg Capsule 1 Cap PO BID Ondansetron Odt (Ondansetron) 4 Mg Tab.rapdis 1 Tab PO PRN Q6-8HRS PRN Isosorbide Mononitrate Er (Isosorbide Mononitrate) 30 Mg Tab.er.24h 2 Tab PO DAILY Reported Ipratropium [place] 0.2 Mg/1 Ml Solution 0.2 Mg IH PRN Q4HRS Ipratropium [place] 0.2 Mg/1 Ml Solution 1 Vial NEB QID Gabapentin (Gabapentin) 100 Mg Capsule 200 Mg PO HS Gabapentin (Gabapentin) 100 Mg Capsule 100 Mg PO BIDACBL Ondansetron Odt (Ondansetron) 4 Mg Tab.rapdis 1 Tab PO PRN Q6-8HRS Miralax (Polyethylene Glycol 3350) 17 Gm Powd.pack 1 Packet PO DAILY 2 Days dissolve in water Sensipar (Cinacalcet Hcl) 30 Mg Tablet 1 Tab PO DAILY 30 Days Seroquel (Quetiapine Fumarate) 50 Mg Tablet 50 Mg PO TID Diazepam 5 Mg Tablet 5 Mg PO QTUTHSA Carvedilol (Carvedilol) 12.5 Mg Tablet 12.5 Mg PO BIDWMEALS Theragran-M Premier 50+ Caplet (Mv-Mn/Fa/Coq10/Lycopene/Lutein) 1 Each Tablet 1 Each PO DAILY Novolog (Insulin Aspart) 100 Unit/1 Ml Cartridge 5 Unit SQ TIDAC sliding scale 151-200: 2 units 201-250: 4 units 251-300: 6 units 301-349:8 units Diazepam 5 Mg Tablet 5 Mg PO HS Seroquel (Quetiapine Fumarate) 50 Mg Tablet 50 Mg PO HS Levemir Flextouch (Insulin Detemir) 100 Unit/1 Ml Insuln.pen 20 Unit SQ HS Catapres-Tts 3 (Clonidine) 1 Each Patch.tdwk 1 Each TD WEEKLY Tylenol (Acetaminophen) 325 Mg Tablet 2 Tab PO PRN Q4HRS Simethicone 80 Mg Tab.chew 80 Mg PO Q6HRS Abilify (Aripiprazole) 10 Mg Tablet 10 Mg PO DAILY Losartan Potassium 100 Mg Tablet 100 Mg PO DAILY Maalox Maximum Strength Susp (Mag Hydrox/Al Hydrox/Simeth) 355 Ml Oral.susp 30 Ml PO PRN Q6HRS PRN Miralax (Polyethylene Glycol 3350) 17 Gm Powd.pack 1 Packet PO DAILY [place] 3 Fish Oil Softgel ([place]-3 Fatty Acids/Fish Oil) 1 Each Capsule.dr 1 Each PO DAILY Amlodipine Besylate 10 Mg Tablet 10 Mg PO DAILY Renvela (Sevelamer Carbonate) 800 Mg Tablet 4 Cap PO TIDWMEALS Senna (Sennosides) 8.6 Mg Capsule 2 Cap PO HS Clopidogrel (Clopidogrel Bisulfate) 75 Mg Tablet 75 Mg PO DAILY Atorvastatin Calcium 20 Mg Tablet 20 Mg PO HS Allergies Allergies: Coded Allergies: Sulfa (Sulfonamide Antibiotics) (Verified Allergy, Intermediate, 10/11/16) banana (Verified Allergy, Intermediate, 08/03/17) cranberry (Verified Allergy, Intermediate, 07/14/16) grapefruit (Verified Allergy, Intermediate, 07/14/16) orange juice (Verified Allergy, Intermediate, 08/03/17) tomato (Verified Allergy, Intermediate, 08/03/17) lactose (Verified Adverse Reaction, Intermediate, 08/15/19) ROS General: YES: Fatigue, Malaise; No: Chills, Night Sweats, Appetite, Other PSYCHOLOGICAL ROS: YES: Anxiety, Depression; No: Behavioral Disorder, Concentration difficultie, Decreased libido, Disorientation, Hallucinations, Hostility, Irritablity, Memory difficulties, Mood Swings, Obsessive thoughts, Physical abuse, Sexual abuse, Sleep disturbances, Suicidal ideation, Other Eyes: No Blurry vision, No Decreased vision, No Double vision, No Dry eyes, No Excessive tearing, No Eye Pain, No Itchy Eyes, No Loss of vision, No Photophobia, No Scotomata, No Uses contacts, No Uses glasses, No Other HEENT: No: Heacaches, Visual Changes, Hearing change, Nasal congestion, Nasal discharge, Oral lesions, Sinus pain, Sore Throat, Epistaxis, Sneezing, Snoring, Tinnitus, Vertigo, Vocal changes, Other ALLERGY AND IMMUNOLOGY: No: Hives, Insect Bite Sensitivity, Itchy/Watery Eyes, Nasal Congestion, Post Nasal Drip, Seasonal Allergies, Other Hematological and Lymphatic: No: Bleeding Problems, Blood Clots, Blood Transfusions, Brusing, Night Sweats, Pallor, Swollen Lymph Nodes, Other ENDOCRINE: No: Breast Changes, Galactorrhea, Hair Pattern Changes, Hot Flashes, Malaise/lethargy, Mood Swings, Palpitations, Polydipsia/polyuria, Skin Changes, Temperature Intolerance, Unexpected Weight Changes, Other Breast: No New/Changing Breast Lumps, No Nipple changes, No Nipple discharge, No Other Respiratory: No: Cough, Hemoptysis, Orthopnea, Pleuritic Pain, Shortness of breath, SOB with excertion, Sputum Changes, Stridor, Tachypnea, Wheezing, Other Cardiovascular: No Chest Pain, No Palpitations, No Orthopnea, No Paroxysmal Noc. Dyspnea, No Edema, No Lt Headedness, No Other Gastrointestinal: No Nausea, No Vomiting, No Abdominal Pain, No Diarrhea, No Constipation, No Melena, No Hematochezia, No Other Genitourinary: No Dysuria, No Frequency, No Incontinence, No Hematuria, No Retention, No Discharge, No Urgency, No Pain, No Flank Pain, No Other, No , No , No , No , No , No , No Musculoskeletal: No Gait Disturbance, No Joint Pain, No Joint Stiffness, No Joint Swelling, No Muscle Pain, No Muscular Weakness, No Pain In:, No Swelling In:, No Other Neurological: No Behavorial Changes, No Bowel/Bladder ControlChng, No Confusion, No Dizziness, No Gait Disturbance, No Headaches, No Impaired Coord/balance, No Memory Loss, No Numbness/Tingling, No Seizures, No Speech Problems, No Tremors, No Visual Changes, No Weakness, No Other Skin: No Dry Skin, No Eczema, No Hair Changes, No Lumps, No Mole Changes, No Mottling, No Nail Changes, No Pruritus, No Rash, No Skin Lesion Changes, No Other, No Acne Physical Exam General: Alert, Cooperative, mild distress HEENT: Atraumatic, PERRLA, EOMI, Mucous membr. moist/pink Lungs: Other (Bilateral rhonchi) Heart: S1S2, RRR, no thrills, no rubs, no gallops, no murmurs Abdomen: Normal bowel sounds, Soft, No tenderness, No hepatosplenomegaly, No masses Rectal Exam: not examined Extremities: No clubbing, No cyanosis, No edema, Normal pulses, No tenderness/swelling Skin: No rashes, No breakdown, No significant lesion Neuro: Normal gait, Normal speech, Strength at 5/5 X4 ext, Normal tone, Sensation intact, Cranial nerves 3-12 NL, Reflexes 2+ Psych/Mental Status: Mental status NL, Mood NL Vitals Vitals Vital Signs Date Time Temp Pulse Resp B/P (MAP) Pulse Ox O2 Delivery O2 Flow Rate FiO2 11/23/19 06:49 82 20 100 11/23/19 06:38 101.6 101.6 11/23/19 04:30 158/82 (107) Labs Labs Laboratory Tests Test 11/23/19 04:38 11/23/19 04:47 11/23/19 05:15 11/23/19 05:30 Influenza Type A Antigen Negative (NEGATIVE) Influenza Type B Antigen Negative (NEGATIVE) White Blood Count 9.6 x10^3/uL (4.0-11.0) Red Blood Count 2.64 x10^6/uL (3.50-5.40) Hemoglobin 8.4 g/dL (12.0-15.5) Hematocrit 25.6 % (36.0-47.0) Mean Corpuscular Volume 97 fL (79-100) Mean Corpuscular Hemoglobin 32 pg (25-35) Mean Corpuscular Hemoglobin Concent 33 g/dL (31-37) Red Cell Distribution Width 16.6 % (11.5-14.5) Platelet Count 420 x10^3/uL (140-400) Neutrophils (%) (Auto) 87 % (31-73) Lymphocytes (%) (Auto) 6 % (24-48) Monocytes (%) (Auto) 5 % (0-9) Eosinophils (%) (Auto) 2 % (0-3) Basophils (%) (Auto) 0 % (0-3) Neutrophils # (Auto) 8.3 x10^3/uL (1.8-7.7) Lymphocytes # (Auto) 0.6 x10^3/uL (1.0-4.8) Monocytes # (Auto) 0.5 x10^3/uL (0.0-1.1) Eosinophils # (Auto) 0.2 x10^3/uL (0.0-0.7) Basophils # (Auto) 0.0 x10^3/uL (0.0-0.2) Prothrombin Time 13.1 SEC (11.7-14.0) Prothromb Time International Ratio 1.0 (0.8-1.1) Activated Partial Thromboplast Time 19 SEC (24-38) Lactic Acid Level 1.6 mmol/L (0.4-2.0) Sodium Level 141 mmol/L (136-145) Potassium Level 4.0 mmol/L (3.5-5.1) Chloride Level 100 mmol/L (98-107) Carbon Dioxide Level 33 mmol/L (21-32) Anion Gap 8 (6-14) Blood Urea Nitrogen 18 mg/dL (7-20) Creatinine 5.2 mg/dL (0.6-1.0) Estimated GFR (Cockcroft-Gault) 10.2 BUN/Creatinine Ratio 3 (6-20) Glucose Level 60 mg/dL (70-99) Calcium Level 8.9 mg/dL (8.5-10.1) Total Bilirubin 0.4 mg/dL (0.2-1.0) Aspartate Amino Transf (AST/SGOT) 32 U/L (15-37) Alanine Aminotransferase (ALT/SGPT) 15 U/L (14-59) Alkaline Phosphatase 93 U/L (46-116) Creatine Kinase 210 U/L (26-192) Creatine Kinase MB (Mass) < 0.5 ng/mL (0.0-3.6) Creatine Kinase MB Relative Index % (0-4) Troponin I Quantitative < 0.017 ng/mL (0.000-0.055) IF-Iul-Q-Type Natriuretic Peptide 44345 pg/mL (0-124) Total Protein 8.1 g/dL (6.4-8.2) Albumin 2.4 g/dL (3.4-5.0) Albumin/Globulin Ratio 0.4 (1.0-1.7) Procalcitonin 5.68 ng/mL (0.00-0.10) Urine Collection Type Unknown Urine Color Yellow Urine Clarity Clear Urine pH 8.0 Urine Specific [place] 1.015 Urine Protein >=300 mg/dL (NEG-TRACE) Urine Glucose (UA) Negative mg/dL (NEG) Urine Ketones (Stick) Negative mg/dL (NEG) Urine Blood Negative (NEG) Urine Nitrite Negative (NEG) Urine Bilirubin Negative (NEG) Urine Urobilinogen Dipstick 0.2 mg/dL (0.2 mg/dL) Urine Leukocyte Esterase Negative (NEG) Urine RBC Occ /HPF (0-2) Urine WBC 1-4 /HPF (0-4) Urine Squamous Epithelial Cells Mod /LPF Urine Bacteria Few /HPF (0-FEW) Urine Hyaline Casts Few /HPF Urine Mucus Mod /LPF Test 11/23/19 06:05 11/23/19 06:39 Glucose (Fingerstick) 59 mg/dL (70-99) 106 mg/dL (70-99) Laboratory Tests Test 11/23/19 04:38 11/23/19 04:47 11/23/19 05:15 11/23/19 05:30 Influenza Type A Antigen Negative (NEGATIVE) Influenza Type B Antigen Negative (NEGATIVE) White Blood Count 9.6 x10^3/uL (4.0-11.0) Red Blood Count 2.64 x10^6/uL (3.50-5.40) Hemoglobin 8.4 g/dL (12.0-15.5) Hematocrit 25.6 % (36.0-47.0) Mean Corpuscular Volume 97 fL (79-100) Mean Corpuscular Hemoglobin 32 pg (25-35) Mean Corpuscular Hemoglobin Concent 33 g/dL (31-37) Red Cell Distribution Width 16.6 % (11.5-14.5) Platelet Count 420 x10^3/uL (140-400) Neutrophils (%) (Auto) 87 % (31-73) Lymphocytes (%) (Auto) 6 % (24-48) Monocytes (%) (Auto) 5 % (0-9) Eosinophils (%) (Auto) 2 % (0-3) Basophils (%) (Auto) 0 % (0-3) Neutrophils # (Auto) 8.3 x10^3/uL (1.8-7.7) Lymphocytes # (Auto) 0.6 x10^3/uL (1.0-4.8) Monocytes # (Auto) 0.5 x10^3/uL (0.0-1.1) Eosinophils # (Auto) 0.2 x10^3/uL (0.0-0.7) Basophils # (Auto) 0.0 x10^3/uL (0.0-0.2) Prothrombin Time 13.1 SEC (11.7-14.0) Prothromb Time International Ratio 1.0 (0.8-1.1) Activated Partial Thromboplast Time 19 SEC (24-38) Lactic Acid Level 1.6 mmol/L (0.4-2.0) Sodium Level 141 mmol/L (136-145) Potassium Level 4.0 mmol/L (3.5-5.1) Chloride Level 100 mmol/L (98-107) Carbon Dioxide Level 33 mmol/L (21-32) Anion Gap 8 (6-14) Blood Urea Nitrogen 18 mg/dL (7-20) Creatinine 5.2 mg/dL (0.6-1.0) Estimated GFR (Cockcroft-Gault) 10.2 BUN/Creatinine Ratio 3 (6-20) Glucose Level 60 mg/dL (70-99) Calcium Level 8.9 mg/dL (8.5-10.1) Total Bilirubin 0.4 mg/dL (0.2-1.0) Aspartate Amino Transf (AST/SGOT) 32 U/L (15-37) Alanine Aminotransferase (ALT/SGPT) 15 U/L (14-59) Alkaline Phosphatase 93 U/L (46-116) Creatine Kinase 210 U/L (26-192) Creatine Kinase MB (Mass) < 0.5 ng/mL (0.0-3.6) Creatine Kinase MB Relative Index % (0-4) Troponin I Quantitative < 0.017 ng/mL (0.000-0.055) TU-Had-C-Type Natriuretic Peptide 64808 pg/mL (0-124) Total Protein 8.1 g/dL (6.4-8.2) Albumin 2.4 g/dL (3.4-5.0) Albumin/Globulin Ratio 0.4 (1.0-1.7) Procalcitonin 5.68 ng/mL (0.00-0.10) Urine Collection Type Unknown Urine Color Yellow Urine Clarity Clear Urine pH 8.0 Urine Specific [place] 1.015 Urine Protein >=300 mg/dL (NEG-TRACE) Urine Glucose (UA) Negative mg/dL (NEG) Urine Ketones (Stick) Negative mg/dL (NEG) Urine Blood Negative (NEG) Urine Nitrite Negative (NEG) Urine Bilirubin Negative (NEG) Urine Urobilinogen Dipstick 0.2 mg/dL (0.2 mg/dL) Urine Leukocyte Esterase Negative (NEG) Urine RBC Occ /HPF (0-2) Urine WBC 1-4 /HPF (0-4) Urine Squamous Epithelial Cells Mod /LPF Urine Bacteria Few /HPF (0-FEW) Urine Hyaline Casts Few /HPF Urine Mucus Mod /LPF Test 11/23/19 06:05 11/23/19 06:39 Glucose (Fingerstick) 59 mg/dL (70-99) 106 mg/dL (70-99) Images Images CXR - Low lung volumes. Patchy bilateral mid and lower lung opacities. No pleural effusion. Normal heart size. No pneumothorax. Vascular stent projecting over the left upper chest and upper extremity. Impression: 1. Patchy bilateral pulmonary opacities, right greater than left. Findings may relate to pneumonia or early pulmonary edema. Recommend follow-up. VTE Prophylaxis Ordered VTE Prophylaxis Devices: No VTE Pharmacological Prophylaxi: Yes Assessment/Plan Assessment/Plan A/P: Acute encephalopathy - 2/2 HCAP, toxic, hypoglycemia, metabolic or worsening of her baseline psychosis from schizophrenia. Sepsis - 2/2 HCAP HCAP - will place on vancomycin, levaquin, zosyn HTN - controlled currently Anemia - of chronic disease Anxiety - will give low dose ativan, valium may not be best for her given her dialysis status and active metabolite H/O CVA - unknown residual deficits. Old left lacunar infarct in corral radiata and BG. Old bilateral cerebellar infarcts. Hypoglycemic encephalopathy with possible seizure Obesity - counseled Chronic cellulitic changes in toes. Diabetes-Type II - will place on sliding scale with hypoglycemia protocol, cut her lantus in half for now High Cholesterol - cont statin End-Stage Renal Disease on HD TuThSa - nephrology consulted Schizophrenia - will cont meds Dizziness - likely cerebellar ataxia which has been seen previously. Will have PT to see for gait assessment FEN - ADA renal diet PPX - heparin FULL CODE Dispo - inpatient likely 2 midnights at least, will need antibiotics scheduled with dialysis, vancomycin, and can continue levaquin ANGELINE BUSTAMANTE MD Nov 23, 2019 08:07
[2019-11-23] MEDS: POLYETHYLENE GLYCOL 3350 17 GM PACKET. PO SCH (09:00)
[2019-11-23 10:50] LABS: % BANDS 3 % (0-9); % LYMPHS 8 % (24-48); % MONOS 1 % (0-10); % SEGS 88 % (35-66); PLT ESTIMATE ADEQUATE (ADEQUATE)
[2019-11-23 11:00] VITALS: BP 132/47
--- NOTE | 2019-11-23 11:17 | NUR ---
SS following for discharge planning. SS reviewed pt chart. Pt is from [facility], ; fax [phone]. SS contacted [facility] and verified that pt is a LTC resident from there facility and is able to return when medically stable for discharge. SS will continue to follow for discharge planning.
[2019-11-23] MEDS: ARIPiprazole 5 MG TABLET PO SCH (11:25)
[2019-11-23] MEDS: QUEtiapine 25 MG TABLET. PO SCH ×2 (11:25→16:06)
[2019-11-23] MEDS: SIMETHICONE 80 MG TAB.CHEW PO SCH ×2 (11:25→17:14)
[2019-11-23] MEDS: CARVEDILOL 12.5 MG TABLET. PO SCH ×2 (11:25→17:17)
[2019-11-23] MEDS: SEVELAMER CARBONATE 800 MG TABLET. PO SCH ×3 (11:25→17:14)
[2019-11-23] MEDS: CINACALCET HCL 30 MG TABLET PO SCH (11:25)
[2019-11-23] MEDS: CLOPIDOGREL BISULFATE 75 MG TABLET PO SCH (11:25)
[2019-11-23] MEDS: amLODIPine BESYLATE 10 MG TABLET PO SCH (11:26)
[2019-11-23] MEDS: ISOSORBIDE MONONITRATE ER 30 MG TAB.ER.24H PO SCH (11:26)
--- NOTE | 2019-11-23 11:32 | NUR ---
Patient arrived to the unit extremely drowsy and would only open her eyes for a couple of seconds upon calling her name. VSS. Patient reported feeling "fine." She is excessively sweating at this time and her temperature is less than when she got here. Patient was able to swallow water at this time and morning meds given. 1200 dose of renvela non administered because 0900 dose given at this time. Patient knows where she is and what her name is at this time but is unsure of the year, the month, and why she is in the hospital at this time.
--- NOTE | 2019-11-23 14:22 | PDOC2 ---
CONSULT Date of Consult Date of Consult DATE: 11/23/19 TIME: 14:16 Reason for Consult Reason for Consult: ESRD Source Source: Chart review, Patient History of Present Illness Reason for Visit: Pt is a 59 yo female SNF resident with PMHx ESRD secondary to diabetes and hypertension, h/o CVA,, Schizophrenia, DM2,. She was noted to have altered mental status and and a fever. Patient also reportedly was hypoxic at 79% on room air so she was placed on 5 L NCO2. Patient has been in and out of the hospital recently with positive influenza. She also has a history of urinary tract infections. Continues to be significantly confused, though seems at her baseline. She is unable to provide much in terms of her history CT head negative for intracranial pathology. Cerebellar findings chronic CXR with concern for bilateral infiltrates. Past Medical History Cardiovascular: HTN, Hyperlipidemia CENTRAL NERVOUS SYSTEM: CVA GI: Constipation, GERD Heme/Onc: Anemia NOS Psych: Anxiety, Schizophrenia Musculoskeletal: Osteoarthritis Renal/: Chronic renal failure Endocrine: Diabetes, Hyperparathyroidism Past Surgical History Past Surgical History: Hysterectomy, Other Family History Family History: Hypertension Social History No ALCOHOL: none Drugs: None Lives: [facility] Current Problem List Problem List Problems Medical Problems: (1) Altered mental status Status: Acute (2) Fever Status: Acute (3) Hospital acquired PNA Status: Acute (4) Hypoxia Status: Acute Current Medications Current Medications Current Medications Piperacillin Sod/ Tazobactam Sod 2.25 gm/Sodium Chloride 100 ml @ 200 mls/hr 1X ONCE IV Last administered on 11/23/19at 05:50; Start 11/23/19 at 05:45; Stop 11/23/19 at 06:14; Status DC Vancomycin HCl (Vanco Per Pharmacy) 1 each 1X ONCE MC ; Start 11/23/19 at 06:00; Stop 11/23/19 at 06:04; Status DC Sodium Chloride 250 ml @ 250 mls/hr 1X ONCE IV Last administered on 11/23/19at 05:36; Start 11/23/19 at 05:00; Stop 11/23/19 at 05:59; Status DC Acetaminophen (Tylenol Supp) 650 mg 1X ONCE NC Last administered on 11/23/19at 05:13; Start 11/23/19 at 05:00; Stop 11/23/19 at 05:07; Status DC Vancomycin HCl 2 gm/Sodium Chloride 500 ml @ 250 mls/hr 1X ONCE IV Last administered on 11/23/19at 06:18; Start 11/23/19 at 06:00; Stop 11/23/19 at 07:59; Status DC Levofloxacin/ Dextrose 150 ml @ 100 mls/hr 1X ONCE IV Last administered on 11/23/19at 06:17; Start 11/23/19 at 06:00; Stop 11/23/19 at 07:29; Status DC Acetaminophen (Tylenol Supp) 650 mg PRN Q6HRS PRN NC FEVER; Start 11/23/19 at 06:00 Piperacillin Sod/ Tazobactam Sod 2.25 gm/Sodium Chloride 50 ml @ 100 mls/hr Q12HR IV ; Start 11/23/19 at 21:00 Vancomycin HCl (Vanco Per Pharmacy) 1 each PRN DAILY PRN MC SEE COMMENTS; Start 11/23/19 at 06:00; Stop 11/23/19 at 06:03; Status DC Dextrose (Dextrose 50%-Water Syringe) 12.5 gm 1X ONCE IV Last administered on 11/23/19at 06:13; Start 11/23/19 at 06:15; Stop 11/23/19 at 06:16; Status DC Acetaminophen (Tylenol) 650 mg PRN Q4HRS PO ; Start 11/23/19 at 08:00 Amlodipine Besylate (Norvasc) 10 mg DAILY PO Last administered on 11/23/19at 11:26; Start 11/23/19 at 09:00 Atorvastatin Calcium (Lipitor) 20 mg HS PO ; Start 11/23/19 at 21:00 Carvedilol (Coreg) 12.5 mg BIDWMEALS PO Last administered on 11/23/19at 11:25; Start 11/23/19 at 09:00 Cinacalcet (Sensipar) 30 mg DAILY PO Last administered on 11/23/19at 11:25; Start 11/23/19 at 09:00 Clopidogrel Bisulfate (Plavix) 75 mg DAILY PO Last administered on 11/23/19at 11:25; Start 11/23/19 at 09:00 Ipratropium [place] (Atrovent) 0.2 mg PRN Q4HRS PRN IH shortness of breath; Start 11/23/19 at 08:00 Isosorbide Mononitrate (Imdur) 60 mg DAILY PO Last administered on 11/23/19 11:26; Start 11/23/19 at 09:00 Al Hydroxide/Mg Hydroxide (Mylanta Plus Xs) 30 ml PRN Q6HRS PRN PO INDIGESTION; Start 11/23/19 at 08:00 Ondansetron HCl (Zofran Odt) 4 mg PRN Q6HRS PRN PO NAUSEA; Start 11/23/19 at 08:00 Polyethylene Glycol (miraLAX PACKET) 17 gm DAILY PO ; Start 11/23/19 at 09:00 Sevelamer Carbonate (Renvela) 3,200 mg TIDWMEALS PO Last administered on 11/23/19at 11:25; Start 11/23/19 at 09:00 Simethicone (Gas-X) 80 mg Q6HRS PO Last administered on 11/23/19 11:25; Start 11/23/19 at 12:00 Aripiprazole (Abilify) 10 mg DAILY PO Last administered on 11/23/19at 11:25; Start 11/23/19 at 09:00 Insulin Glargine (Lantus Syringe) 10 unit QHS SQ ; Start 11/23/19 at 21:00 Quetiapine Fumarate (SEROquel) 50 mg QHS PO ; Start 11/23/19 at 21:00 Quetiapine Fumarate (SEROquel) 50 mg TID PO Last administered on 11/23/19at 11: 25; Start 11/23/19 at 09:00 Levofloxacin/ Dextrose (Levaquin Per Pharmacy) 1 each PRN DAILY PRN MC SEE COMMENTS; Start 11/23/19 at 08:00 Heparin Sodium (Porcine) (Heparin Sodium) 5,000 unit Q8HRS SQ ; Start 11/23/19 at 14:00 Insulin Human Lispro (HumaLOG) 0-5 UNITS TIDWMEALS SQ ; Start 11/23/19 at 08:00 Dextrose (Dextrose 50%-Water Syringe) 12.5 gm PRN Q15MIN PRN IV SEE COMMENTS; Start 11/23/19 at 08:00 Levofloxacin/ Dextrose 100 ml @ 100 mls/hr Q48H IV ; Start 11/25/19 at 06:00 Active Scripts Active Tamiflu (Oseltamivir Phosphate) 30 Mg Capsule 1 Cap PO BID Ondansetron Odt (Ondansetron) 4 Mg Tab.rapdis 1 Tab PO PRN Q6-8HRS PRN Isosorbide Mononitrate Er (Isosorbide Mononitrate) 30 Mg Tab.er.24h 2 Tab PO DAILY Reported Ipratropium [place] 0.2 Mg/1 Ml Solution 0.2 Mg IH PRN Q4HRS Ipratropium [place] 0.2 Mg/1 Ml Solution 1 Vial NEB QID Gabapentin (Gabapentin) 100 Mg Capsule 200 Mg PO HS Gabapentin (Gabapentin) 100 Mg Capsule 100 Mg PO BIDACBL Miralax (Polyethylene Glycol 3350) 17 Gm Powd.pack 1 Packet PO DAILY 2 Days dissolve in water Sensipar (Cinacalcet Hcl) 30 Mg Tablet 1 Tab PO DAILY 30 Days Seroquel (Quetiapine Fumarate) 50 Mg Tablet 50 Mg PO TID Diazepam 5 Mg Tablet 5 Mg PO QTUTHSA Carvedilol (Carvedilol) 12.5 Mg Tablet 12.5 Mg PO BIDWMEALS Theragran-M Premier 50+ Caplet (Mv-Mn/Fa/Coq10/Lycopene/Lutein) 1 Each Tablet 1 Each PO DAILY Novolog (Insulin Aspart) 100 Unit/1 Ml Cartridge 5 Unit SQ TIDAC sliding scale 151-200: 2 units 201-250: 4 units 251-300: 6 units 301-349:8 units Diazepam 5 Mg Tablet 5 Mg PO HS Seroquel (Quetiapine Fumarate) 50 Mg Tablet 50 Mg PO HS Levemir Flextouch (Insulin Detemir) 100 Unit/1 Ml Insuln.pen 20 Unit SQ HS Catapres-Tts 3 (Clonidine) 1 Each Patch.tdwk 1 Each TD WEEKLY Tylenol (Acetaminophen) 325 Mg Tablet 2 Tab PO PRN Q4HRS Simethicone 80 Mg Tab.chew 80 Mg PO Q6HRS Abilify (Aripiprazole) 10 Mg Tablet 10 Mg PO DAILY Losartan Potassium 100 Mg Tablet 100 Mg PO DAILY Maalox Maximum Strength Susp (Mag Hydrox/Al Hydrox/Simeth) 355 Ml Oral.susp 30 Ml PO PRN Q6HRS PRN [place] 3 Fish Oil Softgel ([place]-3 Fatty Acids/Fish Oil) 1 Each Capsule.dr 1 Each PO DAILY Amlodipine Besylate 10 Mg Tablet 10 Mg PO DAILY Renvela (Sevelamer Carbonate) 800 Mg Tablet 4 Cap PO TIDWMEALS Senna (Sennosides) 8.6 Mg Capsule 2 Cap PO HS Clopidogrel (Clopidogrel Bisulfate) 75 Mg Tablet 75 Mg PO DAILY Atorvastatin Calcium 20 Mg Tablet 20 Mg PO HS Allergies Allergies: Coded Allergies: Sulfa (Sulfonamide Antibiotics) (Verified Allergy, Intermediate, 06/29/16) banana (Verified Allergy, Intermediate, 08/03/17) cranberry (Verified Allergy, Intermediate, 07/14/16) grapefruit (Verified Allergy, Intermediate, 07/14/16) orange juice (Verified Allergy, Intermediate, 08/03/17) tomato (Verified Allergy, Intermediate, 08/03/17) lactose (Verified Adverse Reaction, Intermediate, 08/15/19) ROS Review of System per HPI Physical Exam Physical Exam GENERAL NAD HENT: OM moist NECK: Supple LUNGS: CTA, nonlaored HEART: S1, S2. ABDOMEN: Obese, soft, nontender EXTREMITIES: Trace edema, chronic venous stasis changes present. NEUROLOGIC: grossly normal No arias DERM- No rash Vital Signs Vital Signs Date Time Temp Pulse Resp B/P (MAP) Pulse Ox O2 Delivery O2 Flow Rate FiO2 11/23/19 11:26 80 132/47 11/23/19 11:00 99.2 20 97 Nasal Cannula 2.0 99.2 Assessment & Plan ESRD- On HD TTS No indication today Acute encephalopathy - 2/2 HCAP,hypoglycemia, metabolic or worsening of her baseline psychosis from schizophrenia. HCAP -on Abx HTN - controlled H/O CVA Anemia stable Diabetes History of influenza, treated with Tamiflu Schizophrenia. Labs Labs Laboratory Tests Test 11/23/19 04:38 11/23/19 04:47 11/23/19 05:15 11/23/19 05:30 Influenza Type A Antigen Negative (NEGATIVE) Influenza Type B Antigen Negative (NEGATIVE) White Blood Count 9.6 x10^3/uL (4.0-11.0) Red Blood Count 2.64 x10^6/uL (3.50-5.40) Hemoglobin 8.4 g/dL (12.0-15.5) Hematocrit 25.6 % (36.0-47.0) Mean Corpuscular Volume 97 fL (79-100) Mean Corpuscular Hemoglobin 32 pg (25-35) Mean Corpuscular Hemoglobin Concent 33 g/dL (31-37) Red Cell Distribution Width 16.6 % (11.5-14.5) Platelet Count 420 x10^3/uL (140-400) Neutrophils (%) (Auto) 87 % (31-73) Lymphocytes (%) (Auto) 6 % (24-48) Monocytes (%) (Auto) 5 % (0-9) Eosinophils (%) (Auto) 2 % (0-3) Basophils (%) (Auto) 0 % (0-3) Neutrophils # (Auto) 8.3 x10^3/uL (1.8-7.7) Lymphocytes # (Auto) 0.6 x10^3/uL (1.0-4.8) Monocytes # (Auto) 0.5 x10^3/uL (0.0-1.1) Eosinophils # (Auto) 0.2 x10^3/uL (0.0-0.7) Basophils # (Auto) 0.0 x10^3/uL (0.0-0.2) Segmented Neutrophils % 88 % (35-66) Band Neutrophils % 3 % (0-9) Lymphocytes % 8 % (24-48) Monocytes % 1 % (0-10) Platelet Estimate Adequate (ADEQUATE) Prothrombin Time 13.1 SEC (11.7-14.0) Prothromb Time International Ratio 1.0 (0.8-1.1) Activated Partial Thromboplast Time 19 SEC (24-38) Lactic Acid Level 1.6 mmol/L (0.4-2.0) Sodium Level 141 mmol/L (136-145) Potassium Level 4.0 mmol/L (3.5-5.1) Chloride Level 100 mmol/L (98-107) Carbon Dioxide Level 33 mmol/L (21-32) Anion Gap 8 (6-14) Blood Urea Nitrogen 18 mg/dL (7-20) Creatinine 5.2 mg/dL (0.6-1.0) Estimated GFR (Cockcroft-Gault) 10.2 BUN/Creatinine Ratio 3 (6-20) Glucose Level 60 mg/dL (70-99) Calcium Level 8.9 mg/dL (8.5-10.1) Total Bilirubin 0.4 mg/dL (0.2-1.0) Aspartate Amino Transf (AST/SGOT) 32 U/L (15-37) Alanine Aminotransferase (ALT/SGPT) 15 U/L (14-59) Alkaline Phosphatase 93 U/L (46-116) Creatine Kinase 210 U/L (26-192) Creatine Kinase MB (Mass) < 0.5 ng/mL (0.0-3.6) Creatine Kinase MB Relative Index % (0-4) Troponin I Quantitative < 0.017 ng/mL (0.000-0.055) OM-Oui-V-Type Natriuretic Peptide 91521 pg/mL (0-124) Total Protein 8.1 g/dL (6.4-8.2) Albumin 2.4 g/dL (3.4-5.0) Albumin/Globulin Ratio 0.4 (1.0-1.7) Procalcitonin 5.68 ng/mL (0.00-0.10) Urine Collection Type Unknown Urine Color Yellow Urine Clarity Clear Urine pH 8.0 Urine Specific [place] 1.015 Urine Protein >=300 mg/dL (NEG-TRACE) Urine Glucose (UA) Negative mg/dL (NEG) Urine Ketones (Stick) Negative mg/dL (NEG) Urine Blood Negative (NEG) Urine Nitrite Negative (NEG) Urine Bilirubin Negative (NEG) Urine Urobilinogen Dipstick 0.2 mg/dL (0.2 mg/dL) Urine Leukocyte Esterase Negative (NEG) Urine RBC Occ /HPF (0-2) Urine WBC 1-4 /HPF (0-4) Urine Squamous Epithelial Cells Mod /LPF Urine Bacteria Few /HPF (0-FEW) Urine Hyaline Casts Few /HPF Urine Mucus Mod /LPF Test 11/23/19 06:05 11/23/19 06:39 11/23/19 08:52 11/23/19 11:54 Glucose (Fingerstick) 59 mg/dL (70-99) 106 mg/dL (70-99) 111 mg/dL (70-99) 132 mg/dL (70-99) Laboratory Tests Test 11/23/19 04:38 11/23/19 04:47 11/23/19 05:15 11/23/19 05:30 Influenza Type A Antigen Negative (NEGATIVE) Influenza Type B Antigen Negative (NEGATIVE) White Blood Count 9.6 x10^3/uL (4.0-11.0) Red Blood Count 2.64 x10^6/uL (3.50-5.40) Hemoglobin 8.4 g/dL (12.0-15.5) Hematocrit 25.6 % (36.0-47.0) Mean Corpuscular Volume 97 fL (79-100) Mean Corpuscular Hemoglobin 32 pg (25-35) Mean Corpuscular Hemoglobin Concent 33 g/dL (31-37) Red Cell Distribution Width 16.6 % (11.5-14.5) Platelet Count 420 x10^3/uL (140-400) Neutrophils (%) (Auto) 87 % (31-73) Lymphocytes (%) (Auto) 6 % (24-48) Monocytes (%) (Auto) 5 % (0-9) Eosinophils (%) (Auto) 2 % (0-3) Basophils (%) (Auto) 0 % (0-3) Neutrophils # (Auto) 8.3 x10^3/uL (1.8-7.7) Lymphocytes # (Auto) 0.6 x10^3/uL (1.0-4.8) Monocytes # (Auto) 0.5 x10^3/uL (0.0-1.1) Eosinophils # (Auto) 0.2 x10^3/uL (0.0-0.7) Basophils # (Auto) 0.0 x10^3/uL (0.0-0.2) Segmented Neutrophils % 88 % (35-66) Band Neutrophils % 3 % (0-9) Lymphocytes % 8 % (24-48) Monocytes % 1 % (0-10) Platelet Estimate Adequate (ADEQUATE) Prothrombin Time 13.1 SEC (11.7-14.0) Prothromb Time International Ratio 1.0 (0.8-1.1) Activated Partial Thromboplast Time 19 SEC (24-38) Lactic Acid Level 1.6 mmol/L (0.4-2.0) Sodium Level 141 mmol/L (136-145) Potassium Level 4.0 mmol/L (3.5-5.1) Chloride Level 100 mmol/L (98-107) Carbon Dioxide Level 33 mmol/L (21-32) Anion Gap 8 (6-14) Blood Urea Nitrogen 18 mg/dL (7-20) Creatinine 5.2 mg/dL (0.6-1.0) Estimated GFR (Cockcroft-Gault) 10.2 BUN/Creatinine Ratio 3 (6-20) Glucose Level 60 mg/dL (70-99) Calcium Level 8.9 mg/dL (8.5-10.1) Total Bilirubin 0.4 mg/dL (0.2-1.0) Aspartate Amino Transf (AST/SGOT) 32 U/L (15-37) Alanine Aminotransferase (ALT/SGPT) 15 U/L (14-59) Alkaline Phosphatase 93 U/L (46-116) Creatine Kinase 210 U/L (26-192) Creatine Kinase MB (Mass) < 0.5 ng/mL (0.0-3.6) Creatine Kinase MB Relative Index % (0-4) Troponin I Quantitative < 0.017 ng/mL (0.000-0.055) [id number]-Type Natriuretic Peptide 18789 pg/mL (0-124) Total Protein 8.1 g/dL (6.4-8.2) Albumin 2.4 g/dL (3.4-5.0) Albumin/Globulin Ratio 0.4 (1.0-1.7) Procalcitonin 5.68 ng/mL (0.00-0.10) Urine Collection Type Unknown Urine Color Yellow Urine Clarity Clear Urine pH 8.0 Urine Specific [place] 1.015 Urine Protein >=300 mg/dL (NEG-TRACE) Urine Glucose (UA) Negative mg/dL (NEG) Urine Ketones (Stick) Negative mg/dL (NEG) Urine Blood Negative (NEG) Urine Nitrite Negative (NEG) Urine Bilirubin Negative (NEG) Urine Urobilinogen Dipstick 0.2 mg/dL (0.2 mg/dL) Urine Leukocyte Esterase Negative (NEG) Urine RBC Occ /HPF (0-2) Urine WBC 1-4 /HPF (0-4) Urine Squamous Epithelial Cells Mod /LPF Urine Bacteria Few /HPF (0-FEW) Urine Hyaline Casts Few /HPF Urine Mucus Mod /LPF Test 11/23/19 06:05 11/23/19 06:39 11/23/19 08:52 11/23/19 11:54 Glucose (Fingerstick) 59 mg/dL (70-99) 106 mg/dL (70-99) 111 mg/dL (70-99) 132 mg/dL (70-99) Review All relevant outside records, renal labs, imaging studies, telemetry/EKG's were reviewed. LOLA BUSBY MD Nov 23, 2019 14:22
--- NOTE | 2019-11-23 14:32 | NUR ---
Wound Care: Consult to eval and treat for DFU to L heel. Pt has been treated for this wound on previous admissions. Picture present in chart. Wound bed is primarily light yellow slough, with hansen eschar in the center, wound margins beginning to epithelialize, and enrico wound dry and scaly. Lotion applied to intact skin, medihoney and xeroform gauze covered with foam to L heel. Change every other day. No other open wounds noted on head to toe assessment. R heel skin intact with evidence of healed blister laterally, thickened skin. Heel medics boots, and P500 mattress. Left on bedpan with call light in hand. Educated family and patient on importance of turning to prevent pressure sores. Follow up 11/28
[2019-11-23 15:00] VITALS: BP 107/40
[2019-11-23] MEDS: HEPARIN for SUB-Q USE 5,000 UNIT/ML VIAL. SQ SCH ×2 (16:12→22:43)
[2019-11-23] MEDS: VANCOMYCIN PER PHARMACY MC PRN (17:17)
--- NOTE | 2019-11-23 17:20 | NUR ---
Pharmacy Vancomycin Dosing Note S:Consulted to monitor and dose vancomycin started 11/23/19. O:AARON RICKETTS is a 59 year old F with HCAP . Height: 5 feet, 5 inches Weight: 81.377582 kg [place] Body Weight: 57.00 Adjusted Body Weight: 66.60 Dosing Weight: Actual Other Antibiotics: ZOSYN LEVAQUIN LABS: Last BUN: 18 Last Creatinine: 5.2 Creatinine Clearance: HD TTS mL/min Last WBC: 9.6 Last Procalcitonin: - Tmax (past 24 hours): 101.5 Microbiology: I/O: 350 Drug Levels: Last level: on at Last dose given 11/23/19 at 0600 Vancomycin Dosing: Loading Dose: x1 Dosing Weight: Actual Target Trough: 15-20 A: Based on: WEIGHT, HD STATUS, P: 1. GIVE Vancomycin 2000 mg IV One Time 2. Follow up Random level on 11/25/19 at 0600 3. Pharmacy will continue to monitor, follow and adjust therapy as needed. ERIN PARIS [facility], 11/23/19 [id number]
[2019-11-23] MEDS: PIPERACILLIN/TAZOBACTAM 2.25 GM in IV NORMAL SALINE 50ML 50 ML IV SCH (18:16)
[2019-11-23 19:31] VITALS: BP 147/57
[2019-11-23] MEDS: ATORVASTATIN CALCIUM 20 MG TABLET PO SCH (20:57)
[2019-11-23] MEDS: INSULIN GLARGINE SYRINGE. SQ SCH (20:58)
[2019-11-23] MEDS ORDERED: QUEtiapine 25 MG TABLET. PO SCH ×2 (21:00→21:30)
[2019-11-23] MEDS ORDERED: QUET100T4 PO (21:21)
[2019-11-23] MEDS ORDERED: QUEtiapine 25 MG TABLET. PO ONE ×2 (22:45→23:30)
[2019-11-23 23:13] VITALS: BP 136/63
[2019-11-24] MEDS: PIPERACILLIN/TAZOBACTAM 2.25 GM in IV NORMAL SALINE 50ML 50 ML IV SCH ×5 (00:29→23:42)
[2019-11-24] MEDS ORDERED: SIMETHICONE 80 MG TAB.CHEW PO PRN (00:45)
[2019-11-24 03:35] VITALS: BP 151/72
[2019-11-24] MEDS: ACETAMINOPHEN 325 MG TABLET. PO PRN ×2 (04:01→20:58)
[2019-11-24 04:38] LABS: BASO % 0 % (0-3); EOS # 0.3 x10^3/uL (0.0-0.7); EOS % 4 % (0-3); HEMATOCRIT 22.5 % (36.0-47.0); HEMOGLOBIN 7.4 g/dL (12.0-15.5); LYMPH # 0.5 x10^3/uL (1.0-4.8); LYMPH % 9 % (24-48); MEAN CORPUSCULAR HEMOGLOBIN 32 pg (25-35); MEAN CORPUSCULAR HGB CONC 33 g/dL (31-37); MEAN CORPUSCULAR VOLUME 97 fL (79-100); MONO # 0.5 x10^3/uL (0.0-1.1); MONO % 9 % (0-9); NEUT # 4.6 x10^3/uL (1.8-7.7); NEUT % 77 % (31-73); PLATELET COUNT 324 x10^3/uL (140-400); RED BLOOD COUNT 2.33 x10^6/uL (3.50-5.40); RED CELL DISTRIBUTION WIDTH 16.3 % (11.5-14.5); WHITE BLOOD COUNT 5.9 x10^3/uL (4.0-11.0)
[2019-11-24 04:50] LABS: CALCIUM 8.4 mg/dL (8.5-10.1); CREATININE 6.9 mg/dL (0.6-1.0); GFR 7.4; POTASSIUM 3.5 mmol/L (3.5-5.1)
[2019-11-24] MEDS: HEPARIN for SUB-Q USE 5,000 UNIT/ML VIAL. SQ SCH ×3 (06:19→21:25)
[2019-11-24 07:00] VITALS: BP 121/50
[2019-11-24] MEDS: ASCORBIC ACID 500 MG TABLET PO SCH (08:39)
[2019-11-24] MEDS: SEVELAMER CARBONATE 800 MG TABLET. PO SCH ×3 (08:39→16:51)
[2019-11-24] MEDS: ARIPiprazole 5 MG TABLET PO SCH (08:40)
[2019-11-24] MEDS: ISOSORBIDE MONONITRATE ER 30 MG TAB.ER.24H PO SCH (08:40)
[2019-11-24] MEDS: QUEtiapine 25 MG TABLET. PO SCH ×3 (08:40→16:52)
[2019-11-24] MEDS: MULTIVITAMIN with MINERAL TABLET. PO SCH (08:40)
[2019-11-24] MEDS: CINACALCET HCL 30 MG TABLET PO SCH (08:40)
[2019-11-24] MEDS: CLOPIDOGREL BISULFATE 75 MG TABLET PO SCH (08:40)
[2019-11-24] MEDS: CARVEDILOL 12.5 MG TABLET. PO SCH ×2 (08:40→16:52)
[2019-11-24] MEDS: amLODIPine BESYLATE 10 MG TABLET PO SCH (08:41)
[2019-11-24] MEDS: POLYETHYLENE GLYCOL 3350 17 GM PACKET. PO SCH (08:41)
[2019-11-24] MEDS: INSULIN LISPRO 300 UNITS/3 ML VIAL. SQ SCH ×3 (08:51→16:57)
[2019-11-24] MEDS ORDERED: DIALYSIS PATIENT. MC PRN ×2 (11:00)
--- NOTE | 2019-11-24 11:03 | PDOC ---
PROGRESS NOTES Chief Complaint Chief Complaint developing progressive dementia and over the past year she is ended up on fci. Now, she came in with hypoglycemia, mental status change and pneumonia History of Present Illness History of Present Illness VTE Prophylaxis Ordered VTE Prophylaxis Devices: No VTE Pharmacological Prophylaxi: Yes Assessment/Plan Assessment/Plan A/P: Acute encephalopathy - 2/2 HCAP, worsening of her baseline psychosis from schizophrenia. Sepsis - 2/2 HCAP HCAP - IV vancomycin, levaquin, zosyn HTN - controlled currently Anemia - of chronic disease Anxiety - will give low dose ativan, valium may not be best for her given her dialysis status and active metabolite H/O CVA - unknown residual deficits. Old left lacunar infarct in corral radiata and BG. Old bilateral cerebellar infarcts. Hypoglycemic encephalopathy with possible seizure Obesity - counseled Chronic cellulitic changes in toes. Diabetes-Type II - will place on sliding scale with hypoglycemia protocol, cut her lantus in half for now High Cholesterol - cont statin End-Stage Renal Disease on HD TuThSa - nephrology consulted Schizophrenia - will cont meds Dizziness - cerebellar ataxia PT to see for gait assessment FEN - ADA renal diet PPX - heparin FULL CODE Dispo - inpatient likely 2 midnights at least, will need antibiotics scheduled with dialysis, vancomycin, and can continue levaquin nephrology consult AM LABS D/W RN Vitals Vitals Vital Signs Date Time Temp Pulse Resp B/P (MAP) Pulse Ox O2 Delivery O2 Flow Rate FiO2 11/24/19 08:41 77 121/50 11/24/19 07:46 Room Air 11/24/19 07:00 98.1 21 91 98.1 11/23/19 15:00 2.0 Physical Exam General: Alert, Cooperative, mild distress Heart: Regular rate Lungs: Clear, Crackles Abdomen: Normal bowel sounds, Soft, No tenderness, No hepatosplenomegaly, No masses Extremities: No clubbing, No cyanosis, No edema, Normal pulses, No tenderness/swelling Skin: No rashes, No breakdown, No significant lesion Labs LABS Laboratory Tests Test 11/23/19 11:54 11/23/19 16:51 11/23/19 20:43 11/24/19 04:10 Glucose (Fingerstick) 132 mg/dL (70-99) 146 mg/dL (70-99) 269 mg/dL (70-99) White Blood Count 5.9 x10^3/uL (4.0-11.0) Red Blood Count 2.33 x10^6/uL (3.50-5.40) Hemoglobin 7.4 g/dL (12.0-15.5) Hematocrit 22.5 % (36.0-47.0) Mean Corpuscular Volume 97 fL (79-100) Mean Corpuscular Hemoglobin 32 pg (25-35) Mean Corpuscular Hemoglobin Concent 33 g/dL (31-37) Red Cell Distribution Width 16.3 % (11.5-14.5) Platelet Count 324 x10^3/uL (140-400) Neutrophils (%) (Auto) 77 % (31-73) Lymphocytes (%) (Auto) 9 % (24-48) Monocytes (%) (Auto) 9 % (0-9) Eosinophils (%) (Auto) 4 % (0-3) Basophils (%) (Auto) 0 % (0-3) Neutrophils # (Auto) 4.6 x10^3/uL (1.8-7.7) Lymphocytes # (Auto) 0.5 x10^3/uL (1.0-4.8) Monocytes # (Auto) 0.5 x10^3/uL (0.0-1.1) Eosinophils # (Auto) 0.3 x10^3/uL (0.0-0.7) Basophils # (Auto) 0.0 x10^3/uL (0.0-0.2) Sodium Level 135 mmol/L (136-145) Potassium Level 3.5 mmol/L (3.5-5.1) Chloride Level 95 mmol/L (98-107) Carbon Dioxide Level 28 mmol/L (21-32) Anion Gap 12 (6-14) Blood Urea Nitrogen 27 mg/dL (7-20) Creatinine 6.9 mg/dL (0.6-1.0) Estimated GFR (Cockcroft-Gault) 7.4 Glucose Level 238 mg/dL (70-99) Calcium Level 8.4 mg/dL (8.5-10.1) Test 11/24/19 07:23 Glucose (Fingerstick) 229 mg/dL (70-99) Assessment and Plan Assessmemt and Plan Problems Medical Problems: (1) Altered mental status Status: Acute (2) Fever Status: Acute (3) Hospital acquired PNA Status: Acute (4) Hypoxia Status: Acute Comment Review of Relevant I have reviewed the following items los (where applicable) has been applied. Labs Laboratory Tests Test 11/23/19 04:38 11/23/19 04:47 11/23/19 05:15 11/23/19 05:30 Influenza Type A Antigen Negative (NEGATIVE) Influenza Type B Antigen Negative (NEGATIVE) White Blood Count 9.6 x10^3/uL (4.0-11.0) Red Blood Count 2.64 x10^6/uL (3.50-5.40) Hemoglobin 8.4 g/dL (12.0-15.5) Hematocrit 25.6 % (36.0-47.0) Mean Corpuscular Volume 97 fL (79-100) Mean Corpuscular Hemoglobin 32 pg (25-35) Mean Corpuscular Hemoglobin Concent 33 g/dL (31-37) Red Cell Distribution Width 16.6 % (11.5-14.5) Platelet Count 420 x10^3/uL (140-400) Neutrophils (%) (Auto) 87 % (31-73) Lymphocytes (%) (Auto) 6 % (24-48) Monocytes (%) (Auto) 5 % (0-9) Eosinophils (%) (Auto) 2 % (0-3) Basophils (%) (Auto) 0 % (0-3) Neutrophils # (Auto) 8.3 x10^3/uL (1.8-7.7) Lymphocytes # (Auto) 0.6 x10^3/uL (1.0-4.8) Monocytes # (Auto) 0.5 x10^3/uL (0.0-1.1) Eosinophils # (Auto) 0.2 x10^3/uL (0.0-0.7) Basophils # (Auto) 0.0 x10^3/uL (0.0-0.2) Segmented Neutrophils % 88 % (35-66) Band Neutrophils % 3 % (0-9) Lymphocytes % 8 % (24-48) Monocytes % 1 % (0-10) Platelet Estimate Adequate (ADEQUATE) Prothrombin Time 13.1 SEC (11.7-14.0) Prothromb Time International Ratio 1.0 (0.8-1.1) Activated Partial Thromboplast Time 19 SEC (24-38) Lactic Acid Level 1.6 mmol/L (0.4-2.0) Sodium Level 141 mmol/L (136-145) Potassium Level 4.0 mmol/L (3.5-5.1) Chloride Level 100 mmol/L (98-107) Carbon Dioxide Level 33 mmol/L (21-32) Anion Gap 8 (6-14) Blood Urea Nitrogen 18 mg/dL (7-20) Creatinine 5.2 mg/dL (0.6-1.0) Estimated GFR (Cockcroft-Gault) 10.2 BUN/Creatinine Ratio 3 (6-20) Glucose Level 60 mg/dL (70-99) Calcium Level 8.9 mg/dL (8.5-10.1) Total Bilirubin 0.4 mg/dL (0.2-1.0) Aspartate Amino Transf (AST/SGOT) 32 U/L (15-37) Alanine Aminotransferase (ALT/SGPT) 15 U/L (14-59) Alkaline Phosphatase 93 U/L (46-116) Creatine Kinase 210 U/L (26-192) Creatine Kinase MB (Mass) < 0.5 ng/mL (0.0-3.6) Creatine Kinase MB Relative Index % (0-4) Troponin I Quantitative < 0.017 ng/mL (0.000-0.055) IL-Qcg-E-Type Natriuretic Peptide 12452 pg/mL (0-124) Total Protein 8.1 g/dL (6.4-8.2) Albumin 2.4 g/dL (3.4-5.0) Albumin/Globulin Ratio 0.4 (1.0-1.7) Procalcitonin 5.68 ng/mL (0.00-0.10) Urine Collection Type Unknown Urine Color Yellow Urine Clarity Clear Urine pH 8.0 Urine Specific [place] 1.015 Urine Protein >=300 mg/dL (NEG-TRACE) Urine Glucose (UA) Negative mg/dL (NEG) Urine Ketones (Stick) Negative mg/dL (NEG) Urine Blood Negative (NEG) Urine Nitrite Negative (NEG) Urine Bilirubin Negative (NEG) Urine Urobilinogen Dipstick 0.2 mg/dL (0.2 mg/dL) Urine Leukocyte Esterase Negative (NEG) Urine RBC Occ /HPF (0-2) Urine WBC 1-4 /HPF (0-4) Urine Squamous Epithelial Cells Mod /LPF Urine Bacteria Few /HPF (0-FEW) Urine Hyaline Casts Few /HPF Urine Mucus Mod /LPF Test 11/23/19 06:05 11/23/19 06:39 11/23/19 08:52 11/23/19 11:54 Glucose (Fingerstick) 59 mg/dL (70-99) 106 mg/dL (70-99) 111 mg/dL (70-99) 132 mg/dL (70-99) Test 11/23/19 16:51 11/23/19 20:43 11/24/19 04:10 11/24/19 07:23 Glucose (Fingerstick) 146 mg/dL (70-99) 269 mg/dL (70-99) 229 mg/dL (70-99) White Blood Count 5.9 x10^3/uL (4.0-11.0) Red Blood Count 2.33 x10^6/uL (3.50-5.40) Hemoglobin 7.4 g/dL (12.0-15.5) Hematocrit 22.5 % (36.0-47.0) Mean Corpuscular Volume 97 fL (79-100) Mean Corpuscular Hemoglobin 32 pg (25-35) Mean Corpuscular Hemoglobin Concent 33 g/dL (31-37) Red Cell Distribution Width 16.3 % (11.5-14.5) Platelet Count 324 x10^3/uL (140-400) Neutrophils (%) (Auto) 77 % (31-73) Lymphocytes (%) (Auto) 9 % (24-48) Monocytes (%) (Auto) 9 % (0-9) Eosinophils (%) (Auto) 4 % (0-3) Basophils (%) (Auto) 0 % (0-3) Neutrophils # (Auto) 4.6 x10^3/uL (1.8-7.7) Lymphocytes # (Auto) 0.5 x10^3/uL (1.0-4.8) Monocytes # (Auto) 0.5 x10^3/uL (0.0-1.1) Eosinophils # (Auto) 0.3 x10^3/uL (0.0-0.7) Basophils # (Auto) 0.0 x10^3/uL (0.0-0.2) Sodium Level 135 mmol/L (136-145) Potassium Level 3.5 mmol/L (3.5-5.1) Chloride Level 95 mmol/L (98-107) Carbon Dioxide Level 28 mmol/L (21-32) Anion Gap 12 (6-14) Blood Urea Nitrogen 27 mg/dL (7-20) Creatinine 6.9 mg/dL (0.6-1.0) Estimated GFR (Cockcroft-Gault) 7.4 Glucose Level 238 mg/dL (70-99) Calcium Level 8.4 mg/dL (8.5-10.1) Laboratory Tests Test 11/23/19 11:54 11/23/19 16:51 11/23/19 20:43 11/24/19 04:10 Glucose (Fingerstick) 132 mg/dL (70-99) 146 mg/dL (70-99) 269 mg/dL (70-99) White Blood Count 5.9 x10^3/uL (4.0-11.0) Red Blood Count 2.33 x10^6/uL (3.50-5.40) Hemoglobin 7.4 g/dL (12.0-15.5) Hematocrit 22.5 % (36.0-47.0) Mean Corpuscular Volume 97 fL (79-100) Mean Corpuscular Hemoglobin 32 pg (25-35) Mean Corpuscular Hemoglobin Concent 33 g/dL (31-37) Red Cell Distribution Width 16.3 % (11.5-14.5) Platelet Count 324 x10^3/uL (140-400) Neutrophils (%) (Auto) 77 % (31-73) Lymphocytes (%) (Auto) 9 % (24-48) Monocytes (%) (Auto) 9 % (0-9) Eosinophils (%) (Auto) 4 % (0-3) Basophils (%) (Auto) 0 % (0-3) Neutrophils # (Auto) 4.6 x10^3/uL (1.8-7.7) Lymphocytes # (Auto) 0.5 x10^3/uL (1.0-4.8) Monocytes # (Auto) 0.5 x10^3/uL (0.0-1.1) Eosinophils # (Auto) 0.3 x10^3/uL (0.0-0.7) Basophils # (Auto) 0.0 x10^3/uL (0.0-0.2) Sodium Level 135 mmol/L (136-145) Potassium Level 3.5 mmol/L (3.5-5.1) Chloride Level 95 mmol/L (98-107) Carbon Dioxide Level 28 mmol/L (21-32) Anion Gap 12 (6-14) Blood Urea Nitrogen 27 mg/dL (7-20) Creatinine 6.9 mg/dL (0.6-1.0) Estimated GFR (Cockcroft-Gault) 7.4 Glucose Level 238 mg/dL (70-99) Calcium Level 8.4 mg/dL (8.5-10.1) Test 11/24/19 07:23 Glucose (Fingerstick) 229 mg/dL (70-99) Microbiology 11/23/19 Blood Culture - Preliminary, Resulted NO GROWTH AFTER 1 DAY Medications Current Medications Piperacillin Sod/ Tazobactam Sod 2.25 gm/Sodium Chloride 100 ml @ 200 mls/hr 1X ONCE IV Last administered on 11/23/19at 05:50; Start 11/23/19 at 05:45; Stop 11/23/19 at 06:14; Status DC Vancomycin HCl (Vanco Per Pharmacy) 1 each 1X ONCE MC ; Start 11/23/19 at 06:00; Stop 11/23/19 at 06:04; Status DC Sodium Chloride 250 ml @ 250 mls/hr 1X ONCE IV Last administered on 11/23/19at 05:36; Start 11/23/19 at 05:00; Stop 11/23/19 at 05:59; Status DC Acetaminophen (Tylenol Supp) 650 mg 1X ONCE OK Last administered on 11/23/19at 05:13; Start 11/23/19 at 05:00; Stop 11/23/19 at 05:07; Status DC Vancomycin HCl 2 gm/Sodium Chloride 500 ml @ 250 mls/hr 1X ONCE IV Last administered on 11/23/19at 06:18; Start 11/23/19 at 06:00; Stop 11/23/19 at 07:59; Status DC Levofloxacin/ Dextrose 150 ml @ 100 mls/hr 1X ONCE IV Last administered on 11/23/19at 06:17; Start 11/23/19 at 06:00; Stop 11/23/19 at 07:29; Status DC Acetaminophen (Tylenol Supp) 650 mg PRN Q6HRS PRN OK FEVER; Start 11/23/19 at 06:00 Piperacillin Sod/ Tazobactam Sod 2.25 gm/Sodium Chloride 50 ml @ 100 mls/hr Q6HRS IV Last administered on 11/24/19at 06:20; Start 11/23/19 at 18:00 Vancomycin HCl (Vanco Per Pharmacy) 1 each PRN DAILY PRN MC SEE COMMENTS; Start 11/23/19 at 06:00; Stop 11/23/19 at 06:03; Status DC Dextrose (Dextrose 50%-Water Syringe) 12.5 gm 1X ONCE IV Last administered on 11/23/19at 06:13; Start 11/23/19 at 06:15; Stop 11/23/19 at 06:16; Status DC Acetaminophen (Tylenol) 650 mg PRN Q4HRS PO ; Start 11/23/19 at 08:00; Stop 11/24/19 at 03:56; Status DC Amlodipine Besylate (Norvasc) 10 mg DAILY PO Last administered on 11/24/19at 08:41; Start 11/23/19 at 09:00 Atorvastatin Calcium (Lipitor) 20 mg HS PO Last administered on 11/23/19at 20:57; Start 11/23/19 at 21:00 Carvedilol (Coreg) 12.5 mg BIDWMEALS PO Last administered on 11/24/19at 08:40; Start 11/23/19 at 09:00 Cinacalcet (Sensipar) 30 mg DAILY PO Last administered on 11/24/19at 08:40; Start 11/23/19 at 09:00 Clopidogrel Bisulfate (Plavix) 75 mg DAILY PO Last administered on 11/24/19at 08:40; Start 11/23/19 at 09:00 Ipratropium [place] (Atrovent) 0.2 mg PRN Q4HRS PRN IH shortness of breath; Start 11/23/19 at 08:00 Isosorbide Mononitrate (Imdur) 60 mg DAILY PO Last administered on 11/24/19at 08:40; Start 3/6/20 at 09:00 Al Hydroxide/Mg Hydroxide (Mylanta Plus Xs) 30 ml PRN Q6HRS PRN PO INDIGESTION; Start 11/23/19 at 08:00 Ondansetron HCl (Zofran Odt) 4 mg PRN Q6HRS PRN PO NAUSEA; Start 11/23/19 at 08:00 Polyethylene Glycol (miraLAX PACKET) 17 gm DAILY PO Last administered on 11/24/19 08:41; Start 11/23/19 at 09:00 Sevelamer Carbonate (Renvela) 3,200 mg TIDWMEALS PO Last administered on 11/24/19 08:39; Start 11/23/19 at 09:00 Simethicone (Gas-X) 80 mg Q6HRS PO Last administered on 11/23/19 17:14; Start 11/23/19 at 12:00; Stop 11/24/19 at 00:42; Status DC Aripiprazole (Abilify) 10 mg DAILY PO Last administered on 11/24/19 08:40; Start 11/23/19 at 09:00 Insulin Glargine (Lantus Syringe) 10 unit QHS SQ Last administered on 11/23/19 20:58; Start 11/23/19 at 21:00 Quetiapine Fumarate (SEROquel) 50 mg QHS PO Last administered on 11/23/19 20:57; Start 11/23/19 at 21:00; Stop 11/23/19 at 21:26; Status DC Quetiapine Fumarate (SEROquel) 50 mg TID PO Last administered on 11/23/19at 16:06; Start 11/23/19 at 09:00; Stop 11/23/19 at 21:21; Status DC Levofloxacin/ Dextrose (Levaquin Per Pharmacy) 1 each PRN DAILY PRN MC SEE COMMENTS; Start 11/23/19 at 08:00 Heparin Sodium (Porcine) (Heparin Sodium) 5,000 unit Q8HRS SQ Last administered on 11/24/19at 06:19; Start 11/23/19 at 14:00 Insulin Human Lispro (HumaLOG) 0-5 UNITS TIDWMEALS SQ Last administered on 11/24/19 08:51; Start 11/23/19 at 08:00 Dextrose (Dextrose 50%-Water Syringe) 12.5 gm PRN Q15MIN PRN IV SEE COMMENTS; Start 11/23/19 at 08:00 Levofloxacin/ Dextrose 100 ml @ 100 mls/hr Q48H IV ; Start 11/25/19 at 06:00 Vancomycin HCl (Vanco Per Pharmacy) 1 each PRN DAILY PRN MC SEE COMMENTS Last administered on 11/23/19at 17:17; Start 11/23/19 at 17:15 Vancomycin HCl (Vancomycin Random Level) 1 each 1X ONCE MC ; Start 11/25/19 at 0 6:00; Stop 11/25/19 at 06:01 Quetiapine Fumarate (SEROquel) 50 mg TIDWMEALS PO Last administered on 11/24/19at 08:40; Start 11/24/19 at 08:00 Quetiapine Fumarate (SEROquel) 100 mg QHS PO ; Start 11/24/19 at 21:00 Quetiapine Fumarate (SEROquel) 50 mg 1X PO ; Start 11/23/19 at 21:30; Status Cancel Quetiapine Fumarate (SEROquel) 25 mg 1X ONCE PO ; Start 11/23/19 at 22:45; Stop 11/23/19 at 22:46; Status Cancel Quetiapine Fumarate (SEROquel) 50 mg 1X ONCE PO Last administered on 11/23/19at 23:40; Start 11/23/19 at 23:30; Stop 11/23/19 at 23:31; Status DC Simethicone (Gas-X) 80 mg PRN Q6HRS PRN PO HEARTBURN / GAS; Start 11/24/19 at 00:45 Acetaminophen (Tylenol) 650 mg PRN Q4HRS PRN PO PAIN Last administered on 11/24/19at 04:01; Start 11/24/19 at 04:00 Ascorbic Acid (Vitamin C) 500 mg DAILY PO Last administered on 11/24/19at 08:39; Start 11/24/19 at 09:00 Multivitamins (Thera M Plus) 1 tab DAILY PO Last administered on 11/24/19at 08:40; Start 11/24/19 at 09:00 Lactobacillus Rhamnosus (Culturelle) 1 cap BID PO ; Start 11/24/19 at 21:00 Info (PHARMACY MONITORING -- do not chart) 1 each PRN DAILY PRN MC SEE COMMENTS; Start 11/24/19 at 11:00 Info (PHARMACY MONITORING -- do not chart) 1 each PRN DAILY PRN MC SEE COMMENTS; Start 11/24/19 at 11:00; Status UNV Active Scripts Active Tamiflu (Oseltamivir Phosphate) 30 Mg Capsule 1 Cap PO BID Ondansetron Odt (Ondansetron) 4 Mg Tab.rapdis 1 Tab PO PRN Q6-8HRS PRN Isosorbide Mononitrate Er (Isosorbide Mononitrate) 30 Mg Tab.er.24h 2 Tab PO DAILY Reported Seroquel (Quetiapine Fumarate) 100 Mg Tablet 1 Tab PO QHS Ipratropium [place] 0.2 Mg/1 Ml Solution 0.2 Mg IH PRN Q4HRS Ipratropium [place] 0.2 Mg/1 Ml Solution 1 Vial NEB QID Gabapentin (Gabapentin) 100 Mg Capsule 200 Mg PO HS Gabapentin (Gabapentin) 100 Mg Capsule 100 Mg PO BIDACBL Miralax (Polyethylene Glycol 3350) 17 Gm Powd.pack 1 Packet PO DAILY dissolve in water Sensipar (Cinacalcet Hcl) 30 Mg Tablet 1 Tab PO DAILY 30 Days Seroquel (Quetiapine Fumarate) 50 Mg Tablet 50 Mg PO TID Diazepam 5 Mg Tablet 5 Mg PO QTUTHSA Carvedilol (Carvedilol) 12.5 Mg Tablet 12.5 Mg PO BIDWMEALS Theragran-M Premier 50+ Caplet (Mv-Mn/Fa/Coq10/Lycopene/Lutein) 1 Each Tablet 1 Each PO DAILY Novolog (Insulin Aspart) 100 Unit/1 Ml Cartridge 5 Unit SQ TIDAC sliding scale 151-200: 2 units 201-250: 4 units 251-300: 6 units 301-349:8 units Diazepam 5 Mg Tablet 5 Mg PO HS Levemir Flextouch (Insulin Detemir) 100 Unit/1 Ml Insuln.pen 20 Unit SQ HS Catapres-Tts 3 (Clonidine) 1 Each Patch.tdwk 1 Each TD WEEKLY Tylenol (Acetaminophen) 325 Mg Tablet 2 Tab PO PRN Q4HRS Simethicone 80 Mg Tab.chew 80 Mg PO PRN Q6HRS PRN Abilify (Aripiprazole) 10 Mg Tablet 10 Mg PO DAILY Losartan Potassium 100 Mg Tablet 100 Mg PO DAILY Maalox Maximum Strength Susp (Mag Hydrox/Al Hydrox/Simeth) 355 Ml Oral.susp 30 Ml PO PRN Q6HRS PRN [place] 3 Fish Oil Softgel ([place]-3 Fatty Acids/Fish Oil) 1 Each Capsule.dr 1 Each PO DAILY Amlodipine Besylate 10 Mg Tablet 10 Mg PO DAILY Renvela (Sevelamer Carbonate) 800 Mg Tablet 4 Cap PO TIDWMEALS Senna (Sennosides) 8.6 Mg Capsule 2 Cap PO HS Clopidogrel (Clopidogrel Bisulfate) 75 Mg Tablet 75 Mg PO DAILY Atorvastatin Calcium 20 Mg Tablet 20 Mg PO HS Vitals/I & O Vital Sign - Last 24 Hours 11/23/19 11/23/19 11/23/19 11/23/19 11:25 11:26 11:26 15:00 Temp 98.6 98.6 Pulse 80 80 80 68 Resp 20 B/P (MAP) 132/47 132/47 132/47 107/40 (62) Pulse Ox 100 O2 Delivery Nasal Cannula O2 Flow Rate 2.0 11/23/19 11/23/19 11/23/19 11/23/19 17:17 19:31 20:04 23:13 Temp 98.6 98.7 98.6 98.7 Pulse 72 83 79 Resp 22 23 B/P (MAP) 140/57 147/57 (87) 136/63 (87) Pulse Ox 100 98 O2 Delivery Room Air Room Air Room Air 11/24/19 11/24/19 11/24/19 11/24/19 03:35 07:00 07:46 08:40 Temp 98.9 98.1 98.9 98.1 Pulse 81 77 77 Resp 21 21 B/P (MAP) 151/72 (98) 121/50 (73) 121/50 Pulse Ox 95 91 O2 Delivery Room Air Room Air Room Air 11/24/19 11/24/19 08:40 08:41 Pulse 77 77 B/P (MAP) 121/50 121/50 Intake and Output 11/23/19 11/23/19 11/24/19 15:00 23:00 07:00 Intake Total 50 ml 200 ml Output Total 60 ml Balance 50 ml 140 ml REEMA DEVLIN MD Nov 24, 2019 11:02
--- NOTE | 2019-11-24 13:15 | PDOC ---
SUBJECTIVE ROS tolerating HD OBJECTIVE Vital Signs Vital Signs Date Time Temp Pulse Resp B/P (MAP) Pulse Ox O2 Delivery O2 Flow Rate FiO2 11/24/19 08:41 77 121/50 11/24/19 07:46 Room Air 11/24/19 07:00 98.1 21 91 98.1 11/23/19 15:00 2.0 I & 0 Intake and Output 11/24/19 07:00 Intake Total 250 ml Output Total 60 ml Balance 190 ml Intake Oral 150 ml IV Total 100 ml Output Urine Total 60 ml # Voids 1 # Bowel Movements 2 PHYSICAL EXAM Physical Exam GENERAL NAD HENT: OM moist NECK: Supple LUNGS: CTA, nonlaored HEART: S1, S2. ABDOMEN: Obese, soft, nontender EXTREMITIES: Trace edema, chronic venous stasis changes present. NEUROLOGIC: grossly normal No arias DERM- No rash DIAGNOSIS/ASSESSMENT Assessment & Plan ESRD- On HD TTS seen on HD, tolerating well, continue a sordered, Dw [place] Acute encephalopathy - 2/2 HCAP,hypoglycemia, metabolic or worsening of her baseline psychosis from schizophrenia. HCAP -on Abx HTN - controlled H/O CVA Anemia RADHA per protocol Diabetes History of influenza, treated with Tamiflu Schizophrenia. COMMENT/RELEVANT DATA Meds Current Medications Medications (Trade) Dose Ordered Sig/Mona Start Time Stop Time Status Last Admin Dose Admin Acetaminophen (Tylenol Supp) 650 mg PRN Q6HRS PRN 11/23/19 06:00 Acetaminophen (Tylenol) 650 mg PRN Q4HRS PRN 11/24/19 04:00 11/24/19 04:01 650 MG Al Hydroxide/Mg Hydroxide (Mylanta Plus Xs) 30 ml PRN Q6HRS PRN 11/23/19 08:00 Amlodipine Besylate (Norvasc) 10 mg DAILY 11/23/19 09:00 11/24/19 08:41 10 MG Aripiprazole (Abilify) 10 mg DAILY 11/23/19 09:00 11/24/19 08:40 10 MG Ascorbic Acid (Vitamin C) 500 mg DAILY 11/24/19 09:00 11/24/19 08:39 500 MG Atorvastatin Calcium (Lipitor) 20 mg HS 11/23/19 21:00 11/23/19 20:57 20 MG Carvedilol (Coreg) 12.5 mg BIDWMEALS 11/23/19 09:00 11/24/19 08:40 12.5 MG Cinacalcet (Sensipar) 30 mg DAILY 11/23/19 09:00 11/24/19 08:40 30 MG Clopidogrel Bisulfate (Plavix) 75 mg DAILY 11/23/19 09:00 11/24/19 08:40 75 MG Dextrose (Dextrose 50%-Water Syringe) 12.5 gm PRN Q15MIN PRN 11/23/19 08:00 Heparin Sodium (Porcine) (Heparin Sodium) 5,000 unit Q8HRS 11/23/19 14:00 11/24/19 06:19 5,000 UNIT Info (PHARMACY MONITORING -- do not chart) 1 each PRN DAILY PRN 11/24/19 11:00 UNV Insulin Glargine (Lantus Syringe) 10 unit QHS 11/23/19 21:00 11/23/19 20:58 10 UNIT Insulin Human Lispro (HumaLOG) 0-5 UNITS TIDWMEALS 11/23/19 08:00 11/24/19 08:51 3 UNITS Ipratropium [place] (Atrovent) 0.2 mg PRN Q4HRS PRN 11/23/19 08:00 Isosorbide Mononitrate (Imdur) 60 mg DAILY 11/23/19 09:00 11/24/19 08:40 60 MG Lactobacillus Rhamnosus (Culturelle) 1 cap BID 11/24/19 21:00 Levofloxacin/ Dextrose 100 ml @ 100 mls/hr Q48H 11/25/19 06:00 Levofloxacin/ Dextrose (Levaquin Per Pharmacy) 1 each PRN DAILY PRN 11/23/19 08:00 Multivitamins (Thera M Plus) 1 tab DAILY 11/24/19 09:00 11/24/19 08:40 1 TAB Ondansetron HCl (Zofran Odt) 4 mg PRN Q6HRS PRN 11/23/19 08:00 Piperacillin Sod/ Tazobactam Sod 2.25 gm/Sodium Chloride 50 ml @ 100 mls/hr Q6HRS 11/23/19 18:00 11/24/19 06:20 100 MLS/HR Polyethylene Glycol (miraLAX PACKET) 17 gm DAILY 11/23/19 09:00 11/24/19 08:41 17 GM Quetiapine Fumarate (SEROquel) 50 mg 1X ONCE 11/23/19 23:30 11/23/19 23:31 DC 11/23/19 23:40 50 MG Sevelamer Carbonate (Renvela) 3,200 mg TIDWMEALS 11/23/19 09:00 11/24/19 08:39 3,200 MG Simethicone (Gas-X) 80 mg PRN Q6HRS PRN 11/24/19 00:45 Sodium Chloride 250 ml @ 250 mls/hr 1X ONCE 11/23/19 05:00 11/23/19 05:59 DC 11/23/19 05:36 250 MLS/HR Vancomycin HCl (Vanco Per Pharmacy) 1 each PRN DAILY PRN 11/23/19 17:15 11/23/19 17:17 1 EACH Vancomycin HCl (Vancomycin Random Level) 1 each 1X ONCE 11/25/19 06:00 11/25/19 06:01 Vancomycin HCl 2 gm/Sodium Chloride 500 ml @ 250 mls/hr 1X ONCE 11/23/19 06:00 11/23/19 07:59 DC 11/23/19 06:18 250 MLS/HR Lab Laboratory Tests Test 11/23/19 16:51 11/23/19 20:43 11/24/19 04:10 11/24/19 07:23 Glucose (Fingerstick) 146 mg/dL (70-99) 269 mg/dL (70-99) 229 mg/dL (70-99) White Blood Count 5.9 x10^3/uL (4.0-11.0) Red Blood Count 2.33 x10^6/uL (3.50-5.40) Hemoglobin 7.4 g/dL (12.0-15.5) Hematocrit 22.5 % (36.0-47.0) Mean Corpuscular Volume 97 fL (79-100) Mean Corpuscular Hemoglobin 32 pg (25-35) Mean Corpuscular Hemoglobin Concent 33 g/dL (31-37) Red Cell Distribution Width 16.3 % (11.5-14.5) Platelet Count 324 x10^3/uL (140-400) Neutrophils (%) (Auto) 77 % (31-73) Lymphocytes (%) (Auto) 9 % (24-48) Monocytes (%) (Auto) 9 % (0-9) Eosinophils (%) (Auto) 4 % (0-3) Basophils (%) (Auto) 0 % (0-3) Neutrophils # (Auto) 4.6 x10^3/uL (1.8-7.7) Lymphocytes # (Auto) 0.5 x10^3/uL (1.0-4.8) Monocytes # (Auto) 0.5 x10^3/uL (0.0-1.1) Eosinophils # (Auto) 0.3 x10^3/uL (0.0-0.7) Basophils # (Auto) 0.0 x10^3/uL (0.0-0.2) Sodium Level 135 mmol/L (136-145) Potassium Level 3.5 mmol/L (3.5-5.1) Chloride Level 95 mmol/L (98-107) Carbon Dioxide Level 28 mmol/L (21-32) Anion Gap 12 (6-14) Blood Urea Nitrogen 27 mg/dL (7-20) Creatinine 6.9 mg/dL (0.6-1.0) Estimated GFR (Cockcroft-Gault) 7.4 Glucose Level 238 mg/dL (70-99) Calcium Level 8.4 mg/dL (8.5-10.1) Results All relevant outside records, renal labs, imaging studies, telemetry/EKG's were reviewed. LOLA BUSBY MD Nov 24, 2019 13:14
[2019-11-24] MEDS: VANCOMYCIN PER PHARMACY MC PRN (13:53)
[2019-11-24 14:15] VITALS: BP 177/64
[2019-11-24 19:30] VITALS: BP 156/61
[2019-11-24] MEDS: LACTOBACILLUS RHAMNOSUS GG 1 CAPSULE. PO SCH (20:55)
[2019-11-24] MEDS: QUEtiapine 100 MG TABLET. PO SCH (20:55)
[2019-11-24] MEDS: ATORVASTATIN CALCIUM 20 MG TABLET PO SCH (20:56)
[2019-11-24] MEDS: INSULIN GLARGINE SYRINGE. SQ SCH (21:05)
[2019-11-24 23:46] VITALS: BP 190/66
[2019-11-25] VITALS (7 sets, daily range): BP systolic 140–233; BP diastolic 63–89
[2019-11-25 04:58] LABS: BASO % 1 % (0-3); EOS # 0.2 x10^3/uL (0.0-0.7); EOS % 7 % (0-3); HEMATOCRIT 21.3 % (36.0-47.0); HEMOGLOBIN 7.1 g/dL (12.0-15.5); LYMPH # 0.5 x10^3/uL (1.0-4.8); LYMPH % 13 % (24-48); MEAN CORPUSCULAR HEMOGLOBIN 32 pg (25-35); MEAN CORPUSCULAR HGB CONC 33 g/dL (31-37); MEAN CORPUSCULAR VOLUME 96 fL (79-100); MONO # 0.5 x10^3/uL (0.0-1.1); MONO % 14 % (0-9); NEUT # 2.4 x10^3/uL (1.8-7.7); NEUT % 67 % (31-73); PLATELET COUNT 324 x10^3/uL (140-400); RED BLOOD COUNT 2.23 x10^6/uL (3.50-5.40); RED CELL DISTRIBUTION WIDTH 16.2 % (11.5-14.5); WHITE BLOOD COUNT 3.6 x10^3/uL (4.0-11.0)
[2019-11-25 05:23] LABS: ALBUMIN 2.2 g/dL (3.4-5.0); ALBUMIN/GLOBULIN RATIO 0.4 (1.0-1.7); CALCIUM 8.6 mg/dL (8.5-10.1); CREATININE 4.7 mg/dL (0.6-1.0); GFR 11.5; POTASSIUM 3.7 mmol/L (3.5-5.1); TOTAL BILIRUBIN 0.3 mg/dL (0.2-1.0); TOTAL PROTEIN 7.4 g/dL (6.4-8.2)
[2019-11-25] MEDS: PIPERACILLIN/TAZOBACTAM 2.25 GM in IV NORMAL SALINE 50ML 50 ML IV SCH ×4 (05:52→23:48)
[2019-11-25] MEDS: HEPARIN for SUB-Q USE 5,000 UNIT/ML VIAL. SQ SCH ×3 (05:59→21:20)
[2019-11-25] MEDS ORDERED: VANCOMYCIN RANDOM LEVEL. MC ONE (06:00)
[2019-11-25] MEDS: VANCOMYCIN PER PHARMACY MC PRN (07:19)
--- NOTE | 2019-11-25 07:25 | NUR ---
Pharmacy Vancomycin Dosing Note S: Consulted to monitor and dose vancomycin started 11/23/19. O: AARON RICKETTS is a 59 year old F with HCAP Other Antibiotics: ZOSYN LEVAQUIN LABS: Last BUN: 12 Last Creatinine: 4.7 Creatinine Clearance: HD TThSa Last WBC: 3.6 Last Procalcitonin: - Tmax (past 24 hours): 98.9 Microbiology: BLOOD: NGTD I/O: 1750/50 Drug Levels: Last Random level: 21.9 on 11/25/19 at 0420 Last dose given 11/23/19 at 0600 Vancomycin Dosing: Dosing Weight: Actual Target Trough: 15-20 A: Based on: random level and dialysis schedule P: 1. Begin Vancomycin 500 mg IV after each dialysis session (starting 11/26) 2. Follow up Random level to be ordered as needed 3. Pharmacy will continue to monitor, follow and adjust therapy as needed. Ann-Marie Rich RPH, 11/25/19 [id number]
[2019-11-25] MEDS: INSULIN LISPRO 300 UNITS/3 ML VIAL. SQ SCH ×3 (08:00→17:00)
[2019-11-25] MEDS: ASCORBIC ACID 500 MG TABLET PO SCH (08:56)
[2019-11-25] MEDS: amLODIPine BESYLATE 10 MG TABLET PO SCH (08:57)
[2019-11-25] MEDS: LACTOBACILLUS RHAMNOSUS GG 1 CAPSULE. PO SCH ×2 (08:57→21:19)
[2019-11-25] MEDS: SEVELAMER CARBONATE 800 MG TABLET. PO SCH ×3 (08:57→18:06)
[2019-11-25] MEDS: CLOPIDOGREL BISULFATE 75 MG TABLET PO SCH (08:57)
[2019-11-25] MEDS: ARIPiprazole 5 MG TABLET PO SCH (08:57)
[2019-11-25] MEDS: CINACALCET HCL 30 MG TABLET PO SCH (08:57)
[2019-11-25] MEDS: QUEtiapine 25 MG TABLET. PO SCH ×3 (08:57→18:04)
[2019-11-25] MEDS: ISOSORBIDE MONONITRATE ER 30 MG TAB.ER.24H PO SCH (08:57)
[2019-11-25] MEDS: MULTIVITAMIN with MINERAL TABLET. PO SCH (08:57)
[2019-11-25] MEDS: CARVEDILOL 12.5 MG TABLET. PO SCH ×2 (08:58→18:03)
[2019-11-25] MEDS: POLYETHYLENE GLYCOL 3350 17 GM PACKET. PO SCH (08:58)
--- NOTE | 2019-11-25 10:44 | NUR ---
Bedside Swallow Evaluation completed. Please refer to full report in intervention section for additional information. Impressions: Mild oral dysphagia w/ poor dentition and decrease cognitive status contributing to decreased safety for regular diet. Pt would benefit from modified diet of dysphagia II ([facility] soft) and thin liquids along w/ swallow precautions and checking for pocketing after meals. Recommendations: Dysphagia II diet w/ thin liquids, swallow precautions, ST f/u to assess swallow safety. d/w [place]
[2019-11-25] MEDS ORDERED: LIDOCAINE 1% Multi-Dose 20 ML VIAL. INJ ONE (11:00)
[2019-11-25] MEDS ORDERED: LIDOCAINE 1% Multi-Dose 20 ML VIAL. ONE (11:29)
--- NOTE | 2019-11-25 12:10 | PDOC ---
Date and Time I was called for an IV for antibiotics. Apparently Ext jugular that was present was pulled out. On exam there are no peripheral veins that I can even see to try and her dialysis access is in the left arm. I recommended a PIC line. Patient has multiple scars on her neck and thorax from prior central lines and my belief that a PIC would be both safer and easier. Renal notified and asked that PIC not be done but rather she have a central line. Taken to PACU, Matthiasaria- not able to see a right carotid or IJ R external jugular sterile technique. 1% lidocaine. R EJ easily entered multiple times but wire would not advance more than 3 cm out of the needle. I tried multiple times and despite good flow wire would not advance. I then tried R subclavian in a location where 4 previous access scars were present. I was not able to get blood return. I sutured a 2.5 inch 18g catheter in the R EJ. There is free blood return and catheter easily flushes. I believe that the patient has a clot or scar in her central venous system that is preventing a wire from advancing. I spent 75 minutes with the patient. In the future should she need IV access she needs to have a PIC line, IR attempt central line placement or a surgical cutdown. Current Medications Current Medications Piperacillin Sod/ Tazobactam Sod 2.25 gm/Sodium Chloride 100 ml @ 200 mls/hr 1X ONCE IV Last administered on 11/23/19at 05:50; Start 11/23/19 at 05:45; Stop 11/23/19 at 06:14; Status DC Vancomycin HCl (Vanco Per Pharmacy) 1 each 1X ONCE MC ; Start 11/23/19 at 06:00; Stop 11/23/19 at 06:04; Status DC Sodium Chloride 250 ml @ 250 mls/hr 1X ONCE IV Last administered on 11/23/19at 05:36; Start 11/23/19 at 05:00; Stop 11/23/19 at 05:59; Status DC Acetaminophen (Tylenol Supp) 650 mg 1X ONCE ND Last administered on 11/23/19at 05:13; Start 11/23/19 at 05:00; Stop 11/23/19 at 05:07; Status DC Vancomycin HCl 2 gm/Sodium Chloride 500 ml @ 250 mls/hr 1X ONCE IV Last administered on 11/23/19at 06:18; Start 11/23/19 at 06:00; Stop 11/23/19 at 07:59; Status DC Levofloxacin/ Dextrose 150 ml @ 100 mls/hr 1X ONCE IV Last administered on 11/23/19at 06:17; Start 11/23/19 at 06:00; Stop 11/23/19 at 07:29; Status DC Acetaminophen (Tylenol Supp) 650 mg PRN Q6HRS PRN ND FEVER; Start 11/23/19 at 06:00 Piperacillin Sod/ Tazobactam Sod 2.25 gm/Sodium Chloride 50 ml @ 100 mls/hr Q6HRS IV Last administered on 11/25/19at 05:52; Start 11/23/19 at 18:00 Vancomycin HCl (Vanco Per Pharmacy) 1 each PRN DAILY PRN MC SEE COMMENTS; St art 11/23/19 at 06:00; Stop 11/23/19 at 06:03; Status DC Dextrose (Dextrose 50%-Water Syringe) 12.5 gm 1X ONCE IV Last administered on 11/23/19at 06:13; Start 11/23/19 at 06:15; Stop 11/23/19 at 06:16; Status DC Acetaminophen (Tylenol) 650 mg PRN Q4HRS PO ; Start 11/23/19 at 08:00; Stop 11/24/19 at 03:56; Status DC Amlodipine Besylate (Norvasc) 10 mg DAILY PO Last administered on 11/25/19at 08:57; Start 11/23/19 at 09:00 Atorvastatin Calcium (Lipitor) 20 mg HS PO Last administered on 11/24/19at 20:56; Start 11/23/19 at 21:00 Carvedilol (Coreg) 12.5 mg BIDWMEALS PO Last administered on 11/25/19at 08:58; Start 11/23/19 at 09:00 Cinacalcet (Sensipar) 30 mg DAILY PO Last administered on 11/25/19at 08:57; Start 11/23/19 at 09:00 Clopidogrel Bisulfate (Plavix) 75 mg DAILY PO Last administered on 11/25/19at 08:57; Start 11/23/19 at 09:00 Ipratropium [place] (Atrovent) 0.2 mg PRN Q4HRS PRN IH shortness of breath; Start 11/23/19 at 08:00 Isosorbide Mononitrate (Imdur) 60 mg DAILY PO Last administered on 11/25/19 08:57; Start 11/23/19 at 09:00 Al Hydroxide/Mg Hydroxide (Mylanta Plus Xs) 30 ml PRN Q6HRS PRN PO INDIGESTION; Start 11/23/19 at 08:00 Ondansetron HCl (Zofran Odt) 4 mg PRN Q6HRS PRN PO NAUSEA; Start 11/23/19 at 08:00 Polyethylene Glycol (miraLAX PACKET) 17 gm DAILY PO Last administered on 11/24/19 08:41; Start 11/23/19 at 09:00 Sevelamer Carbonate (Renvela) 3,200 mg TIDWMEALS PO Last administered on 11/25/19 08:57; Start 11/23/19 at 09:00 Simethicone (Gas-X) 80 mg Q6HRS PO Last administered on 11/23/19at 17:14; Start 11/23/19 at 12:00; Stop 11/24/19 at 00:42; Status DC Aripiprazole (Abilify) 10 mg DAILY PO Last administered on 11/25/19 08:57; Start 11/23/19 at 09:00 Insulin Glargine (Lantus Syringe) 10 unit QHS SQ Last administered on 11/24/19at 21:05; Start 11/23/19 at 21:00 Quetiapine Fumarate (SEROquel) 50 mg QHS PO Last administered on 11/23/19at 20:57; Start 11/23/19 at 21:00; Stop 11/23/19 at 21:26; Status DC Quetiapine Fumarate (SEROquel) 50 mg TID PO Last administered on 11/23/19 16:06; Start 11/23/19 at 09:00; Stop 11/23/19 at 21:21; Status DC Levofloxacin/ Dextrose (Levaquin Per Pharmacy) 1 each PRN DAILY PRN MC SEE COMMENTS; Start 11/23/19 at 08:00 Heparin Sodium (Porcine) (Heparin Sodium) 5,000 unit Q8HRS SQ Last administered on 11/25/19at 05:59; Start 11/23/19 at 14:00 Insulin Human Lispro (HumaLOG) 0-5 UNITS TIDWMEALS SQ Last administered on 11/24/19at 16:57; Start 11/23/19 at 08:00 Dextrose (Dextrose 50%-Water Syringe) 12.5 gm PRN Q15MIN PRN IV SEE COMMENTS; Start 11/23/19 at 08:00 Levofloxacin/ Dextrose 100 ml @ 100 mls/hr Q48H IV ; Start 11/25/19 at 06:00 Vancomycin HCl (Vanco Per Pharmacy) 1 each PRN DAILY PRN MC SEE COMMENTS Last administered on 11/25/19at 07:19; Start 11/23/19 at 17:15 Vancomycin HCl (Vancomycin Random Level) 1 each 1X ONCE MC Last administered on 11/25/19at 06:00; Start 11/25/19 at 06:00; Stop 11/25/19 at 06:01; Status DC Quetiapine Fumarate (SEROquel) 50 mg TIDWMEALS PO Last administered on 11/25/19at 08:57; Start 11/24/19 at 08:00 Quetiapine Fumarate (SEROquel) 100 mg QHS PO Last administered on 11/24/19at 20:55; Start 11/24/19 at 21:00 Quetiapine Fumarate (SEROquel) 50 mg 1X PO ; Start 11/23/19 at 21:30; Status Cancel Quetiapine Fumarate (SEROquel) 25 mg 1X ONCE PO ; Start 11/23/19 at 22:45; Stop 11/23/19 at 22:46; Status Cancel Quetiapine Fumarate (SEROquel) 50 mg 1X ONCE PO Last administered on 11/23/19at 23:40; Start 11/23/19 at 23:30; Stop 11/23/19 at 23:31; Status DC Simethicone (Gas-X) 80 mg PRN Q6HRS PRN PO HEARTBURN / GAS; Start 11/24/19 at 00:45 Acetaminophen (Tylenol) 650 mg PRN Q4HRS PRN PO PAIN Last administered on 11/24/19at 20:58; Start 11/24/19 at 04:00 Ascorbic Acid (Vitamin C) 500 mg DAILY PO Last administered on 11/25/19at 08:56; Start 11/24/19 at 09:00 Multivitamins (Thera M Plus) 1 tab DAILY PO Last administered on 11/25/19at 08:57; Start 11/24/19 at 09:00 Lactobacillus Rhamnosus (Culturelle) 1 cap BID PO Last administered on 11/25/19at 08:57; Start 11/24/19 at 21:00 Info (PHARMACY MONITORING -- do not chart) 1 each PRN DAILY PRN MC SEE COMMENTS; Start 11/24/19 at 11:00 Info (PHARMACY MONITORING -- do not chart) 1 each PRN DAILY PRN MC SEE COMMENTS; Start 11/24/19 at 11:00; Status UNV Vancomycin HCl 500 mg/Sodium Chloride 100 ml @ 100 mls/hr QTUTHSA IV ; Start 11/27/19 at 16:00 Lidocaine HCl (Lidocaine 1% 20ml Vial) 20 ml STK-MED ONCE .ROUTE ; Start 11/25/19 at 11:29; Stop 11/25/19 at 11:29; Status DC Active Scripts Active Tamiflu (Oseltamivir Phosphate) 30 Mg Capsule 1 Cap PO BID Ondansetron Odt (Ondansetron) 4 Mg Tab.rapdis 1 Tab PO PRN Q6-8HRS PRN Isosorbide Mononitrate Er (Isosorbide Mononitrate) 30 Mg Tab.er.24h 2 Tab PO DAILY Reported Seroquel (Quetiapine Fumarate) 100 Mg Tablet 1 Tab PO QHS Ipratropium [place] 0.2 Mg/1 Ml Solution 0.2 Mg IH PRN Q4HRS Ipratropium [place] 0.2 Mg/1 Ml Solution 1 Vial NEB QID Gabapentin (Gabapentin) 100 Mg Capsule 200 Mg PO HS Gabapentin (Gabapentin) 100 Mg Capsule 100 Mg PO BIDACBL Miralax (Polyethylene Glycol 3350) 17 Gm Powd.pack 1 Packet PO DAILY dissolve in water Sensipar (Cinacalcet Hcl) 30 Mg Tablet 1 Tab PO DAILY 30 Days Seroquel (Quetiapine Fumarate) 50 Mg Tablet 50 Mg PO TID Diazepam 5 Mg Tablet 5 Mg PO QTUTHSA Carvedilol (Carvedilol) 12.5 Mg Tablet 12.5 Mg PO BIDWMEALS Theragran-M Premier 50+ Caplet (Mv-Mn/Fa/Coq10/Lycopene/Lutein) 1 Each Tablet 1 Each PO DAILY Novolog (Insulin Aspart) 100 Unit/1 Ml Cartridge 5 Unit SQ TIDAC sliding scale 151-200: 2 units 201-250: 4 units 251-300: 6 units 301-349:8 units Diazepam 5 Mg Tablet 5 Mg PO HS Levemir Flextouch (Insulin Detemir) 100 Unit/1 Ml Insuln.pen 20 Unit SQ HS Catapres-Tts 3 (Clonidine) 1 Each Patch.tdwk 1 Each TD WEEKLY Tylenol (Acetaminophen) 325 Mg Tablet 2 Tab PO PRN Q4HRS Simethicone 80 Mg Tab.chew 80 Mg PO PRN Q6HRS PRN Abilify (Aripiprazole) 10 Mg Tablet 10 Mg PO DAILY Losartan Potassium 100 Mg Tablet 100 Mg PO DAILY Maalox Maximum Strength Susp (Mag Hydrox/Al Hydrox/Simeth) 355 Ml Oral.susp 30 Ml PO PRN Q6HRS PRN [place] 3 Fish Oil Softgel ([place]-3 Fatty Acids/Fish Oil) 1 Each Capsule. 1 Each PO DAILY Amlodipine Besylate 10 Mg Tablet 10 Mg PO DAILY Renvela (Sevelamer Carbonate) 800 Mg Tablet 4 Cap PO TIDWMEALS Senna (Sennosides) 8.6 Mg Capsule 2 Cap PO HS Clopidogrel (Clopidogrel Bisulfate) 75 Mg Tablet 75 Mg PO DAILY Atorvastatin Calcium 20 Mg Tablet 20 Mg PO HS Pertinent Labs/Test Laboratory Tests Test 11/23/19 16:51 11/23/19 20:43 11/24/19 04:10 11/24/19 07:23 Glucose (Fingerstick) 146 mg/dL (70-99) 269 mg/dL (70-99) 229 mg/dL (70-99) White Blood Count 5.9 x10^3/uL (4.0-11.0) Red Blood Count 2.33 x10^6/uL (3.50-5.40) Hemoglobin 7.4 g/dL (12.0-15.5) Hematocrit 22.5 % (36.0-47.0) Mean Corpuscular Volume 97 fL (79-100) Mean Corpuscular Hemoglobin 32 pg (25-35) Mean Corpuscular Hemoglobin Concent 33 g/dL (31-37) Red Cell Distribution Width 16.3 % (11.5-14.5) Platelet Count 324 x10^3/uL (140-400) Neutrophils (%) (Auto) 77 % (31-73) Lymphocytes (%) (Auto) 9 % (24-48) Monocytes (%) (Auto) 9 % (0-9) Eosinophils (%) (Auto) 4 % (0-3) Basophils (%) (Auto) 0 % (0-3) Neutrophils # (Auto) 4.6 x10^3/uL (1.8-7.7) Lymphocytes # (Auto) 0.5 x10^3/uL (1.0-4.8) Monocytes # (Auto) 0.5 x10^3/uL (0.0-1.1) Eosinophils # (Auto) 0.3 x10^3/uL (0.0-0.7) Basophils # (Auto) 0.0 x10^3/uL (0.0-0.2) Sodium Level 135 mmol/L (136-145) Potassium Level 3.5 mmol/L (3.5-5.1) Chloride Level 95 mmol/L (98-107) Carbon Dioxide Level 28 mmol/L (21-32) Anion Gap 12 (6-14) Blood Urea Nitrogen 27 mg/dL (7-20) Creatinine 6.9 mg/dL (0.6-1.0) Estimated GFR (Cockcroft-Gault) 7.4 Glucose Level 238 mg/dL (70-99) Calcium Level 8.4 mg/dL (8.5-10.1) Test 11/24/19 16:35 11/24/19 20:48 11/25/19 03:31 11/25/19 04:20 Glucose (Fingerstick) 234 mg/dL (70-99) 284 mg/dL (70-99) 165 mg/dL (70-99) White Blood Count 3.6 x10^3/uL (4.0-11.0) Red Blood Count 2.23 x10^6/uL (3.50-5.40) Hemoglobin 7.1 g/dL (12.0-15.5) Hematocrit 21.3 % (36.0-47.0) Mean Corpuscular Volume 96 fL (79-100) Mean Corpuscular Hemoglobin 32 pg (25-35) Mean Corpuscular Hemoglobin Concent 33 g/dL (31-37) Red Cell Distribution Width 16.2 % (11.5-14.5) Platelet Count 324 x10^3/uL (140-400) Neutrophils (%) (Auto) 67 % (31-73) Lymphocytes (%) (Auto) 13 % (24-48) Monocytes (%) (Auto) 14 % (0-9) Eosinophils (%) (Auto) 7 % (0-3) Basophils (%) (Auto) 1 % (0-3) Neutrophils # (Auto) 2.4 x10^3/uL (1.8-7.7) Lymphocytes # (Auto) 0.5 x10^3/uL (1.0-4.8) Monocytes # (Auto) 0.5 x10^3/uL (0.0-1.1) Eosinophils # (Auto) 0.2 x10^3/uL (0.0-0.7) Basophils # (Auto) 0.0 x10^3/uL (0.0-0.2) Sodium Level 136 mmol/L (136-145) Potassium Level 3.7 mmol/L (3.5-5.1) Chloride Level 97 mmol/L (98-107) Carbon Dioxide Level 31 mmol/L (21-32) Anion Gap 8 (6-14) Blood Urea Nitrogen 12 mg/dL (7-20) Creatinine 4.7 mg/dL (0.6-1.0) Estimated GFR (Cockcroft-Gault) 11.5 BUN/Creatinine Ratio 3 (6-20) Glucose Level 162 mg/dL (70-99) Calcium Level 8.6 mg/dL (8.5-10.1) Total Bilirubin 0.3 mg/dL (0.2-1.0) Aspartate Amino Transf (AST/SGOT) 37 U/L (15-37) Alanine Aminotransferase (ALT/SGPT) 22 U/L (14-59) Alkaline Phosphatase 94 U/L (46-116) Total Protein 7.4 g/dL (6.4-8.2) Albumin 2.2 g/dL (3.4-5.0) Albumin/Globulin Ratio 0.4 (1.0-1.7) Random Vancomycin Level 21.9 mcg/mL Test 11/25/19 07:18 Glucose (Fingerstick) 115 mg/dL (70-99) Laboratory Tests Test 11/24/19 16:35 11/24/19 20:48 11/25/19 03:31 11/25/19 04:20 Glucose (Fingerstick) 234 mg/dL (70-99) 284 mg/dL (70-99) 165 mg/dL (70-99) White Blood Count 3.6 x10^3/uL (4.0-11.0) Red Blood Count 2.23 x10^6/uL (3.50-5.40) Hemoglobin 7.1 g/dL (12.0-15.5) Hematocrit 21.3 % (36.0-47.0) Mean Corpuscular Volume 96 fL (79-100) Mean Corpuscular Hemoglobin 32 pg (25-35) Mean Corpuscular Hemoglobin Concent 33 g/dL (31-37) Red Cell Distribution Width 16.2 % (11.5-14.5) Platelet Count 324 x10^3/uL (140-400) Neutrophils (%) (Auto) 67 % (31-73) Lymphocytes (%) (Auto) 13 % (24-48) Monocytes (%) (Auto) 14 % (0-9) Eosinophils (%) (Auto) 7 % (0-3) Basophils (%) (Auto) 1 % (0-3) Neutrophils # (Auto) 2.4 x10^3/uL (1.8-7.7) Lymphocytes # (Auto) 0.5 x10^3/uL (1.0-4.8) Monocytes # (Auto) 0.5 x10^3/uL (0.0-1.1) Eosinophils # (Auto) 0.2 x10^3/uL (0.0-0.7) Basophils # (Auto) 0.0 x10^3/uL (0.0-0.2) Sodium Level 136 mmol/L (136-145) Potassium Level 3.7 mmol/L (3.5-5.1) Chloride Level 97 mmol/L (98-107) Carbon Dioxide Level 31 mmol/L (21-32) Anion Gap 8 (6-14) Blood Urea Nitrogen 12 mg/dL (7-20) Creatinine 4.7 mg/dL (0.6-1.0) Estimated GFR (Cockcroft-Gault) 11.5 BUN/Creatinine Ratio 3 (6-20) Glucose Level 162 mg/dL (70-99) Calcium Level 8.6 mg/dL (8.5-10.1) Total Bilirubin 0.3 mg/dL (0.2-1.0) Aspartate Amino Transf (AST/SGOT) 37 U/L (15-37) Alanine Aminotransferase (ALT/SGPT) 22 U/L (14-59) Alkaline Phosphatase 94 U/L (46-116) Total Protein 7.4 g/dL (6.4-8.2) Albumin 2.2 g/dL (3.4-5.0) Albumin/Globulin Ratio 0.4 (1.0-1.7) Random Vancomycin Level 21.9 mcg/mL Test 11/25/19 07:18 Glucose (Fingerstick) 115 mg/dL (70-99) LAST VITALS Vital Signs Date Time Temp Pulse Resp B/P (MAP) Pulse Ox O2 Delivery O2 Flow Rate FiO2 11/25/19 10:20 98.0 77 26 175/75 (108) 96 Nasal Cannula 2.0 98.0 ASHOK SILVA MD Nov 25, 2019 12:10
--- NOTE | 2019-11-25 12:12 | PDOC ---
PROGRESS NOTES Chief Complaint Chief Complaint developing progressive dementia and over the past year she is ended up on alf. came in with hypoglycemia, mental status change and pneumonia History of Present Illness History of Present Illness VTE Prophylaxis Ordered VTE Prophylaxis Devices: No VTE Pharmacological Prophylaxi: Yes IMPRESSION Acute encephalopathy - 2/2 HCAP, worsening of her baseline psychosis from schizophrenia. Sepsis - 2/2 HCAP HCAP - IV vancomycin, levaquin, zosyn HTN - controlled currently Anemia - of chronic disease Anxiety - will give low dose ativan, valium may not be best for her given her dialysis status and active metabolite H/O CVA - unknown residual deficits. Old left lacunar infarct in corral radiata and BG. Old bilateral cerebellar infarcts. Hypoglycemic encephalopathy with possible seizure Obesity - counseled Chronic cellulitic changes in toes. Diabetes-Type II - will place on sliding scale with hypoglycemia protocol, cut her lantus in half for now High Cholesterol - cont statin End-Stage Renal Disease on HD TuThSa - nephrology consulted Schizophrenia - will cont meds Dizziness - cerebellar ataxia PT to see for gait assessment FEN - ADA renal diet PPX - heparin FULL CODE Dispo - inpatient likely 2 midnights at least, will need antibiotics scheduled with dialysis, vancomycin, and can continue levaquin nephrology consult AM LABS CXR 11/25 emesis with lunch today, holding dinner 11/24 D/W RN Vitals Vitals Vital Signs Date Time Temp Pulse Resp B/P (MAP) Pulse Ox O2 Delivery O2 Flow Rate FiO2 11/25/19 10:20 98.0 77 26 175/75 (108) 96 Nasal Cannula 2.0 98.0 Physical Exam General: Alert, Oriented X3, Cooperative, mild distress Heart: Regular rate, Normal S1 Lungs: Clear, Crackles Abdomen: Normal bowel sounds, Soft, No tenderness, No hepatosplenomegaly, No masses Extremities: No clubbing, No cyanosis, No edema, Normal pulses, No tenderness/swelling Skin: No rashes, No breakdown, No significant lesion Labs LABS PORTABLE CHEST 1V History: Shortness of air Comparison: November 14, 2019 Findings: Low lung volumes. Patchy bilateral mid and lower lung opacities. No pleural effusion. Normal heart size. No pneumothorax. Vascular stent projecting over the left upper chest and upper extremity. Impression: 1. Patchy bilateral pulmonary opacities, right greater than left. Findings may relate to pneumonia or early pulmonary edema. Recommend follow-up. Electronically signed by: Clyde Diaz DO (11/23/2019 5:21 AM) [id number] DICTATED and SIGNED BY: CLYDE DIAZ DO DATE: 11/23/19 0521 Laboratory Tests Test 11/24/19 16:35 11/24/19 20:48 11/25/19 03:31 11/25/19 04:20 Glucose (Fingerstick) 234 mg/dL (70-99) 284 mg/dL (70-99) 165 mg/dL (70-99) White Blood Count 3.6 x10^3/uL (4.0-11.0) Red Blood Count 2.23 x10^6/uL (3.50-5.40) Hemoglobin 7.1 g/dL (12.0-15.5) Hematocrit 21.3 % (36.0-47.0) Mean Corpuscular Volume 96 fL (79-100) Mean Corpuscular Hemoglobin 32 pg (25-35) Mean Corpuscular Hemoglobin Concent 33 g/dL (31-37) Red Cell Distribution Width 16.2 % (11.5-14.5) Platelet Count 324 x10^3/uL (140-400) Neutrophils (%) (Auto) 67 % (31-73) Lymphocytes (%) (Auto) 13 % (24-48) Monocytes (%) (Auto) 14 % (0-9) Eosinophils (%) (Auto) 7 % (0-3) Basophils (%) (Auto) 1 % (0-3) Neutrophils # (Auto) 2.4 x10^3/uL (1.8-7.7) Lymphocytes # (Auto) 0.5 x10^3/uL (1.0-4.8) Monocytes # (Auto) 0.5 x10^3/uL (0.0-1.1) Eosinophils # (Auto) 0.2 x10^3/uL (0.0-0.7) Basophils # (Auto) 0.0 x10^3/uL (0.0-0.2) Sodium Level 136 mmol/L (136-145) Potassium Level 3.7 mmol/L (3.5-5.1) Chloride Level 97 mmol/L (98-107) Carbon Dioxide Level 31 mmol/L (21-32) Anion Gap 8 (6-14) Blood Urea Nitrogen 12 mg/dL (7-20) Creatinine 4.7 mg/dL (0.6-1.0) Estimated GFR (Cockcroft-Gault) 11.5 BUN/Creatinine Ratio 3 (6-20) Glucose Level 162 mg/dL (70-99) Calcium Level 8.6 mg/dL (8.5-10.1) Total Bilirubin 0.3 mg/dL (0.2-1.0) Aspartate Amino Transf (AST/SGOT) 37 U/L (15-37) Alanine Aminotransferase (ALT/SGPT) 22 U/L (14-59) Alkaline Phosphatase 94 U/L (46-116) Total Protein 7.4 g/dL (6.4-8.2) Albumin 2.2 g/dL (3.4-5.0) Albumin/Globulin Ratio 0.4 (1.0-1.7) Random Vancomycin Level 21.9 mcg/mL Test 11/25/19 07:18 Glucose (Fingerstick) 115 mg/dL (70-99) Assessment and Plan Assessmemt and Plan Problems Medical Problems: (1) Altered mental status Status: Acute (2) Fever Status: Acute (3) Hospital acquired PNA Status: Acute (4) Hypoxia Status: Acute Comment Review of Relevant I have reviewed the following items los (where applicable) has been applied. Labs Laboratory Tests Test 11/23/19 16:51 11/23/19 20:43 11/24/19 04:10 11/24/19 07:23 Glucose (Fingerstick) 146 mg/dL (70-99) 269 mg/dL (70-99) 229 mg/dL (70-99) White Blood Count 5.9 x10^3/uL (4.0-11.0) Red Blood Count 2.33 x10^6/uL (3.50-5.40) Hemoglobin 7.4 g/dL (12.0-15.5) Hematocrit 22.5 % (36.0-47.0) Mean Corpuscular Volume 97 fL (79-100) Mean Corpuscular Hemoglobin 32 pg (25-35) Mean Corpuscular Hemoglobin Concent 33 g/dL (31-37) Red Cell Distribution Width 16.3 % (11.5-14.5) Platelet Count 324 x10^3/uL (140-400) Neutrophils (%) (Auto) 77 % (31-73) Lymphocytes (%) (Auto) 9 % (24-48) Monocytes (%) (Auto) 9 % (0-9) Eosinophils (%) (Auto) 4 % (0-3) Basophils (%) (Auto) 0 % (0-3) Neutrophils # (Auto) 4.6 x10^3/uL (1.8-7.7) Lymphocytes # (Auto) 0.5 x10^3/uL (1.0-4.8) Monocytes # (Auto) 0.5 x10^3/uL (0.0-1.1) Eosinophils # (Auto) 0.3 x10^3/uL (0.0-0.7) Basophils # (Auto) 0.0 x10^3/uL (0.0-0.2) Sodium Level 135 mmol/L (136-145) Potassium Level 3.5 mmol/L (3.5-5.1) Chloride Level 95 mmol/L (98-107) Carbon Dioxide Level 28 mmol/L (21-32) Anion Gap 12 (6-14) Blood Urea Nitrogen 27 mg/dL (7-20) Creatinine 6.9 mg/dL (0.6-1.0) Estimated GFR (Cockcroft-Gault) 7.4 Glucose Level 238 mg/dL (70-99) Calcium Level 8.4 mg/dL (8.5-10.1) Test 11/24/19 16:35 11/24/19 20:48 11/25/19 03:31 11/25/19 04:20 Glucose (Fingerstick) 234 mg/dL (70-99) 284 mg/dL (70-99) 165 mg/dL (70-99) White Blood Count 3.6 x10^3/uL (4.0-11.0) Red Blood Count 2.23 x10^6/uL (3.50-5.40) Hemoglobin 7.1 g/dL (12.0-15.5) Hematocrit 21.3 % (36.0-47.0) Mean Corpuscular Volume 96 fL (79-100) Mean Corpuscular Hemoglobin 32 pg (25-35) Mean Corpuscular Hemoglobin Concent 33 g/dL (31-37) Red Cell Distribution Width 16.2 % (11.5-14.5) Platelet Count 324 x10^3/uL (140-400) Neutrophils (%) (Auto) 67 % (31-73) Lymphocytes (%) (Auto) 13 % (24-48) Monocytes (%) (Auto) 14 % (0-9) Eosinophils (%) (Auto) 7 % (0-3) Basophils (%) (Auto) 1 % (0-3) Neutrophils # (Auto) 2.4 x10^3/uL (1.8-7.7) Lymphocytes # (Auto) 0.5 x10^3/uL (1.0-4.8) Monocytes # (Auto) 0.5 x10^3/uL (0.0-1.1) Eosinophils # (Auto) 0.2 x10^3/uL (0.0-0.7) Basophils # (Auto) 0.0 x10^3/uL (0.0-0.2) Sodium Level 136 mmol/L (136-145) Potassium Level 3.7 mmol/L (3.5-5.1) Chloride Level 97 mmol/L (98-107) Carbon Dioxide Level 31 mmol/L (21-32) Anion Gap 8 (6-14) Blood Urea Nitrogen 12 mg/dL (7-20) Creatinine 4.7 mg/dL (0.6-1.0) Estimated GFR (Cockcroft-Gault) 11.5 BUN/Creatinine Ratio 3 (6-20) Glucose Level 162 mg/dL (70-99) Calcium Level 8.6 mg/dL (8.5-10.1) Total Bilirubin 0.3 mg/dL (0.2-1.0) Aspartate Amino Transf (AST/SGOT) 37 U/L (15-37) Alanine Aminotransferase (ALT/SGPT) 22 U/L (14-59) Alkaline Phosphatase 94 U/L (46-116) Total Protein 7.4 g/dL (6.4-8.2) Albumin 2.2 g/dL (3.4-5.0) Albumin/Globulin Ratio 0.4 (1.0-1.7) Random Vancomycin Level 21.9 mcg/mL Test 11/25/19 07:18 Glucose (Fingerstick) 115 mg/dL (70-99) Laboratory Tests Test 11/24/19 16:35 11/24/19 20:48 11/25/19 03:31 11/25/19 04:20 Glucose (Fingerstick) 234 mg/dL (70-99) 284 mg/dL (70-99) 165 mg/dL (70-99) White Blood Count 3.6 x10^3/uL (4.0-11.0) Red Blood Count 2.23 x10^6/uL (3.50-5.40) Hemoglobin 7.1 g/dL (12.0-15.5) Hematocrit 21.3 % (36.0-47.0) Mean Corpuscular Volume 96 fL (79-100) Mean Corpuscular Hemoglobin 32 pg (25-35) Mean Corpuscular Hemoglobin Concent 33 g/dL (31-37) Red Cell Distribution Width 16.2 % (11.5-14.5) Platelet Count 324 x10^3/uL (140-400) Neutrophils (%) (Auto) 67 % (31-73) Lymphocytes (%) (Auto) 13 % (24-48) Monocytes (%) (Auto) 14 % (0-9) Eosinophils (%) (Auto) 7 % (0-3) Basophils (%) (Auto) 1 % (0-3) Neutrophils # (Auto) 2.4 x10^3/uL (1.8-7.7) Lymphocytes # (Auto) 0.5 x10^3/uL (1.0-4.8) Monocytes # (Auto) 0.5 x10^3/uL (0.0-1.1) Eosinophils # (Auto) 0.2 x10^3/uL (0.0-0.7) Basophils # (Auto) 0.0 x10^3/uL (0.0-0.2) Sodium Level 136 mmol/L (136-145) Potassium Level 3.7 mmol/L (3.5-5.1) Chloride Level 97 mmol/L (98-107) Carbon Dioxide Level 31 mmol/L (21-32) Anion Gap 8 (6-14) Blood Urea Nitrogen 12 mg/dL (7-20) Creatinine 4.7 mg/dL (0.6-1.0) Estimated GFR (Cockcroft-Gault) 11.5 BUN/Creatinine Ratio 3 (-20) Glucose Level 162 mg/dL (70-99) Calcium Level 8.6 mg/dL (8.5-10.1) Total Bilirubin 0.3 mg/dL (0.2-1.0) Aspartate Amino Transf (AST/SGOT) 37 U/L (15-37) Alanine Aminotransferase (ALT/SGPT) 22 U/L (14-59) Alkaline Phosphatase 94 U/L (46-116) Total Protein 7.4 g/dL (6.4-8.2) Albumin 2.2 g/dL (3.4-5.0) Albumin/Globulin Ratio 0.4 (1.0-1.7) Random Vancomycin Level 21.9 mcg/mL Test 11/25/19 07:18 Glucose (Fingerstick) 115 mg/dL (70-99) Microbiology 11/23/19 Blood Culture - Preliminary, Resulted NO GROWTH AFTER 2 DAYS Medications Current Medications Piperacillin Sod/ Tazobactam Sod 2.25 gm/Sodium Chloride 100 ml @ 200 mls/hr 1X ONCE IV Last administered on 11/23/19at 05:50; Start 11/23/19 at 05:45; Stop 11/23/19 at 06:14; Status DC Vancomycin HCl (Vanco Per Pharmacy) 1 each 1X ONCE MC ; Start 11/23/19 at 06:00; Stop 11/23/19 at 06:04; Status DC Sodium Chloride 250 ml @ 250 mls/hr 1X ONCE IV Last administered on 11/23/19at 05:36; Start 11/23/19 at 05:00; Stop 11/23/19 at 05:59; Status DC Acetaminophen (Tylenol Supp) 650 mg 1X ONCE [place] Last administered on 11/23/19at 05:13; Start 11/23/19 at 05:00; Stop 11/23/19 at 05:07; Status DC Vancomycin HCl 2 gm/Sodium Chloride 500 ml @ 250 mls/hr 1X ONCE IV Last administered on 11/23/19at 06:18; Start 11/23/19 at 06:00; Stop 11/23/19 at 07:59; Status DC Levofloxacin/ Dextrose 150 ml @ 100 mls/hr 1X ONCE IV Last administered on 11/23/19at 06:17; Start 11/23/19 at 06:00; Stop 11/23/19 at 07:29; Status DC Acetaminophen (Tylenol Supp) 650 mg PRN Q6HRS PRN [place] FEVER; Start 11/23/19 at 06:00 Piperacillin Sod/ Tazobactam Sod 2.25 gm/Sodium Chloride 50 ml @ 100 mls/hr Q6HRS IV Last administered on 11/25/19at 05:52; Start 11/23/19 at 18:00 Vancomycin HCl (Vanco Per Pharmacy) 1 each PRN DAILY PRN MC SEE COMMENTS; Start 11/23/19 at 06:00; Stop 11/23/19 at 06:03; Status DC Dextrose (Dextrose 50%-Water Syringe) 12.5 gm 1X ONCE IV Last administered on 11/23/19at 06:13; Start 11/23/19 at 06:15; Stop 11/23/19 at 06:16; Status DC Acetaminophen (Tylenol) 650 mg PRN Q4HRS PO ; Start 11/23/19 at 08:00; Stop 11/24/19 at 03:56; Status DC Amlodipine Besylate (Norvasc) 10 mg DAILY PO Last administered on 11/25/19 08:57; Start 11/23/19 at 09:00 Atorvastatin Calcium (Lipitor) 20 mg HS PO Last administered on 11/24/19at 20:56; Start 11/23/19 at 21:00 Carvedilol (Coreg) 12.5 mg BIDWMEALS PO Last administered on 11/25/19at 08:58; Start 11/23/19 at 09:00 Cinacalcet (Sensipar) 30 mg DAILY PO Last administered on 11/25/19at 08:57; Start 11/23/19 at 09:00 Clopidogrel Bisulfate (Plavix) 75 mg DAILY PO Last administered on 11/25/19at 08:57; Start 11/23/19 at 09:00 Ipratropium [place] (Atrovent) 0.2 mg PRN Q4HRS PRN IH shortness of breath; Start 11/23/19 at 08:00 Isosorbide Mononitrate (Imdur) 60 mg DAILY PO Last administered on 11/25/19at 08:57; Start 11/23/19 at 09:00 Al Hydroxide/Mg Hydroxide (Mylanta Plus Xs) 30 ml PRN Q6HRS PRN PO INDIGESTION; Start 11/23/19 at 08:00 Ondansetron HCl (Zofran Odt) 4 mg PRN Q6HRS PRN PO NAUSEA; Start 11/23/19 at 08:00 Polyethylene Glycol (miraLAX PACKET) 17 gm DAILY PO Last administered on 11/24/19 08:41; Start 11/23/19 at 09:00 Sevelamer Carbonate (Renvela) 3,200 mg TIDWMEALS PO Last administered on 11/25/19 08:57; Start 11/23/19 at 09:00 Simethicone (Gas-X) 80 mg Q6HRS PO Last administered on 11/23/19 17:14; Start 11/23/19 at 12:00; Stop 11/24/19 at 00:42; Status DC Aripiprazole (Abilify) 10 mg DAILY PO Last administered on 11/25/19 08:57; Start 11/23/19 at 09:00 Insulin Glargine (Lantus Syringe) 10 unit QHS SQ Last administered on 11/24/19 21:05; Start 11/23/19 at 21:00 Quetiapine Fumarate (SEROquel) 50 mg QHS PO Last administered on 11/23/19 20:57; Start 11/23/19 at 21:00; Stop 11/23/19 at 21:26; Status DC Quetiapine Fumarate (SEROquel) 50 mg TID PO Last administered on 11/23/19 16:06; Start 11/23/19 at 09:00; Stop 11/23/19 at 21:21; Status DC Levofloxacin/ Dextrose (Levaquin Per Pharmacy) 1 each PRN DAILY PRN MC SEE COMMENTS; Start 11/23/19 at 08:00 Heparin Sodium (Porcine) (Heparin Sodium) 5,000 unit Q8HRS SQ Last administered on 11/25/19 05:59; Start 11/23/19 at 14:00 Insulin Human Lispro (HumaLOG) 0-5 UNITS TIDWMEALS SQ Last administered on 11/24/19 16:57; Start 11/23/19 at 08:00 Dextrose (Dextrose 50%-Water Syringe) 12.5 gm PRN Q15MIN PRN IV SEE COMMENTS; Start 11/23/19 at 08:00 Levofloxacin/ Dextrose 100 ml @ 100 mls/hr Q48H IV ; Start 11/25/19 at 06:00 Vancomycin HCl (Vanco Per Pharmacy) 1 each PRN DAILY PRN MC SEE COMMENTS Last administered on 11/25/19at 07:19; Start 11/23/19 at 17:15 Vancomycin HCl (Vancomycin Random Level) 1 each 1X ONCE MC Last administered on 11/25/19at 06:00; Start 11/25/19 at 06:00; Stop 11/25/19 at 06:01; Status DC Quetiapine Fumarate (SEROquel) 50 mg TIDWMEALS PO Last administered on 11/25/19at 08:57; Start 11/24/19 at 08:00 Quetiapine Fumarate (SEROquel) 100 mg QHS PO Last administered on 11/24/19at 20:55; Start 11/24/19 at 21:00 Quetiapine Fumarate (SEROquel) 50 mg 1X PO ; Start 11/23/19 at 21:30; Status Cancel Quetiapine Fumarate (SEROquel) 25 mg 1X ONCE PO ; Start 11/23/19 at 22:45; Stop 11/23/19 at 22:46; Status Cancel Quetiapine Fumarate (SEROquel) 50 mg 1X ONCE PO Last administered on 11/23/19at 23:40; Start 11/23/19 at 23:30; Stop 11/23/19 at 23:31; Status DC Simethicone (Gas-X) 80 mg PRN Q6HRS PRN PO HEARTBURN / GAS; Start 11/24/19 at 00:45 Acetaminophen (Tylenol) 650 mg PRN Q4HRS PRN PO PAIN Last administered on 11/24/19at 20:58; Start 11/24/19 at 04:00 Ascorbic Acid (Vitamin C) 500 mg DAILY PO Last administered on 11/25/19 08:56; Start 11/24/19 at 09:00 Multivitamins (Thera M Plus) 1 tab DAILY PO Last administered on 11/25/19 08:57; Start 11/24/19 at 09:00 Lactobacillus Rhamnosus (Culturelle) 1 cap BID PO Last administered on 3/8/20at 08:57; Start 11/24/19 at 21:00 Info (PHARMACY MONITORING -- do not chart) 1 each PRN DAILY PRN MC SEE COMMENTS; Start 11/24/19 at 11:00 Info (PHARMACY MONITORING -- do not chart) 1 each PRN DAILY PRN MC SEE COMMENTS; Start 11/24/19 at 11:00; Status UNV Vancomycin HCl 500 mg/Sodium Chloride 100 ml @ 100 mls/hr QTUTHSA IV ; Start 11/27/19 at 16:00 Lidocaine HCl (Lidocaine 1% 20ml Vial) 20 ml STK-MED ONCE .ROUTE ; Start 11/25/19 at 11:29; Stop 11/25/19 at 11:29; Status DC Active Scripts Active Tamiflu (Oseltamivir Phosphate) 30 Mg Capsule 1 Cap PO BID Ondansetron Odt (Ondansetron) 4 Mg Tab.rapdis 1 Tab PO PRN Q6-8HRS PRN Isosorbide Mononitrate Er (Isosorbide Mononitrate) 30 Mg Tab.er.24h 2 Tab PO DAILY Reported Seroquel (Quetiapine Fumarate) 100 Mg Tablet 1 Tab PO QHS Ipratropium [place] 0.2 Mg/1 Ml Solution 0.2 Mg IH PRN Q4HRS Ipratropium [place] 0.2 Mg/1 Ml Solution 1 Vial NEB QID Gabapentin (Gabapentin) 100 Mg Capsule 200 Mg PO HS Gabapentin (Gabapentin) 100 Mg Capsule 100 Mg PO BIDACBL Miralax (Polyethylene Glycol 3350) 17 Gm Powd.pack 1 Packet PO DAILY dissolve in water Sensipar (Cinacalcet Hcl) 30 Mg Tablet 1 Tab PO DAILY 30 Days Seroquel (Quetiapine Fumarate) 50 Mg Tablet 50 Mg PO TID Diazepam 5 Mg Tablet 5 Mg PO QTUTHSA Carvedilol (Carvedilol) 12.5 Mg Tablet 12.5 Mg PO BIDWMEALS Theragran-M Premier 50+ Caplet (Mv-Mn/Fa/Coq10/Lycopene/Lutein) 1 Each Tablet 1 Each PO DAILY Novolog (Insulin Aspart) 100 Unit/1 Ml Cartridge 5 Unit SQ TIDAC sliding scale 151-200: 2 units 201-250: 4 units 251-300: 6 units 301-349:8 units Diazepam 5 Mg Tablet 5 Mg PO HS Levemir Flextouch (Insulin Detemir) 100 Unit/1 Ml Insuln.pen 20 Unit SQ HS Catapres-Tts 3 (Clonidine) 1 Each Patch.tdwk 1 Each TD WEEKLY Tylenol (Acetaminophen) 325 Mg Tablet 2 Tab PO PRN Q4HRS Simethicone 80 Mg Tab.chew 80 Mg PO PRN Q6HRS PRN Abilify (Aripiprazole) 10 Mg Tablet 10 Mg PO DAILY Losartan Potassium 100 Mg Tablet 100 Mg PO DAILY Maalox Maximum Strength Susp (Mag Hydrox/Al Hydrox/Simeth) 355 Ml Oral.susp 30 Ml PO PRN Q6HRS PRN [place] 3 Fish Oil Softgel ([place]-3 Fatty Acids/Fish Oil) 1 Each Capsule. 1 Each PO DAILY Amlodipine Besylate 10 Mg Tablet 10 Mg PO DAILY Renvela (Sevelamer Carbonate) 800 Mg Tablet 4 Cap PO TIDWMEALS Senna (Sennosides) 8.6 Mg Capsule 2 Cap PO HS Clopidogrel (Clopidogrel Bisulfate) 75 Mg Tablet 75 Mg PO DAILY Atorvastatin Calcium 20 Mg Tablet 20 Mg PO HS Vitals/I & O Vital Sign - Last 24 Hours 11/24/19 11/24/19 11/24/19 11/24/19 14:15 16:52 19:30 19:32 Temp 98.7 98.9 98.7 98.9 Pulse 77 77 82 Resp B/P (MAP) 177/64 (101) 177/64 156/61 (92) Pulse Ox 93 97 O2 Delivery Room Air Room Air Room Air 11/24/19 11/25/19 11/25/19 11/25/19 23:46 03:35 07:15 07:54 Temp 97.9 98.5 97.4 97.9 98.5 97.4 Pulse 81 81 71 Resp 22 26 B/P (MAP) 190/66 (107) 196/73 (114) 145/79 (101) Pulse Ox 94 100 100 O2 Delivery Room Air Nasal Cannula Nasal Cannula Room Air O2 Flow Rate 2.0 2.0 11/25/19 11/25/19 11/25/19 11/25/19 08:57 08:57 08:58 10:20 Temp 98.0 98.0 Pulse 71 71 71 77 Resp 26 B/P (MAP) 145/79 145/79 145/79 175/75 (108) Pulse Ox 96 O2 Delivery Nasal Cannula O2 Flow Rate 2.0 Intake and Output 11/24/19 11/24/19 11/25/19 15:00 23:00 07:00 Intake Total 850 ml 400 ml 500 ml Output Total 50 ml 0 ml Balance 850 ml 350 ml 500 ml REEMA DEVLIN MD Nov 25, 2019 12:12
--- NOTE | 2019-11-25 12:42 | PDOC ---
SUBJECTIVE ROS stable OBJECTIVE Vital Signs Vital Signs Date Time Temp Pulse Resp B/P (MAP) Pulse Ox O2 Delivery O2 Flow Rate FiO2 11/25/19 10:20 98.0 77 26 175/75 (108) 96 Nasal Cannula 2.0 98.0 I & 0 Intake and Output 11/25/19 06:59 Intake Total 1750 ml Output Total 50 ml Balance 1700 ml Intake Oral 1600 ml IV Total 150 ml Output Urine Total 50 ml PHYSICAL EXAM Physical Exam GENERAL NAD HENT: OM moist NECK: Supple LUNGS: CTA, nonlaored HEART: S1, S2. ABDOMEN: Obese, soft, nontender EXTREMITIES: Trace edema, chronic venous stasis changes present. NEUROLOGIC: grossly normal No arias DERM- No rash DIAGNOSIS/ASSESSMENT Assessment & Plan ESRD- On HD TTS No indication today Acute encephalopathy - 2/2 HCAP,hypoglycemia, metabolic or worsening of her baseline psychosis from schizophrenia. HCAP -on Abx HTN - controlled H/O CVA Anemia RADHA per protocol Diabetes History of influenza, treated with Tamiflu Schizophrenia. COMMENT/RELEVANT DATA Meds Current Medications Medications (Trade) Dose Ordered Sig/Mona Start Time Stop Time Status Last Admin Dose Admin Acetaminophen (Tylenol Supp) 650 mg PRN Q6HRS PRN 11/23/19 06:00 Acetaminophen (Tylenol) 650 mg PRN Q4HRS PRN 11/24/19 04:00 11/24/19 20:58 650 MG Al Hydroxide/Mg Hydroxide (Mylanta Plus Xs) 30 ml PRN Q6HRS PRN 11/23/19 08:00 Amlodipine Besylate (Norvasc) 10 mg DAILY 11/23/19 09:00 11/25/19 08:57 10 MG Aripiprazole (Abilify) 10 mg DAILY 11/23/19 09:00 11/25/19 08:57 10 MG Ascorbic Acid (Vitamin C) 500 mg DAILY 11/24/19 09:00 11/25/19 08:56 500 MG Atorvastatin Calcium (Lipitor) 20 mg HS 11/23/19 21:00 11/24/19 20:56 20 MG Carvedilol (Coreg) 12.5 mg BIDWMEALS 11/23/19 09:00 11/25/19 08:58 12.5 MG Cinacalcet (Sensipar) 30 mg DAILY 11/23/19 09:00 11/25/19 08:57 30 MG Clopidogrel Bisulfate (Plavix) 75 mg DAILY 11/23/19 09:00 11/25/19 08:57 75 MG Dextrose (Dextrose 50%-Water Syringe) 12.5 gm PRN Q15MIN PRN 11/23/19 08:00 Heparin Sodium (Porcine) (Heparin Sodium) 5,000 unit Q8HRS 11/23/19 14:00 11/25/19 05:59 5,000 UNIT Info (PHARMACY MONITORING -- do not chart) 1 each PRN DAILY PRN 11/24/19 11:00 UNV Insulin Glargine (Lantus Syringe) 10 unit QHS 11/23/19 21:00 11/24/19 21:05 10 UNIT Insulin Human Lispro (HumaLOG) 0-5 UNITS TIDWMEALS 11/23/19 08:00 11/24/19 16:57 3 UNITS Ipratropium [place] (Atrovent) 0.2 mg PRN Q4HRS PRN 11/23/19 08:00 Isosorbide Mononitrate (Imdur) 60 mg DAILY 11/23/19 09:00 11/25/19 08:57 60 MG Lactobacillus Rhamnosus (Culturelle) 1 cap BID 11/24/19 21:00 11/25/19 08:57 1 CAP Levofloxacin/ Dextrose 100 ml @ 100 mls/hr Q48H 11/25/19 06:00 Levofloxacin/ Dextrose (Levaquin Per Pharmacy) 1 each PRN DAILY PRN 11/23/19 08:00 Lidocaine HCl (Lidocaine 1% 20ml Vial) 20 ml STK-MED ONCE 11/25/19 11:29 11/25/19 11:29 DC Multivitamins (Thera M Plus) 1 tab DAILY 11/24/19 09:00 11/25/19 08:57 1 TAB Ondansetron HCl (Zofran Odt) 4 mg PRN Q6HRS PRN 11/23/19 08:00 Piperacillin Sod/ Tazobactam Sod 2.25 gm/Sodium Chloride 50 ml @ 100 mls/hr Q6HRS 11/23/19 18:00 11/25/19 05:52 100 MLS/HR Polyethylene Glycol (miraLAX PACKET) 17 gm DAILY 11/23/19 09:00 11/24/19 08:41 17 GM Quetiapine Fumarate (SEROquel) 50 mg 1X ONCE 11/23/19 23:30 11/23/19 23:31 DC 11/23/19 23:40 50 MG Sevelamer Carbonate (Renvela) 3,200 mg TIDWMEALS 11/23/19 09:00 11/25/19 08:57 3,200 MG Simethicone (Gas-X) 80 mg PRN Q6HRS PRN 11/24/19 00:45 Sodium Chloride 250 ml @ 250 mls/hr 1X ONCE 11/23/19 05:00 11/23/19 05:59 DC 11/23/19 05:36 250 MLS/HR Vancomycin HCl (Vanco Per Pharmacy) 1 each PRN DAILY PRN 11/23/19 17:15 11/25/19 07:19 1 EACH Vancomycin HCl (Vancomycin Random Level) 1 each 1X ONCE 11/25/19 06:00 11/25/19 06:01 DC 11/25/19 06:00 1 EACH Vancomycin HCl 500 mg/Sodium Chloride 100 ml @ 100 mls/hr QTUTHSA 11/27/19 16:00 Vancomycin HCl 2 gm/Sodium Chloride 500 ml @ 250 mls/hr 1X ONCE 11/23/19 06:00 11/23/19 07:59 DC 11/23/19 06:18 250 MLS/HR Lab Laboratory Tests Test 11/24/19 16:35 11/24/19 20:48 11/25/19 03:31 11/25/19 04:20 Glucose (Fingerstick) 234 mg/dL (70-99) 284 mg/dL (70-99) 165 mg/dL (70-99) White Blood Count 3.6 x10^3/uL (4.0-11.0) Red Blood Count 2.23 x10^6/uL (3.50-5.40) Hemoglobin 7.1 g/dL (12.0-15.5) Hematocrit 21.3 % (36.0-47.0) Mean Corpuscular Volume 96 fL (79-100) Mean Corpuscular Hemoglobin 32 pg (25-35) Mean Corpuscular Hemoglobin Concent 33 g/dL (31-37) Red Cell Distribution Width 16.2 % (11.5-14.5) Platelet Count 324 x10^3/uL (140-400) Neutrophils (%) (Auto) 67 % (31-73) Lymphocytes (%) (Auto) 13 % (24-48) Monocytes (%) (Auto) 14 % (0-9) Eosinophils (%) (Auto) 7 % (0-3) Basophils (%) (Auto) 1 % (0-3) Neutrophils # (Auto) 2.4 x10^3/uL (1.8-7.7) Lymphocytes # (Auto) 0.5 x10^3/uL (1.0-4.8) Monocytes # (Auto) 0.5 x10^3/uL (0.0-1.1) Eosinophils # (Auto) 0.2 x10^3/uL (0.0-0.7) Basophils # (Auto) 0.0 x10^3/uL (0.0-0.2) Sodium Level 136 mmol/L (136-145) Potassium Level 3.7 mmol/L (3.5-5.1) Chloride Level 97 mmol/L (98-107) Carbon Dioxide Level 31 mmol/L (21-32) Anion Gap 8 (6-14) Blood Urea Nitrogen 12 mg/dL (7-20) Creatinine 4.7 mg/dL (0.6-1.0) Estimated GFR (Cockcroft-Gault) 11.5 BUN/Creatinine Ratio 3 (6-20) Glucose Level 162 mg/dL (70-99) Calcium Level 8.6 mg/dL (8.5-10.1) Total Bilirubin 0.3 mg/dL (0.2-1.0) Aspartate Amino Transf (AST/SGOT) 37 U/L (15-37) Alanine Aminotransferase (ALT/SGPT) 22 U/L (14-59) Alkaline Phosphatase 94 U/L (46-116) Total Protein 7.4 g/dL (6.4-8.2) Albumin 2.2 g/dL (3.4-5.0) Albumin/Globulin Ratio 0.4 (1.0-1.7) Random Vancomycin Level 21.9 mcg/mL Test 11/25/19 07:18 Glucose (Fingerstick) 115 mg/dL (70-99) Results All relevant outside records, renal labs, imaging studies, telemetry/EKG's were reviewed. LOLA BUSBY MD Nov 25, 2019 12:42
--- NOTE | 2019-11-25 18:37 | NUR ---
The patient has vomited 3 times today. Once right after starting to eat lunch. It was consistent of what she ate for lunch. The second time was around 2 hours later. The final time was liquid with brown streaks through it. The last one was around 1745.
[2019-11-25] MEDS: QUEtiapine 100 MG TABLET. PO SCH (21:19)
[2019-11-25] MEDS: INSULIN GLARGINE SYRINGE. SQ SCH (21:21)
[2019-11-25] MEDS: ATORVASTATIN CALCIUM 20 MG TABLET PO SCH (21:30)
[2019-11-26 03:10] VITALS: BP 167/73
[2019-11-26] MEDS: PIPERACILLIN/TAZOBACTAM 2.25 GM in IV NORMAL SALINE 50ML 50 ML IV SCH ×4 (05:52→23:03)
[2019-11-26] MEDS: HEPARIN for SUB-Q USE 5,000 UNIT/ML VIAL. SQ SCH ×3 (05:53→21:00)
[2019-11-26 07:00] VITALS: BP_SYST 16; BP_SYST 175; BP_DIAS 60; BP_DIAS 76
[2019-11-26] MEDS: INSULIN LISPRO 300 UNITS/3 ML VIAL. SQ SCH ×3 (08:00→17:00)
--- NOTE | 2019-11-26 08:36 | RAD ---
CHEST AP ONLY History: Pneumonia Comparison: November 23, 2019 Findings: Single view of the chest is submitted. There is some residual hazy right base airspace opacity, likely somewhat decreased. There is again long vascular stent of the left chest extending to the left are. There is no pneumothorax or significant dependent pleural fluid. Pericardial cardiac silhouette is somewhat enlarged although stable. There is small catheter projecting over the right neck not seen on previous exam. Impression: 1. There is some residual mild right base hazy airspace opacity/infiltrate although decreased, no new infiltrate. 2. There is small catheter projecting over the right neck not seen on previous exam, although may be external to the patient. Electronically signed by: Leon Jones MD (11/26/2019 8:33 AM) [id number]
[2019-11-26] MEDS: CLOPIDOGREL BISULFATE 75 MG TABLET PO SCH (08:57)
[2019-11-26] MEDS: POLYETHYLENE GLYCOL 3350 17 GM PACKET. PO SCH (10:07)
[2019-11-26] MEDS: CARVEDILOL 12.5 MG TABLET. PO SCH ×2 (10:08→18:06)
[2019-11-26] MEDS: QUEtiapine 25 MG TABLET. PO SCH ×3 (10:08→18:05)
[2019-11-26] MEDS: LACTOBACILLUS RHAMNOSUS GG 1 CAPSULE. PO SCH ×2 (10:09→20:59)
[2019-11-26] MEDS: ASCORBIC ACID 500 MG TABLET PO SCH (10:09)
[2019-11-26] MEDS: ARIPiprazole 5 MG TABLET PO SCH (10:09)
[2019-11-26] MEDS: CINACALCET HCL 30 MG TABLET PO SCH (10:09)
[2019-11-26] MEDS: MULTIVITAMIN with MINERAL TABLET. PO SCH (10:09)
[2019-11-26] MEDS: amLODIPine BESYLATE 10 MG TABLET PO SCH (10:09)
[2019-11-26] MEDS: ISOSORBIDE MONONITRATE ER 30 MG TAB.ER.24H PO SCH (10:10)
[2019-11-26] MEDS: SEVELAMER CARBONATE 800 MG TABLET. PO SCH ×3 (10:10→18:07)
[2019-11-26 11:00] VITALS: BP 175/72
--- NOTE | 2019-11-26 12:20 | PDOC ---
Renal-Progress Notes Subjective Notes Notes SLEEPING History of Present Illness Hx of present illness STABLE Vitals Vitals Vital Signs Date Time Temp Pulse Resp B/P (MAP) Pulse Ox O2 Delivery O2 Flow Rate FiO2 11/26/19 10:10 69 175/76 11/26/19 08:00 Nasal Cannula 2.0 11/26/19 07:00 98.0 18 98 98.0 Weight Weight [ ] I.O. Intake and Output Intake and Output 11/26/19 07:00 Intake Total 660 ml Output Total 50 ml Balance 610 ml Intake Oral 660 ml Output Urine Total 50 ml Labs Labs Laboratory Tests Test 11/25/19 16:45 11/25/19 20:46 11/26/19 07:48 11/26/19 12:12 Glucose (Fingerstick) 205 mg/dL (70-99) 197 mg/dL (70-99) 166 mg/dL (70-99) 214 mg/dL (70-99) Micro Micro Microbiology 11/23/19 Blood Culture - Preliminary, Resulted NO GROWTH AFTER 3 DAYS Review of Systems Constitutional: yes: other (ASLEEP) Physical Exam General Appearance: no apparent distress Skin: warm, dry Respiratory: bilateral CTA Heart: S1S2 Abdomen: soft, bowel sounds present Genitourinary: bladder flat Extremities: pulses present Musculoskeletal: Osteoarthritis Assessment Assessment IMP HYPOGLYCEMIA MET ENCEPHALOPATHY ANEMIA ESRD SCHIZOPHRENIA PNEUMONIA PLAN HD TTS START RADHA CONT ANTIBIOTICS RAFAEL OSORIO MD Nov 26, 2019 12:20
[2019-11-26 15:00] VITALS: BP 136/65
--- NOTE | 2019-11-26 15:17 | PDOC ---
PROGRESS NOTES Chief Complaint Chief Complaint she asked for more Splenda was sleeping hard, but easy to arouse, no events, vitals improved, cont current came in with hypoglycemia, mental status change and pneumonia History of Present Illness History of Present Illness Acute encephalopathy - 2/2 HCAP, worsening of her baseline psychosis from schizophrenia. Sepsis - 2/2 HCAP HCAP - IV vancomycin, levaquin, zosyn HTN - controlled currently Anemia - of chronic disease Anxiety - will give low dose ativan, valium may not be best for her given her dialysis status and active metabolite H/O CVA - unknown residual deficits. Old left lacunar infarct in corral radiata and BG. Old bilateral cerebellar infarcts. Hypoglycemic encephalopathy with possible seizure Obesity - counseled Chronic cellulitic changes in toes. Diabetes-Type II - will place on sliding scale with hypoglycemia protocol, cut her lantus in half for now High Cholesterol - cont statin End-Stage Renal Disease on HD TuThSa - nephrology consulted Schizophrenia - will cont meds D/W RN Vitals Vitals Vital Signs Date Time Temp Pulse Resp B/P (MAP) Pulse Ox O2 Delivery O2 Flow Rate FiO2 11/26/19 11:00 97.9 71 16 175/72 (106) 97 Room Air 3.0 97.9 Physical Exam General: Alert, Oriented X3, Cooperative, mild distress Heart: Regular rate, Normal S1 Lungs: Clear, Crackles Abdomen: Normal bowel sounds, Soft, No tenderness, No hepatosplenomegaly, No masses Extremities: No clubbing, No cyanosis, No edema, Normal pulses, No tenderness/swelling Skin: No rashes, No breakdown, No significant lesion Labs LABS Laboratory Tests Test 11/25/19 16:45 11/25/19 20:46 11/26/19 07:48 11/26/19 12:12 Glucose (Fingerstick) 205 mg/dL (70-99) 197 mg/dL (70-99) 166 mg/dL (70-99) 214 mg/dL (70-99) Assessment and Plan Assessmemt and Plan Problems Medical Problems: (1) Altered mental status Status: Acute (2) Fever Status: Acute (3) Hospital acquired PNA Status: Acute (4) Hypoxia Status: Acute Comment Review of Relevant I have reviewed the following items los (where applicable) has been applied. Labs Laboratory Tests Test 11/24/19 16:35 11/24/19 20:48 11/25/19 03:31 11/25/19 04:20 Glucose (Fingerstick) 234 mg/dL (70-99) 284 mg/dL (70-99) 165 mg/dL (70-99) White Blood Count 3.6 x10^3/uL (4.0-11.0) Red Blood Count 2.23 x10^6/uL (3.50-5.40) Hemoglobin 7.1 g/dL (12.0-15.5) Hematocrit 21.3 % (36.0-47.0) Mean Corpuscular Volume 96 fL (79-100) Mean Corpuscular Hemoglobin 32 pg (25-35) Mean Corpuscular Hemoglobin Concent 33 g/dL (31-37) Red Cell Distribution Width 16.2 % (11.5-14.5) Platelet Count 324 x10^3/uL (140-400) Neutrophils (%) (Auto) 67 % (31-73) Lymphocytes (%) (Auto) 13 % (24-48) Monocytes (%) (Auto) 14 % (0-9) Eosinophils (%) (Auto) 7 % (0-3) Basophils (%) (Auto) 1 % (0-3) Neutrophils # (Auto) 2.4 x10^3/uL (1.8-7.7) Lymphocytes # (Auto) 0.5 x10^3/uL (1.0-4.8) Monocytes # (Auto) 0.5 x10^3/uL (0.0-1.1) Eosinophils # (Auto) 0.2 x10^3/uL (0.0-0.7) Basophils # (Auto) 0.0 x10^3/uL (0.0-0.2) Sodium Level 136 mmol/L (136-145) Potassium Level 3.7 mmol/L (3.5-5.1) Chloride Level 97 mmol/L (98-107) Carbon Dioxide Level 31 mmol/L (21-32) Anion Gap 8 (6-14) Blood Urea Nitrogen 12 mg/dL (7-20) Creatinine 4.7 mg/dL (0.6-1.0) Estimated GFR (Cockcroft-Gault) 11.5 BUN/Creatinine Ratio 3 (6-20) Glucose Level 162 mg/dL (70-99) Calcium Level 8.6 mg/dL (8.5-10.1) Total Bilirubin 0.3 mg/dL (0.2-1.0) Aspartate Amino Transf (AST/SGOT) 37 U/L (15-37) Alanine Aminotransferase (ALT/SGPT) 22 U/L (14-59) Alkaline Phosphatase 94 U/L (46-116) Total Protein 7.4 g/dL (6.4-8.2) Albumin 2.2 g/dL (3.4-5.0) Albumin/Globulin Ratio 0.4 (1.0-1.7) Random Vancomycin Level 21.9 mcg/mL Test 11/25/19 07:18 11/25/19 16:45 11/25/19 20:46 11/26/19 07:48 Glucose (Fingerstick) 115 mg/dL (70-99) 205 mg/dL (70-99) 197 mg/dL (70-99) 166 mg/dL (70-99) Test 11/26/19 12:12 Glucose (Fingerstick) 214 mg/dL (70-99) Laboratory Tests Test 11/25/19 16:45 11/25/19 20:46 11/26/19 07:48 11/26/19 12:12 Glucose (Fingerstick) 205 mg/dL (70-99) 197 mg/dL (70-99) 166 mg/dL (70-99) 214 mg/dL (70-99) Microbiology 11/23/19 Blood Culture - Preliminary, Resulted NO GROWTH AFTER 3 DAYS Medications Current Medications Piperacillin Sod/ Tazobactam Sod 2.25 gm/Sodium Chloride 100 ml @ 200 mls/hr 1X ONCE IV Last administered on 11/23/19at 05:50; Start 11/23/19 at 05:45; Stop 11/23/19 at 06:14; Status DC Vancomycin HCl (Vanco Per Pharmacy) 1 each 1X ONCE MC ; Start 11/23/19 at 06:00; Stop 11/23/19 at 06:04; Status DC Sodium Chloride 250 ml @ 250 mls/hr 1X ONCE IV Last administered on 11/23/19at 05:36; Start 11/23/19 at 05:00; Stop 11/23/19 at 05:59; Status DC Acetaminophen (Tylenol Supp) 650 mg 1X ONCE ID Last administered on 11/23/19at 05:13; Start 11/23/19 at 05:00; Stop 11/23/19 at 05:07; Status DC Vancomycin HCl 2 gm/Sodium Chloride 500 ml @ 250 mls/hr 1X ONCE IV Last administered on 11/23/19at 06:18; Start 11/23/19 at 06:00; Stop 11/23/19 at 07:59; Status DC Levofloxacin/ Dextrose 150 ml @ 100 mls/hr 1X ONCE IV Last administered on 11/23/19at 06:17; Start 11/23/19 at 06:00; Stop 11/23/19 at 07:29; Status DC Acetaminophen (Tylenol Supp) 650 mg PRN Q6HRS PRN ID FEVER; Start 11/23/19 at 06:00 Piperacillin Sod/ Tazobactam Sod 2.25 gm/Sodium Chloride 50 ml @ 100 mls/hr Q6HRS IV Last administered on 11/26/19at 13:08; Start 11/23/19 at 18:00 Vancomycin HCl (Vanco Per Pharmacy) 1 each PRN DAILY PRN MC SEE COMMENTS; Start 11/23/19 at 06:00; Stop 11/23/19 at 06:03; Status DC Dextrose (Dextrose 50%-Water Syringe) 12.5 gm 1X ONCE IV Last administered on 11/23/19at 06:13; Start 11/23/19 at 06:15; Stop 11/23/19 at 06:16; Status DC Acetaminophen (Tylenol) 650 mg PRN Q4HRS PO ; Start 11/23/19 at 08:00; Stop 11/24/19 at 03:56; Status DC Amlodipine Besylate (Norvasc) 10 mg DAILY PO Last administered on 11/26/19at 10:09; Start 11/23/19 at 09:00 Atorvastatin Calcium (Lipitor) 20 mg HS PO Last administered on 11/25/19at 21:30; Start 11/23/19 at 21:00 Carvedilol (Coreg) 12.5 mg BIDWMEALS PO Last administered on 11/26/19at 10:08; Start 11/23/19 at 09:00 Cinacalcet (Sensipar) 30 mg DAILY PO Last administered on 11/26/19at 10:09; Start 11/23/19 at 09:00 Clopidogrel Bisulfate (Plavix) 75 mg DAILY PO Last administered on 11/26/19 08:57; Start 11/23/19 at 09:00 Ipratropium [place] (Atrovent) 0.2 mg PRN Q4HRS PRN IH shortness of breath; Start 11/23/19 at 08:00 Isosorbide Mononitrate (Imdur) 60 mg DAILY PO Last administered on 11/26/19 10:10; Start 11/23/19 at 09:00 Al Hydroxide/Mg Hydroxide (Mylanta Plus Xs) 30 ml PRN Q6HRS PRN PO INDIGESTION; Start 11/23/19 at 08:00 Ondansetron HCl (Zofran Odt) 4 mg PRN Q6HRS PRN PO NAUSEA Last administered on 11/25/19 21:19; Start 11/23/19 at 08:00 Polyethylene Glycol (miraLAX PACKET) 17 gm DAILY PO Last administered on 11/26/19 10:07; Start 11/23/19 at 09:00 Sevelamer Carbonate (Renvela) 3,200 mg TIDWMEALS PO Last administered on 13:07; Start 11/23/19 at 09:00 Simethicone (Gas-X) 80 mg Q6HRS PO Last administered on 11/23/19 17:14; Start 11/23/19 at 12:00; Stop 11/24/19 at 00:42; Status DC Aripiprazole (Abilify) 10 mg DAILY PO Last administered on 11/26/19 10:09; Start 11/23/19 at 09:00 Insulin Glargine (Lantus Syringe) 10 unit QHS SQ Last administered on 11/25/19 21:21; Start 11/23/19 at 21:00 Quetiapine Fumarate (SEROquel) 50 mg QHS PO Last administered on 11/23/19 20:57; Start 11/23/19 at 21:00; Stop 11/23/19 at 21:26; Status DC Quetiapine Fumarate (SEROquel) 50 mg TID PO Last administered on 11/23/19 16:06; Start 11/23/19 at 09:00; Stop 11/23/19 at 21:21; Status DC Levofloxacin/ Dextrose (Levaquin Per Pharmacy) 1 each PRN DAILY PRN MC SEE COMMENTS; Start 11/23/19 at 08:00 Heparin Sodium (Porcine) (Heparin Sodium) 5,000 unit Q8HRS SQ Last administered on 11/26/19at 05:53; Start 11/23/19 at 14:00 Insulin Human Lispro (HumaLOG) 0-5 UNITS TIDWMEALS SQ Last administered on 11/26/19at 13:15; Start 11/23/19 at 08:00 Dextrose (Dextrose 50%-Water Syringe) 12.5 gm PRN Q15MIN PRN IV SEE COMMENTS; Start 11/23/19 at 08:00 Levofloxacin/ Dextrose 100 ml @ 100 mls/hr Q48H IV Last administered on 11/25/19at 13:48; Start 11/25/19 at 06:00 Vancomycin HCl (Vanco Per Pharmacy) 1 each PRN DAILY PRN MC SEE COMMENTS Last administered on 11/25/19at 07:19; Start 11/23/19 at 17:15 Vancomycin HCl (Vancomycin Random Level) 1 each 1X ONCE MC Last administered on 11/25/19at 06:00; Start 11/25/19 at 06:00; Stop 11/25/19 at 06:01; Status DC Quetiapine Fumarate (SEROquel) 50 mg TIDWMEALS PO Last administered on 11/26/19at 13:07; Start 11/24/19 at 08:00 Quetiapine Fumarate (SEROquel) 100 mg QHS PO Last administered on 11/25/19at 21:19; Start 11/24/19 at 21:00 Quetiapine Fumarate (SEROquel) 50 mg 1X PO ; Start 11/23/19 at 21:30; Status Cancel Quetiapine Fumarate (SEROquel) 25 mg 1X ONCE PO ; Start 11/23/19 at 22:45; Stop 11/23/19 at 22:46; Status Cancel Quetiapine Fumarate (SEROquel) 50 mg 1X ONCE PO Last administered on 11/23/19at 23:40; Start 11/23/19 at 23:30; Stop 11/23/19 at 23:31; Status DC Simethicone (Gas-X) 80 mg PRN Q6HRS PRN PO HEARTBURN / GAS; Start 11/24/19 at 00:45 Acetaminophen (Tylenol) 650 mg PRN Q4HRS PRN PO PAIN Last administered on 11/24/19at 20:58; Start 11/24/19 at 04:00 Ascorbic Acid (Vitamin C) 500 mg DAILY PO Last administered on 11/26/19at 10:09; Start 11/24/19 at 09:00 Multivitamins (Thera M Plus) 1 tab DAILY PO Last administered on 11/26/19at 10:09; Start 11/24/19 at 09:00 Lactobacillus Rhamnosus (Culturelle) 1 cap BID PO Last administered on 11/26/19at 10:09; Start 11/24/19 at 21:00 Info (PHARMACY MONITORING -- do not chart) 1 each PRN DAILY PRN MC SEE COMMENTS; Start 11/24/19 at 11:00 Info (PHARMACY MONITORING -- do not chart) 1 each PRN DAILY PRN MC SEE COMMENTS; Start 11/24/19 at 11:00; Status UNV Vancomycin HCl 500 mg/Sodium Chloride 100 ml @ 100 mls/hr QTUTHSA IV ; Start 11/27/19 at 16:00 Lidocaine HCl (Lidocaine 1% 20ml Vial) 20 ml STK-MED ONCE .ROUTE ; Start 11/25/19 at 11:29; Stop 11/25/19 at 11:29; Status DC Lidocaine HCl (Lidocaine 1% 20ml Vial) 20 ml 1X ONCE INJ Last administered on 11/25/19at 11:10; Start 11/25/19 at 11:00; Stop 11/25/19 at 13:09; Status DC Darbepoetin Aashish (ARANESP for DIALYSIS PTS) 60 mcg WEEKLYHS SQ ; Start 11/26/19 at 21:00 Active Scripts Active Tamiflu (Oseltamivir Phosphate) 30 Mg Capsule 1 Cap PO BID Ondansetron Odt (Ondansetron) 4 Mg Tab.rapdis 1 Tab PO PRN Q6-8HRS PRN Isosorbide Mononitrate Er (Isosorbide Mononitrate) 30 Mg Tab.er.24h 2 Tab PO DAILY Reported Seroquel (Quetiapine Fumarate) 100 Mg Tablet 1 Tab PO QHS Ipratropium Magalia 0.2 Mg/1 Ml Solution 0.2 Mg IH PRN Q4HRS Ipratropium Magalia 0.2 Mg/1 Ml Solution 1 Vial NEB QID Gabapentin (Gabapentin) 100 Mg Capsule 200 Mg PO HS Gabapentin (Gabapentin) 100 Mg Capsule 100 Mg PO BIDACBL Miralax (Polyethylene Glycol 3350) 17 Gm Powd.pack 1 Packet PO DAILY dissolve in water Sensipar (Cinacalcet Hcl) 30 Mg Tablet 1 Tab PO DAILY 30 Days Seroquel (Quetiapine Fumarate) 50 Mg Tablet 50 Mg PO TID Diazepam 5 Mg Tablet 5 Mg PO QTUTHSA Carvedilol (Carvedilol) 12.5 Mg Tablet 12.5 Mg PO BIDWMEALS Theragran-M Premier 50+ Caplet (Mv-Mn/Fa/Coq10/Lycopene/Lutein) 1 Each Tablet 1 Each PO DAILY Novolog (Insulin Aspart) 100 Unit/1 Ml Cartridge 5 Unit SQ TIDAC sliding scale 151-200: 2 units 201-250: 4 units 251-300: 6 units 301-349:8 units Diazepam 5 Mg Tablet 5 Mg PO HS Levemir Flextouch (Insulin Detemir) 100 Unit/1 Ml Insuln.pen 20 Unit SQ HS Catapres-Tts 3 (Clonidine) 1 Each Patch.tdwk 1 Each TD WEEKLY Tylenol (Acetaminophen) 325 Mg Tablet 2 Tab PO PRN Q4HRS Simethicone 80 Mg Tab.chew 80 Mg PO PRN Q6HRS PRN Abilify (Aripiprazole) 10 Mg Tablet 10 Mg PO DAILY Losartan Potassium 100 Mg Tablet 100 Mg PO DAILY Maalox Maximum Strength Susp (Mag Hydrox/Al Hydrox/Simeth) 355 Ml Oral.susp 30 Ml PO PRN Q6HRS PRN [place] 3 Fish Oil Softgel ([place]-3 Fatty Acids/Fish Oil) 1 Each Capsule. 1 Each PO DAILY Amlodipine Besylate 10 Mg Tablet 10 Mg PO DAILY Renvela (Sevelamer Carbonate) 800 Mg Tablet 4 Cap PO TIDWMEALS Senna (Sennosides) 8.6 Mg Capsule 2 Cap PO HS Clopidogrel (Clopidogrel Bisulfate) 75 Mg Tablet 75 Mg PO DAILY Atorvastatin Calcium 20 Mg Tablet 20 Mg PO HS Vitals/I & O Vital Sign - Last 24 Hours 11/25/19 11/25/19 11/25/19 11/25/19 18:03 19:30 19:39 23:05 Temp 98.9 98.8 98.9 98.8 Pulse 82 78 75 Resp 18 18 B/P (MAP) 194/77 171/74 (106) 140/63 (88) Pulse Ox 93 93 O2 Delivery Nasal Cannula Room Air Nasal Cannula O2 Flow Rate 2.0 2.0 11/26/19 11/26/19 11/26/19 11/26/19 03:10 07:00 08:00 10:08 Temp 98.3 98.0 98.3 98.0 Pulse 71 69 69 Resp 20 18 B/P (MAP) 167/73 (104) 175/76 (109) 175/76 Pulse Ox 94 98 O2 Delivery Nasal Cannula Nasal Cannula Nasal Cannula O2 Flow Rate 2.0 2.0 2.0 11/26/19 11/26/19 11/26/19 10:09 10:10 11:00 Temp 97.9 97.9 Pulse 69 69 71 Resp 16 B/P (MAP) 175/76 175/76 175/72 (106) Pulse Ox 97 O2 Delivery Room Air O2 Flow Rate 3.0 Intake and Output 11/25/19 11/25/19 11/26/19 15:00 23:00 07:00 Intake Total 360 ml 300 ml 0 ml Output Total 50 ml 0 ml Balance 360 ml 250 ml 0 ml NATHALIE ZAVALETA MD Nov 26, 2019 15:17
[2019-11-26] MEDS ORDERED: INSULIN LISPRO 300 UNITS/3 ML VIAL. SQ ONE (17:45)
[2019-11-26] MEDS ORDERED: INSULIN GLARGINE SYRINGE. SQ ONE (18:00)
[2019-11-26 19:00] VITALS: BP 127/61
--- NOTE | 2019-11-26 19:38 | NUR ---
FACULTY CO-SIGN I have reviewed the documentation by nursing home physician: [facility] student.
[2019-11-26] MEDS: ATORVASTATIN CALCIUM 20 MG TABLET PO SCH (20:59)
[2019-11-26] MEDS: INSULIN GLARGINE SYRINGE. SQ SCH (20:59)
[2019-11-26] MEDS: QUEtiapine 100 MG TABLET. PO SCH (20:59)
[2019-11-26] MEDS ORDERED: DARBEPOETIN ALFA 60 MCG/0.3 ML DISP.SYRIN. SQ SCH (21:00)
[2019-11-26 22:39] VITALS: BP 119/96
[2019-11-26] MEDS: ACETAMINOPHEN 325 MG TABLET. PO PRN (23:03)
--- NOTE | 2019-11-27 01:00 | NUR ---
rectal tube placed at 1999 for continuous watery diarrhea which decreased after insertion of rectal tube. at 0030 patient pulled out rectal tube. mittens were placed on patient to prevent pulling on the patient's IV. The Rectal tube was left out due to patient refused replacement of the rectal tube. Patient has not had another bowel movement since removal of rectal tube. This RN will continue to monitor the patient at this time.
[2019-11-27 02:40] VITALS: BP 153/47
[2019-11-27] MEDS: HEPARIN for SUB-Q USE 5,000 UNIT/ML VIAL. SQ SCH ×3 (06:00→20:26)
[2019-11-27] MEDS: PIPERACILLIN/TAZOBACTAM 2.25 GM in IV NORMAL SALINE 50ML 50 ML IV SCH ×2 (06:03→12:50)
[2019-11-27 07:00] VITALS: BP 199/76
[2019-11-27] MEDS: INSULIN LISPRO 300 UNITS/3 ML VIAL. SQ SCH ×3 (08:00→17:44)
[2019-11-27] MEDS ORDERED: IV NORMAL SALINE 1000ML BAG 1,000 ML IV PRN ×2 (08:12)
--- NOTE | 2019-11-27 08:14 | NUR ---
Chart review done. Spoke w/ RN on floor. Pt has been on bedrest. Is a LTC resident at [place]. Prior notes indicated pt had been indep w/ mobility. Current physician notes indicated to have PT assess for gait due to cerebellar ataxia. Orders not yet received. Pt may benefit from both PT and OT Eval and Treat. Addendum: 11/27/19 at 0815 by SHANE ANG OT Amended: Links added.
[2019-11-27] MEDS ORDERED: ALBUMIN HUMAN 25% 200 ML IV PRN (08:15)
[2019-11-27] MEDS ORDERED: diphenhydrAMINE 50 MG/ML VIAL IV PRN (08:15)
[2019-11-27] MEDS ORDERED: DIALYSIS PATIENT. MC PRN ×2 (08:15)
[2019-11-27 08:50] LABS: HEMATOCRIT 21.9 % (36.0-47.0); HEMOGLOBIN 7.3 g/dL (12.0-15.5); RED BLOOD COUNT 2.31 x10^6/uL (3.50-5.40); WHITE BLOOD COUNT 4.8 x10^3/uL (4.0-11.0)
[2019-11-27 08:57] LABS: CALCIUM 8.3 mg/dL (8.5-10.1); CREATININE 7.9 mg/dL (0.6-1.0); GFR 6.3; POTASSIUM 4.5 mmol/L (3.5-5.1)
[2019-11-27] MEDS: POLYETHYLENE GLYCOL 3350 17 GM PACKET. PO SCH (09:00)
--- NOTE | 2019-11-27 10:11 | NUR ---
SALLY following. Discussed with RN, pt possibly ready to return to [facility] today after dialysis. SALLY awaiting discharge orders. SALLY faxed clinicals to facility. SALLY will continue to follow. Addendum: 11/27/19 at 1504 by FEDERICO ZAVALA SALLY faxed discharge paperwork around 1400, contacted [facility] to advise of pt discharge and request transportation time. SW was transferred to [facility], left [facility]. SALLY [facility] to find out [facility] time. The hand flesher advised the rail transportation tabeler stated pt needs to come back via stretcher. SALLY advised the facility, they would have to arrange the stretcher transportation. SW awaiting transportation time. At the time of this note, pt's sister Jasmin Rodriguez contacted SALLY to ask if any sort of palliative assessment had been done as she had left a voicemail for [employer] (manager social work) when pt was on a different floor requesting a palliative assessment prior to discharge. Jasmin advised she had then spoken with nursing administrative staff supervisor Oly at the weekend however Oly never contact her back. SALLY did not have any notification of a palliative care assessment so notified facility pt's family requesting this. SALLY still awaiting transportation time. SALLY will continue to follow.
--- NOTE | 2019-11-27 11:08 | PDOC ---
Renal-Progress Notes Subjective Notes Notes NOTHING NEW History of Present Illness Hx of present illness NO CHANGE Vitals Vitals Vital Signs Date Time Temp Pulse Resp B/P (MAP) Pulse Ox O2 Delivery O2 Flow Rate FiO2 11/27/19 08:00 Nasal Cannula 11/27/19 07:00 97.7 76 20 199/76 (117) 100 97.7 11/26/19 20:00 2.0 Weight Weight [ ] I.O. Intake and Output Intake and Output 11/27/19 07:00 Intake Total 230 ml Output Total 450 ml Balance -220 ml Intake Oral 180 ml IV Total 50 ml Output Urine Total 50 ml Stool Total 400 ml # Voids 3 # Bowel Movements 4 Labs Labs Laboratory Tests Test 11/26/19 12:12 11/26/19 17:14 11/26/19 20:37 11/27/19 08:06 Glucose (Fingerstick) 214 mg/dL (70-99) 129 mg/dL (70-99) 149 mg/dL (70-99) 112 mg/dL (70-99) Test 11/27/19 08:30 White Blood Count 4.8 x10^3/uL (4.0-11.0) Red Blood Count 2.31 x10^6/uL (3.50-5.40) Hemoglobin 7.3 g/dL (12.0-15.5) Hematocrit 21.9 % (36.0-47.0) Mean Corpuscular Volume 95 fL (79-100) Mean Corpuscular Hemoglobin 32 pg (25-35) Mean Corpuscular Hemoglobin Concent 33 g/dL (31-37) Red Cell Distribution Width 16.0 % (11.5-14.5) Platelet Count 276 x10^3/uL (140-400) Sodium Level 130 mmol/L (136-145) Potassium Level 4.5 mmol/L (3.5-5.1) Chloride Level 93 mmol/L (98-107) Carbon Dioxide Level 27 mmol/L (21-32) Anion Gap 10 (6-14) Blood Urea Nitrogen 28 mg/dL (7-20) Creatinine 7.9 mg/dL (0.6-1.0) Estimated GFR (Cockcroft-Gault) 6.3 Glucose Level 147 mg/dL (70-99) Calcium Level 8.3 mg/dL (8.5-10.1) Micro Micro Microbiology 11/23/19 Blood Culture - Preliminary, Resulted NO GROWTH AFTER 4 DAYS Review of Systems Constitutional: yes: other (ASLEEP) Physical Exam General Appearance: no apparent distress Skin: warm, dry Respiratory: bilateral CTA Heart: S1S2 Abdomen: soft, bowel sounds present Genitourinary: bladder flat Extremities: pulses present Musculoskeletal: Osteoarthritis Assessment Assessment IMP HYPOGLYCEMIA MET ENCEPHALOPATHY ANEMIA ESRD SCHIZOPHRENIA PNEUMONIA PLAN HD TODAY UF TO DW D/C PLANS NOTED ON RADHA RAFAEL OSORIO MD Nov 27, 2019 11:08
[2019-11-27] MEDS: SEVELAMER CARBONATE 800 MG TABLET. PO SCH ×3 (12:00→17:36)
[2019-11-27] MEDS: QUEtiapine 25 MG TABLET. PO SCH ×3 (12:00→17:36)
[2019-11-27 12:25] VITALS: BP 205/91
[2019-11-27] MEDS: LACTOBACILLUS RHAMNOSUS GG 1 CAPSULE. PO SCH ×2 (12:46→20:16)
[2019-11-27] MEDS: ACETAMINOPHEN 325 MG TABLET. PO PRN (12:47)
[2019-11-27] MEDS: ARIPiprazole 5 MG TABLET PO SCH (12:47)
[2019-11-27] MEDS: MULTIVITAMIN with MINERAL TABLET. PO SCH (12:48)
[2019-11-27] MEDS: ISOSORBIDE MONONITRATE ER 30 MG TAB.ER.24H PO SCH (12:48)
[2019-11-27] MEDS: CINACALCET HCL 30 MG TABLET PO SCH (12:48)
[2019-11-27] MEDS: CARVEDILOL 12.5 MG TABLET. PO SCH ×2 (12:49→17:35)
[2019-11-27] MEDS: ASCORBIC ACID 500 MG TABLET PO SCH (12:49)
[2019-11-27] MEDS: amLODIPine BESYLATE 10 MG TABLET PO SCH (12:49)
[2019-11-27] MEDS: CLOPIDOGREL BISULFATE 75 MG TABLET PO SCH (12:49)
[2019-11-27] MEDS ORDERED: LEVO500T59 PO (13:54)
[2019-11-27] MEDS ORDERED: VANC750F2 IV (13:54)
--- NOTE | 2019-11-27 14:01 | SNU/HH DC ---
DISCHARGE ORDERS DISCHARGE INFORMATION: DISCHARGE DATE: Nov 27, 2019 FINAL DIAGNOSIS Problems Medical Problems: (1) Altered mental status Status: Acute (2) Fever Status: Acute (3) Hospital acquired PNA Status: Acute (4) Hypoxia Status: Acute CONDITION ON DISCHARGE: Stable CODE STATUS: Code Status: Full CARE HOME: SNF STAY <30 DAYS: Yes POST DISCHARGE ORDERS: ACTIVITY ORDERS: Resume previous activity WEIGHT BEARING STATUS: As tolerated DIET AFTER DISCHARGE: ADA WOUND/INCISION CARE: Change dressing CHECKS AFTER DISCHARGE: CHECKS AFTER DISCHARGE: Check blood press - daily, Check blood sugar, ac/hs, Weigh Yourself Daily TREATMENT/EQUIPMENT ORDERS: ADAPTIVE EQUIPMENT NEEDED: None Physical Therapy For: Evalulation/Treatment Occupational Therapy For: Evaluation/Treatment Speech Language Pathology For: Swallow Cognition DISCHARGE MEDICATIONS: Home Meds Active Scripts Levofloxacin (LEVAQUIN) 500 Mg Tablet, 1 TAB PO QODAY for AFTER DIALSYSIS, #2 TAB 0 Refills Prov:NATHALIE ZAVALETA MD 11/27/19 Vancomycin/0.9 % Sod Chloride (Vanco 750 mg/150 ml-0.9% NaCl) 750 Mg/150 Ml Froz.piggy, 750 MG IV QODAY for AFTER DIALYSIS, #2 EACH Prov:NATHALIE ZAVALETA MD 11/27/19 Oseltamivir Phosphate (TAMIFLU) 30 Mg Capsule, 1 CAP PO BID, #10 CAP Prov:MUNIRA IRELAND DO 11/10/19 Ondansetron (ONDANSETRON ODT) 4 Mg Tab.rapdis, 1 TAB PO PRN Q6-8HRS PRN for NAUSEA, #15 TAB Prov:SURAJ MUNOZ Jr. DO 09/02/19 Isosorbide Mononitrate (ISOSORBIDE MONONITRATE ER) 30 Mg Tab.er.24h, 2 TAB PO DAILY for hypertension, #30 TAB 5 Refills Prov:ANGELINE BUSTAMANTE MD 03/03/19 Reported Medications Quetiapine Fumarate (SEROQUEL) 100 Mg Tablet, 1 TAB PO QHS for , #30 TAB 1 Refill 11/23/19 Ipratropium [place] (IPRATROPIUM BROMIDE) 0.2 Mg/1 Ml Solution, 0.2 MG IH PRN Q4HRS for sob prn, MISC 11/15/19 Ipratropium [place] (IPRATROPIUM BROMIDE) 0.2 Mg/1 Ml Solution, 1 VIAL NEB QID for sob, #300 ML 5 Refills 11/15/19 Gabapentin (GABAPENTIN ) 100 Mg Capsule, 200 MG PO HS for NEUROGENIC PAIN, CAP 11/15/19 Gabapentin (GABAPENTIN ) 100 Mg Capsule, 100 MG PO BIDACBL for NEUROGENIC PAIN, CAP 11/15/19 Polyethylene Glycol 3350 (MIRALAX) 17 Gm Powd.pack, 1 PACKET PO DAILY for constipation, 0 Refills dissolve in water 11/15/19 Cinacalcet Hcl (SENSIPAR) 30 Mg Tablet, 1 TAB PO DAILY for dialysis for 30 Days, #30 TAB 0 Refills 11/15/19 Quetiapine Fumarate (SEROQUEL) 50 Mg Tablet, 50 MG PO TID for schizophrenia, TAB 11/15/19 Diazepam (DIAZEPAM) 5 Mg Tablet, 5 MG PO QTUTHSA for prior to dialysis, TAB 08/15/19 Carvedilol (CARVEDILOL ) 12.5 Mg Tablet, 12.5 MG PO BIDWMEALS for CARDIAC, TAB 08/15/19 Mv-Mn/Fa/Coq10/Lycopene/Lutein (THERAGRAN-M PREMIER 50+ CAPLET) 1 Each Tablet, 1 EACH PO DAILY for anemia, TAB 05/31/19 Insulin Aspart (NOVOLOG) 100 Unit/1 Ml Cartridge, 5 UNIT SQ TIDAC for dm, EACH sliding scale 151-200: 2 units 201-250: 4 units 251-300: 6 units 301-349:8 units 05/26/19 Diazepam (DIAZEPAM) 5 Mg Tablet, 5 MG PO HS for anxiety, TAB 05/26/19 Insulin Detemir (Levemir Flextouch) 100 Unit/1 Ml Insuln.pen, 20 UNIT SQ HS for DM, SYR 03/01/19 Clonidine (CATAPRES-TTS 3) 1 Each Patch.tdwk, 1 EACH TD WEEKLY for essential HTN, PATCH 03/01/19 Acetaminophen (TYLENOL) 325 Mg Tablet, 2 TAB PO PRN Q4HRS for mild pain, #30 TAB 03/01/19 Simethicone (SIMETHICONE) 80 Mg Tab.chew, 80 MG PO PRN Q6HRS PRN for GAS / BLOATING, TAB.CHEW 12/11/18 Aripiprazole (ABILIFY) 10 Mg Tablet, 10 MG PO DAILY for schizophrenia, TAB 12/11/18 Losartan Potassium (LOSARTAN POTASSIUM) 100 Mg Tablet, 100 MG PO DAILY for cardiac, TAB 10/11/17 Mag Hydrox/Al Hydrox/Simeth (MAALOX MAXIMUM STRENGTH SUSP) 355 Ml Oral.susp, 30 ML PO PRN Q6HRS PRN for INDIGESTION 06/22/16 [place]-3 Fatty Acids/Fish Oil ([place] 3 FISH OIL SOFTGEL) 1 Each Capsule.dr, 1 EACH PO DAILY, CAP 06/22/16 Amlodipine Besylate (AMLODIPINE BESYLATE) 10 Mg Tablet, 10 MG PO DAILY, TAB 06/22/16 Sevelamer Carbonate (RENVELA) 800 Mg Tablet, 4 CAP PO TIDWMEALS for dialysis 09/01/13 Sennosides (SENNA) 8.6 Mg Capsule, 2 CAP PO HS for constipation 09/01/13 Clopidogrel Bisulfate (CLOPIDOGREL) 75 Mg Tablet, 75 MG PO DAILY 09/01/13 Atorvastatin Calcium (ATORVASTATIN CALCIUM) 20 Mg Tablet, 20 MG PO HS 09/01/13 Discontinued Reported Medications Ondansetron (ONDANSETRON ODT) 4 Mg Tab.rapdis, 1 TAB PO PRN Q6-8HRS for nausea, #16 TAB 11/15/19 Quetiapine Fumarate (SEROQUEL) 50 Mg Tablet, 50 MG PO HS for schizo, #2 TAB 03/01/19 Polyethylene Glycol 3350 (MIRALAX) 17 Gm Powd.pack, 1 PACKET PO DAILY, #30 PACKET 3 Refills 06/22/16 NATHALIE ZAVALETA MD Nov 27, 2019 14:00
--- NOTE | 2019-11-27 14:03 | PDOC3 ---
Discharge Summary Visit Information Date of Admission: Nov 23, 2019 Date of Discharge: Nov 27, 2019 Final Diagnosis Acute encephalopathy - 2/2 HCAP, worsening of her baseline psychosis from schizophrenia. Sepsis - 2/2 HCAP HCAP - IV vancomycin, levaquin, zosyn HTN - controlled currently Anemia - of chronic disease Anxiety - will give low dose ativan, valium may not be best for her given her dialysis status and active metabolite H/O CVA - unknown residual deficits. Old left lacunar infarct in corral radiata and BG. Old bilateral cerebellar infarcts. Hypoglycemic encephalopathy with possible seizure Obesity - counseled Chronic cellulitic changes in toes. Diabetes-Type II - will place on sliding scale with hypoglycemia protocol, cut her lantus in half for now High Cholesterol - cont statin End-Stage Renal Disease on HD TuThSa - nephrology consulted Schizophrenia - will cont meds Problems Medical Problems: (1) Altered mental status Status: Acute (2) Fever Status: Acute (3) Hospital acquired PNA Status: Acute (4) Hypoxia Status: Acute Brief Hospital Course Allergies Allergies Coded Allergies Type Severity Reaction Last Updated Verified Sulfa (Sulfonamide Antibiotics) Allergy Intermediate 06/29/16 Yes banana Allergy Intermediate 08/03/17 Yes cranberry Allergy Intermediate 07/14/16 Yes grapefruit Allergy Intermediate 07/14/16 Yes orange juice Allergy Intermediate 08/03/17 Yes tomato Allergy Intermediate 08/03/17 Yes lactose Adverse Reaction Intermediate 08/15/19 Yes Vital Signs Vital Signs Date Time Temp Pulse Resp B/P (MAP) Pulse Ox O2 Delivery O2 Flow Rate FiO2 11/27/19 12:49 76 199/76 11/27/19 12:25 98.1 20 100 Nasal Cannula 2.0 98.1 Lab Results Laboratory Tests Test 11/25/19 16:45 11/25/19 20:46 11/26/19 07:48 11/26/19 12:12 Glucose (Fingerstick) 205 mg/dL (70-99) 197 mg/dL (70-99) 166 mg/dL (70-99) 214 mg/dL (70-99) Test 11/26/19 17:14 11/26/19 20:37 11/27/19 08:06 11/27/19 08:30 Glucose (Fingerstick) 129 mg/dL (70-99) 149 mg/dL (70-99) 112 mg/dL (70-99) White Blood Count 4.8 x10^3/uL (4.0-11.0) Red Blood Count 2.31 x10^6/uL (3.50-5.40) Hemoglobin 7.3 g/dL (12.0-15.5) Hematocrit 21.9 % (36.0-47.0) Mean Corpuscular Volume 95 fL (79-100) Mean Corpuscular Hemoglobin 32 pg (25-35) Mean Corpuscular Hemoglobin Concent 33 g/dL (31-37) Red Cell Distribution Width 16.0 % (11.5-14.5) Platelet Count 276 x10^3/uL (140-400) Sodium Level 130 mmol/L (136-145) Potassium Level 4.5 mmol/L (3.5-5.1) Chloride Level 93 mmol/L (98-107) Carbon Dioxide Level 27 mmol/L (21-32) Anion Gap 10 (6-14) Blood Urea Nitrogen 28 mg/dL (7-20) Creatinine 7.9 mg/dL (0.6-1.0) Estimated GFR (Cockcroft-Gault) 6.3 Glucose Level 147 mg/dL (70-99) Calcium Level 8.3 mg/dL (8.5-10.1) Test 11/27/19 12:57 Glucose (Fingerstick) 115 mg/dL (70-99) Laboratory Tests Test 11/26/19 17:14 11/26/19 20:37 11/27/19 08:06 11/27/19 08:30 Glucose (Fingerstick) 129 mg/dL (70-99) 149 mg/dL (70-99) 112 mg/dL (70-99) White Blood Count 4.8 x10^3/uL (4.0-11.0) Red Blood Count 2.31 x10^6/uL (3.50-5.40) Hemoglobin 7.3 g/dL (12.0-15.5) Hematocrit 21.9 % (36.0-47.0) Mean Corpuscular Volume 95 fL (79-100) Mean Corpuscular Hemoglobin 32 pg (25-35) Mean Corpuscular Hemoglobin Concent 33 g/dL (31-37) Red Cell Distribution Width 16.0 % (11.5-14.5) Platelet Count 276 x10^3/uL (140-400) Sodium Level 130 mmol/L (136-145) Potassium Level 4.5 mmol/L (3.5-5.1) Chloride Level 93 mmol/L (98-107) Carbon Dioxide Level 27 mmol/L (21-32) Anion Gap 10 (6-14) Blood Urea Nitrogen 28 mg/dL (7-20) Creatinine 7.9 mg/dL (0.6-1.0) Estimated GFR (Cockcroft-Gault) 6.3 Glucose Level 147 mg/dL (70-99) Calcium Level 8.3 mg/dL (8.5-10.1) Test 11/27/19 12:57 Glucose (Fingerstick) 115 mg/dL (70-99) Brief Hospital Course Ms. Rodriguez is a 59 old ADMIT with confusion, lethargy on baseline of dementia mult med problems listed above, was sleeping hard, but easy to arouse, no events, vitals improved, cont current treated for pneumonia, will continue 6 more days of abx, dosed after dialysis, Discharge Information Condition at Discharge: Improved Follow Up: Weeks Disposition/Orders: D/C to Another Facility Scheduled Acetaminophen (Tylenol) 325 Mg Tablet, 2 TAB PO PRN Q4HRS for mild pain, #30 (Reported) Entered as Reported by: KAZ GARNER on 03/01/19 0512 Last Action: Reviewed on 11/23/19852 by Lucinda Wolfe Amlodipine Besylate (Amlodipine Besylate) 10 Mg Tablet, 10 MG PO DAILY, (Reported) Entered as Reported by: SUN GUZMÁN on 06/22/16 0429 Last Action: Reviewed on 11/23/19852 by Lucinda Wolfe Aripiprazole (Abilify) 10 Mg Tablet, 10 MG PO DAILY for schizophrenia, (Reported) Entered as Reported by: JENNIFER BERGMAN on 12/11/18 0907 Last Action: Reviewed on 11/23/19852 by Lucinda Wolfe Atorvastatin Calcium (Atorvastatin Calcium) 20 Mg Tablet, 20 MG PO HS, (Reported) Entered as Reported by: MELCHOR GIVENS on 09/01/13 1532 Last Action: Reviewed on 11/23/19852 by Geminee T Mcghee-Fragoso Carvedilol (Carvedilol ) 12.5 Mg Tablet, 12.5 MG PO BIDWMEALS for CARDIAC, (Reported) Entered as Reported by: ROBEL JAFFE on 08/15/19 1346 Last Action: Reviewed on 11/23/19852 by Lucinda Wolfe Cinacalcet Hcl (Sensipar) 30 Mg Tablet, 1 TAB PO DAILY for dialysis for 30 Days, #30 Ref 0 (Reported) Entered as Reported by: Gabby Partida on 11/15/1940 Last Action: Reviewed on 11/23/19852 by Lucinda Wolfe Clonidine (Catapres-Tts 3) 1 Each Patch.tdwk, 1 EACH TD WEEKLY for essential HTN, (Reported) Entered as Reported by: KAZ GARNER on 03/01/19 0512 Last Action: Reviewed on 11/23/19852 by Lucinda Wolfe Clopidogrel Bisulfate (Clopidogrel) 75 Mg Tablet, 75 MG PO DAILY, (Reported) Entered as Reported by: MELCHOR GIVENS on 09/01/13 1532 Last Action: Reviewed on 11/23/19852 by Lucinda Wolfe Diazepam (Diazepam) 5 Mg Tablet, 5 MG PO HS for anxiety, (Reported) Entered as Reported by: MACK MAN on 05/26/19 1439 Last Action: Reviewed on 11/23/19852 by Lucinda Wolfe Diazepam (Diazepam) 5 Mg Tablet, 5 MG PO QTUTHSA for prior to dialysis, ( Reported) Entered as Reported by: ROBEL JAFFE on 08/15/19 1346 Last Action: Reviewed on 11/23/19852 by Lucinda Wolfe Gabapentin (Gabapentin ) 100 Mg Capsule, 100 MG PO BIDACBL for NEUROGENIC PAIN, (Reported) Entered as Reported by: Gabby Partida on 11/15/1940 Last Action: Reviewed on 11/23/19852 by Lucinda Wolfe Gabapentin (Gabapentin ) 100 Mg Capsule, 200 MG PO HS for NEUROGENIC PAIN, (Reported) Entered as Reported by: Gabby Partida on 11/15/1940 Last Action: Reviewed on 11/23/19852 by Lucinda Wolfe Insulin Aspart (Novolog) 100 Unit/1 Ml Cartridge, 5 UNIT SQ TIDAC for dm, (Reported) sliding scale 151-200: 2 units 201-250: 4 units 251-300: 6 units 301-349:8 units Entered as Reported by: MACK MAN on 05/26/19 1443 Last Action: Reviewed on 11/23/19852 by Lucinda Wolfe Insulin Detemir (Levemir Flextouch) 100 Unit/1 Ml Insuln.pen, 20 UNIT SQ HS for DM, (Reported) Entered as Reported by: KAZ GARNER on 03/01/19 0512 Last Action: Reviewed on 11/23/19852 by Lucinda Wolfe Ipratropium [place] (Ipratropium [place]) 0.2 Mg/1 Ml Solution, 1 VIAL NEB QID for sob, #300 Ref 5 (Reported) Entered as Reported by: Gabby Partida on 11/15/1940 Last Action: Reviewed on 11/23/19852 by Lucinda Wolfe Ipratropium [place] (Ipratropium [place]) 0.2 Mg/1 Ml Solution, 0.2 MG IH PRN Q4HRS for sob prn, (Reported) Entered as Reported by: Gabby Partida on 11/15/1940 Last Action: Reviewed on 11/23/19852 by Lucinda Wolfe Isosorbide Mononitrate (Isosorbide Mononitrate Er) 30 Mg Tab.er.24h, 2 TAB PO DAILY for hypertension, #30 Ref 5 Prescribed by: ANGELINE BUSTAMANTE MD on 03/03/19 1256 Last Action: Reviewed on 11/23/19852 by Lucinda Wolfe Levofloxacin (Levaquin) 500 Mg Tablet, 1 TAB PO QODAY for AFTER DIALSYSIS, #2 Ref 0 Prescribed by: NATHALIE ZAVALETA on 11/27/19 1354 Losartan Potassium (Losartan Potassium) 100 Mg Tablet, 100 MG PO DAILY for cardiac, (Reported) Entered as Reported by: CHARISSA MEI on 10/11/17 1200 Last Action: Reviewed on 11/23/19852 by Lucinda Wolfe Mv-Mn/Fa/Coq10/Lycopene/Lutein (Theragran-M [place] 50+ Caplet) 1 Each Tablet, 1 EACH PO DAILY for anemia, (Reported) Entered as Reported by: LOUISE ABERNATHY RN on 05/31/194 [place]-3 Fatty Acids/Fish Oil ([place] 3 Fish Oil Softgel) 1 Each Capsule.dr, 1 EACH PO DAILY, (Reported) Entered as Reported by: SUN GUZMÁN on 06/22/16 0458 Last Action: Reviewed on 11/23/19852 by Lucinda Wolfe Oseltamivir Phosphate (Tamiflu) 30 Mg Capsule, 1 CAP PO BID, #10 Prescribed by: MUNIRA IRELAND D.O. on 11/10/191804 Last Action: HELD on 11/23/19758 by ANGELINE BUSTAMANTE MD Polyethylene Glycol 3350 (Miralax) 17 Gm Powd.pack, 1 PACKET PO DAILY for constipation, Ref 0 (Reported) dissolve in water Entered as Reported by: Gabby Partida on 11/15/1940 Last Action: Edited on 11/24/19320 by ELAINE MELTON RN Quetiapine Fumarate (Seroquel) 50 Mg Tablet, 50 MG PO TID for schizophrenia, (Reported) Entered as Reported by: Gabby Partida on 11/15/1940 Last Action: Reviewed on 11/23/19852 by Lucinda Wolfe Quetiapine Fumarate (Seroquel) 100 Mg Tablet, 1 TAB PO QHS for , #30 Ref 1 (Re ported) Entered as Reported by: ELAINE MELTON RN on 11/23/192120 Last Action: Continued on 11/23/192121 by ELAINE MELTON RN Sennosides (Senna) 8.6 Mg Capsule, 2 CAP PO HS for constipation, (Reported) Entered as Reported by: MELCHOR GIVENS on 09/01/131531 Last Action: Reviewed on 11/23/19852 by Lucinda Wolfe Sevelamer Carbonate (Renvela) 800 Mg Tablet, 4 CAP PO TIDWMEALS for dialysis, (Reported) Entered as Reported by: MELCHOR GIVENS on 09/01/131531 Last Action: Reviewed on 11/23/19852 by Lucinda Wolfe Vancomycin/0.9 % Sod Chloride (Vanco 750 mg/150 ml-0.9% NaCl) 750 Mg/150 Ml Froz.piggy, 750 MG IV QODAY for AFTER DIALYSIS, #2 Prescribed by: NATHALIE ZAVALETA on 11/27/19 1354 Scheduled PRN Mag Hydrox/Al Hydrox/Simeth (Maalox Maximum Strength Susp) 355 Ml Oral.susp, 30 ML PO PRN Q6HRS PRN for INDIGESTION, (Reported) Entered as Reported by: SUN GUZMÁN on 06/22/16457 Last Action: Reviewed on 11/23/19852 by Lucinda Wolfe Ondansetron (Ondansetron Odt) 4 Mg Tab.rapdis, 1 TAB PO PRN Q6-8HRS PRN for NAUSEA, #15 Prescribed by: SURAJ MUNOZ D.O. on 09/02/19 5569 Last Action: Reviewed on 11/23/19852 by Lucinda Wolfe Simethicone (Simethicone) 80 Mg Tab.chew, 80 MG PO PRN Q6HRS PRN for GAS / BLOATING, (Reported) Entered as Reported by: JENNIFER BERGMAN on 12/11/18 0907 Last Action: Edited on 11/24/19320 by ELAINE MELTON RN Discontinued Medications Ondansetron (Ondansetron Odt) 4 Mg Tab.rapdis, 1 TAB PO PRN Q6-8HRS for nausea, #16 (Reported) Entered as Reported by: Gabby Partida on 11/15/19 0041 Last Action: Discontinued on 11/23/19852 by Lucinda Wolfe Polyethylene Glycol 3350 (Miralax) 17 Gm Powd.pack, 1 PACKET PO DAILY, #30 Ref 3 (Reported) Entered as Reported by: SUN GUZMÁN on 06/22/16457 Last Action: Discontinued on 11/23/19852 by Lucinda Wolfe Quetiapine Fumarate (Seroquel) 50 Mg Tablet, 50 MG PO HS for schizo, #2 (Reported) Discontinued Reason: Prescription changed Entered as Reported by: KAZ GARNER on 03/01/19 0512 Last Action: Reviewed on 11/23/19852 by Lucinda Wolfe Patient Instructions Patient Instructions face to face, eating well, complained about the food, > 30 min NATHALIE ZAVALETA MD Nov 27, 2019 14:03
[2019-11-27 15:00] VITALS: BP 163/71
[2019-11-27] MEDS ORDERED: VANCOMYCIN 500 MG in IV NORMAL SALINE 100ML 100 ML IV SCH (16:00)
[2019-11-27] MEDS: VANCOMYCIN 125 MG/2.5 ML ORAL SOLUTION. PO SCH ×2 (17:36→20:16)
[2019-11-27 18:59] VITALS: BP 183/88
[2019-11-27] MEDS ORDERED: MORPHINE SULFATE 2 MG/ML VIAL. IV PRN (20:00)
[2019-11-27] MEDS: ATORVASTATIN CALCIUM 20 MG TABLET PO SCH (20:16)
[2019-11-27] MEDS: QUEtiapine 100 MG TABLET. PO SCH (20:16)
[2019-11-27] MEDS: fentaNYL PF VIAL 100 MCG/2 ML VIAL IV PRN (20:17)
[2019-11-27] MEDS: INSULIN GLARGINE SYRINGE. SQ SCH (21:53)
[2019-11-27 23:00] VITALS: BP 172/86
[2019-11-28] MEDS: fentaNYL PF VIAL 100 MCG/2 ML VIAL IV PRN ×2 (01:16→03:35)
[2019-11-28 03:25] VITALS: BP 170/85
[2019-11-28] MEDS: HEPARIN for SUB-Q USE 5,000 UNIT/ML VIAL. SQ SCH (06:10)
[2019-11-28 07:00] VITALS: BP 207/80
[2019-11-28] MEDS ORDERED: METOPROLOL TART IMMED RELEASE 50 MG TABLET. PO ONE (08:15)
[2019-11-28] MEDS: SEVELAMER CARBONATE 800 MG TABLET. PO SCH ×2 (08:33→12:03)
[2019-11-28] MEDS: ARIPiprazole 5 MG TABLET PO SCH (08:34)
[2019-11-28] MEDS: ISOSORBIDE MONONITRATE ER 30 MG TAB.ER.24H PO SCH (08:34)
[2019-11-28] MEDS: QUEtiapine 25 MG TABLET. PO SCH ×2 (08:34→12:03)
[2019-11-28] MEDS: ASCORBIC ACID 500 MG TABLET PO SCH (08:34)
[2019-11-28] MEDS: CLOPIDOGREL BISULFATE 75 MG TABLET PO SCH (08:35)
[2019-11-28] MEDS: MULTIVITAMIN with MINERAL TABLET. PO SCH (08:35)
[2019-11-28] MEDS: amLODIPine BESYLATE 10 MG TABLET PO SCH (08:35)
[2019-11-28] MEDS: LACTOBACILLUS RHAMNOSUS GG 1 CAPSULE. PO SCH (08:35)
[2019-11-28] MEDS: CARVEDILOL 12.5 MG TABLET. PO SCH (08:35)
[2019-11-28] MEDS: VANCOMYCIN 125 MG/2.5 ML ORAL SOLUTION. PO SCH ×2 (08:35→12:04)
[2019-11-28] MEDS: CINACALCET HCL 30 MG TABLET PO SCH (08:35)
[2019-11-28] MEDS: INSULIN LISPRO 300 UNITS/3 ML VIAL. SQ SCH ×2 (08:51→12:10)
[2019-11-28] MEDS: POLYETHYLENE GLYCOL 3350 17 GM PACKET. PO SCH (09:00)
--- NOTE | 2019-11-28 09:19 | PDOC ---
Infectious Disease Note Vital Sign Vital Signs Vital Signs Date Time Temp Pulse Resp B/P (MAP) Pulse Ox O2 Delivery O2 Flow Rate FiO2 11/28/19 08:35 95 207/80 11/28/19 07:00 98.4 20 100 Nasal Cannula 2.0 98.4 Labs Lab Laboratory Tests Test 11/27/19 12:57 11/27/19 16:53 11/27/19 20:08 11/28/19 07:48 Glucose (Fingerstick) 115 mg/dL (70-99) 289 mg/dL (70-99) 294 mg/dL (70-99) 179 mg/dL (70-99) Micro Microbiology 11/23/19 Blood Culture - Final, Complete NO GROWTH AFTER 5 DAYS Objective Assessment pt seen, consult dictated Plan Plan of Care / JIM DENG MD Nov 28, 2019 09:19
--- NOTE | 2019-11-28 09:42 | CONS ---
DATE OF CONSULTATION: 11/28/2019 REQUESTING PHYSICIAN: Dr. Mckenna. REASON FOR CONSULTATION: C. diff. HISTORY OF PRESENT ILLNESS: This is a 59-year-old -[place] female who is a senior care resident with total care, who was brought in because of altered mental status. Initially, she was diagnosed having healthcare facility associated pneumonia. The patient subsequently developed diarrhea, which is C. diff positive. The patient is currently on levofloxacin and p.o. vancomycin and consult has been requested. The patient is alert, awake. Very simple questions, she is able to answer, although most of time, she is in the "space." No nausea, vomiting, diarrhea noted as per the RN, there is no chest pain, shortness of breath or abdominal pain. The patient does have left calcaneal wound. PAST MEDICAL HISTORY: Positive for diabetes mellitus, hypertension, end-stage renal disease on hemodialysis, schizophrenia, CVA, anemia, anxiety disorder. SOCIAL HISTORY: Negative for smoking, alcohol or illicit drug use. The patient is currently a senior care resident. ALLERGIES: LISTED ALLERGIC TO SULFA. REVIEW OF SYSTEMS: As per HPI, all other systems reviewed. CURRENT MEDICATIONS: Reviewed. PHYSICAL EXAMINATION: GENERAL: Awake female, not in distress. VITAL SIGNS: Stable, afebrile. HEENT: NAD. NECK: Supple. LUNGS: Clear. HEART: S1, S2 regular. ABDOMEN: Benign. EXTREMITIES: Left calcaneal wound. SKIN: Rest of the skin examination unremarkable. NEUROLOGIC: The patient is alert, minimal communication she does and not much of lower extremity use. LABORATORY DATA: White count is 4.8. BUN and creatinine is 28 and 7.9. Stool for C. diff positive. Blood cultures negative. Chest x-ray showed there is mild right base hazy airspace opacity, which has improved. IMPRESSION: 1. Clostridium difficile associated diarrhea. 2. Encephalopathy, not sure what her baseline is now, is this her baseline or she is little bit off than baseline. 3. Schizophrenia. 4. Diabetes. 5. Hypertension. 6. Cerebrovascular accident. 7. End-stage renal disease, on hemodialysis. RECOMMENDATIONS: 1. I would discontinue levofloxacin. 2. Offload left heel and may need debridement. 3. Continue p.o. vancomycin for at least 14 days. 4. Supportive care and consider comfort care/hospice care. Thank you very much, Dr. Mckenna, for giving me the opportunity to participate in this patient's care. JIM DENG MD DR: RAVI/lena JOB#: [id number] / [id number]
[2019-11-28 11:00] VITALS: BP 182/69
--- NOTE | 2019-11-28 11:05 | PDOC ---
Renal-Progress Notes Subjective Notes Notes DIARRHEA History of Present Illness Hx of present illness STABLE Vitals Vitals Vital Signs Date Time Temp Pulse Resp B/P (MAP) Pulse Ox O2 Delivery O2 Flow Rate FiO2 11/28/19 11:00 98.6 78 22 182/69 (106) 96 Nasal Cannula 2.0 98.6 Weight Weight [ ] I.O. Intake and Output Intake and Output 11/28/19 07:00 Intake Total 1040 ml Output Total 200 ml Balance 840 ml Intake Oral 1040 ml Output Urine Total 200 ml # Voids 1 Labs Labs Laboratory Tests Test 11/27/19 12:57 11/27/19 16:53 11/27/19 20:08 11/28/19 07:48 Glucose (Fingerstick) 115 mg/dL (70-99) 289 mg/dL (70-99) 294 mg/dL (70-99) 179 mg/dL (70-99) Micro Micro Microbiology 11/23/19 Blood Culture - Final, Complete NO GROWTH AFTER 5 DAYS Review of Systems Constitutional: yes: other (ASLEEP) Physical Exam General Appearance: no apparent distress Skin: warm, dry Respiratory: bilateral CTA Heart: S1S2 Abdomen: soft, bowel sounds present Genitourinary: bladder flat Extremities: pulses present Musculoskeletal: Osteoarthritis Assessment Assessment IMP HYPOGLYCEMIA MET ENCEPHALOPATHY ANEMIA ESRD SCHIZOPHRENIA PNEUMONIA C DIF PLAN HD TOMORROW ID EVAL AND TX ON RADHA RAFAEL OSORIO MD Nov 28, 2019 11:05
[2019-11-28] MEDS ORDERED: CARVEDILOL 12.5 MG TABLET. PO SCH (11:45)
[2019-11-28 12:03] VITALS: BP 182/69
--- NOTE | 2019-11-28 12:41 | NUR ---
IP: Pt is c.diff + requiring contact plus precautions using brown sign.
--- NOTE | 2019-11-28 13:09 | PDOC ---
PROGRESS NOTES Chief Complaint Chief Complaint new c. diff colitis last night, DC stopped, make sure no diarrhea for DC to facilty, try to DC again soon, abx changed on evening of 11/26, ID consult History of Present Illness History of Present Illness Acute encephalopathy - 2/2 HCAP, worsening of her baseline psychosis from schizophrenia. Sepsis - 2/2 HCAP HCAP - IV vancomycin, levaquin, zosyn HTN - controlled currently Anemia - of chronic disease Anxiety - will give low dose ativan, valium may not be best for her given her dialysis status and active metabolite H/O CVA - unknown residual deficits. Old left lacunar infarct in corral radiata and BG. Old bilateral cerebellar infarcts. Hypoglycemic encephalopathy with possible seizure Obesity - counseled Chronic cellulitic changes in toes. Diabetes-Type II - will place on sliding scale with hypoglycemia protocol, cut her lantus in half for now High Cholesterol - cont statin End-Stage Renal Disease on HD TuThSa - nephrology consulted Schizophrenia - will cont meds D/W RN Vitals Vitals Vital Signs Date Time Temp Pulse Resp B/P (MAP) Pulse Ox O2 Delivery O2 Flow Rate FiO2 11/28/19 12:03 78 182/69 11/28/19 11:00 98.6 22 96 Nasal Cannula 2.0 98.6 Physical Exam General: Alert, Oriented X3, Cooperative, mild distress Heart: Regular rate, Normal S1 Lungs: Clear, Crackles Abdomen: Normal bowel sounds, Soft, No tenderness, No hepatosplenomegaly, No masses Extremities: No clubbing, No cyanosis, No edema, Normal pulses, No tenderness/swelling Skin: No rashes, No breakdown, No significant lesion Labs LABS Laboratory Tests Test 11/27/19 16:53 11/27/19 20:08 11/28/19 07:48 11/28/19 11:38 Glucose (Fingerstick) 289 mg/dL (70-99) 294 mg/dL (70-99) 179 mg/dL (70-99) 201 mg/dL (70-99) Assessment and Plan Assessmemt and Plan Problems Medical Problems: (1) Altered mental status Status: Acute (2) Fever Status: Acute (3) Hospital acquired PNA Status: Acute (4) Hypoxia Status: Acute Comment Review of Relevant I have reviewed the following items los (where applicable) has been applied. Labs Laboratory Tests Test 11/26/19 17:14 11/26/19 19:33 11/26/19 20:37 11/27/19 08:06 Glucose (Fingerstick) 129 mg/dL (70-99) 149 mg/dL (70-99) 112 mg/dL (70-99) Clostridium difficile Toxin B Gene Positive (Negative) Test 11/27/19 08:30 11/27/19 12:57 11/27/19 16:53 11/27/19 20:08 White Blood Count 4.8 x10^3/uL (4.0-11.0) Red Blood Count 2.31 x10^6/uL (3.50-5.40) Hemoglobin 7.3 g/dL (12.0-15.5) Hematocrit 21.9 % (36.0-47.0) Mean Corpuscular Volume 95 fL (79-100) Mean Corpuscular Hemoglobin 32 pg (25-35) Mean Corpuscular Hemoglobin Concent 33 g/dL (31-37) Red Cell Distribution Width 16.0 % (11.5-14.5) Platelet Count 276 x10^3/uL (140-400) Sodium Level 130 mmol/L (136-145) Potassium Level 4.5 mmol/L (3.5-5.1) Chloride Level 93 mmol/L (98-107) Carbon Dioxide Level 27 mmol/L (21-32) Anion Gap 10 (6-14) Blood Urea Nitrogen 28 mg/dL (7-20) Creatinine 7.9 mg/dL (0.6-1.0) Estimated GFR (Cockcroft-Gault) 6.3 Glucose Level 147 mg/dL (70-99) Calcium Level 8.3 mg/dL (8.5-10.1) Glucose (Fingerstick) 115 mg/dL (70-99) 289 mg/dL (70-99) 294 mg/dL (70-99) Test 11/28/19 07:48 11/28/19 11:38 Glucose (Fingerstick) 179 mg/dL (70-99) 201 mg/dL (70-99) Laboratory Tests Test 11/27/19 16:53 11/27/19 20:08 11/28/19 07:48 11/28/19 11:38 Glucose (Fingerstick) 289 mg/dL (70-99) 294 mg/dL (70-99) 179 mg/dL (70-99) 201 mg/dL (70-99) Microbiology 11/23/19 Blood Culture - Final, Complete NO GROWTH AFTER 5 DAYS Medications Current Medications Piperacillin Sod/ Tazobactam Sod 2.25 gm/Sodium Chloride 100 ml @ 200 mls/hr 1X ONCE IV Last administered on 11/23/19at 05:50; Start 11/23/19 at 05:45; Stop 11/23/19 at 06:14; Status DC Vancomycin HCl (Vanco Per Pharmacy) 1 each 1X ONCE MC ; Start 11/23/19 at 06:00; Stop 11/23/19 at 06:04; Status DC Sodium Chloride 250 ml @ 250 mls/hr 1X ONCE IV Last administered on 11/23/19at 05:36; Start 11/23/19 at 05:00; Stop 11/23/19 at 05:59; Status DC Acetaminophen (Tylenol Supp) 650 mg 1X ONCE [place] Last administered on 11/23/19at 05:13; Start 11/23/19 at 05:00; Stop 11/23/19 at 05:07; Status DC Vancomycin HCl 2 gm/Sodium Chloride 500 ml @ 250 mls/hr 1X ONCE IV Last administered on 11/23/19at 06:18; Start 11/23/19 at 06:00; Stop 11/23/19 at 07:59; Status DC Levofloxacin/ Dextrose 150 ml @ 100 mls/hr 1X ONCE IV Last administered on 11/23/19at 06:17; Start 11/23/19 at 06:00; Stop 11/23/19 at 07:29; Status DC Acetaminophen (Tylenol Supp) 650 mg PRN Q6HRS PRN OH FEVER; Start 11/23/19 at 06:00 Piperacillin Sod/ Tazobactam Sod 2.25 gm/Sodium Chloride 50 ml @ 100 mls/hr Q6HRS IV Last administered on 11/27/19at 12:50; Start 11/23/19 at 18:00; Stop 11/27/19 at 16:16; Status DC Vancomycin HCl (Vanco Per Pharmacy) 1 each PRN DAILY PRN MC SEE COMMENTS; Start 11/23/19 at 06:00; Stop 11/23/19 at 06:03; Status DC Dextrose (Dextrose 50%-Water Syringe) 12.5 gm 1X ONCE IV Last administered on 11/23/19 06:13; Start 11/23/19 at 06:15; Stop 11/23/19 at 06:16; Status DC Acetaminophen (Tylenol) 650 mg PRN Q4HRS PO ; Start 11/23/19 at 08:00; Stop 11/24/19 at 03:56; Status DC Amlodipine Besylate (Norvasc) 10 mg DAILY PO Last administered on 11/28/19 08:35; Start 11/23/19 at 09:00 Atorvastatin Calcium (Lipitor) 20 mg HS PO Last administered on 11/27/19 20:16; Start 11/23/19 at 21:00 Carvedilol (Coreg) 12.5 mg BIDWMEALS PO Last administered on 11/28/19 08:35; Start 11/23/19 at 09:00; Stop 11/28/19 at 11:32; Status DC Cinacalcet (Sensipar) 30 mg DAILY PO Last administered on 11/28/19 08:35; Start 11/23/19 at 09:00 Clopidogrel Bisulfate (Plavix) 75 mg DAILY PO Last administered on 11/28/19 08:35; Start 11/23/19 at 09:00 Ipratropium [place] (Atrovent) 0.2 mg PRN Q4HRS PRN IH shortness of breath; Start 11/23/19 at 08:00 Isosorbide Mononitrate (Imdur) 60 mg DAILY PO Last administered on 11/28/19 08:34; Start 11/23/19 at 09:00 Al Hydroxide/Mg Hydroxide (Mylanta Plus Xs) 30 ml PRN Q6HRS PRN PO INDIGESTION; Start 11/23/19 at 08:00 Ondansetron HCl (Zofran Odt) 4 mg PRN Q6HRS PRN PO NAUSEA Last administered on 11/25/19 21:19; Start 11/23/19 at 08:00 Polyethylene Glycol (miraLAX PACKET) 17 gm DAILY PO Last administered on 11/26/19 10:07; Start 11/23/19 at 09:00 Sevelamer Carbonate (Renvela) 3,200 mg TIDWMEALS PO Last administered on 3/11/20at 12:03; Start 11/23/19 at 09:00 Simethicone (Gas-X) 80 mg Q6HRS PO Last administered on 11/23/19at 17:14; Start 11/23/19 at 12:00; Stop 11/24/19 at 00:42; Status DC Aripiprazole (Abilify) 10 mg DAILY PO Last administered on 11/28/19at 08:34; Start 11/23/19 at 09:00 Insulin Glargine (Lantus Syringe) 10 unit QHS SQ Last administered on 11/27/19at 21:53; Start 11/23/19 at 21:00 Quetiapine Fumarate (SEROquel) 50 mg QHS PO Last administered on 11/23/19at 20:57; Start 11/23/19 at 21:00; Stop 11/23/19 at 21:26; Status DC Quetiapine Fumarate (SEROquel) 50 mg TID PO Last administered on 11/23/19at 16:06; Start 11/23/19 at 09:00; Stop 11/23/19 at 21:21; Status DC Levofloxacin/ Dextrose (Levaquin Per Pharmacy) 1 each PRN DAILY PRN MC SEE COMMENTS; Start 11/23/19 at 08:00; Stop 11/28/19 at 12:52; Status DC Heparin Sodium (Porcine) (Heparin Sodium) 5,000 unit Q8HRS SQ Last administered on 11/28/19at 06:10; Start 11/23/19 at 14:00 Insulin Human Lispro (HumaLOG) 0-5 UNITS TIDWMEALS SQ Last administered on 11/28/19at 12:10; Start 11/23/19 at 08:00 Dextrose (Dextrose 50%-Water Syringe) 12.5 gm PRN Q15MIN PRN IV SEE COMMENTS; Start 11/23/19 at 08:00 Levofloxacin/ Dextrose 100 ml @ 100 mls/hr Q48H IV Last administered on 11/27/19at 06:08; Start 11/25/19 at 06:00; Stop 11/28/19 at 12:52; Status DC Vancomycin HCl (Vanco Per Pharmacy) 1 each PRN DAILY PRN MC SEE COMMENTS Last administered on 11/25/19at 07:19; Start 11/23/19 at 17:15; Stop 11/27/19 at 16:17; Status DC Vancomycin HCl (Vancomycin Random Level) 1 each 1X ONCE MC Last administered on 11/25/19at 06:00; Start 11/25/19 at 06:00; Stop 11/25/19 at 06:01; Status DC Quetiapine Fumarate (SEROquel) 50 mg TIDWMEALS PO Last administered on 11/28/19at 12:03; Start 11/24/19 at 08:00 Quetiapine Fumarate (SEROquel) 100 mg QHS PO Last administered on 11/27/19at 20:16; Start 11/24/19 at 21:00 Quetiapine Fumarate (SEROquel) 50 mg 1X PO ; Start 11/23/19 at 21:30; Status Cancel Quetiapine Fumarate (SEROquel) 25 mg 1X ONCE PO ; Start 11/23/19 at 22:45; Stop 11/23/19 at 22:46; Status Cancel Quetiapine Fumarate (SEROquel) 50 mg 1X ONCE PO Last administered on 11/23/19at 23:40; Start 11/23/19 at 23:30; Stop 11/23/19 at 23:31; Status DC Simethicone (Gas-X) 80 mg PRN Q6HRS PRN PO HEARTBURN / GAS; Start 11/24/19 at 00:45 Acetaminophen (Tylenol) 650 mg PRN Q4HRS PRN PO PAIN Last administered on 11/27/19at 12:47; Start 11/24/19 at 04:00 Ascorbic Acid (Vitamin C) 500 mg DAILY PO Last administered on 11/28/19at 08:34; Start 11/24/19 at 09:00 Multivitamins (Thera M Plus) 1 tab DAILY PO Last administered on 11/28/19at 08:35; Start 11/24/19 at 09:00 Lactobacillus Rhamnosus (Culturelle) 1 cap BID PO Last administered on 11/28/19at 08:35; Start 11/24/19 at 21:00 Info (PHARMACY MONITORING -- do not chart) 1 each PRN DAILY PRN MC SEE COMMENTS; Start 11/24/19 at 11:00; Stop 11/28/19 at 12:47; Status DC Info (PHARMACY MONITORING -- do not chart) 1 each PRN DAILY PRN MC SEE COMMENTS; Start 11/24/19 at 11:00; Status UNV Vancomycin HCl 500 mg/Sodium Chloride 100 ml @ 100 mls/hr QTUTHSA IV ; Start 11/27/19 at 16:00; Stop 11/27/19 at 16:17; Status DC Lidocaine HCl (Lidocaine 1% 20ml Vial) 20 ml STK-MED ONCE .ROUTE ; Start 11/25/19 at 11:29; Stop 11/25/19 at 11:29; Status DC Lidocaine HCl (Lidocaine 1% 20ml Vial) 20 ml 1X ONCE INJ Last administered on 11/25/19at 11:10; Start 11/25/19 at 11:00; Stop 11/25/19 at 13:09; Status DC Darbepoetin Aashish (ARANESP for DIALYSIS PTS) 60 mcg WEEKLYHS SQ Last administered on 11/26/19at 20:59; Start 11/26/19 at 21:00 Insulin Human Lispro (HumaLOG) 15 units 1X ONCE SQ ; Start 11/26/19 at 17:45; Stop 11/26/19 at 17:46; Status UNV Insulin Glargine (Lantus Syringe) 45 unit 1X ONCE SQ ; Start 11/26/19 at 18:00; Stop 11/26/19 at 18:01; Status UNV Sodium Chloride 1,000 ml @ 1,000 mls/hr Q1H PRN IV hypotension; Start 11/27/19 at 08:12; Stop 11/27/19 at 14:11; Status DC Albumin Human 200 ml @ 200 mls/hr 1X PRN PRN IV Hypotension; Start 11/27/19 at 08:15; Stop 11/27/19 at 14:14; Status DC Diphenhydramine HCl (Benadryl) 25 mg 1X PRN PRN IV ITCHING; Start 11/27/19 at 08:15; Stop 11/28/19 at 08:14; Status DC Sodium Chloride 1,000 ml @ 400 mls/hr Q2H30M PRN IV PATENCY; Start 11/27/19 at 08:12; Stop 11/27/19 at 20:11; Status DC Info (PHARMACY MONITORING -- do not chart) 1 each PRN DAILY PRN MC SEE COMMENTS; Start 11/27/19 at 08:15 Info (PHARMACY MONITORING -- do not chart) 1 each PRN DAILY PRN MC SEE COMMENTS; Start 11/27/19 at 08:15; Status UNV Vancomycin HCl (Vancomycin Oral Solution) 125 mg [id number] PO Last administered on 11/28/19at 12:04; Start 11/27/19 at 17:00 Morphine Sulfate (Morphine Sulfate) 2 mg PRN Q2HR PRN IV PAIN; Start 11/27/19 at 20:00; Status UNV Lorazepam (Ativan Inj) 1 mg PRN Q4HRS PRN IVP ANXIETY / AGITATION Last administered on 11/28/19at 02:42; Start 11/27/19 at 20:00 Fentanyl Citrate (Fentanyl 2ml Vial) 25 mcg PRN Q2HRS PRN IV PAIN Last administered on 11/28/19at 03:35; Start 11/27/19 at 20:15 Metoprolol Tartrate (Lopressor) 50 mg 1X ONCE PO Last administered on 11/28/19at 08:33; Start 11/28/19 at 08:15; Stop 11/28/19 at 08:16; Status DC Carvedilol (Coreg) 25 mg BIDWMEALS PO Last administered on 11/28/19at 12:03; Start 11/28/19 at 11:45 Active Scripts Active Levaquin (Levofloxacin) 500 Mg Tablet 1 Tab PO QODAY Vanco 750 mg/150 ml-0.9% NaCl (Vancomycin/0.9 % Sod Chloride) 750 Mg/150 Ml Froz.piggy 750 Mg IV QODAY Tamiflu (Oseltamivir Phosphate) 30 Mg Capsule 1 Cap PO BID Ondansetron Odt (Ondansetron) 4 Mg Tab.rapdis 1 Tab PO PRN Q6-8HRS PRN Isosorbide Mononitrate Er (Isosorbide Mononitrate) 30 Mg Tab.er.24h 2 Tab PO DAILY Reported Seroquel (Quetiapine Fumarate) 100 Mg Tablet 1 Tab PO QHS Ipratropium [place] 0.2 Mg/1 Ml Solution 0.2 Mg IH PRN Q4HRS Ipratropium [place] 0.2 Mg/1 Ml Solution 1 Vial NEB QID Gabapentin (Gabapentin) 100 Mg Capsule 200 Mg PO HS Gabapentin (Gabapentin) 100 Mg Capsule 100 Mg PO BIDACBL Miralax (Polyethylene Glycol 3350) 17 Gm Powd.pack 1 Packet PO DAILY dissolve in water Sensipar (Cinacalcet Hcl) 30 Mg Tablet 1 Tab PO DAILY 30 Days Seroquel (Quetiapine Fumarate) 50 Mg Tablet 50 Mg PO TID Diazepam 5 Mg Tablet 5 Mg PO QTUTHSA Carvedilol (Carvedilol) 12.5 Mg Tablet 12.5 Mg PO BIDWMEALS Theragran-M Premier 50+ Caplet (Mv-Mn/Fa/Coq10/Lycopene/Lutein) 1 Each Tablet 1 Each PO DAILY Novolog (Insulin Aspart) 100 Unit/1 Ml Cartridge 5 Unit SQ TIDAC sliding scale 151-200: 2 units 201-250: 4 units 251-300: 6 units 301-349:8 units Diazepam 5 Mg Tablet 5 Mg PO HS Levemir Flextouch (Insulin Detemir) 100 Unit/1 Ml Insuln.pen 20 Unit SQ HS Catapres-Tts 3 (Clonidine) 1 Each Patch.tdwk 1 Each TD WEEKLY Tylenol (Acetaminophen) 325 Mg Tablet 2 Tab PO PRN Q4HRS Simethicone 80 Mg Tab.chew 80 Mg PO PRN Q6HRS PRN Abilify (Aripiprazole) 10 Mg Tablet 10 Mg PO DAILY Losartan Potassium 100 Mg Tablet 100 Mg PO DAILY Maalox Maximum Strength Susp (Mag Hydrox/Al Hydrox/Simeth) 355 Ml Oral.susp 30 Ml PO PRN Q6HRS PRN [place] 3 Fish Oil Softgel ([place]-3 Fatty Acids/Fish Oil) 1 Each Capsule. 1 Each PO DAILY Amlodipine Besylate 10 Mg Tablet 10 Mg PO DAILY Renvela (Sevelamer Carbonate) 800 Mg Tablet 4 Cap PO TIDWMEALS Senna (Sennosides) 8.6 Mg Capsule 2 Cap PO HS Clopidogrel (Clopidogrel Bisulfate) 75 Mg Tablet 75 Mg PO DAILY Atorvastatin Calcium 20 Mg Tablet 20 Mg PO HS Vitals/I & O Vital Sign - Last 24 Hours 11/27/19 11/27/19 11/27/19 11/27/19 15:00 17:35 18:59 20:00 Temp 98.2 98.1 98.2 98.1 Pulse 83 83 80 Resp 16 18 B/P (MAP) 163/71 (101) 163/71 183/88 (119) Pulse Ox 92 100 O2 Delivery Nasal Cannula Nasal Cannula Nasal Cannula O2 Flow Rate 2.0 2.0 2.0 11/27/19 11/27/19 11/27/19 11/28/19 20:17 20:50 23:00 01:16 Temp 98.0 98.0 Pulse 86 Resp 18 B/P (MAP) 172/86 (114) Pulse Ox 95 O2 Delivery Nasal Cannula Nasal Cannula Room Air Room Air O2 Flow Rate 2.0 2.0 11/28/19 11/28/19 11/28/19 11/28/19 01:46 03:25 03:35 04:22 Temp 97.9 97.9 Pulse 88 Resp 18 B/P (MAP) 170/85 (113) Pulse Ox 96 O2 Delivery Room Air Room Air Room Air Room Air 11/28/19 11/28/19 11/28/19 11/28/19 07:00 08:00 08:33 08:34 Temp 98.4 98.4 Pulse 95 95 95 Resp 20 B/P (MAP) 207/80 (122) 207/80 207/80 Pulse Ox 100 O2 Delivery Nasal Cannula Room Air O2 Flow Rate 2.0 11/28/19 11/28/19 11/28/19 11/28/19 08:35 08:35 11:00 12:03 Temp 98.6 98.6 Pulse 95 95 78 78 Resp 22 B/P (MAP) 207/80 207/80 182/69 (106) 182/69 Pulse Ox 96 O2 Delivery Nasal Cannula O2 Flow Rate 2.0 Intake and Output 11/27/19 11/27/19 11/28/19 15:00 23:00 07:00 Intake Total 360 ml 530 ml 150 ml Output Total 100 ml 100 ml Balance 260 ml 530 ml 50 ml NATHALIE ZAVALETA MD Nov 28, 2019 13:09
--- NOTE | 2019-11-28 13:09 | PDOC ---
PROGRESS NOTES Chief Complaint Chief Complaint LATE ENTRY, pt seen 11/26, DC cancelled History of Present Illness History of Present Illness c diff colitis, sepsis Acute encephalopathy - 2/2 HCAP, worsening of her baseline psychosis from schizophrenia. HCAP - IV vancomycin, levaquin, zosyn - will taper off HTN - controlled currently Anemia - of chronic disease Anxiety - will give low dose ativan, valium may not be best for her given her dialysis status and active metabolite H/O CVA - unknown residual deficits. Old left lacunar infarct in corral radiata and BG. Old bilateral cerebellar infarcts. Hypoglycemic encephalopathy with possible seizure Obesity - counseled Chronic cellulitic changes in toes. Diabetes-Type II - will place on sliding scale with hypoglycemia protocol, cut her lantus in half for now High Cholesterol - cont statin End-Stage Renal Disease on HD TuThSa - nephrology consulted Schizophrenia - will cont meds D/W RN Vitals Vitals Vital Signs Date Time Temp Pulse Resp B/P (MAP) Pulse Ox O2 Delivery O2 Flow Rate FiO2 11/28/19 12:03 78 182/69 11/28/19 11:00 98.6 22 96 Nasal Cannula 2.0 98.6 Physical Exam General: Alert, Oriented X3, Cooperative, mild distress Heart: Regular rate, Normal S1 Lungs: Clear, Crackles Abdomen: Normal bowel sounds, Soft, No tenderness, No hepatosplenomegaly, No masses Extremities: No clubbing, No cyanosis, No edema, Normal pulses, No tenderness/swelling Skin: No rashes, No breakdown, No significant lesion Labs LABS Laboratory Tests Test 11/27/19 16:53 11/27/19 20:08 11/28/19 07:48 11/28/19 11:38 Glucose (Fingerstick) 289 mg/dL (70-99) 294 mg/dL (70-99) 179 mg/dL (70-99) 201 mg/dL (70-99) Assessment and Plan Assessmemt and Plan Problems Medical Problems: (1) Altered mental status Status: Acute (2) Fever Status: Acute (3) Hospital acquired PNA Status: Acute (4) Hypoxia Status: Acute Comment Review of Relevant I have reviewed the following items los (where applicable) has been applied. Labs Laboratory Tests Test 11/26/19 17:14 11/26/19 19:33 11/26/19 20:37 11/27/19 08:06 Glucose (Fingerstick) 129 mg/dL (70-99) 149 mg/dL (70-99) 112 mg/dL (70-99) Clostridium difficile Toxin B Gene Positive (Negative) Test 11/27/19 08:30 11/27/19 12:57 11/27/19 16:53 11/27/19 20:08 White Blood Count 4.8 x10^3/uL (4.0-11.0) Red Blood Count 2.31 x10^6/uL (3.50-5.40) Hemoglobin 7.3 g/dL (12.0-15.5) Hematocrit 21.9 % (36.0-47.0) Mean Corpuscular Volume 95 fL (79-100) Mean Corpuscular Hemoglobin 32 pg (25-35) Mean Corpuscular Hemoglobin Concent 33 g/dL (31-37) Red Cell Distribution Width 16.0 % (11.5-14.5) Platelet Count 276 x10^3/uL (140-400) Sodium Level 130 mmol/L (136-145) Potassium Level 4.5 mmol/L (3.5-5.1) Chloride Level 93 mmol/L (98-107) Carbon Dioxide Level 27 mmol/L (21-32) Anion Gap 10 (6-14) Blood Urea Nitrogen 28 mg/dL (7-20) Creatinine 7.9 mg/dL (0.6-1.0) Estimated GFR (Cockcroft-Gault) 6.3 Glucose Level 147 mg/dL (70-99) Calcium Level 8.3 mg/dL (8.5-10.1) Glucose (Fingerstick) 115 mg/dL (70-99) 289 mg/dL (70-99) 294 mg/dL (70-99) Test 11/28/19 07:48 11/28/19 11:38 Glucose (Fingerstick) 179 mg/dL (70-99) 201 mg/dL (70-99) Laboratory Tests Test 11/27/19 16:53 11/27/19 20:08 11/28/19 07:48 11/28/19 11:38 Glucose (Fingerstick) 289 mg/dL (70-99) 294 mg/dL (70-99) 179 mg/dL (70-99) 201 mg/dL (70-99) Microbiology 11/23/19 Blood Culture - Final, Complete NO GROWTH AFTER 5 DAYS Medications Current Medications Piperacillin Sod/ Tazobactam Sod 2.25 gm/Sodium Chloride 100 ml @ 200 mls/hr 1X ONCE IV Last administered on 11/23/19at 05:50; Start 11/23/19 at 05:45; Stop 11/23/19 at 06:14; Status DC Vancomycin HCl (Vanco Per Pharmacy) 1 each 1X ONCE MC ; Start 11/23/19 at 06:00; Stop 11/23/19 at 06:04; Status DC Sodium Chloride 250 ml @ 250 mls/hr 1X ONCE IV Last administered on 11/23/19at 05:36; Start 11/23/19 at 05:00; Stop 11/23/19 at 05:59; Status DC Acetaminophen (Tylenol Supp) 650 mg 1X ONCE [facility] Last administered on 11/23/19at 05:13; Start 11/23/19 at 05:00; Stop 11/23/19 at 05:07; Status DC Vancomycin HCl 2 gm/Sodium Chloride 500 ml @ 250 mls/hr 1X ONCE IV Last administered on 11/23/19at 06:18; Start 11/23/19 at 06:00; Stop 11/23/19 at 07:59; Status DC Levofloxacin/ Dextrose 150 ml @ 100 mls/hr 1X ONCE IV Last administered on 11/23/19at 06:17; Start 11/23/19 at 06:00; Stop 11/23/19 at 07:29; Status DC Acetaminophen (Tylenol Supp) 650 mg PRN Q6HRS PRN VA FEVER; Start 11/23/19 at 06:00 Piperacillin Sod/ Tazobactam Sod 2.25 gm/Sodium Chloride 50 ml @ 100 mls/hr Q6HRS IV Last administered on 11/27/19at 12:50; Start 11/23/19 at 18:00; Stop 11/27/19 at 16:16; Status DC Vancomycin HCl (Vanco Per Pharmacy) 1 each PRN DAILY PRN MC SEE COMMENTS; Start 11/23/19 at 06:00; Stop 11/23/19 at 06:03; Status DC Dextrose (Dextrose 50%-Water Syringe) 12.5 gm 1X ONCE IV Last administered on 11/23/19at 06:13; Start 11/23/19 at 06:15; Stop 11/23/19 at 06:16; Status DC Acetaminophen (Tylenol) 650 mg PRN Q4HRS PO ; Start 11/23/19 at 08:00; Stop 11/24/19 at 03:56; Status DC Amlodipine Besylate (Norvasc) 10 mg DAILY PO Last administered on 11/28/19 08:35; Start 11/23/19 at 09:00 Atorvastatin Calcium (Lipitor) 20 mg HS PO Last administered on 11/27/19at 20:16; Start 11/23/19 at 21:00 Carvedilol (Coreg) 12.5 mg BIDWMEALS PO Last administered on 11/28/19at 08:35; Start 11/23/19 at 09:00; Stop 11/28/19 at 11:32; Status DC Cinacalcet (Sensipar) 30 mg DAILY PO Last administered on 11/28/19at 08:35; Start 11/23/19 at 09:00 Clopidogrel Bisulfate (Plavix) 75 mg DAILY PO Last administered on 11/28/19at 08:35; Start 11/23/19 at 09:00 Ipratropium [place] (Atrovent) 0.2 mg PRN Q4HRS PRN IH shortness of breath; Start 11/23/19 at 08:00 Isosorbide Mononitrate (Imdur) 60 mg DAILY PO Last administered on 11/28/19at 08:34; Start 11/23/19 at 09:00 Al Hydroxide/Mg Hydroxide (Mylanta Plus Xs) 30 ml PRN Q6HRS PRN PO INDIGESTION; Start 11/23/19 at 08:00 Ondansetron HCl (Zofran Odt) 4 mg PRN Q6HRS PRN PO NAUSEA Last administered on 11/25/19 21:19; Start 11/23/19 at 08:00 Polyethylene Glycol (miraLAX PACKET) 17 gm DAILY PO Last administered on 11/26/19at 10:07; Start 11/23/19 at 09:00 Sevelamer Carbonate (Renvela) 3,200 mg TIDWMEALS PO Last administered on 11/28/19at 12:03; Start 11/23/19 at 09:00 Simethicone (Gas-X) 80 mg Q6HRS PO Last administered on 11/23/19at 17:14; Start 11/23/19 at 12:00; Stop 11/24/19 at 00:42; Status DC Aripiprazole (Abilify) 10 mg DAILY PO Last administered on 11/28/19at 08:34; Start 11/23/19 at 09:00 Insulin Glargine (Lantus Syringe) 10 unit QHS SQ Last administered on 11/27/19at 21:53; Start 11/23/19 at 21:00 Quetiapine Fumarate (SEROquel) 50 mg QHS PO Last administered on 11/23/19at 20:57; Start 11/23/19 at 21:00; Stop 11/23/19 at 21:26; Status DC Quetiapine Fumarate (SEROquel) 50 mg TID PO Last administered on 11/23/19at 16:06; Start 11/23/19 at 09:00; Stop 11/23/19 at 21:21; Status DC Levofloxacin/ Dextrose (Levaquin Per Pharmacy) 1 each PRN DAILY PRN MC SEE COMMENTS; Start 11/23/19 at 08:00; Stop 11/28/19 at 12:52; Status DC Heparin Sodium (Porcine) (Heparin Sodium) 5,000 unit Q8HRS SQ Last administered on 11/28/19at 06:10; Start 11/23/19 at 14:00 Insulin Human Lispro (HumaLOG) 0-5 UNITS TIDWMEALS SQ Last administered on 11/28/19at 12:10; Start 11/23/19 at 08:00 Dextrose (Dextrose 50%-Water Syringe) 12.5 gm PRN Q15MIN PRN IV SEE COMMENTS; Start 11/23/19 at 08:00 Levofloxacin/ Dextrose 100 ml @ 100 mls/hr Q48H IV Last administered on 11/27/19at 06:08; Start 11/25/19 at 06:00; Stop 11/28/19 at 12:52; Status DC Vancomycin HCl (Vanco Per Pharmacy) 1 each PRN DAILY PRN MC SEE COMMENTS Last administered on 11/25/19at 07:19; Start 11/23/19 at 17:15; Stop 11/27/19 at 16:17; Status DC Vancomycin HCl (Vancomycin Random Level) 1 each 1X ONCE MC Last administered on 11/25/19at 06:00; Start 11/25/19 at 06:00; Stop 11/25/19 at 06:01; Status DC Quetiapine Fumarate (SEROquel) 50 mg TIDWMEALS PO Last administered on 11/28/19at 12:03; Start 11/24/19 at 08:00 Quetiapine Fumarate (SEROquel) 100 mg QHS PO Last administered on 11/27/19at 20:16; Start 11/24/19 at 21:00 Quetiapine Fumarate (SEROquel) 50 mg 1X PO ; Start 11/23/19 at 21:30; Status Cancel Quetiapine Fumarate (SEROquel) 25 mg 1X ONCE PO ; Start 11/23/19 at 22:45; Stop 11/23/19 at 22:46; Status Cancel Quetiapine Fumarate (SEROquel) 50 mg 1X ONCE PO Last administered on 11/23/19at 23:40; Start 11/23/19 at 23:30; Stop 11/23/19 at 23:31; Status DC Simethicone (Gas-X) 80 mg PRN Q6HRS PRN PO HEARTBURN / GAS; Start 11/24/19 at 00:45 Acetaminophen (Tylenol) 650 mg PRN Q4HRS PRN PO PAIN Last administered on 11/27/19at 12:47; Start 11/24/19 at 04:00 Ascorbic Acid (Vitamin C) 500 mg DAILY PO Last administered on 11/28/19at 08:34; Start 11/24/19 at 09:00 Multivitamins (Thera M Plus) 1 tab DAILY PO Last administered on 11/28/19at 08:35; Start 11/24/19 at 09:00 Lactobacillus Rhamnosus (Culturelle) 1 cap BID PO Last administered on 11/28/19at 08:35; Start 11/24/19 at 21:00 Info (PHARMACY MONITORING -- do not chart) 1 each PRN DAILY PRN MC SEE COMMENTS; Start 11/24/19 at 11:00; Stop 11/28/19 at 12:47; Status DC Info (PHARMACY MONITORING -- do not chart) 1 each PRN DAILY PRN MC SEE COMMENTS; Start 3/7/20 at 11:00; Status UNV Vancomycin HCl 500 mg/Sodium Chloride 100 ml @ 100 mls/hr QTUTHSA IV ; Start 11/27/19 at 16:00; Stop 11/27/19 at 16:17; Status DC Lidocaine HCl (Lidocaine 1% 20ml Vial) 20 ml STK-MED ONCE .ROUTE ; Start 11/25/19 at 11:29; Stop 11/25/19 at 11:29; Status DC Lidocaine HCl (Lidocaine 1% 20ml Vial) 20 ml 1X ONCE INJ Last administered on 11/25/19at 11:10; Start 11/25/19 at 11:00; Stop 11/25/19 at 13:09; Status DC Darbepoetin Aashish (ARANESP for DIALYSIS PTS) 60 mcg WEEKLYHS SQ Last administered on 11/26/19at 20:59; Start 11/26/19 at 21:00 Insulin Human Lispro (HumaLOG) 15 units 1X ONCE SQ ; Start 11/26/19 at 17:45; Stop 11/26/19 at 17:46; Status UNV Insulin Glargine (Lantus Syringe) 45 unit 1X ONCE SQ ; Start 11/26/19 at 18:00; Stop 11/26/19 at 18:01; Status UNV Sodium Chloride 1,000 ml @ 1,000 mls/hr Q1H PRN IV hypotension; Start 11/27/19 at 08:12; Stop 11/27/19 at 14:11; Status DC Albumin Human 200 ml @ 200 mls/hr 1X PRN PRN IV Hypotension; Start 11/27/19 at 08:15; Stop 11/27/19 at 14:14; Status DC Diphenhydramine HCl (Benadryl) 25 mg 1X PRN PRN IV ITCHING; Start 11/27/19 at 08:15; Stop 11/28/19 at 08:14; Status DC Sodium Chloride 1,000 ml @ 400 mls/hr Q2H30M PRN IV PATENCY; Start 11/27/19 at 08:12; Stop 11/27/19 at 20:11; Status DC Info (PHARMACY MONITORING -- do not chart) 1 each PRN DAILY PRN MC SEE COMMENTS; Start 11/27/19 at 08:15 Info (PHARMACY MONITORING -- do not chart) 1 each PRN DAILY PRN MC SEE COMMENTS; Start 11/27/19 at 08:15; Status UNV Vancomycin HCl (Vancomycin Oral Solution) 125 mg [id number] PO Last administered on 11/28/19at 12:04; Start 11/27/19 at 17:00 Morphine Sulfate (Morphine Sulfate) 2 mg PRN Q2HR PRN IV PAIN; Start 11/27/19 at 20:00; Status UNV Lorazepam (Ativan Inj) 1 mg PRN Q4HRS PRN IVP ANXIETY / AGITATION Last administered on 11/28/19at 02:42; Start 11/27/19 at 20:00 Fentanyl Citrate (Fentanyl 2ml Vial) 25 mcg PRN Q2HRS PRN IV PAIN Last administered on 11/28/19at 03:35; Start 11/27/19 at 20:15 Metoprolol Tartrate (Lopressor) 50 mg 1X ONCE PO Last administered on 11/28/19at 08:33; Start 11/28/19 at 08:15; Stop 11/28/19 at 08:16; Status DC Carvedilol (Coreg) 25 mg BIDWMEALS PO Last administered on 11/28/19at 12:03; Start 11/28/19 at 11:45 Active Scripts Active Levaquin (Levofloxacin) 500 Mg Tablet 1 Tab PO QODAY Vanco 750 mg/150 ml-0.9% NaCl (Vancomycin/0.9 % Sod Chloride) 750 Mg/150 Ml Froz.piggy 750 Mg IV QODAY Tamiflu (Oseltamivir Phosphate) 30 Mg Capsule 1 Cap PO BID Ondansetron Odt (Ondansetron) 4 Mg Tab.rapdis 1 Tab PO PRN Q6-8HRS PRN Isosorbide Mononitrate Er (Isosorbide Mononitrate) 30 Mg Tab.er.24h 2 Tab PO DAILY Reported Seroquel (Quetiapine Fumarate) 100 Mg Tablet 1 Tab PO QHS Ipratropium [place] 0.2 Mg/1 Ml Solution 0.2 Mg IH PRN Q4HRS Ipratropium [place] 0.2 Mg/1 Ml Solution 1 Vial NEB QID Gabapentin (Gabapentin) 100 Mg Capsule 200 Mg PO HS Gabapentin (Gabapentin) 100 Mg Capsule 100 Mg PO BIDACBL Miralax (Polyethylene Glycol 3350) 17 Gm Powd.pack 1 Packet PO DAILY dissolve in water Sensipar (Cinacalcet Hcl) 30 Mg Tablet 1 Tab PO DAILY 30 Days Seroquel (Quetiapine Fumarate) 50 Mg Tablet 50 Mg PO TID Diazepam 5 Mg Tablet 5 Mg PO QTUTHSA Carvedilol (Carvedilol) 12.5 Mg Tablet 12.5 Mg PO BIDWMEALS Theragran-M Premier 50+ Caplet (Mv-Mn/Fa/Coq10/Lycopene/Lutein) 1 Each Tablet 1 Each PO DAILY Novolog (Insulin Aspart) 100 Unit/1 Ml Cartridge 5 Unit SQ TIDAC sliding scale 151-200: 2 units 201-250: 4 units 251-300: 6 units 301-349:8 units Diazepam 5 Mg Tablet 5 Mg PO HS Levemir Flextouch (Insulin Detemir) 100 Unit/1 Ml Insuln.pen 20 Unit SQ HS Catapres-Tts 3 (Clonidine) 1 Each Patch.tdwk 1 Each TD WEEKLY Tylenol (Acetaminophen) 325 Mg Tablet 2 Tab PO PRN Q4HRS Simethicone 80 Mg Tab.chew 80 Mg PO PRN Q6HRS PRN Abilify (Aripiprazole) 10 Mg Tablet 10 Mg PO DAILY Losartan Potassium 100 Mg Tablet 100 Mg PO DAILY Maalox Maximum Strength Susp (Mag Hydrox/Al Hydrox/Simeth) 355 Ml Oral.susp 30 Ml PO PRN Q6HRS PRN [place] 3 Fish Oil Softgel ([place]-3 Fatty Acids/Fish Oil) 1 Each Capsule. 1 Each PO DAILY Amlodipine Besylate 10 Mg Tablet 10 Mg PO DAILY Renvela (Sevelamer Carbonate) 800 Mg Tablet 4 Cap PO TIDWMEALS Senna (Sennosides) 8.6 Mg Capsule 2 Cap PO HS Clopidogrel (Clopidogrel Bisulfate) 75 Mg Tablet 75 Mg PO DAILY Atorvastatin Calcium 20 Mg Tablet 20 Mg PO HS Vitals/I & O Vital Sign - Last 24 Hours 11/27/19 11/27/19 11/27/19 11/27/19 15:00 17:35 18:59 20:00 Temp 98.2 98.1 98.2 98.1 Pulse 83 83 80 Resp 16 18 B/P (MAP) 163/71 (101) 163/71 183/88 (119) Pulse Ox 92 100 O2 Delivery Nasal Cannula Nasal Cannula Nasal Cannula O2 Flow Rate 2.0 2.0 2.0 11/27/19 11/27/19 11/27/19 11/28/19 20:17 20:50 23:00 01:16 Temp 98.0 98.0 Pulse 86 Resp 18 B/P (MAP) 172/86 (114) Pulse Ox 95 O2 Delivery Nasal Cannula Nasal Cannula Room Air Room Air O2 Flow Rate 2.0 2.0 11/28/19 11/28/19 11/28/19 11/28/19 01:46 03:25 03:35 04:22 Temp 97.9 97.9 Pulse 88 Resp 18 B/P (MAP) 170/85 (113) Pulse Ox 96 O2 Delivery Room Air Room Air Room Air Room Air 11/28/19 11/28/19 11/28/19 11/28/19 07:00 08:00 08:33 08:34 Temp 98.4 98.4 Pulse 95 95 95 Resp 20 B/P (MAP) 207/80 (122) 207/80 207/80 Pulse Ox 100 O2 Delivery Nasal Cannula Room Air O2 Flow Rate 2.0 11/28/19 11/28/19 11/28/19 11/28/19 08:35 08:35 11:00 12:03 Temp 98.6 98.6 Pulse 95 95 78 78 Resp 22 B/P (MAP) 207/80 207/80 182/69 (106) 182/69 Pulse Ox 96 O2 Delivery Nasal Cannula O2 Flow Rate 2.0 Intake and Output 11/27/19 11/27/19 11/28/19 15:00 23:00 07:00 Intake Total 360 ml 530 ml 150 ml Output Total 100 ml 100 ml Balance 260 ml 530 ml 50 ml NATHALIE ZAVALETA MD Nov 28, 2019 13:09
--- NOTE | 2019-11-28 15:00 | NUR ---
SALLY following. Discussed with RN, pt is ready to discharge back to [facility] today. SALLY notified facility, awaiting transportation time. [facility] notified. Addendum: 11/28/19 at 1503 by FEDERICO ZAVALA [facility] arranged transportation for [id number]. [facility] notified.
--- NOTE | 2019-11-28 15:44 | NUR ---
attempted to call report to [place]. no answer. will continue calling
--- NOTE | 2019-11-28 15:46 | NUR ---
RN was informed picture of wounds were taken on 11/26 and did not have time to look in chart. EMR arrived to [employer] tender patient 20 minutes early. discharge pictures not taken of wounds.
--- NOTE | 2019-11-28 16:24 | NUR ---
pt discharged to [facility] via non emergent EMS. pt stable upon dc. R EJ removed, cath intact. report called to Yandy @ [place]. meds, wounds, and follow up reviewed. pt had $21 in ones at security that was returned to her upon discharge.
== END 2019-11-28 16:26 | disposition home or self-care (01) | DRG 871 ==
LOC: ER 04:30 → 2 SOUTH 06:30 → 5 SOUTH 11-26 19:20
PROVIDERS: ADMIT Internal Medicine; ATTEND Internal Medicine
PROC: 5A1D70Z Performance of Urinary Filtration, Intermittent, Less than 6 Hours Per Day (ICD-10-PCS; 2019-11-26)
PROC: 5A1D70Z Performance of Urinary Filtration, Intermittent, Less than 6 Hours Per Day (ICD-10-PCS; principal; 2019-11-27)
DX: A41.9 Sepsis, unspecified organism (principal); G93.41 Metabolic encephalopathy; N18.6 End stage renal disease; J18.9 Pneumonia, unspecified organism; A04.72 Enterocolitis due to Clostridium difficile, not specified as recurrent; G11.9 Hereditary ataxia, unspecified; I12.0 Hypertensive chronic kidney disease with stage 5 chronic kidney disease or end stage renal disease; J81.1 Chronic pulmonary edema; Z88.2 Allergy status to sulfonamides; Z88.8 Allergy status to other drugs, medicaments and biological substances; Z91.018 Allergy to other foods; D63.8 Anemia in other chronic diseases classified elsewhere; E11.22 Type 2 diabetes mellitus with diabetic chronic kidney disease; E11.649 Type 2 diabetes mellitus with hypoglycemia without coma; E66.9 Obesity, unspecified; E78.00 Pure hypercholesterolemia, unspecified; E78.5 Hyperlipidemia, unspecified; F03.90 Unspecified dementia, unspecified severity, without behavioral disturbance, psychotic disturbance, mood disturbance, and anxiety; F20.9 Schizophrenia, unspecified; F41.9 Anxiety disorder, unspecified; R09.02 Hypoxemia; Y95 Nosocomial condition; Z82.49 Family history of ischemic heart disease and other diseases of the circulatory system; Z86.73 Personal history of transient ischemic attack (TIA), and cerebral infarction without residual deficits; Z87.440 Personal history of urinary (tract) infections; Z87.891 Personal history of nicotine dependence; Z90.710 Acquired absence of both cervix and uterus; Z99.2 Dependence on renal dialysis; E21.3 Hyperparathyroidism, unspecified; K21.9 Gastro-esophageal reflux disease without esophagitis; M19.90 Unspecified osteoarthritis, unspecified site; I25.2 Old myocardial infarction; Z79.899 Other long term (current) drug therapy; Z68.31 Body mass index [BMI] 31.0-31.9, adult
CPT/HCPCS: 36415; 71045; 80048; 80053; 80202; 81001; 82553; 82962; 83605; 83880; 84145; 84484; 85007; 85025; 85027; 85610; 85730; 87040; 87493; 87804; 93005; 96365; 96368; 96375; J0882; J1644; J1815; J1956; J2060; J2543; J3010; J3370; J3490; J7040; J7042; J7050; 92526; 92610; 99285-25; G0378; J7030; Q0162

== ENCOUNTER 2021-03-30 19:02 | Emergency (ER) | payer MEDICARE, OTHER ==
[~2021-03-30] VITALS: Ht 149.9 cm; Wt 82.0 kg
[~2021-03-30 19:02] MED LIST changes: +AMLO-187 PO; -AMLO10TA8 PO; -CINA30TA2 PO; +CINA30TA24 PO; -CIPR500T PO; +CIPR500T2 PO; -ISOS30TA4 PO; +ISOS30TA68 PO; +LEVO500T59 PO; +LOPE2CAP PO; +LORA-434 PO; +OLAN10TA9 PO; -PHEN28OI RC; +PHEN28OI8 RC; +PSEU-57 PO; -PSEU30TA24 PO; +QUET100T4 PO; +QUET200T4 PO; +SENN-182 PO; -SENN-80 PO; +VANC125C3 PO; +VANC750F2 IV; +[UNRECOGNIZED DRUG - CODE] PO; -[UNRECOGNIZED DRUG - CODE] PO
--- NOTE | 2021-03-30 19:46 | PHYS DOC ---
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 with a chief complaint of a stumble and fall. Patient reports approximately 30 to 40 minutes ago she tripped over something on the floor and fell forward hitting her nose and right brow on the ground. Patient denies loss of consciousness, reports her pain a 3 out of 10. Complains of pain to the right brow, nose, neck and head. Patient denies any dizziness or syncopal episodes, denies vision changes. Patient denies chest pain or shortness of breath, denies chest palpitations, denies increased thirst or increased urination. Denies nausea or vomiting since the fall, patient denies any other physical complaints or physical concerns. States she is completed her COVID-19 vaccinations. Patient reports her last tetanus immunization was less than 5 years ago. Reported health history from [facility], chronic UTIs, essential hypertension, CVA, schizophrenia, ESRD with hemodialysis, type 2 diabetes, anemia, anxiety disorder, arthroscopies, insomnia, repeated falls, history of falls, chronic swelling, shortness of breath, diarrhea, PVD, gait abnormalities, vitamin deficiencies, angina, nasal congestion, epigastric pain, nausea, flatulence, fevers, pains, constipation, hyperlipidemia, STEMI in 2018. (CIARA IBRAHIM APRN) Review of Systems: Review of Systems: 14 body systems of review of systems have been reviewed. See HPI for pertinent positives and negative responses, otherwise all other systems are negative, nonpertinent or noncontributory. Constitutional: Negative except as outlined in HPI above. Skin: Negative except as outlined in HPI above. Eyes: Negative except as outlined in HPI above. HENT: Negative except as outlined in HPI above. Respiratory: Negative except as outlined in HPI above. Cardiovascular: Negative except as outlined in HPI above. GI: Negative except as outlined in HPI above. : Negative except as outlined in HPI above. Musculoskeletal: Negative except as outlined in HPI above. Integument: Negative except as outlined in HPI above. Neurologic: Negative except as outlined in HPI above. Endocrine: Negative except as outlined in HPI above. Lymphatic: Negative except as outlined in HPI above. Psychiatric: Negative except as outlined in HPI above. (CIARA IBRAHIM APRN) Heart Score: C/O Chest Pain: No Risk Factors: Risk Factors: DM, Current or recent (<one month) smoker, HTN, HLP, family history of CAD, obesity. Risk Scores: Score 0 - 3: 2.5% MACE over next 6 weeks - Discharge Home Score 4 - 6: 20.3% MACE over next 6 weeks - Admit for Clinical Observation Score 7 - 10: 72.7% MACE over next 6 weeks - Early Invasive Strategies (CIARA IBRAHIM APRN) C/O Chest Pain: N/A (SANDY BAIG DO) Current Medications: Medication list from [facility]: Acetaminophen 325 mg twice daily, amlodipine 10 mg daily, atorvastatin 20 mg daily, carvedilol 12.5 mg tw ice daily, Catapres 0.3 mg per 24-hour transdermal nightly, DuoNeb treatments 4 times daily, detemir insulin 12 units nightly, isosorbide ER 60 mg daily, loperamide 2 mg as needed diarrhea, lorazepam 1 mg as needed daily, losartan 100 mg daily, magnesium hydroxide suspension 2400 mg/10 mill give 30 mils by mouth as needed for bowel management, MiraLAX 17 g daily, NovoLog 5 units before meals, NovoLog sliding scale, olanzapine 10 mg daily, omega-3 supplement daily, ondansetron 4 mg as needed, Plavix 75 mg daily, Renvela 800 mg 4 times daily, Sensipar 30 mg daily, Seroquel 200 mg 3 times daily. (CIARA IBRAHIM APRN) Allergies: Allergies: Allergies Coded Allergies Type Severity Reaction Last Updated Verified Sulfa (Sulfonamide Antibiotics) Allergy Intermediate 06/29/16 Yes banana Allergy Intermediate 08/03/17 Yes cranberry Allergy Intermediate 07/14/16 Yes grapefruit Allergy Intermediate 07/14/16 Yes orange juice Allergy Intermediate 08/03/17 Yes tomato Allergy Intermediate 08/03/17 Yes lactose Adverse Reaction Intermediate 08/15/19 Yes (CIARA IBRAHIM APRN) Physical Exam: PE: Constitutional: Well developed, well nourished, no acute distress, non-toxic appearance. 60-year-old female in no apparent distress. HENT: Normocephalic, contusion to right brow, bridge of nose, skin intact, no bleeding appreciated. Oropharynx moist, pink, no infectious process ap preciated, there is no malocclusion, no drooling, no trismus. No crepitus appreciated on bony exam of head and face, no skull depressions or skull contusions appreciated. Eyes: Conjunctiva normal, no discharge. PERRLA, satisfactory 6 cardinal eye movements. Neck: Normal range of motion, no stridor. Pain to palpation along right side of C-spine. No C-spine tenderness, no step-offs, no crepitus appreciated, no swelling or edema of the neck appreciated. Cardiovascular: No cyanosis appreciated, distal cap refill less than 2 seconds. Lungs & Thorax: Patient is in no respiratory distress, no audible adventitious lung sounds appreciated. Abdomen: Nontender, no abnormalities noted. Skin: Warm, dry, no erythema, no rash. Back: No tenderness, no deformities. Extremities: No tenderness, no cyanosis, no clubbing, ROM intact, no edema. Neurologic: Alert and oriented X 3, normal motor function, normal sensory function, no focal deficits noted. Psychologic: Affect normal, judgement normal, mood normal. (CIARA IBRAHIM APRN) EKG: EKG: [] (CIARA IBRAHIM APRN) Radiology/Procedures: Radiology/Procedures: [] (CIARA IBRAHIM APRN) Course & Med Decision Making: Course & Med Decision Making Pertinent Labs and Imaging studies reviewed. (See chart for details) 60-year-old female, vital signs reviewed, presents from [facility] after a stumble and fall in which she struck her right brow and nose. Physical examination concerning for possible C HI, patient is on Plavix. Will order CT head/facial bones/C-spine without contrast. Patient given 1 g Tylenol for pain of 3 out of 10. Imaging unremarkable, no bleeding in the brain, no fractures of the head facial bones or C-spine appreciated per house radiologist interpretation. Discussed findings with patient, will send patient back to [facility]. DC instructions reviewed with ED RN and patient, written instructions will be sent home with patient to [facility] staff. (CIARA IBRAHIM APRN) Course & Med Decision Making Patients Care and treatment plan provided by ER Nurse Practitioner. I was available for consult. Patient's chart reviewed. (SANDY BAIG DO) Dragon Disclaimer: Dragon Disclaimer: This electronic medical record was generated, in whole or in part, using a voice recognition dictation system. (CIARA IBRAHIM APRN) Departure Departure Impression: Primary Impression: Fall Qualified Codes: W19.XXXA - Unspecified fall, initial encounter Additional Impressions: Contusion of face Qualified Codes: S00.83XA - Contusion of other part of head, initial encounter Neck pain Disposition: HOME / SELF CARE / HOMELESS Condition: GOOD Referrals: STAR BARBA MD (PCP) Additional Instructions: You were seen today in the emergency department for a stumble and fall, a CT scan of your facial bones, head, and cervical spine were performed, there were no concerning findings of a brain bleed, or broken bones. You were given 1 g of Tylenol today in the emergency department for pains. Please use ice packs to your sore areas 30 minutes on and 30 minutes off while awake. Please return to the emergency department for worsening symptoms or other concerns, please follow-up with your primary care physician for ongoing pain management. It was a pleasure taking care of you today in the emergency department and I thank you for allowing me to participate in your emergency healthcare needs. EMERGENCY DEPARTMENT GENERAL DISCHARGE INSTRUCTIONS Thank you for coming to [facility] Emergency Department (ED) today and trusting us with you care. We trust that you had a positive experience in our Emergency Department. If you wish to speak to the department management, you may call the Director at [phone]. YOUR FOLLOW UP INSTRUCTIONS ARE FOLLOWS: 1. Do you have a private Doctor? If you do not have a private doctor, please ask for a resource list of physicians or clinics that may be able to assist you with follow up care. 2. The Emergency Physicain has interpreted your x-rays. The X-Ray specialist will also review them. If there is a change in the findings, you will be notified in 48 hours when at all possible. 3. A lab test or culture has been done, your results will be reviewed and you will be notified if you need a change in treatment. ADDITIONAL INSTRUCTIONS AND INFORMATION: 1. Your care today has been supervised by a physician who is specially trained in emergency care. Many problems require more than one evaluation for a complete diagnosis and treatment. We recommend that you schedule your follow up appointment as recommended to ensure complete treatment of you illness or injury. If you are unable to obtain follow up care and continue to have a problem, or if your condition worsens, we recommend that you return to the ED. 2. We are not able to safely determine your condition over the phone nor are we able to give sound medical advice over the phone. For these safety reasons, if you call for medical advice we will ask you to come to the ED for further evaluation. 3. If you have any questions regarding these discharge instructions please call the ED at [phone]. SAFETY INFORMATION: In the interest of safety, wellness, and injury prevention; we encourage you to wear your sealbelt, if you smoke; quite smoking, and we encourage family to use a protective helmet for bicycling and other sporting events that present an increased risk for head injury. IF YOUR SYMPTOMS WORSEN OR NEW SYMPTOMS DEVELOP, OR YOU HAVE CONCERNS ABOUT YOUR CONDITION; OR IF YOUR CONDITION WORSENS WHILE YOU ARE WAITING FOR YOUR FOLLOW UP APPOINTMENT; EITHER CONTACT YOUR PRIMARY CARE DOCTOR, THE PHYSICIAN WHOSE NAME AND NUMBER YOU WERE GIVEN, OR RETURN TO THE ED IMMEDIATELY. CIARA IBRAHIM APRN Mar 30, 2021 19:46 SANDY BAIG DO Apr 02, 2021 03:45
[2021-03-30 20:03] VITALS: BP 115/49
--- NOTE | 2021-03-30 20:11 | RAD ---
Examination: CT head, facial bones, cervical spine without contrast CT HEAD INDICATION: Reason: Fall with neck pain, head pain, right brow pain, on Plavix / Spl. Instructions: / History: COMPARISON: 02/16/2021. Exposure: One or more of the following individualized dose reduction techniques were utilized for thi s examination: 1. Automated exposure control 2. Adjustment of the mA and/or kV according to patient size 3. Use of iterative reconstruction technique TECHNIQUE: 5 mm contiguous axial images were obtained from the skull base to the vertex in both bone and soft tissue algorithm. FINDINGS: No abnormal attenuation within the brain parenchyma. Encephalomalacia left cerebellum similar to prio r exam. No evidence of acute intracranial hemorrhage. No extra-axial fluid collections. No mass effect or midline shift. Ventricular size is appropriate. Basal cisterns are patent. No fractures identified.Sung-white differentiation is preserved.Globes and orbits are within normal l imits. Small mucous retention cyst right maxillary sinus.. CT CERVICAL SPINE INDICATION: Reason: Fall with neck pain, head pain, right brow pain, on Plavix / Spl. Instructions: / History: COMPARISON: None Available. Technique: 2.5 mm contiguous axial images were obtained from the skull base through the cervicothorac ic junction in both bone and soft tissue algorithm. Additional sagittal and coronal reconstructions were also performed. FINDINGS: Vertebral body height and alignment are maintained. Cervical lordosis is preserved. The l ateral masses of C1 are aligned upon C2. No fractures identified. The bony canal is patent throughout. Mild intervertebral disc height loss identified cervical spine throughout likely degenerative changes . The paraspinous soft tissues are unremarkable. Visualized intracranial contents are unremarkable. L maury apices are clear. EXAM: CT FACIAL BONES WITHOUT CONTRAST History: Reason: Fall with neck pain, head pain, right brow pain, on Plavix / Spl. Instructions: / H istory: COMPARISON: None TECHNIQUE: Noncontrast images of the facial bones are performed. Coronal and sagittal reformatted melissa ges are also presented for interpretation. FINDINGS: No fracture, dislocation or other acute bony abnormality is identified. . The paranasal sinuses and mastoid air cells are clear, without air-fluid levels. Mild soft tissue swe lling right lateral forehead region. The globes and orbits are intact in CT appearance. There is no retrobulbar hematoma. IMPRESSION: 1.No acute intracranial findings.Mild soft tissue swelling right lateral forehead region. Correlate c linically. 2.No acute fracture of the cervical spine. Mild degenerative changes cervical spine. 3.No acute facial bone fracture. Electronically signed by: Scout Reid MD (03/30/2021 8:08 PM) [id number]
[2021-03-30] MEDS ORDERED: ACETAMINOPHEN 500 MG TABLET PO ONE (20:45)
== END 2021-03-30 22:15 | disposition home or self-care (01) ==
LOC: ER 19:02
DX: S00.83XA Contusion of other part of head, initial encounter (principal); M54.2 Cervicalgia; J34.89 Other specified disorders of nose and nasal sinuses; E78.00 Pure hypercholesterolemia, unspecified; F20.9 Schizophrenia, unspecified; E11.22 Type 2 diabetes mellitus with diabetic chronic kidney disease; I12.0 Hypertensive chronic kidney disease with stage 5 chronic kidney disease or end stage renal disease; N18.6 End stage renal disease; Z99.2 Dependence on renal dialysis; I25.2 Old myocardial infarction; Z87.891 Personal history of nicotine dependence; Z88.2 Allergy status to sulfonamides; Z91.018 Allergy to other foods; Z91.011 Allergy to milk products; Z88.8 Allergy status to other drugs, medicaments and biological substances; W18.39XA Other fall on same level, initial encounter; Y93.89 Activity, other specified; Y92.89 Other specified places as the place of occurrence of the external cause; Y99.8 Other external cause status
CPT/HCPCS: 70450; 70486; 72125; 82962; 99285-25